=== PATIENT | female | born 1995 | race Caucasian/White ===

== ENCOUNTER → 2025-07-03 | Outpatient (CLI) | payer OTHER, SELFPAY ==
[2025-07-03 08:54] LABS: Glucose GTT-Gestation. Fasting 81 mg/dL (<105)
[2025-07-03 12:19] LABS: Glucose GTT-Gestational 2 Hr 140 mg/dL (<165)
[2025-07-03 12:39] LABS: Glucose GTT-Gestational 1 Hr 151 mg/dL (<190)
[2025-07-03 13:18] LABS: Glucose GTT-Gestational 3 Hr 100 L (<145)
== END | disposition home or self-care (01) ==
LOC: LAB 08:11
PROVIDERS: Referring Provider Advanced Practice Midwife; Visit Provider Advanced Practice Midwife
DX: Z13.1 Encounter for screening for diabetes mellitus (principal)
CPT/HCPCS: 36415; 82951; 82952

== ENCOUNTER → 2025-07-10 | Outpatient (CLI) | payer OTHER, SELFPAY ==
[2025-07-10 17:02] LABS: ROM Internal Control Test YES-OK TO RESULT pt. (Internal QC); ROM Patient Test Negative (Negative)
[2025-07-10 17:03] LABS: Record Kit Lot#, ROM+ K3358
--- OUTSIDE RECORDS SUMMARY | 2025-07-10 18:33 | XMS RPT_ITS | CCD ---
Author Organization [facility] Care Team Providers Care Logistics System Engineer Name Role Phone CRISTO MELARA ROMÁN Candi Primary Care Physician [phone] LOPEZ CARDOZON-CNRolo, BELKYS Rodriguez Attending Ashley vailable CRISTO DO, ROMÁN W Primary Care Unavailable CRISTO DO, ROMÁN W Primary Care Unavailable AGARWAL RURAL ELECTRIFICATION ENGINEER-CNM, ANA Rodriguez Attending Unavai lablizzy ESCALANTE RURAL ELECTRIFICATION ENGINEER-CNM, BELKYS Rodriguez Attending Ashley vailable CRISTO DO, ROMÁN W Primary Care Unavailable CRISTO DO, ROMÁN W Primary Care Unavailable AGARWAL RURAL ELECTRIFICATION ENGINEER-CNM, ANA Rodriguez Attending Unavai lable CRISTO DO, ROMÁN W Primary Care Unavailable AGARWAL RURAL ELECTRIFICATION ENGINEER-CNM, ANA Rodriguez Attending Unavai lable CRISTO DO, ROMÁN W Primary Care Unavailable AGARWAL RURAL ELECTRIFICATION ENGINEER-CNM, ANA Rodriguez Attending Unavai lable CRISTO DO, ROMÁN W Primary Care Unavailable AGARWAL RURAL ELECTRIFICATION ENGINEER-CNM, ANA Rodriguez Attending Unavai lable CRISTO DO, ROMÁN W Primary Care Unavailable AGARWAL RURAL ELECTRIFICATION ENGINEER-CNM, ANA Rodriguez Attending Unavai lable LOPEZ RURAL ELECTRIFICATION ENGINEER-CNM, BELKYS Rodriguez Attending Ashley vailable CRISTO DO, ROMÁN W Primary Care Unavailable CRISTO DO, ROMÁN W Primary Care Unavailable AGARWAL RURAL ELECTRIFICATION ENGINEER-CNM, ANA Rodriguez Attending JOHN Herrera DO Admitting Unavailab JOHN Timmons DO Attending Unavailab le CRISTO DO, ROMÁN W Primary Care Unavailable ALETHEA LEYVA Attending Unavailable ALETHEA LEYVA Referring Unavailable CristoRomán rose DO Primary Care Provider Unavailable Primary Care Provider Unavailmeet LEMONS DO ROMÁN Candi Primary Care Physician CRISTO DO, ROMÁN W Primary Care Unavailable [facility], PHYSICIAN Referring Unavailable RANDY MELARA, DR LUIS EDUARDO Machado Attending Unavailable ANY RURAL ELECTRIFICATION ENGINEER-CNM, ANA Rodriguez Attending Unavai travis CRISTO DO, ROMÁN W Primary Care Unavailable LOPEZ RURAL ELECTRIFICATION ENGINEER-VILMA, BELKYS Rodriguez Attending Ashley vailable CRISTO DO, ROMÁN W Primary Care Unavailable LOPEZ RURAL ELECTRIFICATION ENGINEER-CNM, BELKYS Rodriguez Attending Ashley vailable CRISTO DO, ROMÁN W Primary Care Unavailable CRISTO DO, ROMÁN W Primary Care Unavailable ESCALANTE RURAL ELECTRIFICATION ENGINEER-CNM, BELKYS Rodriguez Attending Ashley vailable CRISTO DO, ROMÁN W Primary Care Unavailable LOPEZ CARDOZON-CNM, BELKYS Rodriguez Attending Ashley vailable Chase ESPARZA, Angely Attending Physician Chase ESPARZA, Angely Referring Provider [phone] Care Physician, No Primary Primary Care Olga n Unavailable Angely Stone Attending Unavailable Care Physician, No Primary Primary Care Unava ilable Raiza Carl Attending Unavailabl e Angely Stone Referring Unavailable Angely Stone Attending Unavailable Care Physician, No Primary Primary Care Unava ilable Medications Current Medications Medication Drug Class(es) Dates Sig (Normalized) Sig (Original) acetaminophen 325 mg oral capsule (5 sources) Start: 04-29-2023 Tylenol 325 mg oral capsule Dose : 650 mg =, Oral, q6h, PRN Pain, scale 1-3, 0 Refill(s) Start Date: 04/29/23 Status: Ordered Repeat number: 1 ascorbic acid 500 mg oral capsule (4 sources) Vitamin C Start: 06-22-2025 Start: 04-29-2025 Vitamin C qDay , 0 Refill(s) Start Date: 04/29/25 Status: Ordered Medication Dispense Status: Completed Total Allowed Fills: 1 Fills Dispensed: 0 Start: 04-29-2025 Vitamin C qDay , 0 Refill(s) Start Date: 04/29/25 Status: Ordered Repeat number: 1 aspirin 81 mg oral tablet (2 sources) Platelet Aggregation Inhibitor, Nonsteroidal Anti-inflammatory Drug Start: 06-22-2025 take 1 tablet by mouth once daily Calcium Gluconate 50 mg calcium capsule (2 sources) Start: 06-22-2025 docusate sodium 100 mg oral capsule (5 sources) Start: 04-29-2023 Colace 100 mg oral capsule Dose : 100 mg = 1 cap(s), Oral, BID, PRN Constipation, 0 Refill(s) Start Date: 04/29/23 Status: Ordered Repeat number: 1 ibuprofen 600 mg oral tablet (5 sources) Nonsteroidal Anti-inflammatory Drug Start: 04-29-2023 Motrin Dose : 600 mg = 1 tab(s), Oral, q6h, PRN uterine cramping, 0 Refill(s) Start Date: 04/29/23 Status: Ordered Repeat number: 1 Magnesium (2 sources) Start: 06-22-2025 take 1 tablet by mouth once daily magnesium citrate 85 MG Chewable Tablet (2 sources) Start: 04-29-2025 magnesium (as citrate) 85 mg oral tablet, chewable Dose : 170 mg = 2 tab(s), Oral, qDay, # 60 tab(s), 0 Refill(s) Start Date: 04/29/25 Status: Ordered Medication Dispense Status: Completed Quantity: 60.0 Unit: tab(s) Total Allowed Fills: 1 Fills Dispensed: 0 Start: 04-29-2025 magnesium (as citrate) 85 mg oral tablet, chewable Dose : 170 mg = 2 tab(s), Oral, qDay, # 60 tab(s), 0 Refill(s) Start Date: 04/29/25 Status: Ordered Quantity: 60.0 Unit: tab(s) Repeat number: 1 Mv-Mins 69-Rhgy-Jaddz No.1-Dha (Pnv-[place]) 28-1-300 mg capsule (2 sources) Start: 06-22-2025 One A Day Adult Triple Immune Support oral tablet (2 sources) Start: 04-29-2025 take 1 tablet by mouth once daily One A Day Adult Triple Immune Support oral tablet Oral, qDay, 0 Refill(s) Start Date: 04/29/25 Status: Ordered Medication Dispense Status: Completed Total Allowed Fills: 1 Fills Dispensed: 0 Start: 04-29-2025 take 1 tablet by cliff th once daily One A Day Adult Triple Immune Support oral tablet Oral, qDay, 0 Refill(s) Start Date: 04/29/25 Status: Ordered Repeat number: 1 Multivitamins (7 sources) Start: 04-27-2023 take 1 tablet by mouth once daily Multivitamins Dose = 1 tab(s), Oral, qDay, 0 Refill(s) Start Date: 04/27/23 Status: Ordered Medication Dispense Status: Completed Total Allowed Fills: 1 Fills Dispensed: 0 Start: 04-27-2023 take 1 tablet by cliff th once daily Multivitamins Dose = 1 tab(s), Oral, qDay, 0 Refill(s) Start Date: 04/27/23 Status: Ordered Repeat number: 1 Start: 04-27-2023 take 1 tablet by cliff th once daily Multivitamins Dose = 1 tab(s), Oral, qDay, 0 Refill(s) Start Date: 04/27/23 Status: Ordered vitamin e 90 mg oral capsule (9 sources) Start: 04-27-2023 take 1 capsule by mouth once d aily Start: 04-27-2023 vitamin E 90 m g oral capsule Dose : 90 mg = 1 cap(s), Oral, qDay, 0 Refill(s) Start Date: 04/27/23 Status: Ordered Problems Active Problems Problem Classification Problem Date Documented Date Episodic/Chronic Diabetes or abnormal glucose tolerance complicating ; childbirth; or the puerperium (2 sources) Abnormal glucose level; Translations: [Abnormal glucose complicating ] 07-03-2025 Episodic Comment on above: normal 3hr Liveborn (1 source) Born by normal vaginal delivery; Translations: [Single liveborn , delivered vaginally] Onset: 04-28-2023 Episodic OB-related trauma to perineum and vulva (1 source) Second degree perineal tear during delivery - delivered; Translations: [Second degree perineal laceration during delivery] Onset: 04-28-2023 Episodic Other complications of ; puerperium affecting management of mother (1 source) Obstetrical injury to pelvic organ; Translations: [Other obstetric injury to pelvic organs] Onset: 04-28-2023 Episodic Other complications of (4 sources) Disease caused by 2019-nCoV; Translations: [Other viral diseases complicating , unspecified trimester] 06-22-2025 Episodic Comment on above: 06/12/25, ASA 81 mg da kev Other complications of (4 sources) High risk ; Translations: [Supervision of high risk , unspecified, unspecified trimester] 06-22-2025 Episodic Comment on above: , GAURANG 09/04/25, P C [place], Tegan Other complications of (4 sources) RhD negative; Translations: [Other specified related conditions, unspecified trimester] 06-22-2025 Episodic Comment on above: is A+, Had R hogam @ 24wks due to fall Other complications of (1 source) Supervision of high risk , unspecified, unspecified trimester; Translations: [Supervision of high risk , unspecified, unspecified trimester] Onset: 06-27-2025 Episodic Other complications of (1 source) Other specified related conditions, unspecified trimester; Translations: [Other specified related conditions, unspecified trimester] Onset: 06-27-2025 Episodic Other complications of (1 source) Other viral diseases complicating , unspecified trimester; Translations: [Other viral diseases complicating , unspecified trimester] Onset: 06-27-2025 Episodic Other injuries and conditions due to external causes (1 source) Unspecified injury of left foot, initial encounter; Translations: [Toe injury, left, initial encounter] Onset: 04-10-2024 Episodic Other injuries and conditions due to external causes (2 sources) Injury of toe of left foot; Translations: [Unspecified injury of left foot, initial encounter] 04-10-2024 Episodic Other and delivery including normal (8 sources) Delivery normal; Translations: [Encounter for full-term uncomplicated delivery] Onset: 07-13-2022 Episodic Comment on above: declined NIPT & [place] ier, JAMES to [facility] @ 30wks Other screening for suspected conditions (not mental disorders or infectious disease) (7 sources) Diabetic monitoring status; Translations: [Encounter for screening for diabetes mellitus] Onset: 04-01-2023 Episodic Residual codes; unclassified (1 source) 41 weeks gestation of ; Translations: [41 weeks gestation of ] Onset: 04-28-2023 Episodic Residual codes; unclassified (4 sources) Family history of breast cancer; Translations: [Family history of malignant neoplasm of breast] 06-22-2025 Episodic Comment on above: Maternal grandmother , Paternal Aunt Residual codes; unclassified (1 source) 30 weeks gestation of ; Translations: [30 weeks gestation of ] Onset: 06-27-2025 Episodic Residual codes; unclassified (1 source) Family history of malignant neoplasm of breast; Translations: [Family history of malignant neoplasm of breast] Onset: 06-27-2025 Episodic Residual codes; unclassified (1 source) Unspecified blood type, Rh negative; Translations: [Unspecified blood type, Rh negative] Onset: 06-27-2025 Episodic Unclassified (7 sources) Streptococcus agalactiae (organism) 04-26-2023 Viral infection (1 source) COVID-19; Translations: [COVID-19] Onset: 06-27-2025 Past or Other Problems Problem Classification Problem Date Documented Date Episodic/Chronic Genitourinary symptoms and ill-defined conditions (4 sources) Frequency of micturition; Translations: [Frequency of micturition] Onset: 10-22-2022 Episodic Immunizations and screening for infectious disease (11 sources) Rubella non-immune; Translations: [Encounter for screening for infections with a predominantly sexual mode of transmission] Onset: 10-22-2022 04-26-2023 Episodic Results Test Name Value Interpretation Reference Range Facility Gestational GTT 3HR 100gon 0 07-03-2025 GEST GTT 100gm Normal [facility] Comment on above: Order Comment: Y Result Comment: FAST ING 81 Col: 07/03/25 0813 GLUCOSE TOLERANCE TEST FOR Reference Interval GESTATIONAL DIABETES Fasting <105 mg/dL 1 hour <190 mg/dl 2 hour <165 mg/dl 3 hour <145 mg/dl 1 HR GLU 151 Col: 07/03/25 0959 2 HR GLU 140 Col: 07/03/25 1100 3 HR GLU 100 Col: 07/03/25 1156 Performed By: #### L [id number] #### [facility] [address] [place], [address] Quantitative serum or plasma 3 hour gestational glucose tolerance panelOrdered By: Angely Stone on 07-03-2025 Glucose tolerance 3 hours gestational panel See comment [facility] Comment on above: FASTING 81 Col: 06/06 06/29 0813GLUCOSE TOLERANCE TEST FOR Reference Interval GESTATIONAL DIABETES Fasting <105 mg/dL 1 hour <190 mg/dl 2 hour <165 mg/dl 3 hour <145 mg/dl 1 HR GLU 151 Col: 07/03/25 0959 2 HR GLU 140 Col: 07/03/25 1100 3 HR GLU 100 Col: 07/03/25 1156 Laboratory - Chemistry and C hemistry - challengeOrdered By: Angely Stone on 06-27-2025 Glucose Ql (U) Negative [facility] - UrinalysisOrder ed By: Angely Stone on 06-27-2025 Protein Ql (U) Negative [facility] Draw String Knotter Office Visit Reporton 06-27-2025 Draw String Knotter Office Visit Report [facility] [address], [address] [place] [address] OFFICE VISIT Date of Service: 06/27/25 MR#: [id number] Acct: [id number] Name: EVELYN MADDOX Rep #: [id number] : 1995 Provider: VILMA Ventura ams Age/Sex: 29/F [place] [facility] [place] S[place] Intake Vital Signs 06/27/25 11:41 Height 5 ft 4 in Weight: 176 lb 4 oz BMI 30.2 BP 127/82 H Intake Visit Reasons: *NEW* NOB JAMES GAURANG 09/04 30wk2d Chief Complaint: New OB Director Imaging Required: No Is patient in pain?: No Allergies No Known Allergies Allergy (Unverified 06/27/25 11:39) Medications ???Medication ???Instructions ???Recorded ???Confirmed ???Type ascorbic acid (vitamin C) 500 mg mg PO 06/22/25 06/27/25 History capsule aspirin 81 mg tablet 81 mg PO QDAY 06/22/25 06/27/25 Hi story calcium gluconate 50 mg calcium mg PO 06/22/25 06/27/25 History capsule magnesium 250 mg tablet 250 mg PO QDAY 06/22/25 06/27/25 H istory multivit-min no.71-iron fum 28 cap PO 06/22/25 06/27/25 History mg-folate no.1 1 mg-dha 300 mg capsule (PNV-[place]) vitamin E (dl, acetate) 90 mg (200 90 mg PO QDAY 06/22/25 06/27/25 History unit) capsule Last Menstrual Period: 11/28/24 : No Have you fallen in the past year?: No PFSH PFSH Medical History Seasonal allergies Surgical History [place] teeth extracted Family History Father Colon cancer, Onset Age: 67 Maternal Grandmother Breast cancer, Onset Age: 90 Grandfather Colon cancer, Onset Age: 57 Paternal Uncle Cancer, Onset Age: 55 lung, liver- Paternal Uncle Cancer, Onset Age: 64 Prostate-Paternal Uncle Cancer, Onset Age: 72 lymphoma Paternal Aunt Breast cancer, Onset Age: 42 Paternal Mother Heart disease electrical issues Social History adopted: Yes household members: spouse and children housing: house number of children: 1 service: No current occupational status: 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 pets and animals: No history of recent travel: Yes ([place]- [place]) out of country: Yes sexually active: Yes Smoking Status: Never smoker alcohol intake: current alcohol intake frequency: holidays/special occasions only details: Not while substance use type: does not use well-balanced diet: about half the time caffeine: Yes Type: coffee Number of servings: 2 eating out: 1-3 times/week during the past year weight has: decreased > 10 lbs what type of physical activity do you participate in: none luis/sabianist: Sikhism seatbelt use: always do you feel safe at home: Yes additional social history: Jairo Patel History 2 Elective abortions Hx Para 1 Spontaneous abortions Hx # Term Pregnancies Ectopic pregnancies Hx # Pregnancies Multiple births # of living children 1 Past Pregnancies Del. Date Name GA/Weeks Outcome Route Bth Weight Infant Gen Labor Lgth Anesthesia Del Locatn Provider FOB 04/28/23 [place] 41 live - full term 7#7oz Male epidural Aul tman Claudio Escalante Tegan Delivery Date: 04/28/23 Last Updated by: Pia Mora IOL, post dates- baby had knot in cord HPI *NEW* NOB JAMES GAURANG 09/04 30wk2d Details: EVELNY MADDOX is a 29 year old who presents for New OB visit. OB Visit GAURANG Calculator Estimated Delivery Date Method Current WG Current Estimate 09/04/25 LMP (Certain) 30w 1d Comments: HIV: Urine Culture: Sequential Screen: NIPT Screen: Estimated Due Date: 09/04/25 Expected Delivery Route/Plan Labor Preferences- CB/BF classes: [] labor support person: [] labor intervention preferences: [] pain management options preferred: [] cut cord/dad catch: [] : [] PP control planned: [] discussed possible routes of delivery and associated risks: [] special requests: [] Specific Issue/Plans Covid status: [] Flu vaccine: [] Tdap vaccine: [] Rhogam: [] LARC form signed: [] Problem list reviewed and updated with the most current plan of care details and appropriate orders placed. Relevant counseling for the gestational age provided. Continue routine care and follow up unless otherwise noted in visit notes/problem list details Initial Weight: Not Recorded Date -???-???-???-???-???-?? ?-???-???-???-???-???-? ??- EGA Weight BP Urine Prot -???-???-???-???-???-?? ?-???-???-???-???-???-? ??- Glucose FHR FuHt Pres Dilation -???-???-???-???-???-?? ?-???-???-???-???-???-? ??- Effaced St Visit Note 06/27/25 -???-???-???-???-???-?? ?-???-???-???-???-???-? ??- 30 (more content not included)... Normal [facility] RPRon 06-21-2025 Reagin Ab RPR Ql (S) Non-Reactive Normal Non-Reactive [facility] Comment on above: Result Comment: The RPR test is a non-treponemal assay useful as an aid in the diagnosis of primary and secondary syphilis. It converts to positive generally within 2 weeks after the appearance of a lesion. This test is also useful for monitoring response to antibiotic therapy. False positive RPR tests may occur in 1) patients with underlying autoimmune disorders, 2) elderly patients, 3) , and 4) other conditions with abnormal serum globulins. Performed By: #### A DIFF, ANEU, CBC, GLU1P #### [place] [address] #### RPR #### [address] [address] .Auto Diffon 06-20-2025 Basophil, Absolute 0.0 10 3/mcL Normal 0.0-0.3 [facility] Comment on above: Performed By: #### A DIFF, ANEU, CBC, GLU1P #### [place] [address] #### RPR #### [address] [address] Basophils/100 WBC (Bld) 0.3 % Normal 0.0-2.5 [facility] Comment on above: Performed By: #### A DIFF, ANEU, CBC, GLU1P #### [place] [address] #### RPR #### [address] [address] Eosinophil, Absolute 0.1 10 3/mcL Normal 0.0-0.7 [facility] Comment on above: Performed By: #### A DIFF, ANEU, CBC, GLU1P #### [place] [address] #### RPR #### [address] [address] Eosinophils/100 WBC (Bld) 0.7 % Normal 0.0-6.0 [facility] Comment on above: Performed By: #### A DIFF, ANEU, CBC, GLU1P #### [place] [address] #### RPR #### [address] [address] Lymphocyte, Absolute 1.7 10 3/mcL Normal 0.9-4.3 [facility] Comment on above: Performed By: #### A DIFF, ANEU, CBC, GLU1P #### [address] [address] #### RPR #### [address] [address] Lymphocytes/100 WBC (Bld) 21.2 % Normal 20.0-40.0 [facility] Comment on above: Performed By: #### A DIFF, ANEU, CBC, GLU1P #### [address] [address] #### RPR #### [address] [address] Monocyte, Absolute 0.3 10 3/mcL Normal 0.1-1.4 [facility] Comment on above: Performed By: #### A DIFF, ANEU, CBC, GLU1P #### [place] [address] #### RPR #### [address] [address] Monocytes/100 WBC (Bld) 4.0 % Normal 2.0-13.0 [facility] Comment on above: Performed By: #### A DIFF, ANEU, CBC, GLU1P #### [place] [address] #### RPR #### [address] [address] Neutrophils/100 WBC (Bld) 73.8 % Normal 50.0-75.0 [facility] Comment on above: Performed By: #### A DIFF, ANEU, CBC, GLU1P #### [address] [address] #### RPR #### [address] [address] .NEUABSon 06-20-2025 Neutrophil, Absolute 6.0 10 3/mcL Normal 2.3-8.1 [facility] Comment on above: Performed By: #### A DIFF, ANEU, CBC, GLU1P #### [place] [id number] #### RPR #### [address] [address] CBCon 06-20-2025 Erythrocyte distribution width (RBC) [Ratio] 14.2 % Normal 11.5-15.5 [facility] Comment on above: Performed By: #### A DIFF, ANEU, CBC, GLU1P #### [place] [address] #### RPR #### [place] [address] Hematocrit (Bld) [Volume fraction] 33.1 % Low 34.0-46.0 [facility] Comment on above: Performed By: #### A DIFF, ANEU, CBC, GLU1P #### [place] [address] #### RPR #### [place] [address] Hgb 11.9 G/dL Low 12.0-16.0 [facility] Comment on above: Performed By: #### A DIFF, ANEU, CBC, GLU1P #### [place] [address] #### RPR #### [place] [address] MCH (RBC) [Entitic mass] 33.4 pg High 27.0-33.0 [facility] Comment on above: Performed By: #### A DIFF, ANEU, CBC, GLU1P #### [place] [address] #### RPR #### [place] [address] MCHC 36.0 G/dL Normal 32.0-36.0 [facility] Comment on above: Performed By: #### A DIFF, ANEU, CBC, GLU1P #### [place] [address] #### RPR #### [place] [address] MCV (RBC) [Entitic vol] 92.8 fL Normal 80.0-99.0 [facility] Comment on above: Performed By: #### A DIFF, ANEU, CBC, GLU1P #### [address] [address] #### RPR #### [address] [address] Platelet 335 10 3/mcL Normal 150-450 [facility] Comment on above: Performed By: #### A DIFF, ANEU, CBC, GLU1P #### [address] [address] #### RPR #### [place] [address] Platelet mean volume (Bld) [Entitic vol] 7.3 fL Normal 6.6-10.5 [facility] Comment on above: Performed By: #### A DIFF, ANEU, CBC, GLU1P #### [place] [address] #### RPR #### [place] [address] RBC 3.56 10 6/mcL Low 4.10-5.30 [facility] Comment on above: Performed By: #### A DIFF, ANEU, CBC, GLU1P #### [address] [address] #### RPR #### [place] [address] WBC 8.1 10 3/mcL Normal 4.5-10.8 [facility] Comment on above: Performed By: #### A DIFF, ANEU, CBC, GLU1P #### [address] [address] #### RPR #### [place] [address] [id number] 06-20-2025 Glucose [Mass/Vol] 150 mg/dL High 70-140 [facility] Comment on above: Performed By: #### A DIFF, ANEU, CBC, GLU1P #### [address] [place], [place] [address] #### RPR #### [address] [address] LABORATORYOrdered By: SYSTEM SYSTEM on 06-20-2025 Basophils (Bld) [#/Vol] 0.0 103/mcL Normal 0.0 - 0.3 10^3/mcL AO Workflow SS Basophils/100 WBC (Bld) 0.3 % Normal 0.0 - 2.5 % AO Workflow SS Eosinophil, Absolute 0.1 103/mcL Normal 0.0 - 0 .7 10^3/mcL AO Workflow SS Eosinophils/100 WBC (Bld) 0.7 % Normal 0.0 - 6.0 % AO Workflow SS Erythrocyte distribution width (RBC) [Ratio] 14.2 % Normal 11.5 - 15.5 % AO Workflow SS Glucose [Mass/Vol] 150 mg/dL High 70 - 140 mg/dL AO ADM SS Hematocrit (Bld) [Volume fraction] 33.1 % Low 34.0 - 46.0 % AO Workflow SS Hemoglobin (Bld) [Mass/Vol] 11.9 G/dL Low 12.0 - 16.0 G/dL AO Workflow SS Lymphocytes (Bld) [#/Vol] 1.7 103/mcL Normal 0.9 - 4.3 10^3/mcL AO Workflow SS Lymphocytes/100 WBC (Bld) 21.2 % Normal 20.0 - 40.0 % AO Workflow SS MCH (RBC) [Entitic mass] 33.4 pg High 27.0 - 33.0 pg AO Workflow SS MCHC 36.0 G/dL Normal 32.0 - 36.0 G/dL AO Workflow SS MCV (RBC) [Entitic vol] 92.8 fL Normal 80.0 - 99.0 fL AO Workflow SS Monocytes (Bld) [#/Vol] 0.3 103/mcL Normal 0.1 - 1.4 10^3/mcL AO Workflow SS Monocytes/100 WBC (Bld) 4.0 % Normal 2.0 - 13.0 % AO Workflow SS Neutrophils (Bld) [#/Vol] 6.0 103/mcL Normal 2.3 - 8.1 10^3/mcL AO Workflow SS Neutrophils/100 WBC (Bld) 73.8 % Normal 50.0 - 75.0 % AO Workflow SS Platelet mean volume (Bld) [Entitic vol] 7.3 fL Normal 6.6 - 10.5 fL AO Workflow SS Platelets (Bld) [#/Vol] 335 103/mcL Normal 150 - 450 10^3/mcL AO Workflow SS RBC (Bld) [#/Vol] 3.56 106/mcL Low 4.10 - 5.3 0 10^6/mcL AO Workflow SS WBC (Bld) [#/Vol] 8.1 103/mcL Normal 4.5 - 10.8 10^3/mcL AO Workflow SS ABO/Rh (Gel)on 04-29-2025 ABO/Rh Interp Negative Invalid Interpretation Code [facility] Comment on above: Performed By: #### A BSGEL, ABOGEL #### [address] [address] ABS (Gel)on 04-29-2025 ABSC Interp (Gel) Negative Normal [facility] Comment on above: Performed By: #### A BSGEL, ABOGEL #### [address] [address] FMHon 04-29-[address] [facility] Comment on above: Performed By: #### F #### [place] [address] LABORATORYOrdered By: Ursual navarro on 04-29-2025 ABO and Rh group Nom (Bld) Blood group A Rh(D) negative Invalid Interpretation Code BB Auto SS Blood group antibody screen Ql Negative ABSC (04/29/25 3:47 PM) Normal BB Auto SS cell screen Dari test Ql (Bld) Negative (04/29/25 3:47 PM) Normal BB Manual SS VARISon 03-17-[address] Positive Normal [facility] Comment on above: Result Comment: INTE RPRETATION OF VARICELLA IMMUNE STATUS IgG BY EIA: Negative: No detectable VZV IgG antibody. Positive: VZV IgG antibody Detected. If clinically indicated, order Varicella IgM to rule out recent infection. Equivocal: Equivocal for antibodies to VZV. Suggest repeat testing in 10-14 days. Performed By: #### A DIFF, ANEU, CBC, GLU1P #### [facility] [address] [place] [id number] #### RPR #### [address] [address] CTPCRon 03-16-[address] See [address] Interp N Normal See CT Interp N [facility] Comment on above: Result Comment: Clinical Interpretation: C. trachomatis DNA not detected. Specimen is presumptive negative for C. trachomatis. A negative result does not preclude C. trachomatis infection because results depend on adequate specimen collection, absence of inhibitors, and sufficient DNA to be detected. Performed By: #### N GPCR1, CTPCR #### [address] [address] C.trachomatis PCR Negative Normal Negative [facility] Comment on above: Result Comment: Mole cular (PCR) assay performed on the Bhupinder Eda 4800 system. Performed By: #### N GPCR1, CTPCR #### [place] [id number] Chlam Source Vaginal Normal [facility] Comment on above: Performed By: #### N GPCR1, CTPCR #### [address] [address] [id number] 03-16-2025 GC PCR Source Vaginal Normal [facility] Comment on above: Performed By: #### N GPCR1, CTPCR #### [address] [address] N. gonorrhoeae (PCR) Negative Normal Negative [facility] Comment on above: Result Comment: Mole cular (PCR) assay performed on the Bhupinder Eda 4800 System. Performed By: #### N GPCR1, CTPCR #### [address] [address] N. gonorrhoeae Interp See NG Interp N Normal See NG Interp N [facility] Comment on above: Result Comment: Clinical Interpretation: N. gonorrhoeae DNA not detected. Specimen is presumptive negative for N. gonorrhoeae. A negative result does not preclude Neisseria gonorrhoeae infection because results depend on adequate specimen collection, absence of inhibitors, and sufficient DNA to be detected. Performed By: #### N GPCR1, CTPCR #### [address] [address] RPRon 03-16-2025 Reagin Ab RPR Ql (S) Non-Reactive Normal Non-Reactive [facility] Comment on above: Result Comment: The RPR test is a non-treponemal assay useful as an aid in the diagnosis of primary and secondary syphilis. It converts to positive generally within 2 weeks after the appearance of a lesion. This test is also useful for monitoring response to antibiotic therapy. A positive RPR screening test will be followed by the FTA ABS test. False positive RPR tests may occur in 1) patients with underlying autoimmune disorders, 2) elderly patients, 3) , and 4) other conditions with abnormal serum globulins. Performed By: #### A DIFF, ANEU, CBC, GLU1P #### [address] [address] #### RPR #### [place] [address] RUBISon 03-16-[address] Negative Normal Positive [facility] Comment on above: Result Comment: This immune status assay detects IgM and/or IgG antibody to Rubella. Interpret results in conjunction with clinical history. POS: Antibody detected; exposure at undetermined recent or distant time. If clinically indicated, order Rubella IGM to rule out recent infection. NEG: No antibody detected. Performed By: #### A DIFF, ANEU, CBC, GLU1P #### [address] [address] #### RPR #### [address] [address] .Auto Diffon 03-15-2025 Basophil, Absolute 0.0 10 3/mcL Normal 0.0-0.3 [facility] Comment on above: Performed By: #### R ME, RUBIS, VARIS, HBSAG #### [place] [address] #### ABSGEL, ABOGEL, ADIFF, HIVRP, TSH, CBC, ANEU #### [address] [address] Basophils/100 WBC (Bld) 0.3 % Normal 0.0-2.5 [facility] Comment on above: Performed By: #### R ME, RUBIS, VARIS, HBSAG #### [place] [address] #### ABSGEL, ABOGEL, ADIFF, HIVRP, TSH, CBC, ANEU #### [address] [address] Eosinophil, Absolute 0.1 10 3/mcL Normal 0.0-0.7 [facility] Comment on above: Performed By: #### R ME, RUBIS, VARIS, HBSAG #### [place] [address] #### ABSGEL, ABOGEL, ADIFF, HIVRP, TSH, CBC, ANEU #### [address] [address] Eosinophils/100 WBC (Bld) 0.7 % Normal 0.0-6.0 [facility] Comment on above: Performed By: #### R ME, RUBIS, VARIS, HBSAG #### [place] [address] #### ABSGEL, ABOGEL, ADIFF, HIVRP, TSH, CBC, ANEU #### [address] [address] Lymphocyte, Absolute 2.0 10 3/mcL Normal 0.9-4.3 [facility] Comment on above: Performed By: #### R ME, RUBIS, VARIS, HBSAG #### [place] [address] #### ABSGEL, ABOGEL, ADIFF, HIVRP, TSH, CBC, ANEU #### [address] [address] Lymphocytes/100 WBC (Bld) 26.0 % Normal 20.0-40.0 [facility] Comment on above: Performed By: #### R ME, RUBIS, VARIS, HBSAG #### [place] [address] #### ABSGEL, ABOGEL, ADIFF, HIVRP, TSH, CBC, ANEU #### [address] [address] Monocyte, Absolute 0.5 10 3/mcL Normal 0.1-1.4 [facility] Comment on above: Performed By: #### R ME, RUBIS, VARIS, HBSAG #### [place] [address] #### ABSGEL, ABOGEL, ADIFF, HIVRP, TSH, CBC, ANEU #### [address] [address] Monocytes/100 WBC (Bld) 6.0 % Normal 2.0-13.0 [facility] Comment on above: Performed By: #### R ME, RUBIS, VARIS, HBSAG #### [place] [address] #### ABSGEL, ABOGEL, ADIFF, HIVRP, TSH, CBC, ANEU #### [address] [address] Neutrophils/100 WBC (Bld) 67.0 % Normal 50.0-75.0 [facility] Comment on above: Performed By: #### R ME, RUBIS, VARIS, HBSAG #### [place] [address] #### ABSGEL, ABOGEL, ADIFF, HIVRP, TSH, CBC, ANEU #### [address] [address] .NEUABSon 03-15-2025 Neutrophil, Absolute 5.2 10 3/mcL Normal 2.3-8.1 [facility] Comment on above: Performed By: #### A DIFF, ANEU, CBC, GLU1P #### [address] [address] #### RPR #### [place] [address] ABO/Rh (Gel)on 03-15-2025 ABO/Rh Interp Negative Invalid Interpretation Code [facility] Comment on above: Performed By: #### A DIFF, ANEU, CBC, GLU1P #### [place] [address] #### RPR #### [address] [address] ABS (Gel)on 03-15-2025 ABSC Interp (Gel) Negative Normal [facility] Comment on above: Performed By: #### A DIFF, ANEU, CBC, GLU1P #### [address] [address] #### RPR #### [place] [address] CBCon 03-15-2025 Erythrocyte distribution width (RBC) [Ratio] 13.4 % Normal 11.5-15.5 [facility] Comment on above: Performed By: #### R ME, RUBIS, VARIS, HBSAG #### [place] [address] #### ABSGEL, ABOGEL, ADIFF, HIVRP, TSH, CBC, ANEU #### [address] [address] Hematocrit (Bld) [Volume fraction] 37.7 % Normal 34.0-46.0 [facility] Comment on above: Performed By: #### R ME, RUBIS, VARIS, HBSAG #### [place] [address] #### ABSGEL, ABOGEL, ADIFF, HIVRP, TSH, CBC, ANEU #### [address] [address] Hgb 13.1 G/dL Normal 12.0-16.0 [facility] Comment on above: Performed By: #### R ME, RUBIS, VARIS, HBSAG #### [place] [address] #### ABSGEL, ABOGEL, ADIFF, HIVRP, TSH, CBC, ANEU #### [address] [address] MCH (RBC) [Entitic mass] 31.9 pg Normal 27.0-33.0 [facility] Comment on above: Performed By: #### R ME, RUBIS, VARIS, HBSAG #### [place] [address] #### ABSGEL, ABOGEL, ADIFF, HIVRP, TSH, CBC, ANEU #### [address] [address] MCHC 34.7 G/dL Normal 32.0-36.0 [facility] Comment on above: Performed By: #### R ME, RUBIS, VARIS, HBSAG #### [place] [address] #### ABSGEL, ABOGEL, ADIFF, HIVRP, TSH, CBC, ANEU #### [address] [address] MCV (RBC) [Entitic vol] 91.8 fL Normal 80.0-99.0 [facility] Comment on above: Performed By: #### R ME, RUBIS, VARIS, HBSAG #### [place] [address] #### ABSGEL, ABOGEL, ADIFF, HIVRP, TSH, CBC, ANEU #### [address] [address] Platelet 324 10 3/mcL Normal 150-450 [facility] Comment on above: Performed By: #### R ME, RUBIS, VARIS, HBSAG #### [place] [address] #### ABSGEL, ABOGEL, ADIFF, HIVRP, TSH, CBC, ANEU #### [address] [address] Platelet mean volume (Bld) [Entitic vol] 7.5 fL Normal 6.6-10.5 [facility] Comment on above: Performed By: #### R ME, RUBIS, VARIS, HBSAG #### [place] [address] #### ABSGEL, ABOGEL, ADIFF, HIVRP, TSH, CBC, ANEU #### [address] [address] RBC 4.11 10 6/mcL Normal 4.10-5.30 [facility] Comment on above: Performed By: #### R ME, RUBIS, VARIS, HBSAG #### [place] [address] #### ABSGEL, ABOGEL, ADIFF, HIVRP, TSH, CBC, ANEU #### [address] [address] WBC 7.7 10 3/mcL Normal 4.5-10.8 [facility] Comment on above: Performed By: #### R ME, RUBIS, VARIS, HBSAG #### [place] [address] #### ABSGEL, ABOGEL, ADIFF, HIVRP, TSH, CBC, ANEU #### [place] [address] HBSAGon 03-15-2025 Hep B Surf Ag Non-Reactive Normal Non-Reactive [facility] Comment on above: Performed By: #### A DIFF, ANEU, CBC, GLU1P #### [place] [address] #### RPR #### [place] [address] HIVRPon 03-15-2025 HIV p24 Antigen Non-Reactive Normal Non-Reactive [facility] Comment on above: Result Comment: Dete ction of p24 may be inhibited by biotin in the sample, causing false negative results in acute infection. Therefore do not test samples from patients who are taking biotin. Performed By: #### A DIFF, ANEU, CBC, GLU1P #### [address] [address] #### RPR #### [place] [address] HIV P24 Int Non-Reactive Invalid Interpretation Code [facility] Comment on above: Performed By: #### A DIFF, ANEU, CBC, GLU1P #### [address] [address] #### RPR #### [place] [address] Rapid HIV 1/2 Antibody Non-Reactive Normal Non-Reactive [facility] Comment on above: Performed By: #### A DIFF, ANEU, CBC, GLU1P #### [address] [address] #### RPR #### [facility] [address] [place] [address] RHIV 1/2 Ab Int Non-Reactive Invalid Interpretation Code [facility] Comment on above: Performed By: #### A DIFF, ANEU, CBC, GLU1P #### [address] [address] #### RPR #### [facility] [address] [place] [address] LABORATORYOrdered By: Krysta Valdovinos on 03-15-2025 C. trachomatis DNA INNA+probe Ql (Unsp spec) See CT Interp N 3 (03/15/25 3:43 PM) Normal See CT Interp N [facility] Comment on above: Result Comment: Clinical Interpretation: C. trachomatis DNA not detected. Specimen is presumptive negative for C. trachomatis. A negative result does not preclude C. trachomatis infection because results depend on adequate specimen collection, absence of inhibitors, and sufficient DNA to be detected. C. trachomatis DNA INNA+probe Ql (Unsp spec) Negative 2 (03/15/25 3:43 PM) Normal Negative [facility] Auto Viro/Sero SS Comment on above: Interpretive Data: M olecular (PCR) assay performed on the Bhupinder Eda 4800 system. N. gonorrhoeae DNA INNA+probe Ql (Unsp spec) See NG Interp N 4 (03/15/25 3:43 PM) Normal See NG Interp N [facility] Auto Viro/Sero SS Comment on above: Result Comment: Clinical Interpretation: N. gonorrhoeae DNA not detected. Specimen is presumptive negative for N. gonorrhoeae. A negative result does not preclude Neisseria gonorrhoeae infection because results depend on adequate specimen collection, absence of inhibitors, and sufficient DNA to be detected. N. gonorrhoeae DNA INNA+probe Ql (Unsp spec) Negative 1 (03/15/25 3:43 PM) Normal Negative AH Auto Viro/Sero SS Comment on above: Interpretive Data: M olecular (PCR) assay performed on the Bhupinder Eda 4800 System. LABORATORYOrdered By: Estefany Sorto on 03-15-2025 ABO and Rh group Nom (Bld) Blood group A Rh(D) negative Invalid Interpretation Code AO BB Auto SS Blood group antibody screen Ql Negative ABSC (03/15/25 11:02 AM) Normal AO BB Auto SS LABORATORYOrdered By: SYSTEM SYSTEM on 03-15-2025 Basophils (Bld) [#/Vol] 0.0 103/mcL Normal 0.0 - 0.3 10^3/mcL AO Workflow SS Basophils/100 WBC (Bld) 0.3 % Normal 0.0 - 2.5 % AO Workflow SS Eosinophil, Absolute 0.1 103/mcL Normal 0.0 - 0 .7 10^3/mcL AO Workflow SS Eosinophils/100 WBC (Bld) 0.7 % Normal 0.0 - 6.0 % AO Workflow SS Erythrocyte distribution width (RBC) [Ratio] 13.4 % Normal 11.5 - 15.5 % AO Workflow SS Hematocrit (Bld) [Volume fraction] 37.7 % Normal 34.0 - 46.0 % AO Workflow SS Hemoglobin (Bld) [Mass/Vol] 13.1 G/dL Normal 12.0 - 16.0 G/dL AO Workflow SS Lymphocytes (Bld) [#/Vol] 2.0 103/mcL Normal 0.9 - 4.3 10^3/mcL AO Workflow SS Lymphocytes/100 WBC (Bld) 26.0 % Normal 20.0 - 40.0 % AO Workflow SS MCH (RBC) [Entitic mass] 31.9 pg Normal 27.0 - 33.0 pg AO Workflow SS MCHC 34.7 G/dL Normal 32.0 - 36.0 G/dL AO Workflow SS MCV (RBC) [Entitic vol] 91.8 fL Normal 80.0 - 99.0 fL AO Workflow SS Monocytes (Bld) [#/Vol] 0.5 103/mcL Normal 0.1 - 1.4 10^3/mcL AO Workflow SS Monocytes/100 WBC (Bld) 6.0 % Normal 2.0 - 13.0 % AO Workflow SS Neutrophils (Bld) [#/Vol] 5.2 103/mcL Normal 2.3 - 8.1 10^3/mcL AO Workflow SS Neutrophils/100 WBC (Bld) 67.0 % Normal 50.0 - 75.0 % AO Workflow SS Platelet mean volume (Bld) [Entitic vol] 7.5 fL Normal 6.6 - 10.5 fL AO Workflow SS Platelets (Bld) [#/Vol] 324 103/mcL Normal 150 - 450 10^3/mcL AO Workflow SS RBC (Bld) [#/Vol] 4.11 106/mcL Normal 4.10 - 5.3 0 10^6/mcL AO Workflow SS TSH Qn 2.74 m[IU]/L Normal 0.36 - 3.74 mcIU/mL AO ADM SS WBC (Bld) [#/Vol] 7.7 103/mcL Normal 4.5 - 10.8 10^3/mcL AO Workflow SS LABORATORYOrdered By: Meri Montez on 03-15-2025 HBV surface Ag IA Ql Non-Reactive (03/15/25 11:02 AM) Normal Non-Reactive AH ADM SS LABORATORYOrdered By: Taylor Maurer on 03-15-2025 HIV 1 p24 Ab Ql (S) Non-Reactive 1 (03/15/25 11:02 AM) Normal Non-Reactive AO Rapid Testing SS Comment on above: Interpretive Data: D etection of p24 may be inhibited by biotin in the sample, causing false negative results in acute infection. Therefore do not test samples from patients who are taking biotin. HIV 1 p24 Ab Ql (S) Non-Reactive Invalid Interpretation Code AO Rapid Testing SS HIV 1+2 Ab IA Ql Non-Reactive Invalid Interpretation Code AO Rapid Testing SS HIV 1+2 Ab IA.rapid Ql (Unsp spec) Non-Reactive (03/15/25 11:02 AM) Normal Non-Reactive AO Rapid Testing SS Laboratory - Specimen inform ationOrdered By: Krysta Valdovinos on 03-15-2025 Specimen source Nom (Unsp spec) Vaginal (03/15/25 3:43 PM) Normal AH Auto Viro/Sero SS No Panel Informationon 03-15 Culture Urine 10,000 - 50,000 cfu/ ml Multiple bacterial morphotypes present. Probable Contamination. Suggest recollection if clinically indicated. [facility] Work Phone: TSHon 03-15-2025 TSH Qn 2.74 m[IU]/L Normal 0.36-3.74 [facility] Comment on above: Performed By: #### A DIFF, ANEU, CBC, GLU1P #### [facility] [address] [place], [place] [address] #### RPR #### [facility] [address] [place] [id number] CNOVon 04-10-2024 CNOV Office Visit (UCUPNO ) EVELYN MADDOX ([id number]) 1995 F Date Time Provider Department 04/10/24 2:10 PM ALETHEA LEYVA During your visit today, we recorded the following information about you: Temperature Pulse Respiration Blood pressure 97.5 degrees 76/minute 16/minute 111/75 Weight Last Period 74 kg 03/27/24 Alethea Leyva APRN.DOOR TO DOOR SELLING DISTRIBUTOR 04/10/2024 3:46 PM Addendum Xray of left foot and small toe looks ok. I will call if the radiologist reads abnormal. Wash abrasion with soap and water, apply bacitracin ointment for 1-2 days. Eli tape toes for extra support. Follow up with your sterile products processor if any no improvement. ICE AREA FREQUENTLY REST/ELEVATE TYLENOL AND/OR IBUPROFEN FOR PAIN [facility] [address] [place] [address] [address] [place] [phone] [facility] D[facility] [id number] [facility] [place] [phone] Alethea Leyva APRN.DOOR TO DOOR SELLING DISTRIBUTOR 04/10/2024 3:48 PM Signed April 10, 2024 Subjective Chief Complaint: Toe Injury (Sx started today when she dropped her cell phone on her 5th digit on her left foot. Pt has pain, swelling and abrasions. No otc meds) HPI: Evelyn Maddox is a 28 year old female who presents today for left toe injury after dropping a cell phone on her left small toe and it even scraped the skin off. Now is bruising History reviewed. No pertinent past medical history. PAST SURGICAL HISTORY Procedure Laterality Date DENTAL SURGERY HX wisdom teeth History reviewed. No pertinent family history. Social History Tobacco Use Smoking status: Never Smokeless tobacco: Never Vaping Use Vaping Use: Never used Substance Use Topics Alcohol use: Yes Comment: occ ALLERGIES No Known Allergies There is no immunization history on file for this patient. Current Medications: No prescriptions on file. Review of Systems Constitutional: Negative. HENT: Negative. Eyes: Negative. Respiratory: Negative. Cardiovascular: Negative. Gastrointestinal: Negative. Genitourinary: Negative. Musculoskeletal: Left foot small toe injury with pain, bruising, swelling and abrasion Skin: Negative for itching and rash. Neurological: Negative. Objective BP 111/75 Pulse 76 Temp (Src) 97.5 (Oral) Resp 16 Wt 163 lb 2.3 oz (74.0kg) SpO2 95% LMP 03/27/2024 Physical Exam Vitals and nursing note reviewed. Constitutional: Appearance: Normal appearance. HENT: Head: Normocephalic and atraumatic. Right Ear: Tympanic membrane, ear canal and external ear normal. There is no impacted cerumen. Left Ear: Tympanic membrane, ear canal and external ear normal. There is no impacted cerumen. Nose: Nose normal. Mouth/Throat: Mouth: Mucous membranes are moist. Pharynx: Oropharynx is clear. Eyes: Extraocular Movements: Extraocular movements intact. Conjunctiva/sclera: Conjunctivae normal. Pupils: Pupils are equal, round, and reactive to light. Cardiovascular: Rate and Rhythm: Normal rate and regular rhythm. Pulses: Normal pulses. Heart sounds: Normal heart sounds. Pulmonary: Effort: Pulmonary effort is normal. Breath sounds: Normal breath sounds. Abdominal: General: Bowel sounds are normal. Palpations: Abdomen is soft. Musculoskeletal: General: Normal range of motion. Cervical back: Normal range of motion and neck supple. Feet: Feet: Left foot: Toenail Condition: Left toenails are normal. Skin: General: Skin is warm and dry. Neurological: General: No focal deficit present. Mental Status: She is alert and oriented to person, place, and time. Psychiatric: Mood and Affect: Mood normal. ASSESSMENT/PLAN: 1. Toe injury, left, initial encounter - ICD9: 959.7, ICD10: S99.922A - XR FOOT GENERAL 3V AP/LAT/OBL LEFT -eil tape 4th and 5th toes -follow up with podiatry Alethea Leyva APRN.CNP Medical Decision Making: Problems: Low: Acute, uncomplicated illness or injury Data: Unique source(s) for external note(s) reviewed: 1 Unique test result(s) reviewed: 1 Unique test(s) ordered: 1 Independent interpretation of test from other physician/QHCP Risk: Moderate: Moderate risk from testing/treatment Medical Decision Making Level: 4 - Moderate This note was partially generated using [employer] Mode voice recognition system and there may be some incorrect words, spelling's, and punctuation that were not noted in checking the note before saving. The above reflects my independent exam and review of the patient's medical record. I saw and examined the patient myself personally. Parts of the HPI, ROS, exam, impression/plan, and testing results may have been copied from the current or previous clinical notes and remain pertinent to today's visit. Current changes have been made and documented today. Other parts or data may have been deleted if not relevant for today. Plan as outlined above. Referring Provider: SELF [[id number]] Allergies As of Date: 04/10 (more content not included)... [facility] XR FOOT 3V AP/LAT/OBL LTon 0 04-10-2024 XR FOOT 3V AP/LAT/OBL LT * * *Final Report* * * DATE OF EXAM: Apr 10 2024 3:35PM UFR [id number] - XR FOOT 3V AP/LAT/OBL LT / PROCEDURE REASON: Toe injury, left, initial encounter * * * * Physician Interpretation * * * * EXAMINATION: LEFT FOOT X-RAY SERIES HISTORY: Toe injury, left, initial encounter COMPARISON: None available. TECHNIQUE: AP, lateral and oblique views. RESULT: No fracture, dislocation or destructive changes. Joint spaces and articular surfaces are preserved. Soft tissues appear within normal limits. IMPRESSION: Negative left foot. Sound Technician Supervisor: CASANDRA Transcribe Date/Time: Apr 10 2024 3:59P Dictated by : CORRINE MARRERO MD This examination was interpreted and the report reviewed and electronically signed by: CORRINE MARRERO MD on Apr 10 2024 4:00PM EST [id number] [facility] XR Foot - left AP and Latera l and obliqueon 04-10-2024 IMPRESSION: Negative left foot. Sound Technician Supervisor: CASANDRA Transcribe Date/Time: Apr 10 2024 3:59P Dictated by : CORRINE MARRERO MD This examination was interpreted and the report reviewed and electronically signed by: CORRINE MARRERO MD on Apr 10 2024 4:00PM EST [facility] * * *Final Report* * * DATE OF EXAM: Apr 10 2024 3:35PM UFR [id number] - XR FOOT 3V AP/LAT/OBL LT / PROCEDURE REASON: Toe injury, left, initial encounter * * * * Physician Interpretation * * * * EXAMINATION: LEFT FOOT X-RAY SERIES HISTORY: Toe injury, left, initial encounter COMPARISON: None available. TECHNIQUE: AP, lateral and oblique views. RESULT: No fracture, dislocation or destructive changes. Joint spaces and articular surfaces are preserved. Soft tissues appear within normal limits. [facility] Provider, Jam Ross - 04/10/2024 * * *Final Report* * * DATE OF EXAM: Apr 10 2024 3:35PM UFR [id number] - XR FOOT 3V AP/LAT/OBL LT / PROCEDURE REASON: Toe injury, left, initial encounter * * * * Physician Interpretation * * * * EXAMINATION: LEFT FOOT X-RAY SERIES HISTORY: Toe injury, left, initial encounter COMPARISON: None available. TECHNIQUE: AP, lateral and oblique views. RESULT: No fracture, dislocation or destructive changes. Joint spaces and articular surfaces are preserved. Soft tissues appear within normal limits. IMPRESSION IMPRESSION: Negative left foot. Sound Technician Supervisor: CASANDRA Transcribe Date/Time: Apr 10 2024 3:59P Dictated by : CORRINE MARRERO MD This examination was interpreted and the report reviewed and electronically signed by: CORRINE MARRERO MD on Apr 10 2024 4:00PM EST [facility] Radiology Study observation (narrative) [facility] XR Foot - left AP and Latera l and obliqueOrdered By: Ccf Provider on 04-10-2024 [facility] Driver Merchandiser Cytology Reporton 2022 Driver Merchandiser Cytology Report . Pathology Reports Accession: Collected Date/Time: Received Date/Time: Pathologist: [id number] 06/10/2023 11:06 EDT 06/10/2023 18:00 EDT Driver Merchandiser Cytology Report SPECIMEN: Specimen Description: Liquid Prep w/ HPV Specimen: Cervical Screening or Diagnostic: Screening RELEVANT HISTORY: LMP: 07/13/2022 Post : Yes SPECIMEN ADEQUACY: SATISFACTORY FOR EVALUATION Endocervical/Transforma tional zone component present INTERPRETATION/RESULTS: NEGATIVE FOR INTRAEPITHELIAL LESION OR MALIGNANCY HIGH RISK HPV TESTING: Event Code Result HPV Interp See Interp HPVN HPV Interp Text: High Risk HPV Typing: NEGATIVE HPV types 16, 18, 31, 33, 35, 39, 45, 51, 52, 56, 58, 59, 66 and 68 DNA were undetectable or below the pre-set threshold. The eda High-Risk HPV DNA Test is not intended for use as a screening device for Pap normal women under age 30 and is not intended to substitute for regular Pap screening. The eda High-Risk HPV DNA Test is designed to augment existing methods for the detection of cervical disease and should be used in conjunction with clinical information derived from other diagnostic and screening tests, physical examinations and full medical history in accordance with appropriate patient management procedures. NOTE: A negative result does not preclude the presence of HPV infection because results depend on adequate specimen collection, absence of inhibitors and sufficient DNA to be detected. As of: 06/22/23 10:38 EDT COMMENT: This Pap Test was successfully processed and evaluated with the assistance of the [employer] [facility] ThinPrep Test Imaging System. Pathology Reports Accession: Collected Date/Time: Received Date/Time: Pathologist: [id number] 06/10/2023 11:06 EDT 06/10/2023 18:00 EDT Electronically Signed by Pathology report verified by [facility] Screened by: [place] Electronically signed by Britney GALEAS (ASCP) Sign-Out Date: 06/22/2023 10:38 Performing Lab: [facility], [address] [place] [address] Pathology Dept Disclaimer The Pap test is a screening test for cervical cancer. As evidenced by published data, it is subject to both inherent false negative and false positive results. Your patient's results should be interpreted in context with pertinent clinical history including gynecological examination. Normal [facility] HPVon 06-18-2023 HPV Interp Normal See Inter HPVN [facility] ([place]) Comment on above: Order Comment: Order placed by AP_HPV_ORDER rule from [id number] Result Comment: High Risk HPV Typing: NEGATIVE HPV types 16, 18, 31, 33, 35, 39, 45, 51, 52, 56, 58, 59, 66 and 68 DNA were undetectable or below the pre-set threshold. The eda High-Risk HPV DNA Test is not intended for use as a screening device for Pap normal women under age 30 and is not intended to substitute for regular Pap screening. The eda High-Risk HPV DNA Test is designed to augment existing methods for the detection of cervical disease and should be used in conjunction with clinical information derived from other diagnostic and screening tests, physical examinations and full medical history in accordance with appropriate patient management procedures. NOTE: A negative result does not preclude the presence of HPV infection because results depend on adequate specimen collection, absence of inhibitors and sufficient DNA to be detected. See [facility] HPVN Performed By: #### A DIFF, CBC, ANEU #### [place] [address] HPV Source Cervix Normal [facility] ([place]) Comment on above: Order Comment: Order placed by AP_HPV_ORDER rule from [id number] Performed By: #### A DIFF, CBC, ANEU #### [place] [address] .Auto Diffon 04-29-2023 Basophil, Absolute 0.0 10 3/mcL Normal 0.0-0.2 [facility]) Comment on above: Performed By: #### A DIFF, CBC, ANEU #### [place] [address] Basophils/100 WBC (Bld) 0.2 % Normal 0.0-2.5 [facility] ([place]) Comment on above: Performed By: #### A DIFF, CBC, ANEU #### [place] [address] Eosinophil, Absolute 0.2 10 3/mcL Normal 0.0-0.4 [facility] ([place]) Comment on above: Performed By: #### A DIFF, CBC, ANEU #### [address] [address] Eosinophils/100 WBC (Bld) 1.2 % Normal 0.0-7.0 [facility] ([place]) Comment on above: Performed By: #### A DIFF, CBC, ANEU #### [address] [address] Lymphocyte, Absolute 2.2 10 3/mcL Normal 0.8-3.9 [facility] ([place]) Comment on above: Performed By: #### A DIFF, CBC, ANEU #### [address] [address] Lymphocytes/100 WBC (Bld) 17.0 % Normal 10.0-50.0 [facility] ([place]) Comment on above: Performed By: #### A DIFF, CBC, ANEU #### [address] [address] Monocyte, Absolute 1.1 10 3/mcL High 0.2-1.0 [facility] ([place]) Comment on above: Performed By: #### A DIFF, CBC, ANEU #### [address] [address] Monocytes/100 WBC (Bld) 8.1 % Normal 1.7-13.0 [facility] ([place]) Comment on above: Performed By: #### A DIFF, CBC, ANEU #### [address] [address] Neutrophils/100 WBC (Bld) 73.5 % Normal 37.0-80.0 [facility] ([place]) Comment on above: Performed By: #### A DIFF, CBC, ANEU #### [address] [address] .NEUABSon 04-29-2023 Neutrophil, Absolute 9.6 10 3/mcL High 2.9-6.2 [facility] ([place]) Comment on above: Performed By: #### A DIFF, CBC, ANEU #### [address] [address] CBCon 04-29-2023 Erythrocyte distribution width (RBC) [Ratio] 13.2 % Normal 11.5-14.5 [facility] ([place] Comment on above: Performed By: #### A DIFF, CBC, ANEU #### [address] [address] Hematocrit (Bld) [Volume fraction] 33.9 % Low 37.0-47.0 [facility] ([place] Comment on above: Performed By: #### A DIFF, CBC, ANEU #### [address] [address] Hgb 11.5 G/dL Low 12.0-16.0 [facility] ([place] Comment on above: Performed By: #### A DIFF, CBC, ANEU #### [address] [address] MCH (RBC) [Entitic mass] 31.8 pg High 27.0-31.2 [facility] ([place] Comment on above: Performed By: #### A DIFF, CBC, ANEU #### [address] [address] MCHC 34.1 G/dL Normal 33.0-37.0 [facility] ([place] Comment on above: Performed By: #### A DIFF, CBC, ANEU #### [address] [address] MCV (RBC) [Entitic vol] 93.4 fL Normal 80.0-94.0 [facility] ([place] Comment on above: Performed By: #### A DIFF, CBC, ANEU #### [address] [address] Platelet 234 10 3/mcL Normal 130-400 [facility] ([place] Comment on above: Performed By: #### A DIFF, CBC, ANEU #### [address] [address] Platelet mean volume (Bld) [Entitic vol] 7.5 fL Normal 7.4-10.4 [facility] ([place] Comment on above: Performed By: #### A DIFF, CBC, ANEU #### [address] [place], [place] [address] RBC 3.63 10 6/mcL Low 4.20-5.40 [facility] ([place]) Comment on above: Performed By: #### A DIFF, CBC, ANEU #### [place] [id number] [place], [place] [address] WBC 13.0 10 3/mcL High 4.6-10.8 [facility] ([place] Comment on above: Performed By: #### A DIFF, CBC, ANEU #### [place] [address] [place], [place] [address] LABORATORYOrdered By: SYSTEM SYSTEM on 04-29-2023 Basophil, Absolute 0.0 103/mcL Invalid Interpretation Code 0.0 - 0.2 10^3/mcL AO Workflow SS Basophils/100 WBC (Bld) 0.2 % Invalid Interpretation Code 0.0 - 2.5 % AO Workflow SS Eosinophil, Absolute 0.2 103/mcL Invalid Interpretation Code 0.0 - 0.4 10^3/mcL AO Workflow SS Eosinophils/100 WBC (Bld) 1.2 % Invalid Interpretation Code 0.0 - 7.0 % AO Workflow SS Erythrocyte distribution width (RBC) [Ratio] 13.2 % Invalid Interpretation Code 11.5 - 14.5 % AO Workflow SS Hematocrit (Bld) [Volume fraction] 33.9 % Invalid Interpretation Code 37.0 - 47.0 % AO Workflow SS Hemoglobin (Bld) [Mass/Vol] 11.5 G/dL Invalid Interpretation Code 12.0 - 16.0 G/dL AO Workflow SS Lymphocyte, Absolute 2.2 103/mcL Invalid Interpretation Code 0.8 - 3.9 10^3/mcL AO Workflow SS Lymphocytes/100 WBC (Bld) 17.0 % Invalid Interpretation Code 10.0 - 50.0 % AO Workflow SS MCH (RBC) [Entitic mass] 31.8 pg Invalid Interpretation Code 27.0 - 31.2 pg AO Workflow SS MCHC 34.1 G/dL Invalid Interpretation Code 33.0 - 37.0 G/dL AO Workflow SS MCV (RBC) [Entitic vol] 93.4 fL Invalid Interpretation Code 80.0 - 94.0 fL AO Workflow SS Monocyte, Absolute 1.1 103/mcL Invalid Interpretation Code 0.2 - 1.0 10^3/mcL AO Workflow SS Monocytes/100 WBC (Bld) 8.1 % Invalid Interpretation Code 1.7 - 13.0 % AO Workflow SS Neutrophil, Absolute 9.6 103/mcL Invalid Interpretation Code 2.9 - 6.2 10^3/mcL AO Workflow SS Neutrophils/100 WBC (Bld) 73.5 % Invalid Interpretation Code 37.0 - 80.0 % AO Workflow SS Platelet mean volume (Bld) [Entitic vol] 7.5 fL Invalid Interpretation Code 7.4 - 10.4 fL AO Workflow SS Platelets (Bld) [#/Vol] 234 103/mcL Invalid Interpretation Code 130 - 400 10^3/mcL AO Workflow SS RBC (Bld) [#/Vol] 3.63 106/mcL Invalid Interpretation Code 4.20 - 5.40 10^6/mcL AO Workflow SS WBC (Bld) [#/Vol] 13.0 103/mcL Invalid Interpretation Code 4.6 - 10.8 10^3/mcL AO Workflow SS RPRon 04-28-2023 Reagin Ab RPR Ql (S) Non-Reactive Normal Non-Reactive [facility] ([place]) Comment on above: Result Comment: The RPR test is a non-treponemal assay useful as an aid in the diagnosis of primary and secondary syphilis. It converts to positive generally within 2 weeks after the appearance of a lesion. This test is also useful for monitoring response to antibiotic therapy. A positive RPR screening test will be followed by the FTA ABS test. False positive RPR tests may occur in 1) patients with underlying autoimmune disorders, 2) elderly patients, 3) , and 4) other conditions with abnormal serum globulins. Performed By: #### A DIFF, CBC, ANEU #### [address] [address] .Auto Diffon 04-27-2023 Basophil, Absolute 0.0 10 3/mcL Normal 0.0-0.2 [facility] ([place]) Comment on above: Performed By: #### A DIFF, CBC, ANEU #### [address] [address] Basophils/100 WBC (Bld) 0.1 % Normal 0.0-2.5 [facility] ([place] Comment on above: Performed By: #### A DIFF, CBC, ANEU #### [address] [address] Eosinophil, Absolute 0.1 10 3/mcL Normal 0.0-0.4 [facility] ([place] Comment on above: Performed By: #### A DIFF, CBC, ANEU #### [address] [address] Eosinophils/100 WBC (Bld) 1.1 % Normal 0.0-7.0 [facility] ([place]) Comment on above: Performed By: #### A DIFF, CBC, ANEU #### [address] [address] Lymphocyte, Absolute 2.4 10 3/mcL Normal 0.8-3.9 [facility] ([place]) Comment on above: Performed By: #### A DIFF, CBC, ANEU #### [address] [address] Lymphocytes/100 WBC (Bld) 21.7 % Normal 10.0-50.0 [facility] ([place]) Comment on above: Performed By: #### A DIFF, CBC, ANEU #### [address] [address] Monocyte, Absolute 0.9 10 3/mcL Normal 0.2-1.0 [facility] ([place] Comment on above: Performed By: #### A DIFF, CBC, ANEU #### [address] [address] Monocytes/100 WBC (Bld) 8.2 % Normal 1.7-13.0 [facility] ([place]) Comment on above: Performed By: #### A DIFF, CBC, ANEU #### [address] [address] Neutrophils/100 WBC (Bld) 68.9 % Normal 37.0-80.0 [facility] ([place]) Comment on above: Performed By: #### A DIFF, CBC, ANEU #### [address] [address] .NEUABSon 04-27-2023 Neutrophil, Absolute 7.5 10 3/mcL High 2.9-6.2 [facility] ([place] Comment on above: Performed By: #### A DIFF, CBC, ANEU #### [address] [address] CBCon 04-27-2023 Erythrocyte distribution width (RBC) [Ratio] 13.4 % Normal 11.5-14.5 [facility] ([place] Comment on above: Performed By: #### A DIFF, CBC, ANEU #### [address] [address] Hematocrit (Bld) [Volume fraction] 37.4 % Normal 37.0-47.0 [facility] ([place] Comment on above: Performed By: #### A DIFF, CBC, ANEU #### [address] [address] Hgb 13.0 G/dL Normal 12.0-16.0 [facility] ([place] Comment on above: Performed By: #### A DIFF, CBC, ANEU #### [address] [address] MCH (RBC) [Entitic mass] 32.4 pg High 27.0-31.2 [facility] ([place] Comment on above: Performed By: #### A DIFF, CBC, ANEU #### [address] [address] MCHC 34.8 G/dL Normal 33.0-37.0 [facility] ([place] Comment on above: Performed By: #### A DIFF, CBC, ANEU #### [address] [address] MCV (RBC) [Entitic vol] 93.1 fL Normal 80.0-94.0 [facility] ([place] Comment on above: Performed By: #### A DIFF, CBC, ANEU #### [address] [address] Platelet 248 10 3/mcL Normal 130-400 [facility] ([place] Comment on above: Performed By: #### A DIFF, CBC, ANEU #### [address] [place] [address] Platelet mean volume (Bld) [Entitic vol] 7.6 fL Normal 7.4-10.4 [facility] ([place] Comment on above: Performed By: #### A DIFF, CBC, ANEU #### [address] [address] RBC 4.01 10 6/mcL Low 4.20-5.40 [facility] ([place] Comment on above: Performed By: #### A DIFF, CBC, ANEU #### [address] [address] WBC 10.9 10 3/mcL High 4.6-10.8 [facility] ([place] Comment on above: Performed By: #### A DIFF, CBC, ANEU #### [address] [address] Gel ABOon 04-27-2023 ABO/Rh Interp Negative Invalid Interpretation Code [facility] ([place]) Comment on above: Performed By: #### A DIFF, CBC, ANEU #### [address] [address] Gel ABSon 04-27-2023 Antibody Screen Gel Negative Normal [facility] [place] Comment on above: Performed By: #### A DIFF, CBC, ANEU #### [address] [address] LABORATORYOrdered By: Niurka Hughes on 04-26-2023 ABO/Rh Interp Negative Invalid Interpretation Code AO BB SS Antibody Screen Gel Negative ABSC (04/26/23 10:52 PM) Invalid Interpretation Code AO BB SS LABORATORYOrdered By: SYSTEM SYSTEM on 04-26-2023 Basophil, Absolute 0.0 103/mcL Invalid Interpretation Code 0.0 - 0.2 10^3/mcL AO Workflow SS Basophils/100 WBC (Bld) 0.1 % Invalid Interpretation Code 0.0 - 2.5 % AO Workflow SS Eosinophil, Absolute 0.1 103/mcL Invalid Interpretation Code 0.0 - 0.4 10^3/mcL AO Workflow SS Eosinophils/100 WBC (Bld) 1.1 % Invalid Interpretation Code 0.0 - 7.0 % AO Workflow SS Erythrocyte distribution width (RBC) [Ratio] 13.4 % Invalid Interpretation Code 11.5 - 14.5 % AO Workflow SS Hematocrit (Bld) [Volume fraction] 37.4 % Invalid Interpretation Code 37.0 - 47.0 % AO Workflow SS Hemoglobin (Bld) [Mass/Vol] 13.0 G/dL Invalid Interpretation Code 12.0 - 16.0 G/dL AO Workflow SS Lymphocyte, Absolute 2.4 103/mcL Invalid Interpretation Code 0.8 - 3.9 10^3/mcL AO Workflow SS Lymphocytes/100 WBC (Bld) 21.7 % Invalid Interpretation Code 10.0 - 50.0 % AO Workflow SS MCH (RBC) [Entitic mass] 32.4 pg Invalid Interpretation Code 27.0 - 31.2 pg AO Workflow SS MCHC 34.8 G/dL Invalid Interpretation Code 33.0 - 37.0 G/dL AO Workflow SS MCV (RBC) [Entitic vol] 93.1 fL Invalid Interpretation Code 80.0 - 94.0 fL AO Workflow SS Monocyte, Absolute 0.9 103/mcL Invalid Interpretation Code 0.2 - 1.0 10^3/mcL AO Workflow SS Monocytes/100 WBC (Bld) 8.2 % Invalid Interpretation Code 1.7 - 13.0 % AO Workflow SS Neutrophil, Absolute 7.5 103/mcL Invalid Interpretation Code 2.9 - 6.2 10^3/mcL AO Workflow SS Neutrophils/100 WBC (Bld) 68.9 % Invalid Interpretation Code 37.0 - 80.0 % AO Workflow SS Platelet mean volume (Bld) [Entitic vol] 7.6 fL Invalid Interpretation Code 7.4 - 10.4 fL AO Workflow SS Platelets (Bld) [#/Vol] 248 103/mcL Invalid Interpretation Code 130 - 400 10^3/mcL AO Workflow SS RBC (Bld) [#/Vol] 4.01 106/mcL Invalid Interpretation Code 4.20 - 5.40 10^6/mcL AO Workflow SS WBC (Bld) [#/Vol] 10.9 103/mcL Invalid Interpretation Code 4.6 - 10.8 10^3/mcL AO Workflow SS LABORATORYOrdered By: Krysta Valdovinos on 04-26-2023 Reagin Ab RPR Ql (S) Non-Reactive 1 (04/26/23 10:52 PM) Invalid Interpretation Code Non-Reactive [facility]iro/Sero SS Comment on above: Interpretive Data: T he RPR test is a non-treponemal assay useful as an aid in the diagnosis of primary and secondary syphilis. It converts to positive generally within 2 weeks after the appearance of a lesion. This test is also useful for monitoring response to antibiotic therapy. A positive RPR screening test will be followed by the FTA ABS test. False positive RPR tests may occur in 1) patients with underlying autoimmune disorders, 2) elderly patients, 3) , and 4) other conditions with abnormal serum globulins. LABORATORYOrdered By: Yisel Santacruz on 04-26-2023 ABO and Rh group Nom (Bld) A negative (04/26/23 10:10 PM) [facility] Work Phone: Group B Strep Date Performed [id number] [facility] Work Phone: Group B Strep, External Positive (04/26/23 10:10 PM) [facility] Work Phone: Hepatitis B Date Performed [id number] [facility] Work Phone: Hepatitis B, External Negative (04/26/23 10:10 PM) [facility] Work Phone: HIV Antibodies, External Negative (04/26/23 10:10 PM) [facility] Work Phone: HIV Date Performed [id number] [facility] Work Phone: RPR Date Performed [id number] [facility] Work Phone: RPR, External Reactive (04/26/23 10:10 PM) [facility] Work Phone: Rubella Date Performed [id number] [facility] Work Phone: Rubella, External Nonimmune (04/26/23 10:10 PM) [facility] Work Phone: GBSPCRon 04-02-2023 Group B Strep (PCR) Positive Abnormal Negative [facility] ([place] Comment on above: Performed By: #### G BSPCR #### [address] [address] Group B Strep PCR Int Normal [facility] [place] Comment on above: Result Comment: Grou p B Streptococcus DNA detected by real- time PCR. A positive result does not necessarily indicate the presence of viable organisms. Results from the ANILA GBS Assay should be used as an adjunct to clinical observations and other informaiton available to the physician. The ANILA GBS Assay does not provide susceptibility results. See Below Performed By: #### G BSPCR #### [address] [address] LABORATORYOrdered By: Gianni Cornell on 04-01-2023 Group B Strep PCR Int Group B Streptococ cus DNA detected by real-time PCR. A positive result does not necessarily indicate the presence of viable organisms. Results from the ANILA GBS Assay should be used as an adjunct to clinical observations and other informaiton available to the physician. The ANILA GBS Assay does not provide susceptibility results. Invalid Interpretation Code AO Auto Urine SS S. agalactiae DNA INNA+probe Ql (Unsp spec) Positive *ABN* (04/01/23 5:03 PM) Invalid Interpretation Code Negative AO Auto Urine SS RPRon 01-15-2023 Reagin Ab RPR Ql (S) Non-Reactive Normal Non-Reactive [facility] ([place]) Comment on above: Result Comment: The RPR test is a non-treponemal assay useful as an aid in the diagnosis of primary and secondary syphilis. It converts to positive generally within 2 weeks after the appearance of a lesion. This test is also useful for monitoring response to antibiotic therapy. A positive RPR screening test will be followed by the FTA ABS test. False positive RPR tests may occur in 1) patients with underlying autoimmune disorders, 2) elderly patients, 3) , and 4) other conditions with abnormal serum globulins. Performed By: #### A NISHANT, GLU, ADIFF, CBC #### [address] [address] #### RPR #### [address] [address] .Auto Diffon 01-14-2023 Basophil, Absolute 0.0 10 3/mcL Normal 0.0-0.2 [facility] ([place]) Comment on above: Performed By: #### A NISHANT, GLU, ADIFF, CBC #### [address] [address] #### RPR #### [address] [address] Basophils/100 WBC (Bld) 0.3 % Normal 0.0-2.5 [facility] ([place]) Comment on above: Performed By: #### A NISHANT, GLU, ADIFF, CBC #### [address] [address] #### RPR #### [address] [address] Eosinophil, Absolute 0.1 10 3/mcL Normal 0.0-0.4 [facility] ([place] Comment on above: Performed By: #### A NISHANT, GLU, ADIFF, CBC #### [address] [address] #### RPR #### [address] [address] Eosinophils/100 WBC (Bld) 1.1 % Normal 0.0-7.0 [facility] ([place]) Comment on above: Performed By: #### A NISHANT, GLU, ADIFF, CBC #### [address] [address] #### RPR #### [address] [address] Lymphocyte, Absolute 1.6 10 3/mcL Normal 0.8-3.9 [facility] ([place] Comment on above: Performed By: #### A NISHANT, GLU, ADIFF, CBC #### [address] [address] #### RPR #### [address] [address] Lymphocytes/100 WBC (Bld) 16.4 % Normal 10.0-50.0 [facility] ([place] Comment on above: Performed By: #### A NISHANT, GLU, ADIFF, CBC #### [address] [address] #### RPR #### [address] [address] Monocyte, Absolute 0.6 10 3/mcL Normal 0.2-1.0 [facility] ([place] Comment on above: Performed By: #### A NISHANT, GLU, ADIFF, CBC #### [address] [address] #### RPR #### [address] [address] Monocytes/100 WBC (Bld) 6.3 % Normal 1.7-13.0 [facility] ([place] Comment on above: Performed By: #### A NISHANT, GLU, ADIFF, CBC #### [place] [address] #### RPR #### [address] [address] Neutrophils/100 WBC (Bld) 75.9 % Normal 37.0-80.0 [facility] ([place] Comment on above: Performed By: #### A NISHANT, GLU, ADIFF, CBC #### [address] [address] #### RPR #### [address] [address] .NEUABSon 01-14-2023 Neutrophil, Absolute 7.5 10 3/mcL High 2.9-6.2 [facility] ([place] Comment on above: Performed By: #### A NISHANT, GLU, ADIFF, CBC #### [address] [address] #### RPR #### [address] [address] CBCon 01-14-2023 Erythrocyte distribution width (RBC) [Ratio] 14.0 % Normal 11.5-14.5 [facility] ([place]) Comment on above: Performed By: #### A NISHANT, GLU, ADIFF, CBC #### [place] [address] #### RPR #### [place] [address] Hematocrit (Bld) [Volume fraction] 35.6 % Low 37.0-47.0 [facility] ([place] Comment on above: Performed By: #### A NISHANT, GLU, ADIFF, CBC #### [place] [address] #### RPR #### [place] [address] Hgb 12.3 G/dL Normal 12.0-16.0 [facility] ([place] Comment on above: Performed By: #### A NISHANT, GLU, ADIFF, CBC #### [place] [address] #### RPR #### [place] [address] MCH (RBC) [Entitic mass] 32.0 pg High 27.0-31.2 [facility] ([place]) Comment on above: Performed By: #### A NISHANT, GLU, ADIFF, CBC #### [place] [address] #### RPR #### [place] [address] MCHC 34.6 G/dL Normal 33.0-37.0 [facility] ([place] Comment on above: Performed By: #### A NISHANT, GLU, ADIFF, CBC #### [place] [address] #### RPR #### [place] [address] MCV (RBC) [Entitic vol] 92.7 fL Normal 80.0-94.0 [facility] ([place]) Comment on above: Performed By: #### A NISHANT, GLU, ADIFF, CBC #### [place] [address] #### RPR #### [address] [address] Platelet 344 10 3/mcL Normal 130-400 [facility] ([place] Comment on above: Performed By: #### A NISHANT, GLU, ADIFF, CBC #### [place] [address] #### RPR #### [place] [address] Platelet mean volume (Bld) [Entitic vol] 7.8 fL Normal 7.4-10.4 [facility] ([place] Comment on above: Performed By: #### A NISHANT, GLU, ADIFF, CBC #### [place] [address] #### RPR #### [place] [address] RBC 3.84 10 6/mcL Low 4.20-5.40 [facility] ([place] Comment on above: Performed By: #### A NISHANT, GLU, ADIFF, CBC #### [place] [address] #### RPR #### [place] [address] WBC 9.9 10 3/mcL Normal 4.6-10.8 [facility] ([place] Comment on above: Performed By: #### A NISHANT, GLU, ADIFF, CBC #### [place] [address] #### RPR #### [place] [address] GLUon 01-14-2023 Glucose [Mass/Vol] 82 mg/dL Normal 70-105 [facility] ([place]) Comment on above: Order Comment: post glucola Performed By: #### A NISHANT, GLU, ADIFF, CBC #### [place] [address] #### RPR #### [place] [address] Gel ABOon 01-14-2023 ABO/Rh Interp Negative Invalid Interpretation Code [facility] ([place]) Comment on above: Performed By: #### A DIFF, CBC, ANEU #### [place] [id number] [place], [place] [address] Gel ABSon 01-14-2023 Antibody Screen Gel Negative Normal [facility] ([place] Comment on above: Performed By: #### A DIFF, CBC, ANEU #### [place] [address] [place], [place] [address] LABORATORYOrdered By: Gerald Can on 01-14-2023 Basophil, Absolute 0.0 103/mcL Invalid Interpretation Code 0.0 - 0.2 10^3/mcL AO Workflow SS Basophils/100 WBC (Bld) 0.3 % Invalid Interpretation Code 0.0 - 2.5 % AO Workflow SS Eosinophil, Absolute 0.1 103/mcL Invalid Interpretation Code 0.0 - 0.4 10^3/mcL AO Workflow SS Eosinophils/100 WBC (Bld) 1.1 % Invalid Interpretation Code 0.0 - 7.0 % AO Workflow SS Erythrocyte distribution width (RBC) [Ratio] 14.0 % Invalid Interpretation Code 11.5 - 14.5 % AO Workflow SS Hematocrit (Bld) [Volume fraction] 35.6 % Invalid Interpretation Code 37.0 - 47.0 % AO Workflow SS Hemoglobin (Bld) [Mass/Vol] 12.3 G/dL Invalid Interpretation Code 12.0 - 16.0 G/dL AO Workflow SS Lymphocyte, Absolute 1.6 103/mcL Invalid Interpretation Code 0.8 - 3.9 10^3/mcL AO Workflow SS Lymphocytes/100 WBC (Bld) 16.4 % Invalid Interpretation Code 10.0 - 50.0 % AO Workflow SS MCH (RBC) [Entitic mass] 32.0 pg Invalid Interpretation Code 27.0 - 31.2 pg AO Workflow SS MCHC 34.6 G/dL Invalid Interpretation Code 33.0 - 37.0 G/dL AO Workflow SS MCV (RBC) [Entitic vol] 92.7 fL Invalid Interpretation Code 80.0 - 94.0 fL AO Workflow SS Monocyte, Absolute 0.6 103/mcL Invalid Interpretation Code 0.2 - 1.0 10^3/mcL AO Workflow SS Monocytes/100 WBC (Bld) 6.3 % Invalid Interpretation Code 1.7 - 13.0 % AO Workflow SS Neutrophil, Absolute 7.5 103/mcL Invalid Interpretation Code 2.9 - 6.2 10^3/mcL AO Workflow SS Neutrophils/100 WBC (Bld) 75.9 % Invalid Interpretation Code 37.0 - 80.0 % AO Workflow SS Platelet mean volume (Bld) [Entitic vol] 7.8 fL Invalid Interpretation Code 7.4 - 10.4 fL AO Workflow SS Platelets (Bld) [#/Vol] 344 103/mcL Invalid Interpretation Code 130 - 400 10^3/mcL AO Workflow SS RBC (Bld) [#/Vol] 3.84 106/mcL Invalid Interpretation Code 4.20 - 5.40 10^6/mcL AO Workflow SS WBC (Bld) [#/Vol] 9.9 103/mcL Invalid Interpretation Code 4.6 - 10.8 10^3/mcL AO Workflow SS LABORATORYOrdered By: SYSTEM SYSTEM on 01-14-2023 Glucose [Mass/Vol] 82 mg/dL Invalid Interpretation Code 70 - 105 mg/dL AO ADM SS CTPCRon 10-25-2022 C. trachomatis Interp Normal See CT Interp N [facility] ([place]) Comment on above: Result Comment: C. t rachomatis DNA not detected. Specimen is presumptive negative for C. trachomatis. A negative result does not preclude C. trachomatis infection because results depend on adequate specimen collection, absence of inhibitors, and sufficient DNA to be detected. See CT Interp N Performed By: #### A DIFF, CBC, ANEU #### [address] [address] C.trachomatis PCR Negative Normal Negative [facility] ([place]) Comment on above: Result Comment: Stokes sport tube received with two swabs. Review collection procedure. Inappropriate collection may cause aberrant results. Molecular (PCR) assay performed on the [employer] [id number] system. Performed By: #### A DIFF, CBC, ANEU #### [address] [address] Chlam Source Vaginal Normal [facility] ([place] Comment on above: Performed By: #### A DIFF, CBC, ANEU #### [address] [address] [id number] 10-25-2022 GC PCR Source Vaginal Normal [facility] ([place] Comment on above: Performed By: #### A DIFF, CBC, ANEU #### [address] [address] N. gonorrhoeae (PCR) Negative Normal Negative [facility] ([place]) Comment on above: Result Comment: Stokes sport tube received with two swabs. Review collection procedure. Inappropriate collection may cause aberrant results. Molecular (PCR) assay performed on the Bhupinder Eda 4800 System. Performed By: #### A DIFF, CBC, ANEU #### [address] [address] N. gonorrhoeae Interp Normal See NG Interp N [facility] ([place]) Comment on above: Result Comment: N. g onorrhoeae DNA not detected. Specimen is presumptive negative for N. gonorrhoeae. A negative result does not preclude Neisseria gonorrhoeae infection because results depend on adequate specimen collection, absence of inhibitors, and sufficient DNA to be detected. See NG Interp N Performed By: #### A DIFF, CBC, ANEU #### [address] [address] RPRon 10-24-2022 Reagin Ab RPR Ql (S) Non-Reactive Normal Non-Reactive [facility] ([place] Comment on above: Result Comment: The RPR test is a non-treponemal assay useful as an aid in the diagnosis of primary and secondary syphilis. It converts to positive generally within 2 weeks after the appearance of a lesion. This test is also useful for monitoring response to antibiotic therapy. A positive RPR screening test will be followed by the FTA ABS test. False positive RPR tests may occur in 1) patients with underlying autoimmune disorders, 2) elderly patients, 3) , and 4) other conditions with abnormal serum globulins. Performed By: #### A DIFF, CBC, ANEU #### [address] [address] RUBISon 10-24-[address] Negative Normal Positive [facility] ([place] Comment on above: Result Comment: This immune status assay detects IgM and/or IgG antibody to Rubella. Interpret results in conjunction with clinical history. POS: Antibody detected; exposure at undetermined recent or distant time. If clinically indicated, order Rubella IGM to rule out recent infection. NEG: No antibody detected. Performed By: #### A DIFF, CBC, ANEU #### [address] [address] VARISon 10-24-[address] Positive Normal [facility] ([place] Comment on above: Result Comment: INTE RPRETATION OF VARICELLA IMMUNE STATUS IgG BY EIA: Negative: No detectable VZV IgG antibody. Positive: VZV IgG antibody Detected. If clinically indicated, order Varicella IgM to rule out recent infection. Equivocal: Equivocal for antibodies to VZV. Suggest repeat testing in 10-14 days. Performed By: #### A DIFF, CBC, ANEU #### [address] [address] HBSAGon 10-23-2022 Hep B Surf Ag Non-Reactive Normal Non-Reactive [facility] ([place] Comment on above: Performed By: #### A DIFF, CBC, ANEU #### [address] [address] .Auto Diffon 10-22-2022 Basophil, Absolute 0.1 10 3/mcL Normal 0.0-0.2 [facility] ([place] Comment on above: Performed By: #### A DIFF, CBC, ANEU #### [address] [address] Basophils/100 WBC (Bld) 0.6 % Normal 0.0-2.5 [facility] ([place] Comment on above: Performed By: #### A DIFF, CBC, ANEU #### [address] [address] Eosinophil, Absolute 0.1 10 3/mcL Normal 0.0-0.4 [facility] ([place]) Comment on above: Performed By: #### A DIFF, CBC, ANEU #### [address] [address] Eosinophils/100 WBC (Bld) 0.7 % Normal 0.0-7.0 [facility] ([place] Comment on above: Performed By: #### A DIFF, CBC, ANEU #### [address] [address] Lymphocyte, Absolute 2.4 10 3/mcL Normal 0.8-3.9 [facility] ([place] Comment on above: Performed By: #### A DIFF, CBC, ANEU #### [address] [address] Lymphocytes/100 WBC (Bld) 20.4 % Normal 10.0-50.0 [facility] ([place] Comment on above: Performed By: #### A DIFF, CBC, ANEU #### [address] [address] Monocyte, Absolute 0.7 10 3/mcL Normal 0.2-1.0 [facility] ([place] Comment on above: Performed By: #### A DIFF, CBC, ANEU #### [address] [address] Monocytes/100 WBC (Bld) 5.9 % Normal 1.7-13.0 [facility] ([place] Comment on above: Performed By: #### A DIFF, CBC, ANEU #### [address] [address] Neutrophils/100 WBC (Bld) 72.4 % Normal 37.0-80.0 [facility] ([place] Comment on above: Performed By: #### A DIFF, CBC, ANEU #### [address] [address] .NEUABSon 10-22-2022 Neutrophil, Absolute 8.4 10 3/mcL High 2.9-6.2 [facility] ([place] Comment on above: Performed By: #### A DIFF, CBC, ANEU #### [address] [address] CBCon 10-22-2022 Erythrocyte distribution width (RBC) [Ratio] 13.3 % Normal 11.5-14.5 [facility] ([place] Comment on above: Performed By: #### A DIFF, CBC, ANEU #### [address] [address] Hematocrit (Bld) [Volume fraction] 36.9 % Low 37.0-47.0 [facility] ([place] Comment on above: Performed By: #### A DIFF, CBC, ANEU #### [address] [address] Hgb 12.7 G/dL Normal 12.0-16.0 [facility] ([place] Comment on above: Performed By: #### A DIFF, CBC, ANEU #### [address] [address] MCH (RBC) [Entitic mass] 31.1 pg Normal 27.0-31.2 [facility] ([place] Comment on above: Performed By: #### A DIFF, CBC, ANEU #### [address] [address] MCHC 34.3 G/dL Normal 33.0-37.0 [facility] ([place] Comment on above: Performed By: #### A DIFF, CBC, ANEU #### [address] [address] MCV (RBC) [Entitic vol] 90.5 fL Normal 80.0-94.0 [facility] ([place] Comment on above: Performed By: #### A DIFF, CBC, ANEU #### [address] [address] Platelet 337 10 3/mcL Normal 130-400 [facility] ([place] Comment on above: Performed By: #### A DIFF, CBC, ANEU #### [address] [address] Platelet mean volume (Bld) [Entitic vol] 7.4 fL Normal 7.4-10.4 [facility] ([place] Comment on above: Performed By: #### A DIFF, CBC, ANEU #### [address] [address] RBC 4.08 10 6/mcL Low 4.20-5.40 [facility] ([place] Comment on above: Performed By: #### A DIFF, CBC, ANEU #### [address] [address] WBC 11.6 10 3/mcL High 4.6-10.8 [facility] ([place] Comment on above: Performed By: #### A DIFF, CBC, ANEU #### [place] [address] Gel ABOon 10-22-2022 ABO/Rh Interp Negative Invalid Interpretation Code [facility] ([place] Comment on above: Performed By: #### A DIFF, CBC, ANEU #### [place] [address] Gel ABSon 10-22-2022 Antibody Screen Gel Negative Normal [facility] ([place]) Comment on above: Performed By: #### A DIFF, CBC, ANEU #### [place] [address] HIVRPon 10-22-2022 HIV p24 Antigen Non-Reactive Normal Non-Reactive [facility] ([place] Comment on above: Result Comment: Dete ction of p24 may be inhibited by biotin in the sample, causing false negative results in acute infection. Therefore do not test samples from patients who are taking biotin. Performed By: #### A DIFF, CBC, ANEU #### [place] [address] HIV P24 Int Non-Reactive Invalid Interpretation Code [facility] ([place] Comment on above: Performed By: #### A DIFF, CBC, ANEU #### [place] [address] Rapid HIV 1/2 Antibody Non-Reactive Normal Non-Reactive [facility] ([place] Comment on above: Performed By: #### A DIFF, CBC, ANEU #### [place] [address] RHIV 1/2 Ab Int Non-Reactive Invalid Interpretation Code [facility] ([place] Comment on above: Performed By: #### A DIFF, CBC, ANEU #### [address] [address] LABORATORYOrdered By: Krysta Valdovinos on 10-22-2022 C. trachomatis DNA INNA+probe Ql (Unsp spec) Negative 2 (10/22/22 4:23 PM) Invalid Interpretation Code Negative AH Auto Viro/Sero SS Comment on above: Result Comment: Stokes sport tube received with two swabs. Review collection procedure. Inappropriate collection may cause aberrant results. C. trachomatis DNA INNA+probe Ql (Unsp spec) C. trachomatis DNA not detected. Specimen is presumptive negative forC. trachomatis.A negative result does not preclude C. trachomatis infection becauseresults depend on adequate specimen collection, absence of inhibitors,and sufficient DNA to be detected. Invalid Interpretation Code See CT Interp N AH Auto Viro/Sero SS N. gonorrhoeae DNA INNA+probe Ql (Unsp spec) Negative 1 (10/22/22 4:23 PM) Invalid Interpretation Code Negative AH Auto Viro/Sero SS Comment on above: Result Comment: Stokes sport tube received with two swabs. Review collection procedure. Inappropriate collection may cause aberrant results. N. gonorrhoeae DNA INNA+probe Ql (Unsp spec) N. gonorrhoeae DNA not detected. Specimen is presumptive negative forN. gonorrhoeae. A negative result does not preclude Neisseria gonorrhoeaeinfection because results depend on adequate specimen collection, absenceof inhibitors, and sufficient DNA to be detected. Invalid Interpretation Code See NG Interp N AH Auto Viro/Sero SS LABORATORYOrdered By: Gianni Cornell on 10-22-2022 ABO/Rh Interp Negative Invalid Interpretation Code AO BB SS Antibody Screen Gel Negative ABSC (10/22/22 4:08 PM) Invalid Interpretation Code AO BB SS LABORATORYOrdered By: Taylor Maurer on 10-22-2022 Basophil, Absolute 0.1 103/mcL Invalid Interpretation Code 0.0 - 0.2 10^3/mcL AO Workflow SS Basophils/100 WBC (Bld) 0.6 % Invalid Interpretation Code 0.0 - 2.5 % AO Workflow SS Eosinophil, Absolute 0.1 103/mcL Invalid Interpretation Code 0.0 - 0.4 10^3/mcL AO Workflow SS Eosinophils/100 WBC (Bld) 0.7 % Invalid Interpretation Code 0.0 - 7.0 % AO Workflow SS Erythrocyte distribution width (RBC) [Ratio] 13.3 % Invalid Interpretation Code 11.5 - 14.5 % AO Workflow SS Hematocrit (Bld) [Volume fraction] 36.9 % Invalid Interpretation Code 37.0 - 47.0 % AO Workflow SS Hemoglobin (Bld) [Mass/Vol] 12.7 G/dL Invalid Interpretation Code 12.0 - 16.0 G/dL AO Workflow SS HIV 1 p24 Ab Ql (S) Non-Reactive (10/22/22 4:08 PM) Invalid Interpretation Code Non-Reactive AO Rapid Testing SS HIV 1 p24 Ab Ql (S) Non-Reactive Invalid Interpretation Code AO Rapid Testing SS HIV 1+2 Ab IA Ql Non-Reactive Invalid Interpretation Code AO Rapid Testing SS HIV 1+2 Ab IA.rapid Ql (Unsp spec) Non-Reactive (10/22/22 4:08 PM) Invalid Interpretation Code Non-Reactive AO Rapid Testing SS Lymphocyte, Absolute 2.4 103/mcL Invalid Interpretation Code 0.8 - 3.9 10^3/mcL AO Workflow SS Lymphocytes/100 WBC (Bld) 20.4 % Invalid Interpretation Code 10.0 - 50.0 % AO Workflow SS MCH (RBC) [Entitic mass] 31.1 pg Invalid Interpretation Code 27.0 - 31.2 pg AO Workflow SS MCHC 34.3 G/dL Invalid Interpretation Code 33.0 - 37.0 G/dL AO Workflow SS MCV (RBC) [Entitic vol] 90.5 fL Invalid Interpretation Code 80.0 - 94.0 fL AO Workflow SS Monocyte, Absolute 0.7 103/mcL Invalid Interpretation Code 0.2 - 1.0 10^3/mcL AO Workflow SS Monocytes/100 WBC (Bld) 5.9 % Invalid Interpretation Code 1.7 - 13.0 % AO Workflow SS Neutrophil, Absolute 8.4 103/mcL Invalid Interpretation Code 2.9 - 6.2 10^3/mcL AO Workflow SS Neutrophils/100 WBC (Bld) 72.4 % Invalid Interpretation Code 37.0 - 80.0 % AO Workflow SS Platelet mean volume (Bld) [Entitic vol] 7.4 fL Invalid Interpretation Code 7.4 - 10.4 fL AO Workflow SS Platelets (Bld) [#/Vol] 337 103/mcL Invalid Interpretation Code 130 - 400 10^3/mcL AO Workflow SS RBC (Bld) [#/Vol] 4.08 106/mcL Invalid Interpretation Code 4.20 - 5.40 10^6/mcL AO Workflow SS WBC (Bld) [#/Vol] 11.6 103/mcL Invalid Interpretation Code 4.6 - 10.8 10^3/mcL AO Workflow SS LABORATORYOrdered By: SYSTEM SYSTEM on 10-22-2022 TSH Qn 2.18 m[IU]/L Invalid Interpretation Code 0.36 - 3.74 mcIU/mL AO ADM SS Laboratory - Specimen inform ationOrdered By: Krysta Valdovinos on 10-22-2022 Specimen source Nom (Unsp spec) Vaginal (10/22/22 4:23 PM) Invalid Interpretation Code AH Auto Viro/Sero SS No Panel Informationon 10-22 Culture Urine <10,000 cfu/ml. No Significant growth. Sensitivity not indicated. [facility] Work Phone: TSHon 10-22-2022 TSH Qn 2.18 m[IU]/L Normal 0.36-3.74 [facility] ([place]) Comment on above: Performed By: #### A DIFF, CBC, ANEU #### [facility] [address] [place], [place] [address] Vital Signs Date Time Vital Sign Value Performing Clinician Facility 06-27-2025 11:41-0400 Body height 162.56 cm Angely LEYVA Work Phone: [facility] 06-27-2025 11:41-0400 Body mass index (BMI) [Ratio] 30.2 kg/m2 Angely LEYVAM Work Phone: [facility] 06-27-2025 11:41-0400 Body weight 79.94 kg Angely LEYVAM Work Phone: [facility] 06-27-2025 11:41-0400 Diastolic blood pressure 82 mm[Hg] Angely LEYVAM Work Phone: [facility] 06-27-2025 11:41-0400 Systolic blood pressure 127 mm[Hg] Angely LEYVAM Work Phone: [facility] 04-10-2024 14:52-0400 Body temperature 97.5 [degF] Alethea Leyva RURAL ELECTRIFICATION ENGINEER.DOOR TO DOOR SELLING DISTRIBUTOR Work Phone: [facility] 04-10-2024 14:52-0400 Body weight 74 kg Aleteha Leyva RURAL ELECTRIFICATION ENGINEER.DOOR TO DOOR SELLING DISTRIBUTOR Work Phone: [facility] 04-10-2024 14:52-0400 Diastolic blood pressure 75 mm[Hg] Alethea Ledger RURAL ELECTRIFICATION ENGINEER.DOOR TO DOOR SELLING DISTRIBUTOR Work Phone: [facility] 04-10-2024 14:52-0400 Heart rate 76 /min Alethea Ledger RURAL ELECTRIFICATION ENGINEER.DOOR TO DOOR SELLING DISTRIBUTOR Work Phone: [facility] 04-10-2024 14:52-0400 Respiratory rate 16 /min Alethea Ledger RURAL ELECTRIFICATION ENGINEER.DOOR TO DOOR SELLING DISTRIBUTOR Work Phone: [facility] 04-10-2024 14:52-0400 SaO2% (BldA) [Mass fraction] 95 % Alethea Ledger RURAL ELECTRIFICATION ENGINEER.DOOR TO DOOR SELLING DISTRIBUTOR Work Phone: [facility] 04-10-2024 14:52-0400 Systolic blood pressure 111 mm[Hg] Alethea Ledger RURAL ELECTRIFICATION ENGINEER.DOOR TO DOOR SELLING DISTRIBUTOR Work Phone: [facility] 04-29-2023 11:00-0400 Body temperature 98.6 [degF] JOHN VERDUGO DO [facility] 04-29-2023 11:00-0400 Diastolic Blood Pressure Non-Invasive 65 1 JOHN VERDUGO DO [facility] 04-29-2023 11:00-0400 Heart rate 88 /min JOHN VERDUGO DO [facility] 04-29-2023 11:00-0400 Respiratory rate 18 /min JOHN VERDUGO DO [facility] 04-29-2023 11:00-0400 Systolic Blood Pressure Non-Invasive 118 1 JOHN VERDUGO DO [facility] 04-28-2023 23:59-0400 Body temperature 97.88 [degF] JOHN VERDUGO DO [facility] 04-28-2023 23:59-0400 Diastolic Blood Pressure Non-Invasive 67 1 JOHN VERDUGO DO [facility] 04-28-2023 23:59-0400 Heart rate 72 /min JOHN VERDUGO DO [facility] 04-28-2023 23:59-0400 Reason For Taking VItal Signs JOHN VERDUGO DO [facility] 04-28-2023 23:59-0400 Respiratory rate 16 /min JOHN VERDUGO DO [facility] 04-28-2023 23:59-0400 Systolic Blood Pressure Non-Invasive 107 1 JOHN VERDUGO DO [facility] 04-28-2023 15:40-0400 Body temperature 97.52 [degF] JOHN VERDUGO DO [facility] 04-28-2023 15:40-0400 Diastolic Blood Pressure Non-Invasive 77 1 JOHN VERDUGO DO [facility] 04-28-2023 15:40-0400 Heart rate 92 /min JOHN VERDUGO DO [facility] 04-28-2023 15:40-0400 Reason For Taking VItal Signs JOHN VERDUGO DO [facility] 04-28-2023 15:40-0400 Respiratory rate 18 /min JOHN VERDUGO DO [facility] 04-28-2023 15:40-0400 Systolic Blood Pressure Non-Invasive 115 1 JOHN VERDUGO DO [facility] 04-28-2023 08:16-0400 Reason For Taking VItal Signs JOHN VERDUGO DO [facility] 04-26-2023 22:10-0400 Body height 162.6 cm JOHN VERDUGO DO [facility] 04-26-2023 22:100 Body weight 84.1 kg JOHN VERDUGO DO [facility] 04-26-2023 [id number] Body weight 31.81 kg/m2 JOHN VERDUGO DO [facility] Encounters Encounter Date Encounter Type Care Provider Facility Start: 07-10-2025 ambulatory No Primary Car e Physician Facility:[facility] Start: 07-03-2025 End: 07-03-2025 ambulatory Angely LEYVAM Work Phone: -Laboratory Start: 07-03-2025 End: 07-03-2025 Patient encounter procedure Angely Stone CNM -Laboratory Work Phone: Start: 07-03-2025 End: 07-03-2025 ambulatory Angely Stone Facility:[facility] Start: 06-27-2025 End: 06-27-2025 Patient encounter procedure Angely Stone CNM -[facility] Work Phone: Start: 06-27-2025 End: 06-27-2025 ambulatory Angely Stone CNM Work Phone: -[facility] Start: 06-20-2025 End: 06-20-2025 ambulatory ROMÁN LEMONS DO Facility:[facility] [place] Start: 06-20-2025 End: 06-20-2025 Patient encounter procedure BELKYS ESCALANTE APRN-CNM [facility] Start: 04-29-2025 End: 04-29-2025 Emergency department patient visit DR LUIS EDUARDO PADILLA DO [facility] Start: 04-05-2025 End: 04-05-2025 ambulatory ROMÁN W CRISTO DO Facility:[facility] [place] Start: 04-05-2025 End: 04-05-2025 Patient encounter procedure BELKYS ESCALANTE RURAL ELECTRIFICATION ENGINEER-CNM [facility] Start: 03-15-2025 End: 03-19-2025 ambulatory BELKYS ESCALANTE RURAL ELECTRIFICATION ENGINEER-CNM Facility:[facility] Start: 03-15-2025 End: 03-19-2025 Outreach Lab BELKYS ESCALANTE RURAL ELECTRIFICATION ENGINEER-CNM [facility] Start: 03-15-2025 End: 03-15-2025 ambulatory BELKYS ESCALANTE RURAL ELECTRIFICATION ENGINEER-CNM Facility:[facility] Start: 03-15-2025 End: 03-15-2025 Patient encounter procedure BELKYS ESCALANTE RURAL ELECTRIFICATION ENGINEER-CNM [facility] Start: 02-01-2025 End: 02-01-2025 ambulatory ANA Rodriguez AGARWAL RURAL ELECTRIFICATION ENGINEER-CNM Facility:[facility] Start: 02-01-2025 End: 02-01-2025 Patient encounter procedure ANA AGARWAL RURAL ELECTRIFICATION ENGINEER-CNM [facility] Start: 04-10-2024 ambulatory ALETHEA LEYVA Facility:1 [id number] Start: 04-10-2024 End: 04-10-2024 Subsequent hospital visit by physician [facility] Comment on above: Toe injury, left, in itial encounter [S99.922A] Start: 04-10-2024 End: 04-10-2024 Patient encounter procedure Alethea Leyva RURAL ELECTRIFICATION ENGINEER.DOOR TO DOOR SELLING DISTRIBUTOR Work Phone: [facility] Comment on above: Toe injury, left, in itial encounter (Primary Dx) Start: 04-10-2024 End: 04-10-2024 ambulatory ALETHEA LEYVA Facility:[id number] Start: 06-10-2023 End: 06-15-2023 ambulatory BELKYS Rodriguez ESCALANTE RURAL ELECTRIFICATION ENGINEER-CNM Facility:B Start: 04-26-2023 End: 04-29-2023 Evaluation and management of inpatient JOHN VERDUGO DO Facility:B Start: 04-26-2023 End: 04-29-2023 Evaluation and management of inpatient JOHN VERDUGO DO [facility] Start: 04-01-2023 End: 04-06-2023 ambulatory ROMÁN W CRISTO DO Facility:[facility] Start: 04-01-2023 End: 04-05-2023 Outreach Lab ANA AGARWAL RURAL ELECTRIFICATION ENGINEER-CNM [facility] Start: 03-25-2023 End: 03-30-2023 ambulatory ROMÁN W CRISTO DO Facility:B Start: 03-25-2023 End: 03-29-2023 Outreach Lab ANA AGARWAL RURAL ELECTRIFICATION ENGINEER-CNM [facility] Start: 01-16-2023 End: 01-16-2023 ambulatory BELKYS Rodriguez ESCALANTE RURAL ELECTRIFICATION ENGINEER-CNM Facility:B Start: 01-16-2023 End: 01-16-2023 SAME DAY STAY BELKYS Rodriguez ESCALANTE RURAL ELECTRIFICATION ENGINEER-CNM [facility] Start: 01-14-2023 End: 01-15-2023 ambulatory BELKYS Rodriguez ESCALANTE RURAL ELECTRIFICATION ENGINEER-CNM Facility:B Start: 01-14-2023 End: 01-14-2023 Patient encounter procedure ANA AGARWAL RURAL ELECTRIFICATION ENGINEER-CNM [facility] Start: 11-25-2022 End: 11-26-2022 ambulatory ROMÁN W CRISTO DO Facility:A Start: 11-25-2022 End: 11-25-2022 Patient encounter procedure ANA AGARWAL RURAL ELECTRIFICATION ENGINEER-CNM [facility] Start: 10-22-2022 End: 10-27-2022 ambulatory ROMÁN W CRISTO DO Facility:[facility] Start: 10-22-2022 End: 10-26-2022 Outreach Lab ANA AGARWAL RURAL ELECTRIFICATION ENGINEER-CNM [facility] Start: 10-22-2022 End: 10-22-2022 Patient encounter procedure ANA AGARWAL RURAL ELECTRIFICATION ENGINEER-CNM [facility] Start: 09-22-2022 End: 09-23-2022 ambulatory ROMÁN W CRISTO DO Facility:A Start: 09-22-2022 End: 09-22-2022 Patient encounter procedure ANA AGARWAL RURAL ELECTRIFICATION ENGINEER-CNM [facility] Procedures Date Procedure Procedure Detail Performing Clinician Start: 04-10-2024 Radex foot complete minimum 3 views Alethea Leyva RURAL ELECTRIFICATION ENGINEER.DOOR TO DOOR SELLING DISTRIBUTOR Work Phone: Start: 05-31-2020 Structure of wisdom tooth (body structure) JOHN SHERAMADOR DO Plan of Treatment Date Care Activity Detail Author Start: 07-03-2025 [facility] Start: 07-03-2025 Patient encounter procedure Registered Clinical -Laboratory Work Phone: Start: 06-05-2024 Covid-19 Vaccine () Covid-19 Vaccine () [facility] Start: 06-05-2024 Influenza vaccination Influenza Vacc ine (#1) [facility] Start: 10-05-2023 Behavioral Health Screening Behavioral Health Screening [facility] Start: 06-05-2023 Covid-19 Vaccine ( season) Covid-19 Vaccine () [facility] Start: 2016 Screening for malign ant neoplasm of cervix Cervical Cancer Screening [facility] Start: 2014 Hepatitis B Vaccine (1 of 3 - 19+ 3-dose series) Hepatitis B Vaccine (1 of 3 - 19+ 3-dose series) [facility] Start: 2014 Urine microalbumin profile DTaP,Tdap,Td Vaccine (1 - Tdap) [facility] Start: 2013 Anxiety Screening Anxiety Screening [facility] Start: 2013 Depression Screening Depression Scre ening [facility] Start: 2013 Hepatitis C screening Hepatitis C Sc reening [facility] Start: 2013 HIV screening HIV Screening [facility] Start: 09-09-2013 Hepatitis B Vaccine (2 of 3 - 3-dose series) Hepatitis B Vaccine (2 of 3 - 3-dose series) [facility] Payers Date Payer Category Payer Self-pay 2025 Private Health Insurance [id number] 2023 Unknown [id number] 2022 Unknown [id number] 2022 Unknown [id number] 1995 Unknown [id number] 2.16.8 [id number] 1995 Unknown [id number] 2.16.8 40.1.163614.3.579.2.627 1995 Unknown [id number] 2.16.8 40.1.084661.3.579.2.627 1995 Unknown [id number] 2.16.8 40.1.950959.3.579.2.627 1995 Unknown [id number] 2.16.8 40.1.744595.3.579.2.627 1995 Unknown [id number] 2.16.8 40.1.644835.3.579.2.627 1995 Unknown [id number] 2.16.8 40.1.454416.3.579.2.627 1995 Unknown [id number] 2.16.8 40.1.459341.3.579.2.627 1995 Unknown [id number] 2.16.8 40.1.425435.3.579.2.627 1995 Unknown [id number] 2.16.8 40.1.073070.3.579.2.627 1995 Unknown [id number] 2.16.8 40.1.675032.3.579.2.627 1995 Unknown [id number] 2.16. 840.1.456488.3.579.2.627 1995 Unknown [id number] 2.16. 840.1.870675.3.579.2.627 1995 Unknown [id number] 2.16. 840.1.081543.3.579.2.627 1995 Unknown [id number] 2.16. 840.1.738582.3.579.2.627 1995 Unknown [id number] 2.16. 840.1.441289.3.579.2.627 1995 Unknown [id number] 2.16.8 40.1.266062.3.579.2.627 Unknown [id number] 2.16.8 40.1.400392.3.579.2.462 Unknown [id number] 2.16.8 40.1.384053.3.579.2.462 Unknown [id number] 2.16.8 40.1.697757.3.579.2.462 Social History Date Type Detail Facility Tobacco smoking status [facility] Start: 1995 Sex Assigned At Female A [facility] Start: 04-26-2023 End: 06-22-2025 Tobacco smoking status Never smoked tobacco (finding) [facility] Start: 04-10-2024 Tobacco use and exposure Smokeless tobacco non-user [facility] Start: 04-10-2024 Alcoholic beverage intake Current drinker of alcohol (finding) [facility] - [place] Start: 09-13-2020 End: 04-10-2024 History of Social function [facility] Start: 09-13-2020 End: 04-10-[address] [facility] National Score (1-10 0), lower number is lower risk Not on file [facility] Start: 04-10-2024 [facility] Start: 1995 Sex assigned at Not on file [facility] Start: 09-10-2022 Sex Female (finding) [facility] Functional Status Date Assessment Result Facility 04-29-2023 Functional Status Rooming in [facility] 04-26-2023 Functional Status Home with family care [facility] Mental Status Date Assessment Result Facility 04-27-2023 Mental Status Orientation Oriented x 4 [facility] Clinical Notes 10-22-2022 to 06-27-2025 Note Date & Type Note Facility 06-27-2025 Evaluation note Diagnosis Onset Date Resolution COVID-19 affecting , antepartum acute June 27, 2025 11:38am FH: breast cancer acute Sept2024 11:38am acute June 11:38am Rh negative status during acute June 27, 2025 11:38am Supervision of high-risk acute June 272024 11:38am [facility] Work Phone: [phone]) 480-339309-23-2025 Progress [facility] [address] [place] [address], [address] [place] [address] OFFICE VISIT Date of Service: 06/27/25 MR#: [id number] Acct: [id number] Name: VARSHATATYEVELYN Rep #: [id number] : 1995 Provider: VILMA Stone Age/Sex: 29/F [place] [facility] [place]: Signed Intake Vital Signs 06/27/25 11:41 Height 5 ft 4 in Weight: 176 lb 4 oz BMI 30.2 BP 127/82 H Intake Visit Reasons: *NEW* NOB JAMES GAURANG 09/04 30wk2d Chief Complaint: New OB Director Imaging Required: No Is patient in pain?: No Allergies No Known Allergies Allergy (Unverified 06/27/25 11:39) Medications ?Medication ?Instructions ?Recorded ?Confirmed ?Type ascorbic acid (vitamin C) 500 mg mg PO 06/22/25 History capsule aspirin 81 mg tablet 81 mg PO QDAY 06/22/2506/27 History calcium gluconate 50 mg calcium mg PO 06/22/25 5 History capsule magnesium 250 mg tablet 250 mg PO QDAY 06/22/2506/06 History multivit-min no.71-iron fum 28 cap PO 06/22/25 5 History mg-folate no.1 1 mg-dha 300 mg capsule (PNV-[place]) vitamin E (dl, acetate) 90 mg (200 90 mg PO QDAY 06/2206/27/25 History unit) capsule Last Menstrual Period: 11/28/24 : No Have you fallen in the past year?: No PFSH PFSH Medical History Seasonal allergies Surgical History [place] teeth extracted Family History Father Colon cancer, Onset Age: 67 Maternal Grandmother Breast cancer, Onset Age: 90 Grandfather Colon cancer, Onset Age: 57 Paternal Uncle Cancer, Onset Age: 55 lung, liver- Paternal Uncle Cancer, Onset Age: 64 Prostate-Paternal Uncle Cancer, Onset Age: 72 lymphoma Paternal Aunt Breast cancer, Onset Age: 42 Paternal Mother Heart disease electrical issues Social History adopted: Yes household members: spouse and children housing: house number of children: 1 service: No current occupational status: 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 pets and animals: No history of recent travel: Yes (- Jun) out of country: Yes sexually active: Yes Smoking Status: Never smoker alcohol intake: current alcohol intake frequency: holidays/special occasions only details: Not while substance use type: does not use well-balanced diet: about half the time caffeine: Yes Type: coffee Number of servings: 2 eating out: 1-3 times/week during the past year weight has: decreased > 10 lbs what type of physical activity do you participate in: none luis/sabianist: Sikhism seatbelt use: always do you feel safe at home: Yes additional social history: Jairo Patel History 2 Elective abortions Hx Para 1 Spontaneous abortions Hx # Term Pregnancies Ectopic pregnancies Hx # Pregnancies Multiple births # of living children 1 Past Pregnancies Del. Date Name GA/Weeks Outcome Route Bth Weight Gen Labor Lgth Anesthesia Del Locatn Provider FOB 04/28/23 [place] 41 live - full term 7#7oz Male epidural [facility] Claudio Camilo Delivery Date: 04/28/23 Last Updated by: Pia Mora IOL, post dates- baby had knot in cord HPI *NEW* NOB JAMES GAURANG 09/04 30wk2d Details: EVELYN MADDOX is a 29 year old who presents for New OB visit. OB Visit GAURANG Calculator Estimated Delivery Date Method Current WG Current Estimate 09/04/25 LMP (Certain) 30w 1d Comments: HIV: Urine Culture: Sequential Screen: NIPT Screen: Estimated Due Date: 09/04/25 Expected Delivery Route/Plan Labor Preferences- CB/BF classes: [] labor support person: [] labor intervention preferences: [] pain management options preferred: [] cut cord/dad catch: [] : [] PP control planned: [] discussed possible routes of delivery and associated risks: [] special requests: [] Specific Issue/Plans Covid status: [] Flu vaccine: [] Tdap vaccine: [] Rhogam: [] LARC form signed: [] Problem list reviewed and updated with the most current plan of care details and appropriate ordersplaced. Relevant counseling for the gestational age provided. Continue routine care and follow up unless otherwise noted in visit notes/problem list details Initial Weight: Not Recorded Date -?-?-?-?-?-?-?-?-?-?-?-?- EGA Weight BP Urine Prot -?-?-?-?-?-?-?-?-?-?-?-?- Glucose FHR FuHt Pres Dilation -?-?-?-?-?-?-?-?-?-?-?-?- Effaced St Visit Note 06/27/25 -?-?-?-?-?-?-?-?-?-?-?-?- 30w 1d 176 lb 4 oz 127/82 Nega tive -?-?-?-?-?-?-?-?-?-?-?-?- Negative 150 31 -?-?-?-?-?-?-?-?-?-?-?-?- KW- JAMES [facility]. Records reviewed and PRR KW- JAMES from [place]. Recor ds reviewed and PRR- waiting on glucose results. good fm and no vb/lof/ctx. will need rhogam 07/22 Menstrual History Last Menstrual Period: 11/28/24 Reported LMP: definite Normal amount/duration: Yes Frequency in days: 30-31 On hormonal BC at conception: No hCG+: 12/29/24 Antepartum Record Genetic Screening: Congenital Heart Defect: Other, Neural Tube Defect: Other, Hemoglobinopathy Or Carrier: Other, Cystic Fibrosis: Other, Chromosome Abnormality: Other, Adarsh-Sachs: Other, Hemophilia: Other, Intellectual Disability/Autism: Other, Recurrent Loss/Stillbirth: Other, Other Structural Defect: Other, Other Genetic Disease: Other and Maternal Metabolic Disorder: Other Infection History: Live with someone with TB or Exposed to TB: No, Patient or Partner has history of Genital Herpes: No, Rash or Viral illness since last mentrual period: Yes (COVID- last -aspirin 81mg/day), Prior GBS-Infected child: No, History of STD: No, HIV Infection: No, History of Hepatitis: No, Recent travel outside of [place]: Yes ([place]), Concern for hepatitis exposure: No, Varicella immune: Yes (immune- virus) and Covid Vaccinated: No Medical History Medical History: Positive: D (Rh) Sensitized (A-, FOB is A+ Pt had Rhogam at 24wks due to a fall), Seasonal allergies (mild- Moderate), Operations/hospitalizations (wisdom teeth) and Relevant family history (See PFSH) and Negative: Diabetes, Hypertension, Heart disease, Auto-immune disorder, Kidneydisease/UTI, Neurologic/epilepsy, Psychiatric, Depression/ depression, Hepatitis/liver disease, Varicosities/phlebitis, Thyroid dysfunction, Trauma/domestic violence, History of blood transfusions, Pulmonary (e.g.,TB,Asthma), Drug/latex allergies/reactions, Breast, Driver Merchandiser surgery, Anestheticcomplications, History of abnormal pap, Uterine anomaly/jose m, Infertility, Anti-retroviral treatmentand Other ACOG First Trimester First Trimester: Desire for , Alcohol, Tobacco Cessation, Illicit/Recreational Drug/Substance Use, Intimate Partner Violence, Barriers to care, Unstable Housing, Communication Barriers, Environmental/Work Hazards, Anticipated Course of Care, Nurtrition and weight gain, Toxoplasmosis Precations, Use of Any medications, Sexual activity, Exercise, Dental Care, Sauna/Hot tub use, Seat Belt use, Childbirth classes/Hospital facilities, Travel, Indications for Ultrasound and Screening for Aneuploidy; Discussed Results POC Urinalysis 2 Dip (Clinic) Office Urine Glucose Negative Last Edit by Ines Marrero on 06/27/25 11:50 Office Urine Protein Negative Last Edit by Ines Marrero on 06/27/25 11:50 Coding Level of Care Code OB Routine Diagnoses Supervision of high-risk O09.90 30 weeks gestation of Z3A.30 Weeks of gestation: 30 weeks FH: breast cancer Z80.3 Rh negative status during O26.899; Z67.91 COVID-19 affecting , antepartum O98.519; U07.1 Assessment and Plan Assessment and Plan (1) Supervision of high-risk : Status: Acute Comment: , GAURANG 09/04/25, DEREK Herr, Tegan (2) : Status: Acute Qualifiers: Weeks of gestation: 30 weeks Qualified Code(s): Z3A.30 - 30 weeks gestation of Comment: declined NIPT & Carrier, JAMES to [facility] @ 30wks (3) FH: breast cancer: Status: Acute Comment: Maternal grandmother, Paternal Aunt (4) Rh negative status during : Status: Acute Comment: is A+, Had Rhogam @ 24wks due to fall (5) COVID-19 affecting , antepartum: Status: Acute Comment: 06/12/25, ASA 81 mg daily Orders: Orders POC Urinalysis 2 Dip (Clinic) Today Clinical Quality Measures Falls Risk Screening/Assistive Devices Have you fallen in the past year?: No 06/27/25 1222 s CNM> Date _ Angely Bazan Signature: Date (if applicable) CC: ~ [facility]09-16-2025 Evaluation + Plan note Diagnostic Tests Pending * Rapid Plasma Reagin(RFX Titer + Confirm) 06/20/25 [facility] 07-26-2025 Hospital Discharge instructions Patient Education 04/29/2025 17:32:46 7 - Labor and Delivery Outpatient Instructions (CUSTOM) [facility] HOME-GOING INSTRUCTIONS _X_ You are to follow up with your physician as scheduled ACTIVITY ___ Bedrest _x__Activity as tolerated ___ No work/school for ___ days. ___Other LABOR ___ Restrict activity. _x__ Drink 8-12 glasses of water every day. _x__ Urinate frequently ___ Pelvic rest. No sexual intercourse/ Call your physician if you experience: _x__ Increase in vaginal discharge, leaking fluid, or vaginal bleeding. _x__ More than 4, 5, or 6 contractions in one hour. _x__ Burning and frequency with urination. OTHER _x__ After an exam you may experience some spotting or discharge. As long as it is not bright red and heavy like a period or continues to leak as if your water broke, it is to be expected. ___ LABOR Call your physician if you experience: _x__ Painful uterine contractions every __2-4_ minutes for _3__ hours. _x__A gush or continuous trickle of watery discharge. COME TO THE HOSPITAL AND CALL PHYSICIAN IF: _x__ Your abdomen feels continually firm. _x__ *Bleeding is bright red and enough to saturate a pad in one hour or less. *Call 911 or go to the nearest Emergency Room for assistance. Form [id number] D: 09/12 Document Released: 09/21/2006 Document Revised: 09/09/2012 Document Reviewed: 09/21/2006 ExitCare Patient Information 2012 [employer]. Follow Up Care 04/29/2025 14:48:47 With:JOHN VERDUGO Address: [address] [place] [phone] [employer] (1) When: Unknown Comments:Follow-up as scheduled [facility] 07-26-2025 Note Discharge Instructions Thank you for allowing [facility] to assist you with your healthcare needs. The following is importantdischarge information regarding your hospital visit. Your Care Team ROMÁN LEMONS DO What to do next Follow Up Appointments Follow Up with JOHN VERDUGO Where:[address] [place] [phone] [employer] (1) Additional Information: Follow-up as scheduled Someone Will Contact You Regarding These Home Health Referrals No home referrals have been ordered for you. No one will call you. The Following Activity and Diet Have Been Ordered for You No qualifying data available. No qualifying data available. The Following Equipment Has Been Ordered for You No qualifying data available. The Following Treatments Have Been Arranged for You Discharge Labs No qualifying data available. Discharge Radiology No qualifying data available. Other Therapies No qualifying data available. Allergies No Known Medication Allergies Medications Please ask your primary doctor or pharmacist before taking any other medication not listed, including over the counter drugs, herbal medications, vitamins and or supplements as they may interact withyour home medications. What How Much When Instructions Last Dose Unchanged ascorbic acid (Vitamin C) Once a day Unchanged magnesium citrate (magnesium (as citrate) 85 mg oral tablet, chewable) 2 tab(s) by mouth Once a day Unchanged multivitamin with minerals (One A Day Adult Triple Immune Support oral tablet) by mouth Once a day Unchanged multivitamin, ( Multivitamins) 1 tab(s) by mouth Once a day Unchanged vitamin E (vitamin E 90 mg oral capsule) 1 cap by mouth Once a day Please take this list to your next doctor s visit. Bring all medications you take, including over the counter medications, herbals and other supplements with you to your doctor s visit. Patients and families are reminded to discard old lists and to update any records with all medication providers or retail pharmacies. Education Materials [facility]-GOING INSTRUCTIONS _X_ You are to follow up with your physician as scheduled ACTIVITY ___ Bedrest _x__Activity as tolerated ___ No work/school for ___ days. ___Other LABOR ___ Restrict activity. _x__ Drink 8-12 glasses of water every day. _x__ Urinate frequently ___ Pelvic rest. No sexual intercourse/ Call your physician if you experience: _x__ Increase in vaginal discharge, leaking fluid, or vaginal bleeding. _x__ More than 4, 5, or 6 contractions in one hour. _x__ Burning and frequency with urination. OTHER _x__ After an exam you may experience some spotting or discharge. As long as it is not bright red and heavy like a period or continues to leak as if your water broke, it is to be expected. ___ LABOR Call your physician if you experience: _x__ Painful uterine contractions every __2-4_ minutes for _3__ hours. _x__A gush or continuous trickle of watery discharge. COME TO THE HOSPITAL AND CALL PHYSICIAN IF: _x__ Your abdomen feels continually firm. _x__ *Bleeding is bright red and enough to saturate a pad in one hour or less. *Call 911 or go to the nearest Emergency Room for assistance. Form [id number] D: 09/12 Document Released: 09/21/2006 Document Revised: 09/09/2012 Document Reviewed: 09/21/2006 ExitCare Patient Information 2011 [employer]. Additional Information VACCINATE! IT SAVES LIVES! Members of the community who have not yet received the COVID-19 vaccine and would like to receive it can visit one of [facility] vaccine clinics. There are many vaccine clinic locations within the [facility]. For locations and available times, please visit www.gettheshot.coronavirus.[place].gov/. It is important to note that some COVID mobile vaccine clinics are held outdoors and may be canceled in rainy or stormy conditions. To learn more about pediatric vaccinations (ages 5-11), we invite you to visit the [facility] webpage. https://www.[employer].org/pages/5837-Yzrzy-Zlmgoqbtrui-Wnbhtwkxch-Mgvhn-Gac stions.htmlTo learn more about the COVID-19 vaccine, we invite you to visit the CDC website for a list of frequently asked questions. https://www.cdc.gov/coronavirus/2019-ncov/vaccines/faq.html [facility] Patient Portal Access Instructions: Stay connected with your healthcare team and access your personal medical information anytime with the [facility] Patient Portal.If you would like a full copy of your medical records, please contact the [facility] Medical Records Department, Thursday through Thursday between 8a.m. and 4:30p.m. Please follow the directions below to access the portal: 1.Access the email account you provided upon registration to the [facility].2.Look for an invitation email from [facility].3.Open the email and access the invitation link: Accept Invitation to [facility]4.Fill in the required martines to create your account. Sign into www.[employer] with your username and password that you created in the above steps to stay up to date. You can then view a summary of results, a summary of your visits, and the ability to download your summaries to your computer or send the information securely to a physician. Remember that your healthcare information is confidential, so carefully consider who you will allow to register on the [facility] Patient Portal for access to your information. You can also access the [facility] Patient Portal on the [employer]. Simply click on Health Records under [employer] and then click on the [employer] logo. HOW TO SAFELY DISPOSE OF PRESCRIPTION MEDICATIONS Please use one of the following methods to safely dispose of your unused medications. 1.Use a drug disposal kit: the drug disposal pouch allows you to safely discard your old and unuseddrugs. Ask your nurse to give you one when you are discharged.2.Visit a local take-back location: Many local pharmacies and police departments have programs that collect old and unwanted prescriptiondrugs. Call your local pharmacy or go to http://ODEC.OpenBook/8G4Do3x to find one close to you.3.Make use of household items: Use cat litter or old coffee grounds to dispose medications if other options arenot available. Mix your drugs with these household products, seal them in an airtight container andthrow it into the garbage. Call [facility]: [phone] to be sure your drugs can be disposed of in this way. Some medicines may require a different approach.4.Never flush your medications down the toilet. IF YOU HAVE BEEN PRESCRIBED AN OPIOID FOR PAIN If you have been prescribed an opioid (such as hydrocodone, oxycodone or morphine), it is critical to understand the possible side effects and risks of opioid pain medications. Even when taken as directed, opioids can have several side effects including: Tolerance, meaning you might need to take more of a medication for the same pain relief. Nausea, vomiting and/or constipation. Sleepiness, dizziness, dry mouth, confusion, depression or itching. Physical dependence, meaning you have withdrawal symptoms when a medication is stopped, can develop within a few days. KNOW YOUR RESPONSIBILITIES It is important to know exactly how much and how often to take the opioid pain medications you are prescribed. Never take opioids in higher amounts or more often than prescribed. Do not combine opioids with alcohol or other drugs that cause drowsiness, such as benzodiazepines, also known as benzos,including diazepam and alprazolam, muscle relaxants or sleep aids. Never sell or share prescriptionopioids. This is illegal. Store opioids in a secure place and out of reach of others (including children, family, friends and visitors). The last page of this document has been signed and retained as a CHART COPY Signatures Patient Education Materials 7 - Labor and Delivery Outpatient Instructions (CUSTOM) Medication Leaflets My discharge plan and instructions have been reviewed and explained to me and I,EVELYN MADDOX I understand my current condition and have read and understand these discharge instructions. I have receiveda written copy of the plan/instructions. If I have questions, I am aware that I should contact my do ctor. Patient/Social Professionals Signature: Date/Time: Relationship to Patient: Witness Name/Signature: Date/Time: [id number] Note. MICRO - Microbiology PROCEDURE: Urine Culture [*1] SOURCE: Urine BODY SITE: COLLECTED DATE/TIME: 03/15/2025 15:43 EDT RECEIVED DATE/TIME: 03/15/2025 19:53 EDT START DATE/TIME: 03/15/2025 19:53 EDT FREE TEXT SOURCE: FINAL REPORTS Final Report [] Verified Date/Time/Personnel: 03/17/2025 07:39 EDT 10,000 - 50,000 cfu/ml Multiple bacterial morphotypes present. Probable Contamination. Suggest recollection if clinically indicated. PRELIMINARY REPORTS Preliminary Report [] Verified Date/Time/Personnel: 03/16/2025 09:25 EDT Culture results pending. Preliminary Report [] Verified Date/Time/Personnel: 03/15/2025 20:59 EDT Specimen received in lab. Performing Locations *1: This test was performed at: [facility], [address] [place] [address], [address]- , [facility]06-11-2025 Evaluation + Plan note Diagnostic Tests Pending * Panel (AO) 03/15/25 * Varicella Zoster Antibody 03/15/25 [facility] 07-07-2024 History of Present illness Narrative* Zeny Pollard RT(R) - 04/10/2024 3:15 PM EDT Radiology Service Progress Note PATIENT NAME: Evelyn Maddox DATE OF SERVICE: April 10, 2024 TIME: 3:42 PM PATIENT IDENTITY VERIFICATION COMPLETED USING TWO (2) IDENTIFIERS: Name and Date of confirmedby patient verbally. FALL SCREENING: Has the patient had 2 falls in the last year or 1 fall with injury or currently using an Ambulatory Assistive Device (Walker, Cane, Wheelchair, Crutches, etc.)? No PATIENT GENDER DATA: Female. status: : No status: NO. PATIENT RELEVANT IMPLANT DATA REVIEWED: Not Applicable PATIENT PRESENTS WITH AN IMPLANTABLE OR ATTACHED SPECIAL PROJECTS MANAGER: No RADIOLOGY DEPARTMENT: General X-ray: Exam(s) Completed: Lower Extremity X- Ray(s): Foot, Left PERIPHERAL IV DATA: Not applicable SIGNED BY: ONDINA Ledezma) April 10, 2024 3:42 PM documented in this [facility] NoteHNO ID: [id number] Author: ZENY POLLARD RT(R) Service: ? Author Type: Technologist Type: Progress Notes Filed: 04/10/2024 15:42 Note Text: Radiology Service Progress Note PATIENT NAME: Evelyn Maddox DATE OF SERVICE: April 10, 2024 TIME: 3:42 PM PATIENT IDENTITY VERIFICATION COMPLETED USING TWO (2) IDENTIFIERS: Name and Date of confirmed by patient verbally. FALL SCREENING: Has the patient had 2 falls in the last year or 1 fall with injury or currently using an Ambulatory Assistive Device (Walker, Cane, Wheelchair, Crutches, etc.)? No PATIENT GENDER DATA: Female. status: : No status: NO. PATIENT RELEVANT IMPLANT DATA REVIEWED: Not Applicable PATIENT PRESENTS WITH AN IMPLANTABLE OR ATTACHED SPECIAL PROJECTS MANAGER: No RADIOLOGY DEPARTMENT: General X-ray: Exam(s) Completed: Lower Extremity X-Ray(s): Foot, Left PERIPHERAL IV DATA: Not applicable SIGNED BY: ONDINA Ledezma) April 10, 2024 3:42 [id number] NoteHNO ID: [id number] Author: ALETHEA LEYVA APRN.DOOR TO DOOR SELLING DISTRIBUTOR Service: ? Author Type: Nurse Practitioner Type: Progress Notes Filed: 04/10/2024 15:48 Note Text: April 10, 2024 Subjective Chief Complaint: Toe Injury (Sx started today when she dropped her cell phone on her 5th digit on her left foot. Pt has pain, swelling and abrasions. No otc meds) HPI: Evelyn Maddox is a 28 year old female who presents today for left toe injury after dropping a cell phone on her left small toe and it even scraped the skin off. Now is bruising History reviewed. No pertinent past medical history. PAST SURGICAL HISTORY Procedure Laterality Date DENTAL SURGERY HX wisdom teeth History reviewed. No pertinent family history. Social History Tobacco Use Smoking status: Never Smokeless tobacco: Never Vaping Use Vaping Use: Never used Substance Use Topics Alcohol use: Yes Comment: occ ALLERGIES No Known Allergies There is no immunization history on file for this patient. Current Medications: No prescriptions on file. Review of Systems Constitutional: Negative. HENT: Negative. Eyes: Negative. Respiratory: Negative. Cardiovascular: Negative. Gastrointestinal: Negative. Genitourinary: Negative. Musculoskeletal: Left foot small toe injury with pain, bruising, swelling and abrasion Skin: Negative for itching and rash. Neurological: Negative. Objective BP 111/75 Pulse 76 Temp (Src) 97.5 (Oral) Resp 16 Wt 163 lb 2.3 oz (74.0kg) SpO2 95% LMP 03/27/2024 Physical Exam Vitals and nursing note reviewed. Constitutional: Appearance: Normal appearance. HENT: Head: Normocephalic and atraumatic. Right Ear: Tympanic membrane, ear canal and external ear normal. There is no impacted cerumen. Left Ear: Tympanic membrane, ear canal and external ear normal. There is no impacted cerumen. Nose: Nose normal. Mouth/Throat: Mouth: Mucous membranes are moist. Pharynx: Oropharynx is clear. Eyes: Extraocular Movements: Extraocular movements intact. Conjunctiva/sclera: Conjunctivae normal. Pupils: Pupils are equal, round, and reactive to light. Cardiovascular: Rate and Rhythm: Normal rate and regular rhythm. Pulses: Normal pulses. Heart sounds: Normal heart sounds. Pulmonary: Effort: Pulmonary effort is normal. Breath sounds: Normal breath sounds. Abdominal: General: Bowel sounds are normal. Palpations: Abdomen is soft. Musculoskeletal: General: Normal range of motion. Cervical back: Normal range of motion and neck supple. Feet: Feet: Left foot: Toenail Condition: Left toenails are normal. Skin: General: Skin is warm and dry. Neurological: General: No focal deficit present. Mental Status: She is alert and oriented to person, place, and time. Psychiatric: Mood and Affect: Mood normal. ASSESSMENT/PLAN: 1. Toe injury, left, initial encounter - ICD9: 959.7, ICD10: S99.922A - XR FOOT GENERAL 3V AP/LAT/OBL LEFT -eli tape 4th and 5th toes -follow up with podiatry Alethea Leyva APRN.[employer]ING [employer]BUTOR Medical Decision Making: Problems: Low: Acute, uncomplicated illness or injury Data: Unique source(s) for external note(s) reviewed: 1 Unique test result(s) reviewed: 1 Unique test(s) ordered: 1 Independent interpretation of test from other physician/QHCP Risk: Moderate: Moderate risk from testing/treatment Medical Decision Making Level: 4 - Moderate This note was partially generated using [employer] voice recognition system and there may be some incorrect words, spelling's, and punctuation that were not noted in checking the note before saving. The above reflects my independent exam and review of the patient's medical record. I saw and examined the patient myself personally. Parts of the HPI, ROS, exam, impression/plan, and testing results may have been copied from the current or previous clinical notes and remain pertinent to today's visit. Current changes have been made and documented today. Other parts or data may have been deleted if not relevant for today. Plan as outlined above.[facility] [id number] History of Present illness Narrative* Alethea Leyva APRN.SAMMI - 04/10/2024 3:06 PM EDT Images from the original note were not included. April 10, 2024 Subjective Chief Complaint: Toe Injury (Sx started today when she dropped her cell phone on her 5th digit on her left foot. Pt has pain, swelling and abrasions. No otc meds) HPI: Evelyn Maddox is a 28 year old female who presents today for left toe injury after dropping a cellphone on her left small toe and it even scraped the skin off. Now is bruising History reviewed. No pertinent past medical history. PAST SURGICAL HISTORY Procedure Laterality Date DENTAL SURGERY HX wisdom teeth History reviewed. No pertinent family history. Social History Tobacco Use Smoking status: Never Smokeless tobacco: Never Vaping Use Vaping Use: Never used Substance Use Topics Alcohol use: Yes Comment: occ ALLERGIES No Known Allergies There is no immunization history on file for this patient. Current Medications: No prescriptions on file. Review of Systems Constitutional: Negative. HENT: Negative. Eyes: Negative. Respiratory: Negative. Cardiovascular: Negative. Gastrointestinal: Negative. Genitourinary: Negative. Musculoskeletal: Left foot small toe injury with pain, bruising, swelling and abrasion Skin: Negative for itching and rash. Neurological: Negative. Objective BP 111/75 Pulse 76 Temp (Src) 97.5 (Oral) Resp 16 Wt 163 lb 2.3 oz (74.0kg) SpO2 95% LMP 03/27/2024 Physical Exam Vitals and nursing note reviewed. Constitutional: Appearance: Normal appearance. HENT: Head: Normocephalic and atraumatic. Right Ear: Tympanic membrane, ear canal and external ear normal. There is no impacted cerumen. Left Ear: Tympanic membrane, ear canal and external ear normal. There is no impacted cerumen. Nose: Nose normal. Mouth/Throat: Mouth: Mucous membranes are moist. Pharynx: Oropharynx is clear. Eyes: Extraocular Movements: Extraocular movements intact. Conjunctiva/sclera: Conjunctivae normal. Pupils: Pupils are equal, round, and reactive to light. Cardiovascular: Rate and Rhythm: Normal rate and regular rhythm. Pulses: Normal pulses. Heart sounds: Normal heart sounds. Pulmonary: Effort: Pulmonary effort is normal. Breath sounds: Normal breath sounds. Abdominal: General: Bowel sounds are normal. Palpations: Abdomen is soft. Musculoskeletal: General: Normal range of motion. Cervical back: Normal range of motion and neck supple. Feet: Feet: Left foot: Toenail Condition: Left toenails are normal. Skin: General: Skin is warm and dry. Neurological: General: No focal deficit present. Mental Status: She is alert and oriented to person, place, and time. Psychiatric: Mood and Affect: Mood normal. ASSESSMENT/PLAN: 1. Toe injury, left, initial encounter - ICD9: 959.7, ICD10: S99.922A - XR FOOT GENERAL 3V AP/LAT/OBL LEFT -eli tape 4th and 5th toes -follow up with podiatry Alethea Leyva APRN.CNP Medical Decision Making: Problems: Low: Acute, uncomplicated illness or injury Data: Unique source(s) for external note(s) reviewed: 1 Unique test result(s) reviewed: 1 Unique test(s) ordered: 1 Independent interpretation of test from other physician/QHCP Risk: Moderate: Moderate risk from testing/treatment Medical Decision Making Level: 4 - Moderate This note was partially generated using [employer] voice recognition system and there may be some incorrect words, spelling's, and punctuation that were not noted in checking the note before saving. The above reflects my independent exam and review of the patient's medical record. I saw and examined the patient myself personally. Parts of the HPI, ROS, exam, impression/plan, and testing results may have been copied from the current or previous clinical notes and remain pertinent to today's visit. Current changes have been made and documented today. Other parts or data may have been deleted if notrelevant for today. Plan as outlined above. [facility]* Patient Instructions* Alethea Leyva APRN.CNP - 04/10/2024 3:06 PM EDT Xray of left foot and small toe looks ok. I will call if the radiologist reads abnormal. Wash abrasion with soap and water, apply bacitracin ointment for 1-2 days. Eli tape toes for extra support. Follow up with your sterile products processor if any no improvement. ICE AREA FREQUENTLY REST/ELEVATE TYLENOL AND/OR IBUPROFEN FOR PAIN [facility] [address] [place] [address] NISSA [phone] [place] D[facility] [id number] [facility] NISSA [phone] documented in this encounterSelect [facility] [place] Hospital Discharge instructions Patient Education 04/28/2023 01:15:56 Care After Vaginal Delivery Care After Vaginal Delivery This sheet gives you information about how to care for yourself from the time you deliver your babyto up to 6 12 weeks after delivery ( period). Your health care provider may also give youmore specific instructions. If you have problems or questions, contact your health care provider. Follow these instructions at home: Vaginal bleeding It is normal to have vaginal bleeding (lochia) after delivery. Wear a sanitary pad for vaginal bleeding and discharge. ?During the first week after delivery, the amount and appearance of lochia is often similar to a menstrual period. ?Over the next few weeks, it will gradually decrease to a dry, yellow-brown discharge. ?For most women, lochia stops completely by 4 6 weeks after delivery. Vaginal bleeding can vary from woman to woman. Change your sanitary pads frequently. Watch for any changes in your flow, such as: ?A sudden increase in volume. ?A change in color. ?Large blood clots. If you pass a blood clot from your vagina, save it and call your health care provider to discuss. Do not flush blood clots down the toilet before talking with your health care provider. Do not use tampons or douches until your health care provider says this is safe. If you are not , your period should return 6 8 weeks after delivery. If you are feeding your child breast milk only (exclusive ), your period may not return until you stop . Perineal care Keep the area between the vagina and the anus (perineum) clean and dry as told by your health care provider. Use medicated pads and pain-relieving sprays and creams as directed. If you had a cut in the perineum (episiotomy) or a tear in the vagina, check the area for signs of infection until you are healed. Check for: ?More redness, swelling, or pain. ?Fluid or blood coming from the cut or tear. ?Warmth. ?Pus or a bad smell. You may be given a squirt bottle to use instead of wiping to clean the perineum area after you go to the bathroom. As you start healing, you may use the squirt bottle before wiping yourself. Make sure to wipe gently. To relieve pain caused by an episiotomy, a tear in the vagina, or swollen veins in the anus (hemorrhoids), try taking a warm sitz bath 2 3 times a day. A sitz bath is a warm water bath that is taken while you are sitting down. The water should only come up to your hips and should cover your buttocks. Breast care Within the first few days after delivery, your breasts may feel heavy, full, and uncomfortable (breast engorgement). Milk may also leak from your breasts. Your health care provider can suggest ways to help relieve the discomfort. Breast engorgement should go away within a few days. If you are : ?Wear a bra that supports your breasts and fits you well. ?Keep your nipples clean and dry. Apply creams and ointments as told by your health care provider. ?You may need to use breast pads to absorb milk that leaks from your breasts. ?You may have uterine contractions every time you breastfeed for up to several weeks after delivery. Uterine contractions help your uterus return to its normal size. ?If you have any problems with , work with your health care provider or customer relations consultant. If you are not : ?Avoid touching your breasts a lot. Doing this can make your breasts produce more milk. ?Wear a good-fitting bra and use cold packs to help with swelling. ?Do not squeeze out (express) milk. This causes you to make more milk. Intimacy and sexuality Ask your health care provider when you can engage in sexual activity. This may depend on: ?Your risk of infection. ?How fast you are healing. ?Your comfort and desire to engage in sexual activity. You are able to get after delivery, even if you have not had your period. If desired, talkwith your health care provider about methods of control (contraception). Medicines Take [id number] and prescription medicines only as told by your health care provider. If you were prescribed an antibiotic medicine, take it as told by your health care provider. Do notstop taking the antibiotic even if you start to feel better. Activity Gradually return to your normal activities as told by your health care provider. Ask your health care provider what activities are safe for you. Rest as much as possible. Try to rest or take a nap while your baby is sleeping. Eating and drinking Drink enough fluid to keep your urine pale yellow. Eat high-fiber foods every day. These may help prevent or relieve constipation. High-fiber foods include: ?Whole grain cereals and breads. ?Brown rice. ?Beans. ?Fresh fruits and vegetables. Do not try to lose weight quickly by cutting back on calories. Take your vitamins until your checkup or until your health care provider tells you it is okay to stop. Lifestyle Do not use any products that contain nicotine or tobacco, such as cigarettes and e-cigarettes. If you need help quitting, ask your health care provider. Do not drink alcohol, especially if you are . General instructions Keep all follow-up visits for you and your baby as told by your health care provider. Most women visit their health care provider for a checkup within the first 3 6 weeks after delivery. Contact a health care provider if: You feel unable to cope with the changes that your child brings to your life, and these feelings donot go away. You feel unusually sad or worried. Your breasts become red, painful, or hard. You have a fever. You have trouble holding urine or keeping urine from leaking. You have little or no interest in activities you used to enjoy. You have not breastfed at all and you have not had a menstrual period for 12 weeks after delivery. You have stopped and you have not had a menstrual period for 12 weeks after you stopped . You have questions about caring for yourself or your baby. You pass a blood clot from your vagina. Get help right away if: You have chest pain. You have difficulty breathing. You have sudden, severe leg pain. You have severe pain or cramping in your lower abdomen. You bleed from your vagina so much that you fill more than one sanitary pad in one hour. Bleeding should not be heavier than your heaviest period. You develop a severe headache. You faint. You have blurred vision or spots in your vision. You have bad-smelling vaginal discharge. You have thoughts about hurting yourself or your baby. If you ever feel like you may hurt yourself or others, or have thoughts about taking your own life,get help right away. You can go to the nearest emergency department or call: Your local emergency services (911 in the [place] A suicide crisis helpline, such as the National Suicide Prevention Lifeline at . Thisis open 24 hours a day. Summary The period of time right after you deliver your up to 6 12 weeks after delivery is called the period. Gradually return to your normal activities as told by your health care provider. Keep all follow-up visits for you and your baby as told by your health care provider. This information is not intended to replace advice given to you by your health care provider. Make sure you discuss any questions you have with your health care provider. Document Released: 07/18/2008 Document Revised: 09/24/2018 Document Reviewed: 07/05/2018 [employer] Patient Education 2020 [employer]. 04/28/2023 01:15:56 Care After Vaginal Delivery Care After Vaginal Delivery This sheet gives you information about how to care for yourself from the time you deliver your babyto up to 6 12 weeks after delivery ( period). Your health care provider may also give youmore specific instructions. If you have problems or questions, contact your health care provider. Follow these instructions at home: Vaginal bleeding It is normal to have vaginal bleeding (lochia) after delivery. Wear a sanitary pad for vaginal bleeding and discharge. ?During the first week after delivery, the amount and appearance of lochia is often similar to a menstrual period. ?Over the next few weeks, it will gradually decrease to a dry, yellow-brown discharge. ?For most women, lochia stops completely by 4 6 weeks after delivery. Vaginal bleeding can vary from woman to woman. Change your sanitary pads frequently. Watch for any changes in your flow, such as: ?A sudden increase in volume. ?A change in color. ?Large blood clots. If you pass a blood clot from your vagina, save it and call your health care provider to discuss. Do not flush blood clots down the toilet before talking with your health care provider. Do not use tampons or douches until your health care provider says this is safe. If you are not , your period should return 6 8 weeks after delivery. If you are feeding your child breast milk only (exclusive ), your period may not return until you stop . Perineal care Keep the area between the vagina and the anus (perineum) clean and dry as told by your health care provider. Use medicated pads and pain-relieving sprays and creams as directed. If you had a cut in the perineum (episiotomy) or a tear in the vagina, check the area for signs of infection until you are healed. Check for: ?More redness, swelling, or pain. ?Fluid or blood coming from the cut or tear. ?Warmth. ?Pus or a bad smell. You may be given a squirt bottle to use instead of wiping to clean the perineum area after you go to the bathroom. As you start healing, you may use the squirt bottle before wiping yourself. Make sure to wipe gently. To relieve pain caused by an episiotomy, a tear in the vagina, or swollen veins in the anus (hemorrhoids), try taking a warm sitz bath 2 3 times a day. A sitz bath is a warm water bath that is taken while you are sitting down. The water should only come up to your hips and should cover your buttocks. Breast care Within the first few days after delivery, your breasts may feel heavy, full, and uncomfortable (breast engorgement). Milk may also leak from your breasts. Your health care provider can suggest ways to help relieve the discomfort. Breast engorgement should go away within a few days. If you are : ?Wear a bra that supports your breasts and fits you well. ?Keep your nipples clean and dry. Apply creams and ointments as told by your health care provider. ?You may need to use breast pads to absorb milk that leaks from your breasts. ?You may have uterine contractions every time you breastfeed for up to several weeks after delivery. Uterine contractions help your uterus return to its normal size. ?If you have any problems with , work with your health care provider or customer relations consultant. If you are not : ?Avoid touching your breasts a lot. Doing this can make your breasts produce more milk. ?Wear a good-fitting bra and use cold packs to help with swelling. ?Do not squeeze out (express) milk. This causes you to make more milk. Intimacy and sexuality Ask your health care provider when you can engage in sexual activity. This may depend on: ?Your risk of infection. ?How fast you are healing. ?Your comfort and desire to engage in sexual activity. You are able to get after delivery, even if you have not had your period. If desired, talkwith your health care provider about methods of control (contraception). Medicines Take zkcr-qec-elgfzid and prescription medicines only as told by your health care provider. If you were prescribed an antibiotic medicine, take it as told by your health care provider. Do notstop taking the antibiotic even if you start to feel better. Activity Gradually return to your normal activities as told by your health care provider. Ask your health care provider what activities are safe for you. Rest as much as possible. Try to rest or take a nap while your baby is sleeping. Eating and drinking Drink enough fluid to keep your urine pale yellow. Eat high-fiber foods every day. These may help prevent or relieve constipation. High-fiber foods include: ?Whole grain cereals and breads. ?Brown rice. ?Beans. ?Fresh fruits and vegetables. Do not try to lose weight quickly by cutting back on calories. Take your vitamins until your checkup or until your health care provider tells you it is okay to stop. Lifestyle Do not use any products that contain nicotine or tobacco, such as cigarettes and e-cigarettes. If you need help quitting, ask your health care provider. Do not drink alcohol, especially if you are . General instructions Keep all follow-up visits for you and your baby as told by your health care provider. Most women visit their health care provider for a checkup within the first 3 6 weeks after delivery. Contact a health care provider if: You feel unable to cope with the changes that your child brings to your life, and these feelings donot go away. You feel unusually sad or worried. Your breasts become red, painful, or hard. You have a fever. You have trouble holding urine or keeping urine from leaking. You have little or no interest in activities you used to enjoy. You have not breastfed at all and you have not had a menstrual period for 12 weeks after delivery. You have stopped and you have not had a menstrual period for 12 weeks after you stopped . You have questions about caring for yourself or your baby. You pass a blood clot from your vagina. Get help right away if: You have chest pain. You have difficulty breathing. You have sudden, severe leg pain. You have severe pain or cramping in your lower abdomen. You bleed from your vagina so much that you fill more than one sanitary pad in one hour. Bleeding should not be heavier than your heaviest period. You develop a severe headache. You faint. You have blurred vision or spots in your vision. You have bad-smelling vaginal discharge. You have thoughts about hurting yourself or your baby. If you ever feel like you may hurt yourself or others, or have thoughts about taking your own life,get help right away. You can go to the nearest emergency department or call: Your local emergency services (911 in the [place] A suicide crisis helpline, such as the National Suicide Prevention Lifeline at . Thisis open 24 hours a day. Summary The period of time right after you deliver your up to 6 12 weeks after delivery is called the period. Gradually return to your normal activities as told by your health care provider. Keep all follow-up visits for you and your baby as told by your health care provider. This information is not intended to replace advice given to you by your health care provider. Make sure you discuss any questions you have with your health care provider. Document Released: 07/18/2008 Document Revised: 09/24/2018 Document Reviewed: 07/05/2018 [employer] Patient Education 2020 [employer]. 04/28/2023 01:15:51 7b- Depression and Blues (07/2020) (CUSTOM) Nataliia Depression and Blues All mothers are at risk of developing depression or the blues. These mood changes can occur right after giving , or they may occur many months after giving . blues or depression can be mild or severe. Additionally, depression can goaway rather quickly, or it can be a long-term condition. CAUSES Raised hormone levels and the rapid drop in those levels are thought to be a main cause of depression and blues. A number of hormones change during and after . Estrogenand progesterone usually decrease right after delivery. The levels of thyroid hormone and various cortisol steroids also rapidly drop. Other factors that play a role in these mood changes include major life events and genetics. RISK FACTORS If you have any of the following risks for blues or depression, know what symptoms to watch out for during the period. Risk factors that may increase the likelihood of getting blues or depression include: Having a personal or family history of depression. Having depression while being . Having premenstrual mood issues or mood issues related to oral contraceptives. Having a lot of life stress. Having marital conflict. Lacking a social support network. Having health problems, such as diabetes. SIGNS AND SYMPTOMS Symptoms of blues include: Brief changes in mood, such as going from extreme happiness to sadness. Decreased concentration. Difficulty sleeping. Crying spells, tearfulness. Irritability. Anxiety. Symptoms of depression typically begin within the first month after giving . These symptoms include: Difficulty sleeping or excessive sleepiness. Marked weight loss. Agitation. Feelings of worthlessness. Lack of interest in activity or food. psychosis is a very serious condition and can be dangerous. Fortunately, it is rare. Displaying any of the following symptoms is cause for immediate medical attention. Symptoms of psychosis include: Hallucinations and delusions. Bizarre or disorganized behavior. Confusion or disorientation. DIAGNOSIS A diagnosis is made by an evaluation of your symptoms. There are no medical or lab tests that lead to a diagnosis, but there are various questionnaires that a health care provider may use to identifythose with blues, depression, or psychosis. Often, a screening tool called the [place] Depression Scale is used to diagnose depression in the period. TREATMENT blues usually goes away on its own in 1 2 weeks. Social support is often all that is needed. You will be encouraged to get adequate sleep and rest. Occasionally, you may be given medicinesto help you sleep. depression requires treatment because it can last several months or longer if it is not treated. Treatment may include individual or group therapy, medicine, or both to address any social,physiological, and psychological factors that may play a role in the depression. Regular exercise, a healthy diet, rest, and social support may also be strongly recommended. psychosis is more serious and needs treatment right away. Hospitalization is often needed. HOME CARE INSTRUCTIONS Get as much rest as you can. Exercise regularly. Some women find yoga and walking to be beneficial. Eat a balanced and nourishing diet. Do little things that you enjoy. Have a cup of tea, take a bubble bath, read your favorite magazine, or listen to your favorite music. Avoid alcohol. Ask for help with customer service driver, cooking, grocery shopping, or running errands as needed. Do nottry to do everything. Talk to people close to you about how you are feeling. Get support from your partner, family members, and friends. Try to stay positive in how you think. Think about the things you are grateful for. Do not spend a lot of time alone. Only take [id number] or prescription medicine as directed by your health care provider. Keep all your appointments. Let your health care provider know if you have any concerns. SEEK MEDICAL CARE IF: You are having a reaction to or problems with your medicine. SEEK IMMEDIATE MEDICAL CARE IF: You have suicidal feelings. You think you may harm yourself or someone else. MAKE SURE YOU: Understand these instructions. Will watch your condition. Will get help right away if you are not doing well or get worse. Resource: [facility] Patient Information 2015 [facility]. This information is not intended to replace advicegiven to you by your health care provider. Make sure you discuss any questions you have with your health care provider. 04/28/2023 01:15:51 7b- Depression and Blues (07/2020) (CUSTOM) Nataliia Depression and Blues All mothers are at risk of developing depression or the blues. These mood changes can occur right after giving , or they may occur many months after giving . blues or depression can be mild or severe. Additionally, depression can goaway rather quickly, or it can be a long-term condition. CAUSES Raised hormone levels and the rapid drop in those levels are thought to be a main cause of depression and blues. A number of hormones change during and after . Estrogenand progesterone usually decrease right after delivery. The levels of thyroid hormone and various cortisol steroids also rapidly drop. Other factors that play a role in these mood changes include major life events and genetics. RISK FACTORS If you have any of the following risks for blues or depression, know what symptoms to watch out for during the period. Risk factors that may increase the likelihood of getting blues or depression include: Having a personal or family history of depression. Having depression while being . Having premenstrual mood issues or mood issues related to oral contraceptives. Having a lot of life stress. Having marital conflict. Lacking a social support network. Having health problems, such as diabetes. SIGNS AND SYMPTOMS Symptoms of blues include: Brief changes in mood, such as going from extreme happiness to sadness. Decreased concentration. Difficulty sleeping. Crying spells, tearfulness. Irritability. Anxiety. Symptoms of depression typically begin within the first month after giving . These symptoms include: Difficulty sleeping or excessive sleepiness. Marked weight loss. Agitation. Feelings of worthlessness. Lack of interest in activity or food. psychosis is a very serious condition and can be dangerous. Fortunately, it is rare. Displaying any of the following symptoms is cause for immediate medical attention. Symptoms of psychosis include: Hallucinations and delusions. Bizarre or disorganized behavior. Confusion or disorientation. DIAGNOSIS A diagnosis is made by an evaluation of your symptoms. There are no medical or lab tests that lead to a diagnosis, but there are various questionnaires that a health care provider may use to identifythose with blues, depression, or psychosis. Often, a screening tool called the [place] Depression Scale is used to diagnose depression in the period. TREATMENT blues usually goes away on its own in 1 2 weeks. Social support is often all that is needed. You will be encouraged to get adequate sleep and rest. Occasionally, you may be given medicinesto help you sleep. depression requires treatment because it can last several months or longer if it is not treated. Treatment may include individual or group therapy, medicine, or both to address any social,physiological, and psychological factors that may play a role in the depression. Regular exercise, a healthy diet, rest, and social support may also be strongly recommended. psychosis is more serious and needs treatment right away. Hospitalization is often needed. HOME CARE INSTRUCTIONS Get as much rest as you can. Exercise regularly. Some women find yoga and walking to be beneficial. Eat a balanced and nourishing diet. Do little things that you enjoy. Have a cup of tea, take a bubble bath, read your favorite magazine, or listen to your favorite music. Avoid alcohol. Ask for help with customer service driver, cooking, grocery shopping, or running errands as needed. Do nottry to do everything. Talk to people close to you about how you are feeling. Get support from your partner, family members, and friends. Try to stay positive in how you think. Think about the things you are grateful for. Do not spend a lot of time alone. Only take [id number] or prescription medicine as directed by your health care provider. Keep all your appointments. Let your health care provider know if you have any concerns. SEEK MEDICAL CARE IF: You are having a reaction to or problems with your medicine. SEEK IMMEDIATE MEDICAL CARE IF: You have suicidal feelings. You think you may harm yourself or someone else. MAKE SURE YOU: Understand these instructions. Will watch your condition. Will get help right away if you are not doing well or get worse. Resource: [employer] Patient Information 2014 [employer]. This information is not intended to replace advicegiven to you by your health care provider. Make sure you discuss any questions you have with your health care provider. Follow Up Care 04/26/2023 22:01:54 With:BELKYS ESCALANTE Address: DR JOHN VERDUGO [address] [phone]- [phone] When:Within 6 Week(s) Comments: visit [facility] 07-24-2023 Note Labor Details Baby A FHR Baseline:125 bpm FHR Baseline Variability:Moderate variability FHR Deceleration Description:Early, Intermittent Membranes Membrane Status:A.R.O.M. ROM Date, Time:04/27/2023 19:30 EDT FHR Accelerations:Present Uterine Uterine Contraction Frequency3 Uterine Contraction Monitoring MethodExternal toco Cervical Cervix Dilation9 cm Cervix [id number] Station-2 Labor Induction Information postdates IOL Physical Exam Vitals & Measurements T: 36.7 C (Oral) TMIN: 36.5 C (Oral) TMAX: 36.9 C (Oral) HR: 86(Monitored) RR: 16 BP: 137/88 SpO2: 98% HT: 162.6 cm WT: 84.1 kg BMI: 31.81 Complete/+1 with urge to push Assessment/Plan Stage 2- will begin pushing Medications Inpatient Ambien, 10 mg= 2 tab(s), Oral, qHS, PRN Benadryl, 25 mg= 0.5 mL, IV Push, q2h, PRN Bicitra, 30 mL, Oral, AsDirected, PRN Brethine, 0.25 mg= 0.25 mL, Subcutaneous, AsDirected, PRN Brethine, 0.25 mg= 0.25 mL, Subcutaneous, AsDirected, PRN Cytotec, 1000 mcg= 5 tab(s), Rectal, Once, PRN Hemabate, 250 mcg= 1 mL, Intramuscular, Once, PRN LR 1,000 mL, 1000 mL, Intravenous LR 500 mL Bolus, 500 mL, IV Bolus, AsDirected, PRN Marcaine-Sublimaze 0.125%-2 mcg/mL EPIDURAL 100 mL 100 mL, 100 mL, Epidural Methergine, 0.2 mg= 1 mL, Intramuscular, Once, PRN Narcan, 0.1 mg= 0.25 mL, IV Push, AsDirected, PRN Narcan, 0.4 mg= 1 mL, IV Push, AsDirected, PRN Nubain, 10 mg= 1 mL, IV Push, q2h, PRN Oxytocin for IV (mL/hr) 20 unit(s) + LR Premix Diluent 1,000 mL Oxytocin for IV (munit/min) 20 unit(s) [1 munit/min] + LR Premix Diluent 1,000 mL Pfizerpen, [id number] unit(s)= 50 mL, IV Piggyback, q4h Pitocin, 20 unit(s)= 2 mL, Intramuscular, Once, PRN tranexamic acid 1 g / 100 mL 0.7% NaCl PMX, 1 gram(s)= 100 mL, IV Piggyback, AsDirected, PRN Xylocaine HCl 1% injectable solution, 20 mg= 2 mL, Perineum, AsDirected, PRN Zofran, 4 mg= 2 mL, IV Push, q4h, PRN Zofran, 4 mg= 2 mL, IV Push, q4h, PRN Home Magnesium 250 mg tablet, 500 mg= 2 tab(s), Oral, qDay Multivitamins, 1 tab(s), Oral, qDay Vitamin C 250 mg oral tablet, 500 mg= 2 tab(s), Oral, qDay vitamin E 90 mg oral capsule, 90 mg= 1 cap(s), Oral, qDay Digitally Signed by BELKYS ESCALANTE on 04/27/2023 09:50 PM [facility]07-24-2023 Note Reason for Visit OB Induction LMP/EGA/GAURANG Gestational Age (EGA) and GAURANG * Note: EGA calculated as of 04/27/2023 GAURANG: 04/19/2023 EGA*: 41 weeks 1 day Type: Authoritative Method Date: 07/13/2022 Method: Last Menstrual Period (07/13/2022) Confirmation: Confirmed Description: -- Comments: -- Entered by: PARIS Santacruz on 04/26/2023 Other GAURANG Calculations for this : No additional GAURANG calculations have been recorded for this History of Present Illness History and Physical/Admit Note: S: Patient is a 27 year old female at 41.1 wks GA with EDC of 04/19/23 confirmed by first trimester ultrasound who present to [facility] for scheduled IOL due to postdates. Received 2 doses of cytotec overnight. Was 1/50/-2 and has progressed to 5cm. Throughout the day pitocin initiation was attempted but she had tachysystole with some mild decels. SROM at 12 noon,. Currently on no pitocin complications include: postdates OB History History (0,0,0,0) No previous pregnancies history have been recorded Review of Systems Constitutional: Normal weight gain of Eyes: No visual changes Ears, Nose, Mouth & Throat: No loss of hearing, taste or smell Cardiovascular: No chest pain or palpitations Gastrointestinal: No N/V/D Genitourinary: No dysuria Musculoskeletal: No limited ROM Skin: No rashes or lesions Neurological: No SOOD Psychiatric: No altered mental state Obstetric Exam Cervix Dilation: 5 cm (04/27/23 17:30:00) Cervix Effacement: 80 (04/27/23 17:30:00) Station: -2 (04/27/23 17:30:00) Baby A - Membrane Status: Bulging (04/27/23 17:30:00) Cervix Dilation: 5 cm (04/27/23 17:30:00) Cervix Effacement: 80 (04/27/23 17:30:00) Station: -2 (04/27/23 17:30:00) Baby A - FHR Baseline: 125 bpm (04/27/23 19:00:00) Baby A - FHR Baseline Variability: Moderate variability (04/27/23 19:00:00) Baby A - FHR Accelerations: Present (04/27/23 19:00:00) Baby A - FHR Deceleration: Absent (04/27/23 19:00:00) Uterine Contraction Monitoring Method: External toco (04/27/23 19:00:00) Uterine Contraction Frequency: 1.5-4 (04/27/23 19:00:00) Jackman's Score10 Physical Exam Vitals & Measurements T: 36.6 C (Oral) TMIN: 36.5 C (Oral) TMAX: 36.9 C (Oral) HR: 74(Monitored) RR: 18 BP: 101/60 SpO2: 97% HT: 162.6 cm WT: 84.1 kg BMI: 31.81 Gen: alert, awake, in mild laboring distress; Coping well Lungs: clear, no wheezes or crackles, equal breath sounds. Heart: RRR without murmur Abd: Soft and nontender, gravid uterus Ext: Pedal edema Labs Blood Type, External: A negative Rubella, External: Nonimmune HIV Antibodies, External: Negative Group B Strep, External: Positive Group B Strep Date Performed: 05/01/23 Hepatitis B, External: Negative RPR, External: Reactive Lab Results 36hr Labs 04/26 2252 ABO/Rh Interp See Flowsheet Antibody Screen See Flowsheet Hct 37.4 Hgb 13.0 MCH 32.4 H MCHC 34.8 MCV 93.1 MPV 7.6 Platelet 248 RBC 4.01 L RDW 13.4 WBC 10.9 H Lymphocyte % 21.7 Monocyte % 8.2 Neutrophil % 68.9 Eosinophil % 1.1 Basophil % 0.1 Neutrophil, Absolute 7.5 H Lymphocyte, Absolute 2.4 Monocyte, Absolute 0.9 Eosinophil, Absolute 0.1 Basophil, Absolute 0.0 Assessment/Plan Assessment 1. IOL 2. GBS POS Plan 1. Admit to labor and delivery 2. IV with LR at 125ml/hour 3. Continuous monitoring 4. GBS prophylaxis with PCN G 5. Dr. Verdugo notified of admission and was on primary throughout the night last night and today until [address] Colón is backup coverage for the evening and night tonight Problem List/Past Medical History Ongoing Group B streptococcus Rubella non-immune Historical No qualifying data Procedure/Surgical History [place] tooth: 05/31/20 Medications Inpatient Ambien, 10 mg= 2 tab(s), Oral, qHS, PRN Benadryl, 25 mg= 0.5 mL, IV Push, q2h, PRN Bicitra, 30 mL, Oral, AsDirected, PRN Brethine, 0.25 mg= 0.25 mL, Subcutaneous, AsDirected, PRN Brethine, 0.25 mg= 0.25 mL, Subcutaneous, AsDirected, PRN Cytotec, 1000 mcg= 5 tab(s), Rectal, Once, PRN Hemabate, 250 mcg= 1 mL, Intramuscular, Once, PRN LR 1,000 mL, 1000 mL, Intravenous LR 500 mL Bolus, 500 mL, IV Bolus, AsDirected, PRN Marcaine-Sublimaze 0.125%-2 mcg/mL EPIDURAL 100 mL 100 mL, 100 mL, Epidural Methergine, 0.2 mg= 1 mL, Intramuscular, Once, PRN Narcan, 0.1 mg= 0.25 mL, IV Push, AsDirected, PRN Narcan, 0.4 mg= 1 mL, IV Push, AsDirected, PRN Nubain, 10 mg= 1 mL, IV Push, q2h, PRN Oxytocin for IV (mL/hr) 20 unit(s) + LR Premix Diluent 1,000 mL Oxytocin for IV (munit/min) 20 unit(s) [1 munit/min] + LR Premix Diluent 1,000 mL Pfizerpen, [id number] unit(s)= 50 mL, IV Piggyback, q4h Pitocin, 20 unit(s)= 2 mL, Intramuscular, Once, PRN tranexamic acid 1 g / 100 mL 0.7% NaCl PMX, 1 gram(s)= 100 mL, IV Piggyback, AsDirected, PRN Xylocaine HCl 1% injectable solution, 20 mg= 2 mL, Perineum, AsDirected, PRN Zofran, 4 mg= 2 mL, IV Push, q4h, PRN Zofran, 4 mg= 2 mL, IV Push, q4h, PRN Home Magnesium 250 mg tablet, 500 mg= 2 tab(s), Oral, qDay Multivitamins, 1 tab(s), Oral, qDay Vitamin C 250 mg oral tablet, 500 mg= 2 tab(s), Oral, qDay vitamin E 90 mg oral capsule, 90 mg= 1 cap(s), Oral, qDay Allergies No Known Medication Allergies Social History Alcohol Use: Past. Type: Beer, Wine. Frequency: 1-2 times per month. Average drinks per day: 0., 04/26/2023 Home/Environment Domestic Concerns: None., 04/26/2023 Nutrition/Health Type of diet: Regular., 04/26/2023 Sexual Sexually active: Yes. Self described orientation: Straight or heterosexual. History of sexual abuse: No. Gender Identity: Identifies as female., 04/26/2023 Substance Abuse Use: Never., 04/26/2023 Tobacco Nicotine Use: Never (less than 100 in lifetime)., 04/26/2023 Family History Atrial fibrillation: Mother. Cancer of colon: Father. Digitally Signed by BELKYS ESCALANTE on 04/27/2023 07:25 PM Digitally Signed by JOHN VERDUGO DO [facility]07-24-2023 Anesthesiology Consult note Patient: EVELYN MADDOX [facility]: [id number] Age: 27 years Sex: Female : 1995 Associated Diagnoses: None Author: JAYNA ALMARAZ Preoperative Information Time of last food or liquid consumption: 04/26/2023 06:00:00 Anesthesia history Patient's history: negative. Family's history: negative. Review of Systems Ear/Nose/Mouth/Throat: Negative except as documented in history of present illness. Respiratory: Negative except as documented in history of present illness. Cardiovascular: Negative except as documented in history of present illness. Gastrointestinal: Negative except as documented in history of present illness. Genitourinary: Negative except as documented in history of present illness. Endocrine: Negative except as documented in history of present illness. Musculoskeletal: Negative except as documented in history of present illness. Integumentary: Negative except as documented in history of present illness. Neurologic: Negative except as documented in history of present illness. Reproductive: Para Scoring , Week's Gestation 41.1, EDC 04/19/2023. Health Status Allergies: Allergic Reactions (Selected) No Known Medication Allergies, Allergies (1) ActiveReaction No Known Medication AllergiesNone Documented Current medications: (Selected) Inpatient Medications Ordered Ambien: 10 mg, 2 tab(s), Oral, qHS, PRN: Sleep Bicitra: 30 mL, Oral, AsDirected, PRN: Gastric Upset Brethine: 0.25 mg, 0.25 mL, Subcutaneous, AsDirected, PRN: Control symptoms Brethine: 0.25 mg, 0.25 mL, Subcutaneous, AsDirected, PRN: Other (see order comments) Cytotec: 1,000 mcg, 5 tab(s), Rectal, Once, PRN: Other (see order comments) Hemabate: 250 mcg, 1 mL, Intramuscular, Once, PRN: Other (see order comments) LR 1,000 mL: 125 mL/hr, Intravenous LR 500 mL Bolus: 500 mL, IV Bolus, AsDirected, PRN: Other (see order comments) Methergine: 0.2 mg, 1 mL, Intramuscular, Once, PRN: Other (see order comments) Nubain: 10 mg, 1 mL, IV Push, q2h, PRN: Pain Oxytocin for IV (mL/hr) 20 unit(s) + LR Premix Diluent 1,000 mL: 999 mL/hr, Intravenous Oxytocin for IV (munit/min) 20 unit(s) [1 munit/min] + LR Premix Diluent 1,000 mL: 3 mL/hr, Intravenous Pfizerpen: 3,000,000 unit(s), 50 mL, 100 mL/hr, IV Piggyback, q4h Pitocin: 20 unit(s), 2 mL, Intramuscular, Once, PRN: Other (see order comments) Xylocaine HCl 1% injectable solution: 20 mg, 2 mL, Perineum, AsDirected, PRN: to perineal sutures Zofran: 4 mg, 2 mL, IV Push, q4h, PRN: Nausea tranexamic acid 1 g / 100 mL 0.7% NaCl PMX: 1 gram(s), 100 mL, 300 mL/hr, IV Piggyback, AsDirected,PRN: Other (see order comments) Documented Medications Documented Magnesium 250 mg tablet: 500 mg, 2 tab(s), Oral, qDay, 0 Refill(s) Multivitamins: 1 tab(s), Oral, qDay, 0 Refill(s) Vitamin C 250 mg oral tablet: 500 mg, 2 tab(s), Oral, qDay, 30 tab(s), 0 Refill(s) vitamin E 90 mg oral capsule: 90 mg, 1 cap(s), Oral, qDay, 0 Refill(s), Medications (17) Active Scheduled: (1) penicillin G potassium 3,000,000 unit(s) 50 mL, IV Piggyback, q4h Continuous: (3) Lactated Ringers 1,000 mL 1,000 mL, Intravenous, 125 mL/hr Oxytocin 20 units in Lactated Ringers 1000 mL 20 unit(s) + LR Premix Diluent 1,000 mL 1,000 mL, Intravenous, 999 mL/hr Oxytocin 20 units in Lactated Ringers 1000 mL 20 unit(s) [1 munit/min] + LR Premix Diluent 1,000 mL1,000 mL, Intravenous, 3 mL/hr PRN: (13) carboprost 250 mcg/ml 1mL ampule 250 mcg 1 mL, Intramuscular, Once citric acid-sodium citrate 334 mg-500 mg/5 mL (30 mL) Cleo UD 30 mL, Oral, AsDirected Lactated Ringers Injection 500 mL * Bolus * 500 mL, IV Bolus, AsDirected lidocaine 1% (MPF) 2 mL vial pf 20 mg 2 mL, Perineum, AsDirected methylergonovine 0.2 mg/mL (1 mL) ampule 0.2 mg 1 mL, Intramuscular, Once misoprostol 200 mcg tablet 1,000 mcg 5 tab(s), Rectal, Once nalbuphine 10 mg/mL (1 mL) Solution 10 mg 1 mL, IV Push, q2h ondansetron 2 mg/ 1 mL 2 mL INJ 4 mg 2 mL, IV Push, q4h oxytocin 10 units/mL 1 mL vial 20 unit(s) 2 mL, Intramuscular, Once terbutaline 1 mg/ml vial 0.25 mg 0.25 mL, Subcutaneous, AsDirected terbutaline 1 mg/ml vial 0.25 mg 0.25 mL, Subcutaneous, AsDirected tranexamic acid PMX 1 gram(s) 100 mL, IV Piggyback, AsDirected zolpidem 5 mg tablet 10 mg 2 tab(s), Oral, qHS Problem list: Medical Group B streptococcus / SNOMED CT [id number] / Confirmed / SNOMED CT [id number] / Confirmed Rubella non-immune / SNOMED CT [id number] / Confirmed, Active Problems (3) Group B streptococcus Rubella non-immune Histories Past Medical History: No active or resolved past medical history items have been selected or recorded. Family History: Atrial fibrillation Mother Cancer of colon Father Procedure history: [place] tooth ([id number]) on 05/31/2020 at 24 Years. Social History Social & Psychosocial Habits Alcohol 04/26/2023 Use: Past Type: Beer, Wine Frequency: 1-2 times per month Average drinks per episode in last year: 0 Substance Abuse 04/26/2023 Use: Never Tobacco 04/26/2023 Tobacco Use: Never (less than 100 in l Home/Environment 04/26/2023 Domestic Concerns None Nutrition/Health 04/26/2023 Type of diet: Regular Sexual 04/26/2023 Sexually active: Yes Self described orientation: Straight or heterosexual History of sexual abuse: No What is your current gender identity? (Check all that apply) Identifies as female . Physical Examination Vital Signs 04/27/2023 18:10 EDT Heart Rate Monitored 91 bpm Systolic Blood Pressure Non-Invasive 106 mmHg Diastolic Blood Pressure Non-Invasive 55 mmHg LOW 04/27/2023 18:06 EDT Heart Rate Monitored 95 bpm Systolic Blood Pressure Non-Invasive 115 mmHg Diastolic Blood Pressure Non-Invasive 77 mmHg 04/27/2023 16:46 EDT Temperature Oral 36.6 DegC Heart Rate Monitored 66 bpm Systolic Blood Pressure Non-Invasive 117 mmHg Diastolic Blood Pressure Non-Invasive 76 mmHg Reason For Taking VItal Signs Routine 04/27/2023 15:45 EDT Temperature Oral 36.7 DegC Heart Rate Monitored 81 bpm Respiratory Rate 18 br/min Systolic Blood Pressure Non-Invasive 121 mmHg Diastolic Blood Pressure Non-Invasive 78 mmHg Reason For Taking VItal Signs Routine 04/27/2023 14:40 EDT Temperature Oral 36.7 DegC Heart Rate Monitored 70 bpm Respiratory Rate 14 br/min Systolic Blood Pressure Non-Invasive 128 mmHg Diastolic Blood Pressure Non-Invasive 75 mmHg Reason For Taking VItal Signs Routine 04/27/2023 13:43 EDT Temperature Oral 36.6 DegC Heart Rate Monitored 71 bpm Systolic Blood Pressure Non-Invasive 127 mmHg Diastolic Blood Pressure Non-Invasive 74 mmHg Reason For Taking VItal Signs Routine 04/27/2023 11:54 EDT Temperature Oral 36.9 DegC Heart Rate Monitored 76 bpm Systolic Blood Pressure Non-Invasive 127 mmHg Diastolic Blood Pressure Non-Invasive 59 mmHg LOW Reason For Taking VItal Signs Routine 04/27/2023 10:08 EDT Temperature Oral 36.9 DegC Heart Rate Monitored 103 bpm HI Respiratory Rate 18 br/min Systolic Blood Pressure Non-Invasive 108 mmHg Diastolic Blood Pressure Non-Invasive 59 mmHg LOW 04/27/2023 8:23 EDT Heart Rate Monitored 91 bpm Respiratory Rate 18 br/min Systolic Blood Pressure Non-Invasive 117 mmHg Diastolic Blood Pressure Non-Invasive 80 mmHg Reason For Taking VItal Signs Routine 04/27/2023 3:54 EDT Temperature Oral 36.5 DegC Heart Rate Monitored 82 bpm Respiratory Rate 16 br/min Systolic Blood Pressure Non-Invasive 101 mmHg Diastolic Blood Pressure Non-Invasive 53 mmHg LOW Reason For Taking VItal Signs Routine 04/26/2023 22:13 EDT Temperature Oral 36.5 DegC Heart Rate Monitored 89 bpm Respiratory Rate 18 br/min Systolic Blood Pressure Non-Invasive 116 mmHg Diastolic Blood Pressure Non-Invasive 76 mmHg Reason For Taking VItal Signs Routine Vital Signs(last 24 hrs) Last Charted Temp Oral36.6 DegC (APR 27 16:46) Heart Rate [id number] bpm (APR 27 18:10) Resp Rate 18 br/min (APR 27 15:45) QDL259 mmHg (APR 27 18:10) DBPL 55mmHg (APR 27 18:10) BMI31.81 (APR 26 22:10) Measurements from flowsheet : Measurements 04/26/2023 22:10 EDT Height 162.6 cm Admission Weight 84.1 kg [place] Body Weight 54.74 kg BSA Admission 1.89 Body Mass Index 31.81 kg/m2 Pain assessment: Pain Assessment 04/27/2023 18:10 EDT Primary Pain Intensity 2 Pain Scale Type 0-10 Pain scale 04/27/2023 17:30 EDT Primary Pain Intensity 9 Pain Scale Type 0-10 Pain scale 04/27/2023 17:08 EDT Pain Scale Assessment 0-10 Pain scale Primary Pain Location Uterine Primary Pain Intensity 9 04/27/2023 16:38 EDT Primary Pain Intensity 9 04/27/2023 12:40 EDT Pain Scale Assessment PAINAD Primary Pain Location Uterine Primary Pain Intensity 1 04/27/2023 7:53 EDT Primary Pain Location Uterine Primary Pain Intensity 4 Primary Pain Time Pattern acute, intermittent Primary Pain Onset Gradual Primary Pain Quality Cramping, Contraction Primary Pain Non-Pharma Intervention Repositioning Pain Scale Type 0-10 Pain scale 04/27/2023 3:54 EDT Primary Pain Intensity 0 Pain Scale Type 0-10 Pain scale 04/26/2023 22:13 EDT Primary Pain Intensity 0 Pain Scale Type 0-10 Pain scale . General: Alert and oriented. Airway: Normal neck range of motion. Mallampati classification: II (soft palate, fauces, uvula visible). Head: Normocephalic. Dentition Evaluation: Intact, Own teeth. Neck: Full range of motion. Respiratory: Lungs are clear to auscultation. Cardiovascular: Normal rate. Heart Sounds: Normal. Gastrointestinal: Soft. Musculoskeletal Normal range of motion. Integumentary: Intact, Warm, Dry. Neurologic: Alert, Oriented. Review / Management Results review: Labs (Last four charted values) WBC H 10.9(APR 26) Hgb 13.0(APR 26) Hct 37.4(APR 26) Plt 248(APR 26) , Lab results 04/27/2023 18:13 EDT Epidural Patient Position Side of bed, leaning forward with support Epidural Placed By JAYNA ALMARAZ APRN-COMPUTER SPECIALIST Epidural Test Dose Time 04/27/2023 18:05 04/27/2023 18:12 EDT Activity Status ADL Resting Standard Safety Safety level maintained 04/27/2023 18:10 EDT Heart Rate Monitored 91 bpm Systolic Blood Pressure Non-Invasive 106 mmHg Diastolic Blood Pressure Non-Invasive 55 mmHg LOW Primary Pain Intensity 2 Pain Scale Type 0-10 Pain scale 04/27/2023 18:08 EDT Monitoring Annotations patient laying down, left tilt 04/27/2023 18:06 EDT Heart Rate Monitored 95 bpm Systolic Blood Pressure Non-Invasive 115 mmHg Diastolic Blood Pressure Non-Invasive 77 mmHg 04/27/2023 17:45 EDT Notify date/time 04/27/2023 17:45 Provider Notified BELKYS ESCALANTE Notification Method Phone Information Communicated Nurse communication Details Communicated patient is 5/80/-2, going to get her an epidural, pitocin turned off Notification Outcome Orders not received Person Reporting Result(s) charles gleason rn 04/27/2023 17:44 EDT Monitoring Annotations patient up to the bathroom 04/27/2023 17:33 EDT Notify date/time 04/27/2023 17:33 Provider Notified JAYNA ALMARAZ RURAL ELECTRIFICATION ENGINEER-COMPUTER SPECIALIST Notification Method Phone Information Communicated Nurse communication Details Communicated patient requesting epidural Person Reporting Result(s) charles gleason rn 04/27/2023 17:30 EDT Primary Pain Intensity 9 Pain Scale Type 0-10 Pain scale Cervix Dilation 5 cm Cervix Effacement 80 Station -2 Cervical Consistency Soft Cervical Position Mid Presenting Part Vertex Vaginal Exam Performed By PARIS Gleason Jackman's Score 10 Vaginal Discharge Description Bloody show moderate Station Calculation -2 Baby A Membrane Status: Bulging 04/27/2023 17:08 EDT Pain Scale Assessment 0-10 Pain scale Primary Pain Location Uterine Primary Pain Intensity 9 Reason for PRN medication Pain management PRN medication effectiveness No PRN Medication Effectiveness Evaluation PRN Medication Effectiveness Evaluation 04/27/2023 17:07 EDT Monitoring Annotations Patient Repositioned right lateral, 500cc IV bolusstarted of LR per Sindy Escalante 04/27/2023 17:04 EDT Notify date/time 04/27/2023 17:04 Provider Notified BELKYS ESCALANTE RURAL ELECTRIFICATION ENGINEER-CNM Notification Method Phone Information Communicated Nurse communication Details Communicated Discussed the strip, patient having recurrent early decelerations with occasional late decelerations, pitocin only at 1mu/min, patient had nubain at 1640. Notification Outcome Orders received Person Reporting Result(s) Charles Gleason RN Details of Results Received Do not turn pitocin off, reposition patient and give her an LR bolus Results Read Back Yes Uterine Contraction Monitoring Method External toco Uterine Contraction Frequency 2-4 Uterine Contraction Duration 50-70 Uterine Contraction Intensity, Ext Palp Moderate Uterine Resting Tone, External Soft Uterine Activity Regular contractions Baby A FHR Baseline: 130 bpm FHR Baseline Variability: Moderate variability FHR Accelerations: Present FHR Deceleration: Present FHR Deceleration Description: Early, recurrent, Late, intermittent FHR Deceleration Intervention: IV Bolus, Turn to right side, Notify provider, Cervical exam FHR Interpretation Category: Non-category one: Physician notified FHR Monitoring Method: External US transducer 04/27/2023 16:46 EDT Temperature Oral 36.6 DegC Heart Rate Monitored 66 bpm Systolic Blood Pressure Non-Invasive 117 mmHg Diastolic Blood Pressure Non-Invasive 76 mmHg Reason For Taking VItal Signs Routine 04/27/2023 16:43 EDT Forearm Left 04/26/2023 18 gauge Peripheral IV Activity: Assessed Peripheral IV Dressing Condition: Clean, Dry, Intact Peripheral IV Dressing Activity: Transparent dressing Peripheral IV Line Status/Patency: Continuous infusion Peripheral IV Site Condition: No complications Peripheral IV Equipment: IV Pump 04/27/2023 16:40 EDT Monitoring Annotations Tocotransducer adjusted 04/27/2023 16:38 EDT Primary Pain Intensity 9 Activity Status ADL Awake Standard Safety Safety level maintained nalbuphine 10 mg mg 04/27/2023 16:35 EDT penicillin G potassium 3,000,000 unit(s) unit(s) 04/27/2023 16:34 EDT Monitoring Annotations Patient Repositioned to left lateral 04/27/2023 16:34 EDT Uterine Contraction Monitoring Method External toco Uterine Contraction Frequency 1-2 Uterine Contraction Duration 40-70 Uterine Contraction Intensity, Ext Palp Moderate Uterine Resting Tone, External Soft Uterine Activity Regular contractions Baby A FHR Baseline: 130 bpm FHR Baseline Variability: Moderate variability FHR Accelerations: Present FHR Deceleration: Absent FHR Interpretation Category: Category One FHR Monitoring Method: External US transducer 04/27/2023 16:33 EDT Monitoring Annotations patient requesting epidural, stating pain is 9/10,Sindy Escalante notified of patient's request, she prefers patient have nubain again if patient is agreeable, nurse explained to the patient and she agrees with that plan 04/27/2023 16:20 EDT Monitoring Annotations patient on hands and knees with cub in the bed 04/27/2023 16:13 EDT Lactated Ringers Injection Begin Bag 1,000 mL mL 04/27/2023 16:10 EDT oxytocin Begin Bag 2 mL unit(s) LR Premix Diluent Begin Bag 1,000 mL mL 04/27/2023 16:07 EDT Monitoring Annotations discussed attempting to start pitocin again but only at 1mu/min, patient agreeable 04/27/2023 16:04 EDT Notify date/time 04/27/2023 16:00 Provider Notified BELKYS ESCALANTE RURAL ELECTRIFICATION ENGINEER-CNM Notification Method Phone Information Communicated Nurse communication Details Communicated Patient was a cytotec induction last night, when I tried to start pitocin earlier, she contracted every 1-2 and could only tolerate 30 minutes, had nubain at 12 with rupture of membranes, now cervical exam is 1-2/80/-2, contractions 2-3 Notification Outcome Orders received Person Reporting Result(s) Charles Gleason RN Details of Results Received ok to start pitocin at 1mu Results Read Back Yes Cervix Dilation 1 cm Cervix Effacement 80 Station -2 Cervical Consistency Soft Cervical Position Posterior Presenting Part Vertex Vaginal Exam Performed By PARIS Gleason Uterine Contraction Monitoring Method External toco Uterine Contraction Frequency 1-3 Uterine Contraction Duration 50-110 Uterine Contraction Intensity, Ext Palp Moderate Uterine Resting Tone, External Soft Uterine Activity Regular contractions Baby A FHR Baseline: 130 bpm FHR Baseline Variability: Moderate variability FHR Accelerations: Present FHR Deceleration: Absent FHR Interpretation Category: Category One FHR Monitoring Method: External US transducer Jackman's Score 7 Vaginal Discharge Description Bloody show small Station Calculation -2 04/27/2023 15:45 EDT Temperature Oral 36.7 DegC Heart Rate Monitored 81 bpm Respiratory Rate 18 br/min Systolic Blood Pressure Non-Invasive 121 mmHg Diastolic Blood Pressure Non-Invasive 78 mmHg Reason For Taking VItal Signs Routine Heart Rhythm Regular 04/27/2023 15:44 EDT Monitoring Annotations patient up to the bathroom 04/27/2023 15:28 EDT Uterine Contraction Monitoring Method External toco Uterine Contraction Frequency 1.5-3 Uterine Contraction Duration 40-90 Uterine Contraction Intensity, Ext Palp Moderate Uterine Resting Tone, External Soft Uterine Activity Regular contractions Baby A FHR Baseline: 130 bpm FHR Baseline Variability: Moderate variability FHR Accelerations: Present FHR Deceleration: Absent FHR Interpretation Category: Category One FHR Monitoring Method: External US transducer 04/27/2023 15:00 EDT Uterine Contraction Monitoring Method External toco Uterine Contraction Frequency 1.5-2.5 Uterine Contraction Duration 50-80 Uterine Contraction Intensity, Ext Palp Moderate Uterine Resting Tone, External Soft Uterine Activity Regular contractions Baby A FHR Baseline: 130 bpm FHR Baseline Variability: Moderate variability FHR Accelerations: Present FHR Deceleration: Absent FHR Interpretation Category: Category One FHR Monitoring Method: External US transducer 04/27/2023 14:40 EDT Temperature Oral 36.7 DegC Heart Rate Monitored 70 bpm Respiratory Rate 14 br/min Systolic Blood Pressure Non-Invasive 128 mmHg Diastolic Blood Pressure Non-Invasive 75 mmHg Reason For Taking VItal Signs Routine Activity Status ADL Sleeping quietly with easy respirations Standard Safety Safety level maintained 04/27/2023 14:30 EDT Uterine Contraction Monitoring Method External toco Uterine Contraction Frequency 1.5-3 Uterine Contraction Duration 50-130 Uterine Contraction Intensity, Ext Palp Moderate Uterine Resting Tone, External Soft Uterine Activity Tachysystole Baby A FHR Baseline: 125 bpm FHR Baseline Variability: Moderate variability FHR Accelerations: Present FHR Deceleration: Absent FHR Interpretation Category: Category One FHR Monitoring Method: External US transducer 04/27/2023 14:15 EDT Notify date/time 04/27/2023 13:30 Provider Notified JOHN VERDUGO DO Notification Method Face to face conversation Information Communicated Nurse communication Details Communicated patient is still skip every 1-2, had a dose of nubain, water broke at 1200 Notification Outcome Orders not received Person Reporting Result(s) Charles Gleason RN 04/27/2023 14:11 EDT Monitoring Annotations nurse went to check on patient regarding a second dose of nubain, patient is sleeping and said she's resting well 04/27/2023 14:08 EDT Monitoring Annotations discussed strip with physician, he is ok with her having another dose of nubain 04/27/2023 13:59 EDT Uterine Contraction Monitoring Method External toco Uterine Contraction Frequency 1-3 Uterine Contraction Duration 40-80 Uterine Contraction Intensity, Ext Palp Moderate Uterine Resting Tone, External Soft Uterine Activity Tachysystole Baby A FHR Baseline: 125 bpm FHR Baseline Variability: Moderate variability FHR Accelerations: Present FHR Deceleration: Absent FHR Interpretation Category: Category One FHR Monitoring Method: External US transducer 04/27/2023 13:43 EDT Temperature Oral 36.6 DegC Heart Rate Monitored 71 bpm Systolic Blood Pressure Non-Invasive 127 mmHg Diastolic Blood Pressure Non-Invasive 74 mmHg Reason For Taking VItal Signs Routine Heart Rhythm Regular Activity Status ADL Sleeping quietly with easy respirations Standard Safety Safety level maintained 04/27/2023 13:34 EDT Monitoring Annotations patient up to the bathroom, states pablo worked wonders and is asking if she can get it again 04/27/2023 13:28 EDT Uterine Contraction Monitoring Method External toco Uterine Contraction Frequency 1-3 Uterine Contraction Intensity, Ext Palp Moderate Uterine Resting Tone, External Soft Uterine Activity Regular contractions Baby A FHR Baseline: 125 bpm FHR Baseline Variability: Moderate variability FHR Accelerations: Present FHR Deceleration: Absent FHR Interpretation Category: Category One FHR Monitoring Method: External US transducer 04/27/2023 13:01 EDT Activity Status ADL Sleeping quietly with easy respirations 04/27/2023 13:00 EDT Uterine Contraction Monitoring Method External toco Uterine Contraction Frequency 1-2 Uterine Contraction Intensity, Ext Palp Moderate Uterine Resting Tone, External Soft Uterine Activity Regular contractions Baby A FHR Baseline: 125 bpm FHR Baseline Variability: Moderate variability FHR Accelerations: Present FHR Deceleration: Absent FHR Interpretation Category: Category One FHR Monitoring Method: External US transducer 04/27/2023 12:40 EDT Pain Scale Assessment PAINAD Primary Pain Location Uterine Primary Pain Intensity 1 Reason for PRN medication Pain management PRN medication effectiveness Yes Forearm Left 04/26/2023 18 gauge Peripheral IV Activity: Assessed Peripheral IV Dressing Condition: Clean, Dry, Intact Peripheral IV Dressing Activity: Transparent dressing Peripheral IV Line Status/Patency: Continuous infusion Peripheral IV Site Condition: No complications Peripheral IV Equipment: IV Pump PRN Medication Effectiveness Evaluation PRN Medication Effectiveness Evaluation 04/27/2023 12:38 EDT Monitoring Annotations patient repositioned to left lateral, not tracing contractions well 04/27/2023 12:30 EDT Uterine Contraction Monitoring Method External toco Uterine Contraction Frequency 1.5-2 Uterine Contraction Duration 50-90 Uterine Contraction Intensity, Ext Palp Moderate Uterine Resting Tone, External Soft Uterine Activity Tachysystole Baby A FHR Baseline: 135 bpm FHR Baseline Variability: Moderate variability FHR Accelerations: Present FHR Deceleration: Absent FHR Interpretation Category: Category One FHR Monitoring Method: External US transducer penicillin G potassium 5,000,000 unit(s) unit(s) Sodium Chloride 0.9% 100 mL mL 04/27/2023 12:10 EDT nalbuphine 10 mg mg 04/27/2023 12:07 EDT Cervix Dilation 1 cm Cervix Effacement 70 Station -2 Cervical Consistency Soft Cervical Position Posterior Presenting Part Vertex Vaginal Exam Performed By Gleason, RN Sarai Jackman's Score 6 Vaginal Discharge Description Bloody show small Station Calculation -2 04/27/2023 12:02 EDT Baby A Membrane Status: S.R.O.M. ROM Date, Time: 04/27/2023 12:00 04/27/2023 11:58 EDT Uterine Contraction Monitoring Method External toco Uterine Contraction Frequency 2-3 Uterine Contraction Intensity, Ext Palp Moderate Uterine Resting Tone, External Soft Uterine Activity Regular contractions Baby A FHR Baseline: 140 bpm FHR Baseline Variability: Moderate variability FHR Accelerations: Absent FHR Deceleration: Absent FHR Interpretation Category: Category One FHR Monitoring Method: External US transducer 04/27/2023 11:54 EDT Temperature Oral 36.9 DegC Heart Rate Monitored 76 bpm Systolic Blood Pressure Non-Invasive 127 mmHg Diastolic Blood Pressure Non-Invasive 59 mmHg LOW Reason For Taking VItal Signs Routine Heart Rhythm Regular Murmur Auscultated No Dorsalis Pedis Pulse, Left 2+ Normal Dorsalis Pedis Pulse, Right 2+ Normal Radial Pulse, Left 2+ Normal Radial Pulse, Right 2+ Normal Respirations Unlabored Respiratory Pattern Regular Breath Sounds Auscultated Posterior only All Lobes Breath Sounds Clear, Equal Cough None Urinary Elimination Voiding, no difficulties Patient Coping Vesna w/stresses of , care Support Person Present Support Person Involvement Supportive/involved Patient feelings/concerns Discusses care, feelings, concerns Skin Temperature Warm Skin Description [place], Dry Skin Integrity Intact Sensory Perception Darrel No impairment Moisture Darrel Rarely moist Activity Darrel Walks frequently Mobility Darrel No limitations Nutrition Darrel Excellent Friction and Shear Darrel No apparent problem Darrel Score 23 Hospital Acquired Pressure Injury Risk None/minimal risk (score 19-23) Neurological Symptoms Patient denies Level of Consciousness Alert Strength All Extremities Strong Tone All Extremities Normal Boyce Screen Daily History of Fall in Last 3 Months Boyce No Presence of Secondary Diagnosis Boyce No Use of Ambulatory Aid Boyce None, bedrest, wheelchair, nurse IV/PRN Adapter Fall Risk Boyce Yes Gait Weak or Impaired Fall Risk Boyce Normal, bedrest, immobile Mental Status Fall Risk Boyce Oriented to own ability Boyce Fall Risk Score 20 Violence Risk Confused No Violence Risk Irritable No Violence Risk Boisterous No Violence Risk Verbal Threats No Violence Risk Physical Threats No Violence Risk Attacking Objects No Violence Risk Predictor Score 0 Violence Risk Intervention None Violence Risk Current Interventions None Affect/Behavior Appropriate, Calm, Cooperative Appearance Clean, Well groomed Orientation Oriented x 4 Activity Status ADL Repositions self Standard Safety Safety level maintained 04/27/2023 11:52 EDT Monitoring Annotations contractions not tracing well while patient on hands and knees 04/27/2023 11:49 EDT Monitoring Annotations Tocotransducer adjusted 04/27/2023 11:47 EDT Monitoring Annotations patient on hands and knees over the cub in the bed 04/27/2023 11:42 EDT Monitoring Annotations Primary nurse at bedside, patient standing at the bedside, states contractions are now 04/13, feels they are coming frequently, discussed position changes and pain relief options 04/27/2023 11:36 EDT Uterine Contraction Monitoring Method External toco Uterine Contraction Frequency not tracing well, patient laying on her side Baby A FHR Baseline: 140 bpm FHR Baseline Variability: Moderate variability FHR Accelerations: Present FHR Deceleration: Absent FHR Interpretation Category: Category One FHR Monitoring Method: External US transducer 04/27/2023 11:33 EDT Monitoring Annotations Patient up to the bathroom 04/27/2023 11:22 EDT Monitoring Annotations Tocotransducer adjusted 04/27/2023 11:05 EDT Uterine Contraction Monitoring Method External toco Uterine Contraction Frequency 1-2 Uterine Contraction Duration 40-70 Uterine Contraction Intensity, Ext Palp Moderate Uterine Resting Tone, External Soft Uterine Activity Tachysystole Baby A FHR Baseline: 145 bpm FHR Baseline Variability: Moderate variability FHR Accelerations: Present FHR Deceleration: Absent FHR Interpretation Category: Category One FHR Monitoring Method: External US transducer 04/27/2023 11:02 EDT Monitoring Annotations Patient Repositioned, right lateral in the bed 04/27/2023 10:37 EDT Monitoring Annotations doing figure 8 on the ball 04/27/2023 10:30 EDT Uterine Contraction Monitoring Method External toco Uterine Contraction Frequency 1-2 Uterine Contraction Duration 30-60 Uterine Contraction Intensity, Ext Palp Moderate Uterine Resting Tone, External Soft Uterine Activity Regular contractions Baby A FHR Baseline: 140 bpm FHR Baseline Variability: Moderate variability FHR Accelerations: Absent FHR Deceleration: Present FHR Deceleration Description: Early X 1 FHR Interpretation Category: Category One FHR Monitoring Method: External US transducer 04/27/2023 10:15 EDT Monitoring Annotations hands and knees over the cub in the bed 04/27/2023 10:08 EDT Temperature Oral 36.9 DegC Heart Rate Monitored 103 bpm HI Respiratory Rate 18 br/min Systolic Blood Pressure Non-Invasive 108 mmHg Diastolic Blood Pressure Non-Invasive 59 mmHg LOW Oxygen Therapy Room air Oxygen Saturation 97 % Activity Status ADL Repositions self Standard Safety Safety level maintained 04/27/2023 10:04 EDT Monitoring Annotations Ultrasound transducer adjusted 04/27/2023 10:04 EDT Uterine Contraction Monitoring Method External toco Uterine Contraction Frequency 1-2 Uterine Contraction Duration 30-60 Uterine Contraction Intensity, Ext Palp Moderate Uterine Resting Tone, External Soft Uterine Activity Tachysystole (Modified) Baby A FHR Baseline: 145 bpm FHR Baseline Variability: Moderate variability FHR Accelerations: Present FHR Deceleration: Absent FHR Interpretation Category: Category One FHR Monitoring Method: External US transducer 04/27/2023 10:03 EDT Monitoring Annotations Patient Repositioned to lunge with other foot 04/27/2023 9:54 EDT Monitoring Annotations Patient Repositioned, foot above wheel on the bed, stretching in a semi-lunge 04/27/2023 9:46 EDT Monitoring Annotations Patient Repositioned to right lateral side-lying 04/27/2023 9:41 EDT Notify date/time 04/27/2023 9:15 Provider Notified JOHN VERDUGO DO Notification Method Phone Information Communicated Nurse communication Details Communicated Patient had pitocin running at 2mu/min for 30 minutes resulting in tachysystole, pitocin turned off at 0905, FHR tolerated contractions during that period of time Notification Outcome Orders received Person Reporting Result(s) Charles Gleason RN Details of Results Received Reassess in several hours, if not skip regularly, restart pitocin at 1mu Results Read Back Yes Uterine Contraction Monitoring Method External toco Uterine Contraction Frequency 1-3 Uterine Contraction Duration 30-60 Uterine Contraction Intensity, Ext Palp Moderate Uterine Resting Tone, External Soft Uterine Activity Tachysystole Baby A FHR Baseline: 140 bpm FHR Baseline Variability: Moderate variability FHR Accelerations: Absent FHR Deceleration: Absent FHR Interpretation Category: Category One FHR Monitoring Method: External US transducer 04/27/2023 9:35 EDT Monitoring Annotations Patient Repositioned left side- lying stretch 04/27/2023 9:31 EDT Monitoring Annotations returned to bed 04/27/2023 9:13 EDT Monitoring Annotations patient up to the bathroom 04/27/2023 9:07 EDT Monitoring Annotations pitocin turned off due to frequent contractions 04/27/2023 9:07 EDT Uterine Contraction Monitoring Method External toco Uterine Contraction Frequency 1-3 Uterine Contraction Duration 50-70 Uterine Contraction Intensity, Ext Palp Moderate Uterine Resting Tone, External Soft Uterine Activity Tachysystole Baby A FHR Baseline: 135 bpm FHR Baseline Variability: Moderate variability FHR Accelerations: Absent FHR Deceleration: Absent FHR Interpretation Category: Category One FHR Monitoring Method: External US transducer oxytocin munit/min unit(s) LR Premix Diluent LR Premix Diluent mL 04/27/2023 8:41 EDT Lactated Ringers Injection Begin Bag 1,000 mL mL 04/27/2023 8:35 EDT Uterine Contraction Monitoring Method External toco Uterine Contraction Frequency 1-3 Uterine Contraction Duration 50-60 Uterine Contraction Intensity, Ext Palp Moderate Uterine Resting Tone, External Soft Uterine Activity Regular contractions Baby A FHR Baseline: 135 bpm FHR Baseline Variability: Moderate variability FHR Accelerations: Present FHR Deceleration: Absent FHR Interpretation Category: Category One FHR Monitoring Method: External US transducer oxytocin Begin Bag 2 mL unit(s) LR Premix Diluent Begin Bag 1,000 mL mL 04/27/2023 8:24 EDT Notify date/time 04/27/2023 8:24 Provider Notified JOHN VERDUGO DO Notification Method Phone Information Communicated Nurse communication Details Communicated Patient had two doses of cytotec, cervical exam the same as at 0400-1/50/-2, posterior, skip every 2-3 minutes Notification Outcome Orders received Person Reporting Result(s) Charles Gleason RN 04/27/2023 8:23 EDT Heart Rate Monitored 91 bpm Respiratory Rate 18 br/min Systolic Blood Pressure Non-Invasive 117 mmHg Diastolic Blood Pressure Non-Invasive 80 mmHg Reason For Taking VItal Signs Routine Oxygen Therapy Room air Oxygen Saturation 98 % Forearm Left 04/26/2023 18 gauge Peripheral IV Activity: Assessed Peripheral IV Dressing Condition: Clean, Dry, Intact Peripheral IV Dressing Activity: Transparent dressing Peripheral IV Line Status/Patency: Flushes easily Peripheral IV Site Condition: No complications Peripheral IV Equipment: PRN Adaptor Ambulation Repositions self Activity Status ADL Sleeping quietly with easy respirations Standard Safety ID band on, Call device within reach, Bed in low position, Wheels locked, Upper/Half-Length side-rails up, Phone within reach, personal items within reach, Visitor at bedside, Safety level maintained RN Coordination of Care 7am-7pm 04/27/2023 7:53 EDT Primary Pain Location Uterine Primary Pain Intensity 4 Primary Pain Time Pattern acute, intermittent Primary Pain Onset Gradual Primary Pain Quality Cramping, Contraction Primary Pain Non-Pharma Intervention Repositioning Pain Scale Type 0-10 Pain scale Uterine Contraction Monitoring Method External toco Uterine Contraction Frequency 2-4 Uterine Contraction Duration 20-70 Uterine Resting Tone, External Soft Uterine Activity Irregular contractions Baby A FHR Baseline: 135 bpm FHR Baseline Variability: Moderate variability FHR Accelerations: Present FHR Deceleration: Absent FHR Interpretation Category: Category One FHR Monitoring Method: External US transducer 04/27/2023 7:00 EDT Uterine Contraction Monitoring Method External toco Uterine Contraction Frequency 2-5 Uterine Contraction Duration 40-60 Uterine Contraction Intensity, Ext Palp Not palpable Uterine Resting Tone, External Soft Uterine Activity Irregular contractions Baby A FHR Baseline: 130 bpm FHR Baseline Variability: Moderate variability FHR Accelerations: Present FHR Deceleration: Absent FHR Interpretation Category: Category One FHR Monitoring Method: External US transducer 04/27/2023 6:00 EDT Uterine Contraction Monitoring Method External toco Uterine Contraction Frequency 3-5 Uterine Contraction Duration 40-70 Uterine Contraction Intensity, Ext Palp Not palpable Uterine Resting Tone, External Soft Uterine Activity Irregular contractions Baby A FHR Baseline: 130 bpm FHR Baseline Variability: Moderate variability FHR Accelerations: Present FHR Deceleration: Absent FHR Interpretation Category: Category One FHR Monitoring Method: External US transducer 04/27/2023 5:00 EDT Uterine Contraction Monitoring Method External toco Uterine Contraction Frequency 2-4 Uterine Contraction Duration 40-70 Uterine Contraction Intensity, Ext Palp Not palpable Uterine Resting Tone, External Soft Uterine Activity Irregular contractions Baby A FHR Baseline: 130 bpm FHR Baseline Variability: Moderate variability FHR Accelerations: Present FHR Deceleration: Absent FHR Interpretation Category: Category One FHR Monitoring Method: External US transducer 04/27/2023 4:26 EDT Notify date/time 04/27/2023 4:10 Provider Notified JOHN VERDUGO DO Notification Method Face to face conversation (Modified) Information Communicated Nurse communication Details Communicated cervical exam 2, gave second dose of cytotec Notification Outcome Orders not received Person Reporting Result(s) Tim RNC 04/27/2023 4:25 EDT Activity Status ADL Awake, Lights dimmed, Up to bathroom 04/27/2023 4:00 EDT Uterine Contraction Monitoring Method External toco Uterine Contraction Frequency 2-5 Uterine Contraction Duration 40-70 Uterine Contraction Intensity, Ext Palp Not palpable Uterine Resting Tone, External Soft Uterine Activity Irregular contractions Patient Position, OB Right tilt Baby A FHR Baseline: 130 bpm FHR Baseline Variability: Moderate variability FHR Accelerations: Present FHR Deceleration: Absent FHR Interpretation Category: Category One FHR Monitoring Method: External US transducer 04/27/2023 3:54 EDT Temperature Oral 36.5 DegC Heart Rate Monitored 82 bpm Respiratory Rate 16 br/min Systolic Blood Pressure Non-Invasive 101 mmHg Diastolic Blood Pressure Non-Invasive 53 mmHg LOW Reason For Taking VItal Signs Routine Primary Pain Intensity 0 Pain Scale Type 0-10 Pain scale Cervix Dilation 1 cm Cervix Effacement 60 Station -2 Cervical Consistency Firm Cervical Position Mid Presenting Part Vertex Presenting Part Applied to Cervix No Vaginal Exam Performed By PARIS Santacruz Yisel Jackman's Score 5 Forearm Left 04/26/2023 18 gauge Peripheral IV Activity: Assessed Peripheral IV Dressing Condition: Clean, Dry, Intact Peripheral IV Dressing Activity: Transparent dressing Peripheral IV Line Status/Patency: Flushes easily Peripheral IV Site Condition: No complications Peripheral IV Equipment: PRN Adaptor misoprostol 25 mcg mcg 04/27/2023 3:00 EDT Uterine Contraction Monitoring Method External toco Uterine Contraction Frequency 4-5 Uterine Contraction Duration 40-60 Uterine Contraction Intensity, Ext Palp Not palpable Uterine Resting Tone, External Soft Uterine Activity Irregular contractions Patient Position, OB Right lateral Baby A FHR Baseline: 135 bpm FHR Baseline Variability: Moderate variability FHR Accelerations: Present FHR Deceleration: Absent FHR Interpretation Category: Category One FHR Monitoring Method: External US transducer 04/27/2023 2:00 EDT Uterine Contraction Monitoring Method External toco Uterine Contraction Frequency 4-6 Uterine Contraction Duration 40-60 Uterine Contraction Intensity, Ext Palp Not palpable Uterine Resting Tone, External Soft Uterine Activity Irregular contractions Patient Position, OB Left lateral Baby A FHR Baseline: 135 bpm FHR Baseline Variability: Moderate variability FHR Accelerations: Present FHR Deceleration: Absent FHR Interpretation Category: Category One FHR Monitoring Method: External US transducer 04/27/2023 1:00 EDT Uterine Contraction Monitoring Method External toco Uterine Contraction Frequency 3-7 Uterine Contraction Duration 50-80 Uterine Activity Irregular contractions Baby A FHR Baseline: 135 bpm FHR Baseline Variability: Moderate variability FHR Accelerations: Present FHR Deceleration: Absent FHR Interpretation Category: Category One FHR Monitoring Method: External US transducer misoprostol Not Done: Not Appropriate at this Time (Not Done) 04/27/2023 0:00 EDT Uterine Contraction Monitoring Method External toco Uterine Contraction Frequency 6-10 Uterine Contraction Duration 70-80 Uterine Contraction Intensity, Ext Palp Not palpable Uterine Resting Tone, External Soft Uterine Activity Irregular contractions Baby A FHR Baseline: 145 bpm FHR Baseline Variability: Moderate variability FHR Accelerations: Present FHR Deceleration: Absent FHR Interpretation Category: Category One FHR Monitoring Method: External US transducer 04/26/2023 23:00 EDT Uterine Contraction Monitoring Method External toco Uterine Contraction Frequency 3-8 Uterine Contraction Duration 60-70 Uterine Contraction Intensity, Ext Palp Not palpable Uterine Resting Tone, External Soft Uterine Activity Irregular contractions Baby A FHR Baseline: 130 bpm FHR Baseline Variability: Moderate variability FHR Accelerations: Present FHR Deceleration: Absent FHR Interpretation Category: Category One FHR Monitoring Method: External US transducer zolpidem 10 mg mg 04/26/2023 22:55 EDT misoprostol 25 mcg mcg 04/26/2023 22:54 EDT Forearm Left 04/26/2023 18 gauge Peripheral IV Activity: Insert new site Peripheral IV Dressing Condition: Clean, Dry, Intact Peripheral IV Dressing Activity: Transparent dressing Peripheral IV Line Status/Patency: Flushes easily Peripheral IV Site Condition: No complications Peripheral IV Equipment: Extension set, Stopcock, IV Pump, PRN Adaptor Peripheral IV Number of Attempts: 3 04/26/2023 22:52 EDT WBC 10.9 10^3/mcL HI RBC 4.01 10^6/mcL LOW Hgb 13.0 G/dL Hct 37.4 % MCV 93.1 fL MCH 32.4 pg HI MCHC 34.8 G/dL RDW 13.4 % Platelet 248 10^3/mcL MPV 7.6 fL Neutrophil % 68.9 % Lymphocyte % 21.7 % Monocyte % 8.2 % Eosinophil % 1.1 % Basophil % 0.1 % Neutrophil, Absolute 7.5 10^3/mcL HI Lymphocyte, Absolute 2.4 10^3/mcL Monocyte, Absolute 0.9 10^3/mcL Eosinophil, Absolute 0.1 10^3/mcL Basophil, Absolute 0.0 10^3/mcL ABO/Rh Interp A NEG Antibody Screen Gel Negative ABSC 04/26/2023 22:33 EDT Notify date/time 04/26/2023 22:33 Provider Notified JOHN VERDUGO DO Notification Method Phone Information Communicated Patient arrival, Nurse communication Details Communicated patient here for IOL. edc, , cervical exam /-3, contractions every 4-5minutes, patient not feeling them. baby with accelerations. GBS +, NKA. Notification Outcome Orders received Person Reporting Result(s) Tim RNC Results Read Back Yes 04/26/2023 22:30 EDT Cervix Dilation 1 cm Cervix Effacement 40 Station -3 Cervical Consistency Firm Cervical Position Posterior Vaginal Exam Performed By Shaniqua Urias RN Uterine Contraction Monitoring Method External toco Uterine Contraction Frequency 3-6 Uterine Contraction Duration 60-80 Uterine Contraction Intensity, Ext Palp Not palpable Uterine Resting Tone, External Soft Uterine Activity Irregular contractions Baby A FHR Baseline: 140 bpm FHR Baseline Variability: Moderate variability FHR Accelerations: Present FHR Deceleration: Absent FHR Interpretation Category: Category One FHR Monitoring Method: External US transducer Jackman's Score 2 Baby A Membrane Status: Intact 04/26/2023 22:13 EDT Temperature Oral 36.5 DegC Heart Rate Monitored 89 bpm Respiratory Rate 18 br/min Systolic Blood Pressure Non-Invasive 116 mmHg Diastolic Blood Pressure Non-Invasive 76 mmHg Reason For Taking VItal Signs Routine Primary Pain Intensity 0 Pain Scale Type 0-10 Pain scale 04/26/2023 22:10 EDT Blood Type, External A negative Rubella, External Nonimmune Rubella Date Performed 10/27/2022 HIV Antibodies, External Ne (more content not included)... [facility]07-24-2023 Evaluation + Plan noteExtracted from: Title:OB Admission H&P Author:BELKYS ESCALANTE APRN-VILMA Date:04/27/23 Assessment 1. IOL 2. GBS POS Plan 1. Admit to labor and delivery 2. IV with LR at 125ml/hour 3. Continuous monitoring 4. GBS prophylaxis with PCN G 5. Dr. Verdugo notified of admission and was on primary throughout the night last night and today until [address] Colón is backup coverage for the evening and night [facility] 07-23-2023 Anesthesiology Consult note* JAYNA ALMARAZ APRN-COMPUTER SPECIALIST: PERFORM, SIGN, VERIFY Event Display: Anesthesiology Consultation Authored Date: [id number] Patient: EVELYN MADDOX I Age: 27 years Sex: Female : 1995 Associated Diagnoses: None Author: JAYNA ALMARAZ APRN-COMPUTER SPECIALIST Preoperative Information Time of last food or liquid consumption: 04/26/2023 06:00:00 Anesthesia history Patient's history: negative. Family's history: negative. Review of Systems Ear/Nose/Mouth/Throat: Negative except as documented in history of present illness. Respiratory: Negative except as documented in history of present illness. Cardiovascular: Negative except as documented in history of present illness. Gastrointestinal: Negative except as documented in history of present illness. Genitourinary: Negative except as documented in history of present illness. Endocrine: Negative except as documented in history of present illness. Musculoskeletal: Negative except as documented in history of present illness. Integumentary: Negative except as documented in history of present illness. Neurologic: Negative except as documented in history of present illness. Reproductive: Para Scoring , Week's Gestation 41.1, EDC 04/19/2023. Health Status Allergies: Allergic Reactions (Selected) No Known Medication Allergies, Allergies (1) ActiveReaction No Known Medication AllergiesNone Documented Current medications: (Selected) Inpatient Medications Ordered Ambien: 10 mg, 2 tab(s), Oral, qHS, PRN: Sleep Bicitra: 30 mL, Oral, AsDirected, PRN: Gastric Upset Brethine: 0.25 mg, 0.25 mL, Subcutaneous, AsDirected, PRN: Control symptoms Brethine: 0.25 mg, 0.25 mL, Subcutaneous, AsDirected, PRN: Other (see order comments) Cytotec: 1,000 mcg, 5 tab(s), Rectal, Once, PRN: Other (see order comments) Hemabate: 250 mcg, 1 mL, Intramuscular, Once, PRN: Other (see order comments) LR 1,000 mL: 125 mL/hr, Intravenous LR 500 mL Bolus: 500 mL, IV Bolus, AsDirected, PRN: Other (see order comments) Methergine: 0.2 mg, 1 mL, Intramuscular, Once, PRN: Other (see order comments) Nubain: 10 mg, 1 mL, IV Push, q2h, PRN: Pain Oxytocin for IV (mL/hr) 20 unit(s) + LR Premix Diluent 1,000 mL: 999 mL/hr, Intravenous Oxytocin for IV (munit/min) 20 unit(s) [1 munit/min] + LR Premix Diluent 1,000 mL: 3 mL/hr, Intravenous Pfizerpen: 3,000,000 unit(s), 50 mL, 100 mL/hr, IV Piggyback, q4h Pitocin: 20 unit(s), 2 mL, Intramuscular, Once, PRN: Other (see order comments) Xylocaine HCl 1% injectable solution: 20 mg, 2 mL, Perineum, AsDirected, PRN: to perineal sutures Zofran: 4 mg, 2 mL, IV Push, q4h, PRN: Nausea tranexamic acid 1 g / 100 mL 0.7% NaCl PMX: 1 gram(s), 100 mL, 300 mL/hr, IV Piggyback, AsDirected,PRN: Other (see order comments) Documented Medications Documented Magnesium 250 mg tablet: 500 mg, 2 tab(s), Oral, qDay, 0 Refill(s) Multivitamins: 1 tab(s), Oral, qDay, 0 Refill(s) Vitamin C 250 mg oral tablet: 500 mg, 2 tab(s), Oral, qDay, 30 tab(s), 0 Refill(s) vitamin E 90 mg oral capsule: 90 mg, 1 cap(s), Oral, qDay, 0 Refill(s), Medications (17) Active Scheduled: (1) penicillin G potassium 3,000,000 unit(s) 50 mL, IV Piggyback, q4h Continuous: (3) Lactated Ringers 1,000 mL 1,000 mL, Intravenous, 125 mL/hr Oxytocin 20 units in Lactated Ringers 1000 mL 20 unit(s) + LR Premix Diluent 1,000 mL 1,000 mL, Intravenous, 999 mL/hr Oxytocin 20 units in Lactated Ringers 1000 mL 20 unit(s) [1 munit/min] + LR Premix Diluent 1,000 mL1,000 mL, Intravenous, 3 mL/hr PRN: (13) carboprost 250 mcg/ml 1mL ampule 250 mcg 1 mL, Intramuscular, Once citric acid-sodium citrate 334 mg-500 mg/5 mL (30 mL) Cleo UD 30 mL, Oral, AsDirected Lactated Ringers Injection 500 mL * Bolus * 500 mL, IV Bolus, AsDirected lidocaine 1% (MPF) 2 mL vial pf 20 mg 2 mL, Perineum, AsDirected methylergonovine 0.2 mg/mL (1 mL) ampule 0.2 mg 1 mL, Intramuscular, Once misoprostol 200 mcg tablet 1,000 mcg 5 tab(s), Rectal, Once nalbuphine 10 mg/mL (1 mL) Solution 10 mg 1 mL, IV Push, q2h ondansetron 2 mg/ 1 mL 2 mL INJ 4 mg 2 mL, IV Push, q4h oxytocin 10 units/mL 1 mL vial 20 unit(s) 2 mL, Intramuscular, Once terbutaline 1 mg/ml vial 0.25 mg 0.25 mL, Subcutaneous, AsDirected terbutaline 1 mg/ml vial 0.25 mg 0.25 mL, Subcutaneous, AsDirected tranexamic acid PMX 1 gram(s) 100 mL, IV Piggyback, AsDirected zolpidem 5 mg tablet 10 mg 2 tab(s), Oral, qHS Problem list: Medical Group B streptococcus / SNOMED CT 108589900 / Confirmed / SNOMED CT [id number] / Confirmed Rubella non-immune / SNOMED CT [id number] / Confirmed, Active Problems (3) Group B streptococcus Rubella non-immune Histories Past Medical History: No active or resolved past medical history items have been selected or recorded. Family History: Atrial fibrillation Mother Cancer of colon Father Procedure history: [place] tooth ([id number]) on 05/31/2020 at 24 Years. Social History Social & Psychosocial Habits Alcohol 04/26/2023 Use: Past Type: Beer, Wine Frequency: 1-2 times per month Average drinks per episode in last year: 0 Substance Abuse 04/26/2023 Use: Never Tobacco 04/26/2023 Tobacco Use: Never (less than 100 in l Home/Environment 04/26/2023 Domestic Concerns None Nutrition/Health 04/26/2023 Type of diet: Regular Sexual 04/26/2023 Sexually active: Yes Self described orientation: Straight or heterosexual History of sexual abuse: No What is your current gender identity? (Check all that apply) Identifies as female . Physical Examination Vital Signs 04/27/2023 18:10 EDT Heart Rate Monitored 91 bpm Systolic Blood Pressure Non-Invasive 106 mmHg Diastolic Blood Pressure Non-Invasive 55 mmHg LOW 04/27/2023 18:06 EDT Heart Rate Monitored 95 bpm Systolic Blood Pressure Non-Invasive 115 mmHg Diastolic Blood Pressure Non-Invasive 77 mmHg 04/27/2023 16:46 EDT Temperature Oral 36.6 DegC Heart Rate Monitored 66 bpm Systolic Blood Pressure Non-Invasive 117 mmHg Diastolic Blood Pressure Non-Invasive 76 mmHg Reason For Taking VItal Signs Routine 04/27/2023 15:45 EDT Temperature Oral 36.7 DegC Heart Rate Monitored 81 bpm Respiratory Rate 18 br/min Systolic Blood Pressure Non-Invasive 121 mmHg Diastolic Blood Pressure Non-Invasive 78 mmHg Reason For Taking VItal Signs Routine 04/27/2023 14:40 EDT Temperature Oral 36.7 DegC Heart Rate Monitored 70 bpm Respiratory Rate 14 br/min Systolic Blood Pressure Non-Invasive 128 mmHg Diastolic Blood Pressure Non-Invasive 75 mmHg Reason For Taking VItal Signs Routine 04/27/2023 13:43 EDT Temperature Oral 36.6 DegC Heart Rate Monitored 71 bpm Systolic Blood Pressure Non-Invasive 127 mmHg Diastolic Blood Pressure Non-Invasive 74 mmHg Reason For Taking VItal Signs Routine 04/27/2023 11:54 EDT Temperature Oral 36.9 DegC Heart Rate Monitored 76 bpm Systolic Blood Pressure Non-Invasive 127 mmHg Diastolic Blood Pressure Non-Invasive 59 mmHg LOW Reason For Taking VItal Signs Routine 04/27/2023 10:08 EDT Temperature Oral 36.9 DegC Heart Rate Monitored 103 bpm HI Respiratory Rate 18 br/min Systolic Blood Pressure Non-Invasive 108 mmHg Diastolic Blood Pressure Non-Invasive 59 mmHg LOW 04/27/2023 8:23 EDT Heart Rate Monitored 91 bpm Respiratory Rate 18 br/min Systolic Blood Pressure Non-Invasive 117 mmHg Diastolic Blood Pressure Non-Invasive 80 mmHg Reason For Taking VItal Signs Routine 04/27/2023 3:54 EDT Temperature Oral 36.5 DegC Heart Rate Monitored 82 bpm Respiratory Rate 16 br/min Systolic Blood Pressure Non-Invasive 101 mmHg Diastolic Blood Pressure Non-Invasive 53 mmHg LOW Reason For Taking VItal Signs Routine 04/26/2023 22:13 EDT Temperature Oral 36.5 DegC Heart Rate Monitored 89 bpm Respiratory Rate 18 br/min Systolic Blood Pressure Non-Invasive 116 mmHg Diastolic Blood Pressure Non-Invasive 76 mmHg Reason For Taking VItal Signs Routine Vital Signs(last 24 hrs) Last Charted Temp Oral36.6 DegC (APR 27 16:46) Heart Rate [id number] bpm (APR 27 18:10) Resp Rate 18 br/min (APR 27 15:45) SLY328 mmHg (APR 27 18:10) DBPL 55mmHg (APR 27 18:10) BMI31.81 (APR 26 22:10) Measurements from flowsheet : Measurements 04/26/2023 22:10 EDT Height 162.6 cm Admission Weight 84.1 kg [place] Body Weight 54.74 kg BSA Admission 1.89 Body Mass Index 31.81 kg/m2 Pain assessment: Pain Assessment 04/27/2023 18:10 EDT Primary Pain Intensity 2 Pain Scale Type 0-10 Pain scale 04/27/2023 17:30 EDT Primary Pain Intensity 9 Pain Scale Type 0-10 Pain scale 04/27/2023 17:08 EDT Pain Scale Assessment 0-10 Pain scale Primary Pain Location Uterine Primary Pain Intensity 9 04/27/2023 16:38 EDT Primary Pain Intensity 9 04/27/2023 12:40 EDT Pain Scale Assessment PAINAD Primary Pain Location Uterine Primary Pain Intensity 1 04/27/2023 7:53 EDT Primary Pain Location Uterine Primary Pain Intensity 4 Primary Pain Time Pattern acute, intermittent Primary Pain Onset Gradual Primary Pain Quality Cramping, Contraction Primary Pain Non-Pharma Intervention Repositioning Pain Scale Type 0-10 Pain scale 04/27/2023 3:54 EDT Primary Pain Intensity 0 Pain Scale Type 0-10 Pain scale 04/26/2023 22:13 EDT Primary Pain Intensity 0 Pain Scale Type 0-10 Pain scale . General: Alert and oriented. Airway: Normal neck range of motion. Mallampati classification: II (soft palate, fauces, uvula visible). Head: Normocephalic. Dentition Evaluation: Intact, Own teeth. Neck: Full range of motion. Respiratory: Lungs are clear to auscultation. Cardiovascular: Normal rate. Heart Sounds: Normal. Gastrointestinal: Soft. Musculoskeletal Normal range of motion. Integumentary: Intact, Warm, Dry. Neurologic: Alert, Oriented. Review / Management Results review: Labs (Last four charted values) WBC H 10.9(APR 26) Hgb 13.0(APR 26) Hct 37.4(APR 26) Plt 248(APR 26) , Lab results 04/27/2023 18:13 EDT Epidural Patient Position Side of bed, leaning forward with support Epidural Placed By JAYNA ALMARAZ RURAL ELECTRIFICATION ENGINEER-COMPUTER SPECIALIST Epidural Test Dose Time 04/27/2023 18:05 04/27/2023 18:12 EDT Activity Status ADL Resting Standard Safety Safety level maintained 04/27/2023 18:10 EDT Heart Rate Monitored 91 bpm Systolic Blood Pressure Non-Invasive 106 mmHg Diastolic Blood Pressure Non-Invasive 55 mmHg LOW Primary Pain Intensity 2 Pain Scale Type 0-10 Pain scale 04/27/2023 18:08 EDT Monitoring Annotations patient laying down, left tilt 04/27/2023 18:06 EDT Heart Rate Monitored 95 bpm Systolic Blood Pressure Non-Invasive 115 mmHg Diastolic Blood Pressure Non-Invasive 77 mmHg 04/27/2023 17:45 EDT Notify date/time 04/27/2023 17:45 Provider Notified BELKYS ESCALANTE RURAL ELECTRIFICATION ENGINEER-CNM Notification Method Phone Information Communicated Nurse communication Details Communicated patient is 5/80/-2, going to get her an epidural, pitocin turned off Notification Outcome Orders not received Person Reporting Result(s) charles gleason rn 04/27/2023 17:44 EDT Monitoring Annotations patient up to the bathroom 04/27/2023 17:33 EDT Notify date/time 04/27/2023 17:33 Provider Notified JAYNA ALMARAZ RURAL ELECTRIFICATION ENGINEER-COMPUTER SPECIALIST Notification Method Phone Information Communicated Nurse communication Details Communicated patient requesting epidural Person Reporting Result(s) charles gleason rn 04/27/2023 17:30 EDT Primary Pain Intensity 9 Pain Scale Type 0-10 Pain scale Cervix Dilation 5 cm Cervix Effacement 80 Station -2 Cervical Consistency Soft Cervical Position Mid Presenting Part Vertex Vaginal Exam Performed By PARIS Gleason Jackman's Score 10 Vaginal Discharge Description Bloody show moderate Station Calculation -2 Baby A Membrane Status: Bulging 04/27/2023 17:08 EDT Pain Scale Assessment 0-10 Pain scale Primary Pain Location Uterine Primary Pain Intensity 9 Reason for PRN medication Pain management PRN medication effectiveness No PRN Medication Effectiveness Evaluation PRN Medication Effectiveness Evaluation 04/27/2023 17:07 EDT Monitoring Annotations Patient Repositioned right lateral, 500cc IV bolusstarted of LR per Sindy Escalante 04/27/2023 17:04 EDT Notify date/time 04/27/2023 17:04 Provider Notified BELKYS ESCALANTE RURAL ELECTRIFICATION ENGINEER-CN Notification Method Phone Information Communicated Nurse communication Details Communicated Discussed the strip, patient having recurrent early decelerations with occasional late decelerations, pitocin only at 1mu/min, patient had nubain at 1640. Notification Outcome Orders received Person Reporting Result(s) Charles Gleason RN Details of Results Received Do not turn pitocin off, reposition patient and give her an LR bolus Results Read Back Yes Uterine Contraction Monitoring Method External toco Uterine Contraction Frequency 2-4 Uterine Contraction Duration 50-70 Uterine Contraction Intensity, Ext Palp Moderate Uterine Resting Tone, External Soft Uterine Activity Regular contractions Baby A FHR Baseline: 130 bpm FHR Baseline Variability: Moderate variability FHR Accelerations: Present FHR Deceleration: Present FHR Deceleration Description: Early, recurrent, Late, intermittent FHR Deceleration Intervention: IV Bolus, Turn to right side, Notify provider, Cervical exam FHR Interpretation Category: Non-category one: Physician notified FHR Monitoring Method: External US transducer 04/27/2023 16:46 EDT Temperature Oral 36.6 DegC Heart Rate Monitored 66 bpm Systolic Blood Pressure Non-Invasive 117 mmHg Diastolic Blood Pressure Non-Invasive 76 mmHg Reason For Taking VItal Signs Routine 04/27/2023 16:43 EDT Forearm Left 04/26/2023 18 gauge Peripheral IV Activity: Assessed Peripheral IV Dressing Condition: Clean, Dry, Intact Peripheral IV Dressing Activity: Transparent dressing Peripheral IV Line Status/Patency: Continuous infusion Peripheral IV Site Condition: No complications Peripheral IV Equipment: IV Pump 04/27/2023 16:40 EDT Monitoring Annotations Tocotransducer adjusted 04/27/2023 16:38 EDT Primary Pain Intensity 9 Activity Status ADL Awake Standard Safety Safety level maintained nalbuphine 10 mg mg 04/27/2023 16:35 EDT penicillin G potassium 3,000,000 unit(s) unit(s) 04/27/2023 16:34 EDT Monitoring Annotations Patient Repositioned to left lateral 04/27/2023 16:34 EDT Uterine Contraction Monitoring Method External toco Uterine Contraction Frequency 1-2 Uterine Contraction Duration 40-70 Uterine Contraction Intensity, Ext Palp Moderate Uterine Resting Tone, External Soft Uterine Activity Regular contractions Baby A FHR Baseline: 130 bpm FHR Baseline Variability: Moderate variability FHR Accelerations: Present FHR Deceleration: Absent FHR Interpretation Category: Category One FHR Monitoring Method: External US transducer 04/27/2023 16:33 EDT Monitoring Annotations patient requesting epidural, stating pain is 9/10,Sindy Escalante notified of patient's request, she prefers patient have nubain again if patient is agreeable, nurse explained to the patient and she agrees with that plan 04/27/2023 16:20 EDT Monitoring Annotations patient on hands and knees with cub in the bed 04/27/2023 16:13 EDT Lactated Ringers Injection Begin Bag 1,000 mL mL 04/27/2023 16:10 EDT oxytocin Begin Bag 2 mL unit(s) LR Premix Diluent Begin Bag 1,000 mL mL 04/27/2023 16:07 EDT Monitoring Annotations discussed attempting to start pitocin again but only at 1mu/min, patient agreeable 04/27/2023 16:04 EDT Notify date/time 04/27/2023 16:00 Provider Notified BELKYS ESCALANTE APRN-GORDONM Notification Method Phone Information Communicated Nurse communication Details Communicated Patient was a cytotec induction last night, when I tried to start pitocin earlier, she contracted every 1-2 and could only tolerate 30 minutes, had nubain at 12 with rupture of membranes, now cervical exam is 1-2/80/-2, contractions 2-3 Notification Outcome Orders received Person Reporting Result(s) Charles Gleason RN Details of Results Received ok to start pitocin at 1mu Results Read Back Yes Cervix Dilation 1 cm Cervix Effacement 80 Station -2 Cervical Consistency Soft Cervical Position Posterior Presenting Part Vertex Vaginal Exam Performed By PARIS Gleason Uterine Contraction Monitoring Method External toco Uterine Contraction Frequency 1-3 Uterine Contraction Duration 50-110 Uterine Contraction Intensity, Ext Palp Moderate Uterine Resting Tone, External Soft Uterine Activity Regular contractions Baby A FHR Baseline: 130 bpm FHR Baseline Variability: Moderate variability FHR Accelerations: Present FHR Deceleration: Absent FHR Interpretation Category: Category One FHR Monitoring Method: External US transducer Jackman's Score 7 Vaginal Discharge Description Bloody show small Station Calculation -2 04/27/2023 15:45 EDT Temperature Oral 36.7 DegC Heart Rate Monitored 81 bpm Respiratory Rate 18 br/min Systolic Blood Pressure Non-Invasive 121 mmHg Diastolic Blood Pressure Non-Invasive 78 mmHg Reason For Taking VItal Signs Routine Heart Rhythm Regular 04/27/2023 15:44 EDT Monitoring Annotations patient up to the bathroom 04/27/2023 15:28 EDT Uterine Contraction Monitoring Method External toco Uterine Contraction Frequency 1.5-3 Uterine Contraction Duration 40-90 Uterine Contraction Intensity, Ext Palp Moderate Uterine Resting Tone, External Soft Uterine Activity Regular contractions Baby A FHR Baseline: 130 bpm FHR Baseline Variability: Moderate variability FHR Accelerations: Present FHR Deceleration: Absent FHR Interpretation Category: Category One FHR Monitoring Method: External US transducer 04/27/2023 15:00 EDT Uterine Contraction Monitoring Method External toco Uterine Contraction Frequency 1.5-2.5 Uterine Contraction Duration 50-80 Uterine Contraction Intensity, Ext Palp Moderate Uterine Resting Tone, External Soft Uterine Activity Regular contractions Baby A FHR Baseline: 130 bpm FHR Baseline Variability: Moderate variability FHR Accelerations: Present FHR Deceleration: Absent FHR Interpretation Category: Category One FHR Monitoring Method: External US transducer 04/27/2023 14:40 EDT Temperature Oral 36.7 DegC Heart Rate Monitored 70 bpm Respiratory Rate 14 br/min Systolic Blood Pressure Non-Invasive 128 mmHg Diastolic Blood Pressure Non-Invasive 75 mmHg Reason For Taking VItal Signs Routine Activity Status ADL Sleeping quietly with easy respirations Standard Safety Safety level maintained 04/27/2023 14:30 EDT Uterine Contraction Monitoring Method External toco Uterine Contraction Frequency 1.5-3 Uterine Contraction Duration 50-130 Uterine Contraction Intensity, Ext Palp Moderate Uterine Resting Tone, External Soft Uterine Activity Tachysystole Baby A FHR Baseline: 125 bpm FHR Baseline Variability: Moderate variability FHR Accelerations: Present FHR Deceleration: Absent FHR Interpretation Category: Category One FHR Monitoring Method: External US transducer 04/27/2023 14:15 EDT Notify date/time 04/27/2023 13:30 Provider Notified JOHN VERDUGO DO Notification Method Face to face conversation Information Communicated Nurse communication Details Communicated patient is still skip every 1-2, had a dose of nubain, water broke at 1200 Notification Outcome Orders not received Person Reporting Result(s) Charles Gleason RN 04/27/2023 14:11 EDT Monitoring Annotations nurse went to check on patient regarding a second dose of nubain, patient is sleeping and said she's resting well 04/27/2023 14:08 EDT Monitoring Annotations discussed strip with physician, he is ok with her having another dose of nubain 04/27/2023 13:59 EDT Uterine Contraction Monitoring Method External toco Uterine Contraction Frequency 1-3 Uterine Contraction Duration 40-80 Uterine Contraction Intensity, Ext Palp Moderate Uterine Resting Tone, External Soft Uterine Activity Tachysystole Baby A FHR Baseline: 125 bpm FHR Baseline Variability: Moderate variability FHR Accelerations: Present FHR Deceleration: Absent FHR Interpretation Category: Category One FHR Monitoring Method: External US transducer 04/27/2023 13:43 EDT Temperature Oral 36.6 DegC Heart Rate Monitored 71 bpm Systolic Blood Pressure Non-Invasive 127 mmHg Diastolic Blood Pressure Non-Invasive 74 mmHg Reason For Taking VItal Signs Routine Heart Rhythm Regular Activity Status ADL Sleeping quietly with easy respirations Standard Safety Safety level maintained 04/27/2023 13:34 EDT Monitoring Annotations patient up to the bathroom, states nubain worked wonders and is asking if she can get it again 04/27/2023 13:28 EDT Uterine Contraction Monitoring Method External toco Uterine Contraction Frequency 1-3 Uterine Contraction Intensity, Ext Palp Moderate Uterine Resting Tone, External Soft Uterine Activity Regular contractions Baby A FHR Baseline: 125 bpm FHR Baseline Variability: Moderate variability FHR Accelerations: Present FHR Deceleration: Absent FHR Interpretation Category: Category One FHR Monitoring Method: External US transducer 04/27/2023 13:01 EDT Activity Status ADL Sleeping quietly with easy respirations 04/27/2023 13:00 EDT Uterine Contraction Monitoring Method External toco Uterine Contraction Frequency 1-2 Uterine Contraction Intensity, Ext Palp Moderate Uterine Resting Tone, External Soft Uterine Activity Regular contractions Baby A FHR Baseline: 125 bpm FHR Baseline Variability: Moderate variability FHR Accelerations: Present FHR Deceleration: Absent FHR Interpretation Category: Category One FHR Monitoring Method: External US transducer 04/27/2023 12:40 EDT Pain Scale Assessment PAINAD Primary Pain Location Uterine Primary Pain Intensity 1 Reason for PRN medication Pain management PRN medication effectiveness Yes Forearm Left 04/26/2023 18 gauge Peripheral IV Activity: Assessed Peripheral IV Dressing Condition: Clean, Dry, Intact Peripheral IV Dressing Activity: Transparent dressing Peripheral IV Line Status/Patency: Continuous infusion Peripheral IV Site Condition: No complications Peripheral IV Equipment: IV Pump PRN Medication Effectiveness Evaluation PRN Medication Effectiveness Evaluation 04/27/2023 12:38 EDT Monitoring Annotations patient repositioned to left lateral, not tracing contractions well 04/27/2023 12:30 EDT Uterine Contraction Monitoring Method External toco Uterine Contraction Frequency 1.5-2 Uterine Contraction Duration 50-90 Uterine Contraction Intensity, Ext Palp Moderate Uterine Resting Tone, External Soft Uterine Activity Tachysystole Baby A FHR Baseline: 135 bpm FHR Baseline Variability: Moderate variability FHR Accelerations: Present FHR Deceleration: Absent FHR Interpretation Category: Category One FHR Monitoring Method: External US transducer penicillin G potassium 5,000,000 unit(s) unit(s) Sodium Chloride 0.9% 100 mL mL 04/27/2023 12:10 EDT nalbuphine 10 mg mg 04/27/2023 12:07 EDT Cervix Dilation 1 cm Cervix Effacement 70 Station -2 Cervical Consistency Soft Cervical Position Posterior Presenting Part Vertex Vaginal Exam Performed By [place], PARIS Moon Jackman's Score 6 Vaginal Discharge Description Bloody show small Station Calculation -2 04/27/2023 12:02 EDT Baby A Membrane Status: S.R.O.M. ROM Date, Time: 04/27/2023 12:00 04/27/2023 11:58 EDT Uterine Contraction Monitoring Method External toco Uterine Contraction Frequency 2-3 Uterine Contraction Intensity, Ext Palp Moderate Uterine Resting Tone, External Soft Uterine Activity Regular contractions Baby A FHR Baseline: 140 bpm FHR Baseline Variability: Moderate variability FHR Accelerations: Absent FHR Deceleration: Absent FHR Interpretation Category: Category One FHR Monitoring Method: External US transducer 04/27/2023 11:54 EDT Temperature Oral 36.9 DegC Heart Rate Monitored 76 bpm Systolic Blood Pressure Non-Invasive 127 mmHg Diastolic Blood Pressure Non-Invasive 59 mmHg LOW Reason For Taking VItal Signs Routine Heart Rhythm Regular Murmur Auscultated No Dorsalis Pedis Pulse, Left 2+ Normal Dorsalis Pedis Pulse, Right 2+ Normal Radial Pulse, Left 2+ Normal Radial Pulse, Right 2+ Normal Respirations Unlabored Respiratory Pattern Regular Breath Sounds Auscultated Posterior only All Lobes Breath Sounds Clear, Equal Cough None Urinary Elimination Voiding, no difficulties Patient Coping Vesna w/stresses of , care Support Person Present Support Person Involvement Supportive/involved Patient feelings/concerns Discusses care, feelings, concerns Skin Temperature Warm Skin Description [place], Dry Skin Integrity Intact Sensory Perception Adrrel No impairment Moisture Darrel Rarely moist Activity Darrel Walks frequently Mobility Darrel No limitations Nutrition Darrel Excellent Friction and Shear Darrel No apparent problem Darrel Score 23 Hospital Acquired Pressure Injury Risk None/minimal risk (score 19-23) Neurological Symptoms Patient denies Level of Consciousness Alert Strength All Extremities Strong Tone All Extremities Normal Boyce Screen Daily History of Fall in Last 3 Months Boyce No Presence of Secondary Diagnosis Boyce No Use of Ambulatory Aid Boyce None, bedrest, wheelchair, nurse IV/PRN Adapter Fall Risk Boyce Yes Gait Weak or Impaired Fall Risk Boyce Normal, bedrest, immobile Mental Status Fall Risk Boyce Oriented to own ability Boyce Fall Risk Score 20 Violence Risk Confused No Violence Risk Irritable No Violence Risk Boisterous No Violence Risk Verbal Threats No Violence Risk Physical Threats No Violence Risk Attacking Objects No Violence Risk Predictor Score 0 Violence Risk Intervention None Violence Risk Current Interventions None Affect/Behavior Appropriate, Calm, Cooperative Appearance Clean, Well groomed Orientation Oriented x 4 Activity Status ADL Repositions self Standard Safety Safety level maintained 04/27/2023 11:52 EDT Monitoring Annotations contractions not tracing well while patient on hands and knees 04/27/2023 11:49 EDT Monitoring Annotations Tocotransducer adjusted 04/27/2023 11:47 EDT Monitoring Annotations patient on hands and knees over the cub in the bed 04/27/2023 11:42 EDT Monitoring Annotations Primary nurse at bedside, patient standing at the bedside, states contractions are now 04/13, feels they are coming frequently, discussed position changes and pain relief options 04/27/2023 11:36 EDT Uterine Contraction Monitoring Method External toco Uterine Contraction Frequency not tracing well, patient laying on her side Baby A FHR Baseline: 140 bpm FHR Baseline Variability: Moderate variability FHR Accelerations: Present FHR Deceleration: Absent FHR Interpretation Category: Category One FHR Monitoring Method: External US transducer 04/27/2023 11:33 EDT Monitoring Annotations Patient up to the bathroom 04/27/2023 11:22 EDT Monitoring Annotations Tocotransducer adjusted 04/27/2023 11:05 EDT Uterine Contraction Monitoring Method External toco Uterine Contraction Frequency 1-2 Uterine Contraction Duration 40-70 Uterine Contraction Intensity, Ext Palp Moderate Uterine Resting Tone, External Soft Uterine Activity Tachysystole Baby A FHR Baseline: 145 bpm FHR Baseline Variability: Moderate variability FHR Accelerations: Present FHR Deceleration: Absent FHR Interpretation Category: Category One FHR Monitoring Method: External US transducer 04/27/2023 11:02 EDT Monitoring Annotations Patient Repositioned, right lateral in the bed 04/27/2023 10:37 EDT Monitoring Annotations doing figure 8 on the ball 04/27/2023 10:30 EDT Uterine Contraction Monitoring Method External toco Uterine Contraction Frequency 1-2 Uterine Contraction Duration 30-60 Uterine Contraction Intensity, Ext Palp Moderate Uterine Resting Tone, External Soft Uterine Activity Regular contractions Baby A FHR Baseline: 140 bpm FHR Baseline Variability: Moderate variability FHR Accelerations: Absent FHR Deceleration: Present FHR Deceleration Description: Early X 1 FHR Interpretation Category: Category One FHR Monitoring Method: External US transducer 04/27/2023 10:15 EDT Monitoring Annotations hands and knees over the cub in the bed 04/27/2023 10:08 EDT Temperature Oral 36.9 DegC Heart Rate Monitored 103 bpm HI Respiratory Rate 18 br/min Systolic Blood Pressure Non-Invasive 108 mmHg Diastolic Blood Pressure Non-Invasive 59 mmHg LOW Oxygen Therapy Room air Oxygen Saturation 97 % Activity Status ADL Repositions self Standard Safety Safety level maintained 04/27/2023 10:04 EDT Monitoring Annotations Ultrasound transducer adjusted 04/27/2023 10:04 EDT Uterine Contraction Monitoring Method External toco Uterine Contraction Frequency 1-2 Uterine Contraction Duration 30-60 Uterine Contraction Intensity, Ext Palp Moderate Uterine Resting Tone, External Soft Uterine Activity Tachysystole (Modified) Baby A FHR Baseline: 145 bpm FHR Baseline Variability: Moderate variability FHR Accelerations: Present FHR Deceleration: Absent FHR Interpretation Category: Category One FHR Monitoring Method: External US transducer 04/27/2023 10:03 EDT Monitoring Annotations Patient Repositioned to lunge with other foot 04/27/2023 9:54 EDT Monitoring Annotations Patient Repositioned, foot above wheel on the bed, stretching in a semi-lunge 04/27/2023 9:46 EDT Monitoring Annotations Patient Repositioned to right lateral side-lying 04/27/2023 9:41 EDT Notify date/time 04/27/2023 9:15 Provider Notified JOHN VERDUGO DO Notification Method Phone Information Communicated Nurse communication Details Communicated Patient had pitocin running at 2mu/min for 30 minutes resulting in tachysystole, pitocin turned off at 0905, FHR tolerated contractions during that period of time Notification Outcome Orders received Person Reporting Result(s) Charles Gleason RN Details of Results Received Reassess in several hours, if not skip regularly, restart pitocin at 1mu Results Read Back Yes Uterine Contraction Monitoring Method External toco Uterine Contraction Frequency 1-3 Uterine Contraction Duration 30-60 Uterine Contraction Intensity, Ext Palp Moderate Uterine Resting Tone, External Soft Uterine Activity Tachysystole Baby A FHR Baseline: 140 bpm FHR Baseline Variability: Moderate variability FHR Accelerations: Absent FHR Deceleration: Absent FHR Interpretation Category: Category One FHR Monitoring Method: External US transducer 04/27/2023 9:35 EDT Monitoring Annotations Patient Repositioned left side- lying stretch 04/27/2023 9:31 EDT Monitoring Annotations returned to bed 04/27/2023 9:13 EDT Monitoring Annotations patient up to the bathroom 04/27/2023 9:07 EDT Monitoring Annotations pitocin turned off due to frequent contractions 04/27/2023 9:07 EDT Uterine Contraction Monitoring Method External toco Uterine Contraction Frequency 1-3 Uterine Contraction Duration 50-70 Uterine Contraction Intensity, Ext Palp Moderate Uterine Resting Tone, External Soft Uterine Activity Tachysystole Baby A FHR Baseline: 135 bpm FHR Baseline Variability: Moderate variability FHR Accelerations: Absent FHR Deceleration: Absent FHR Interpretation Category: Category One FHR Monitoring Method: External US transducer oxytocin munit/min unit(s) LR Premix Diluent LR Premix Diluent mL 04/27/2023 8:41 EDT Lactated Ringers Injection Begin Bag 1,000 mL mL 04/27/2023 8:35 EDT Uterine Contraction Monitoring Method External toco Uterine Contraction Frequency 1-3 Uterine Contraction Duration 50-60 Uterine Contraction Intensity, Ext Palp Moderate Uterine Resting Tone, External Soft Uterine Activity Regular contractions Baby A FHR Baseline: 135 bpm FHR Baseline Variability: Moderate variability FHR Accelerations: Present FHR Deceleration: Absent FHR Interpretation Category: Category One FHR Monitoring Method: External US transducer oxytocin Begin Bag 2 mL unit(s) LR Premix Diluent Begin Bag 1,000 mL mL 04/27/2023 8:24 EDT Notify date/time 04/27/2023 8:24 Provider Notified JOHN VERDUGO DO Notification Method Phone Information Communicated Nurse communication Details Communicated Patient had two doses of cytotec, cervical exam the same as at 0400-1/50/-2, posterior, skip every 2-3 minutes Notification Outcome Orders received Person Reporting Result(s) Charles Gleason RN 04/27/2023 8:23 EDT Heart Rate Monitored 91 bpm Respiratory Rate 18 br/min Systolic Blood Pressure Non-Invasive 117 mmHg Diastolic Blood Pressure Non-Invasive 80 mmHg Reason For Taking VItal Signs Routine Oxygen Therapy Room air Oxygen Saturation 98 % Forearm Left 04/26/2023 18 gauge Peripheral IV Activity: Assessed Peripheral IV Dressing Condition: Clean, Dry, Intact Peripheral IV Dressing Activity: Transparent dressing Peripheral IV Line Status/Patency: Flushes easily Peripheral IV Site Condition: No complications Peripheral IV Equipment: PRN Adaptor Ambulation Repositions self Activity Status ADL Sleeping quietly with easy respirations Standard Safety ID band on, Call device within reach, Bed in low position, Wheels locked, Upper/Half-Length side-rails up, Phone within reach, personal items within reach, Visitor at bedside, Safety level maintained RN Coordination of Care 7am-7pm 04/27/2023 7:53 EDT Primary Pain Location Uterine Primary Pain Intensity 4 Primary Pain Time Pattern acute, intermittent Primary Pain Onset Gradual Primary Pain Quality Cramping, Contraction Primary Pain Non-Pharma Intervention Repositioning Pain Scale Type 0-10 Pain scale Uterine Contraction Monitoring Method External toco Uterine Contraction Frequency 2-4 Uterine Contraction Duration 20-70 Uterine Resting Tone, External Soft Uterine Activity Irregular contractions Baby A FHR Baseline: 135 bpm FHR Baseline Variability: Moderate variability FHR Accelerations: Present FHR Deceleration: Absent FHR Interpretation Category: Category One FHR Monitoring Method: External US transducer 04/27/2023 7:00 EDT Uterine Contraction Monitoring Method External toco Uterine Contraction Frequency 2-5 Uterine Contraction Duration 40-60 Uterine Contraction Intensity, Ext Palp Not palpable Uterine Resting Tone, External Soft Uterine Activity Irregular contractions Baby A FHR Baseline: 130 bpm FHR Baseline Variability: Moderate variability FHR Accelerations: Present FHR Deceleration: Absent FHR Interpretation Category: Category One FHR Monitoring Method: External US transducer 04/27/2023 6:00 EDT Uterine Contraction Monitoring Method External toco Uterine Contraction Frequency 3-5 Uterine Contraction Duration 40-70 Uterine Contraction Intensity, Ext Palp Not palpable Uterine Resting Tone, External Soft Uterine Activity Irregular contractions Baby A FHR Baseline: 130 bpm FHR Baseline Variability: Moderate variability FHR Accelerations: Present FHR Deceleration: Absent FHR Interpretation Category: Category One FHR Monitoring Method: External US transducer 04/27/2023 5:00 EDT Uterine Contraction Monitoring Method External toco Uterine Contraction Frequency 2-4 Uterine Contraction Duration 40-70 Uterine Contraction Intensity, Ext Palp Not palpable Uterine Resting Tone, External Soft Uterine Activity Irregular contractions Baby A FHR Baseline: 130 bpm FHR Baseline Variability: Moderate variability FHR Accelerations: Present FHR Deceleration: Absent FHR Interpretation Category: Category One FHR Monitoring Method: External US transducer 04/27/2023 4:26 EDT Notify date/time 04/27/2023 4:10 Provider Notified JOHN VERDUGO DO Notification Method Face to face conversation (Modified) Information Communicated Nurse communication Details Communicated cervical exam /2, gave second dose of cytotec Notification Outcome Orders not received Person Reporting Result(s) Tim RNC 04/27/2023 4:25 EDT Activity Status ADL Awake, Lights dimmed, Up to bathroom 04/27/2023 4:00 EDT Uterine Contraction Monitoring Method External toco Uterine Contraction Frequency 2-5 Uterine Contraction Duration 40-70 Uterine Contraction Intensity, Ext Palp Not palpable Uterine Resting Tone, External Soft Uterine Activity Irregular contractions Patient Position, OB Right tilt Baby A FHR Baseline: 130 bpm FHR Baseline Variability: Moderate variability FHR Accelerations: Present FHR Deceleration: Absent FHR Interpretation Category: Category One FHR Monitoring Method: External US transducer 04/27/2023 3:54 EDT Temperature Oral 36.5 DegC Heart Rate Monitored 82 bpm Respiratory Rate 16 br/min Systolic Blood Pressure Non-Invasive 101 mmHg Diastolic Blood Pressure Non-Invasive 53 mmHg LOW Reason For Taking VItal Signs Routine Primary Pain Intensity 0 Pain Scale Type 0-10 Pain scale Cervix Dilation 1 cm Cervix Effacement 60 Station -2 Cervical Consistency Firm Cervical Position Mid Presenting Part Vertex Presenting Part Applied to Cervix No Vaginal Exam Performed By PARIS Santacruz Jackman's Score 5 Forearm Left 04/26/2023 18 gauge Peripheral IV Activity: Assessed Peripheral IV Dressing Condition: Clean, Dry, Intact Peripheral IV Dressing Activity: Transparent dressing Peripheral IV Line Status/Patency: Flushes easily Peripheral IV Site Condition: No complications Peripheral IV Equipment: PRN Adaptor misoprostol 25 mcg mcg 04/27/2023 3:00 EDT Uterine Contraction Monitoring Method External toco Uterine Contraction Frequency 4-5 Uterine Contraction Duration 40-60 Uterine Contraction Intensity, Ext Palp Not palpable Uterine Resting Tone, External Soft Uterine Activity Irregular contractions Patient Position, OB Right lateral Baby A FHR Baseline: 135 bpm FHR Baseline Variability: Moderate variability FHR Accelerations: Present FHR Deceleration: Absent FHR Interpretation Category: Category One FHR Monitoring Method: External US transducer 04/27/2023 2:00 EDT Uterine Contraction Monitoring Method External toco Uterine Contraction Frequency 4-6 Uterine Contraction Duration 40-60 Uterine Contraction Intensity, Ext Palp Not palpable Uterine Resting Tone, External Soft Uterine Activity Irregular contractions Patient Position, OB Left lateral Baby A FHR Baseline: 135 bpm FHR Baseline Variability: Moderate variability FHR Accelerations: Present FHR Deceleration: Absent FHR Interpretation Category: Category One FHR Monitoring Method: External US transducer 04/27/2023 1:00 EDT Uterine Contraction Monitoring Method External toco Uterine Contraction Frequency 3-7 Uterine Contraction Duration 50-80 Uterine Activity Irregular contractions Baby A FHR Baseline: 135 bpm FHR Baseline Variability: Moderate variability FHR Accelerations: Present FHR Deceleration: Absent FHR Interpretation Category: Category One FHR Monitoring Method: External US transducer misoprostol Not Done: Not Appropriate at this Time (Not Done) 04/27/2023 0:00 EDT Uterine Contraction Monitoring Method External toco Uterine Contraction Frequency 6-10 Uterine Contraction Duration 70-80 Uterine Contraction Intensity, Ext Palp Not palpable Uterine Resting Tone, External Soft Uterine Activity Irregular contractions Baby A FHR Baseline: 145 bpm FHR Baseline Variability: Moderate variability FHR Accelerations: Present FHR Deceleration: Absent FHR Interpretation Category: Category One FHR Monitoring Method: External US transducer 04/26/2023 23:00 EDT Uterine Contraction Monitoring Method External toco Uterine Contraction Frequency 3-8 Uterine Contraction Duration 60-70 Uterine Contraction Intensity, Ext Palp Not palpable Uterine Resting Tone, External Soft Uterine Activity Irregular contractions Baby A FHR Baseline: 130 bpm FHR Baseline Variability: Moderate variability FHR Accelerations: Present FHR Deceleration: Absent FHR Interpretation Category: Category One FHR Monitoring Method: External US transducer zolpidem 10 mg mg 04/26/2023 22:55 EDT misoprostol 25 mcg mcg 04/26/2023 22:54 EDT Forearm Left 04/26/2023 18 gauge Peripheral IV Activity: Insert new site Peripheral IV Dressing Condition: Clean, Dry, Intact Peripheral IV Dressing Activity: Transparent dressing Peripheral IV Line Status/Patency: Flushes easily Peripheral IV Site Condition: No complications Peripheral IV Equipment: Extension set, Stopcock, IV Pump, PRN Adaptor Peripheral IV Number of Attempts: 3 04/26/2023 22:52 EDT WBC 10.9 10^3/mcL HI RBC 4.01 10^6/mcL LOW Hgb 13.0 G/dL Hct 37.4 % MCV 93.1 fL MCH 32.4 pg HI MCHC 34.8 G/dL RDW 13.4 % Platelet 248 10^3/mcL MPV 7.6 fL Neutrophil % 68.9 % Lymphocyte % 21.7 % Monocyte % 8.2 % Eosinophil % 1.1 % Basophil % 0.1 % Neutrophil, Absolute 7.5 10^3/mcL HI Lymphocyte, Absolute 2.4 10^3/mcL Monocyte, Absolute 0.9 10^3/mcL Eosinophil, Absolute 0.1 10^3/mcL Basophil, Absolute 0.0 10^3/mcL ABO/Rh Interp A NEG Antibody Screen Gel Negative ABSC 04/26/2023 22:33 EDT Notify date/time 04/26/2023 22:33 Provider Notified JOHN VERDUGO DO Notification Method Phone Information Communicated Patient arrival, Nurse communication Details Communicated patient here for IOL. edc, , cervical exam 40/-3, contractions every 4-5minutes, patient not feeling them. baby with accelerations. GBS +, NKA. Notification Outcome Orders received Person Reporting Result(s) Tim RNC Results Read Back Yes 04/26/2023 22:30 EDT Cervix Dilation 1 cm Cervix Effacement 40 Station -3 Cervical Consistency Firm Cervical Position Posterior Vaginal Exam Performed By Shaniqua Urias RN Uterine Contraction Monitoring Method External toco Uterine Contraction Frequency 3-6 Uterine Contraction Duration 60-80 Uterine Contraction Intensity, Ext Palp Not palpable Uterine Resting Tone, External Soft Uterine Activity Irregular contractions Baby A FHR Baseline: 140 bpm FHR Baseline Variability: Moderate variability FHR Accelerations: Present FHR Deceleration: Absent FHR Interpretation Category: Category One FHR Monitoring Method: External US transducer Jackman's Score 2 Baby A Membrane Status: Intact 04/26/2023 22:13 EDT Temperature Oral 36.5 DegC Heart Rate Monitored 89 bpm Respiratory Rate 18 br/min Systolic Blood Pressure Non-Invasive 116 mmHg Diastolic Blood Pressure Non-Invasive 76 mmHg Reason For Taking VItal Signs Routine Primary Pain Intensity 0 Pain Scale Type 0-10 Pain scale 04/26/2023 22:10 EDT Blood Type, External A negative Rubella, External Nonimmune Rubella Date Performed 10/27/2022 HIV Antibodies, External Negative HIV Date Performed 10/22/2022 Group B Strep, External Positive Group B Strep Date Performed 05/01/2023 Hepatitis B, External Negative Hepatitis B Date Performed 10/22/2022 RPR, External Reactive RPR Date Performed 01/14/2023 Designated Person #1 We May Share [facility] [phone] Designated Person #1 Relationship Spouse Privacy Restrictions Requested None Height 162.6 cm Admission Weight 84.1 kg [place] Body Weight 54.74 kg BSA Admission 1.89 Body Mass Index 31.81 kg/m2 Expected Outcome Live Patient Type Inpatient Thrombosis Risk Factors (1) or post- less than 1 month Thrombosis Risk Factor Add'l Assessment NA Thrombosis Risk Score 1 Status Yes Risk Factors, Antepartum Current Preg None Movement Present Vaginal bleeding No PPH Risk Low risk for hemorrhage PPH Low Risk Factors [place] , Less than 4 previous deliveries, Unscarred uterus, Absence of hemorrhage history Feeding Breast milk Anesthesia/Pain Medication During Labor Epidural/Spinal Circumcision Yes Baby For Adoption No Surrogate No Discharge Physician Dr. Lemons [facility] Participant No Safe Sleep Environment for Baby Yes Safe Sleep Environment Outside Home N/A Maternal Transport No Thoughts of Harming Others - History No Thoughts of Suicide - History No Coping Effective Emotional Abuse History Denies Physical Abuse History Denies Sexual Abuse Denies Hospital Clergy to Visit Patient Verbalizes No Spiritual Needs Financial Concerns Re: Hospital/Disch No Living Situation Home with family care Current Home Treatments None Professional Skilled Services None Special Services and Community Resources None Advanced Directives No - refuses information Infectious Disease Symptoms Patient states no symptoms Infectious Disease Recent Exposure No Alcohol and Drug Use No Employee of Institutional Living No Health Care Employee No History of Exposure to TB No History of Positive Chest X-Ray for TB No History of Positive TB Skin Test No Homeless No Known Immunosuppression No Recent Immigrant No Resident of Institutional Living No Bloody Sputum No Fatigue No Fever No Loss of Appetite No Night Sweats No Persistent Cough > 3 Weeks No Weight Loss No Preferred Spoken Language Afghan Preferred Written Language Afghan Teaching Evaluation Verbalizes/Nonverbally indicates understanding Safety Brochure Information Reviewed Yes Nataliia Parada Video Viewed No Chief Complaint induction of labor Mode of Arrival Ambulatory Accompanied by Spouse Information Given by Patient Patient's Current Physicians Dr. Verdugo Emergency Contact Number [facility]egan [facility] [phone] Reason For Visit OB Induction Belongings At Bedside Bracelet, Luggage, Pants, Purse, Shoes, T-shirt, Undergarments Personal Home Medications Received No home medications were brought in Belongings Sent Home None Belongings to Security/Secured in Dept None Discharge To, Anticipated Home with family care Other Anticipated Needs After Discharge No Anticoagulants Taken In Past 6 Wks. No Prev Test Positive/Diagnosis w/COVID-19 No Current Quarantine/Isolated any Illness No Any Contact with Sick Animals/Birds No Traveled Anywhere in Last 30 Days No No Able To Drink Order Detail Yes Able To Sign Consents Order Detail Yes Code Status Order Detail Full code IV Order Detail Yes Dialysis Schedule Order Detail N/A Has Diabetes Order Detail No Isolation Precautions Order Detail None Nurse Collect Order Detail 0 Oxygen Order Detail No Order Detail Yes Prior Valve Replacement Order Detail No Transport Mode Order Detail Wheelchair Staff Member Anesthesia/Transfusions Prior anesthesia Admission Note-Nursing Patient History OB (Modified) 04/26/2023 22:09 EDT OBHx 1 . Assessment and Plan [place] [employer] Anesthesiologists (ASA) physical status classification: Class II. Anesthetic Preoperative Plan Premedication: None. Anesthetic technique: Epidural. Induction. Maintenance airway: Mask. Regional: Epidural. Postoperative pain management: Per surgeon. Risks discussed: nausea, vomiting, headache, sore throat, dental injury, hypotension, allergic reaction, serious complications. Informed consent: signed by patient. Digitally Signed by JAYNA ALMARAZ on 04/27/2023 06:24 PM [facility] 04-12-2023 Evaluation + Plan note Diagnostic Tests Pending * Rapid Plasma Reagin Test 01/14/23 [facility] 01-20-2023 Note. MICRO - Microbiology PROCEDURE: Urine Culture [*1] SOURCE: Urine BODY SITE: COLLECTED DATE/TIME: 10/22/2022 16:43 EST RECEIVED DATE/TIME: 10/23/2022 14:08 EST START DATE/TIME: 10/23/2022 14:08 EST FREE TEXT SOURCE: FINAL REPORTS Final Report [] Verified Date/Time/Personnel: 10/24/2022 15:10 EST <10,000 cfu/ml. No Significant growth. Sensitivity not indicated. Performing Locations *1: This test was performed at: [facility], [address] [place] [address], [phone] , [facility] ([place]10-22-2022 Evaluation + Plan note Diagnostic Tests Pending * Panel (AO) 10/22/22 * Varicella Zoster Antibody 10/22/22 [facility] Evaluation + Plan note No data available for this section [facility] Evaluation note* Diagnosis Toe injury, left, initial encounter [facility] Diagnosis Toe injury, left, initial encounter- Primary Toe injury, left, initial encounter documented [facility]* Diagnosis Onset Date Resolution Status Admit Date COVID-19 affecting , antepartum acute June 27, 2025 11:38am FH: breast cancer acute Septemb er 2024 11:38am acute June 11:38am Rh negative status during acute June 27, 2025 11:38am Supervision of high-risk acute June 27, 2025 11:38am [facility] Work Phone: Hospital Discharge instructions No data available for this section [facility] Progress note No data available for this section [facility] progress note Author Angely Stone [facility] Note Date/Time June 27, 2025 12:22pm [facility] [address], [address] [place] [address] OFFICE VISIT Date of Service: 06/27/25 MR#: [id number] Acct: [id number] Name: EVELYN MADDOX Rep #: [id number] : 1995 Provider: VILMA Stone Age/Sex: 29/F [place] [facility] Signed Intake Vital Signs 06/27/25 11:41 Height 5 ft 4 in Weight: 176 lb 4 oz BMI 30.2 BP 127/82 H Intake Visit Reasons: *NEW* NOB JAMES GAURANG 09/04 30wk2d Chief Complaint: New OB Director Imaging Required: No Is patient in pain?: No Allergies No Known Allergies Allergy (Unverified 06/27/25 11:39) Medications ?Medication ?Instructions ?Recorded ?Confirmed ?Type ascorbic acid (vitamin C) 500 mg mg PO 06/22/25 History capsule aspirin 81 mg tablet 81 mg PO QDAY 06/22/2506/27 History calcium gluconate 50 mg calcium mg PO 06/22/25 5 History capsule magnesium 250 mg tablet 250 mg PO QDAY 06/22/2506/06 History multivit-min no.71-iron fum 28 cap PO 06/22/25 5 History mg-folate no.1 1 mg-dha 300 mg capsule (PNV-[place]) vitamin E (dl, acetate) 90 mg (200 90 mg PO QDAY 06/2206/27/25 History unit) capsule Last Menstrual Period: 11/28/24 : No Have you fallen in the past year?: No PFSH PFSH Medical History Seasonal allergies Surgical History [place] teeth extracted Family History Father Colon cancer, Onset Age: 67 Maternal Grandmother Breast cancer, Onset Age: 90 Grandfather Colon cancer, Onset Age: 57 Paternal Uncle Cancer, Onset Age: 55 lung, liver- Paternal Uncle Cancer, Onset Age: 64 Prostate-Paternal Uncle Cancer, Onset Age: 72 lymphoma Paternal Aunt Breast cancer, Onset Age: 42 Paternal Mother Heart disease electrical issues Social History adopted: Yes household members: spouse and children housing: house number of children: 1 service: No current occupational status: 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 pets and animals: No history of recent travel: Yes (- Jun) out of country: Yes sexually active: Yes Smoking Status: Never smoker alcohol intake: current alcohol intake frequency: holidays/special occasions only details: Not while substance use type: does not use well-balanced diet: about half the time caffeine: Yes Type: coffee Number of servings: 2 eating out: 1-3 times/week during the past year weight has: decreased > 10 lbs what type of physical activity do you participate in: none luis/sabianist: Sikhism seatbelt use: always do you feel safe at home: Yes additional social history: Tegan- Amanda History 2 Elective abortions Hx Para 1 Spontaneous abortions Hx # Term Pregnancies Ectopic pregnancies Hx # Pregnancies Multiple births # of living children 1 Past Pregnancies Del. Date Name GA/Weeks Outcome Route Bth Weight Gen Labor Lgth Anesthesia Del Locatn Provider FOB 04/28/23 [place] 41 live - full term 7#7oz Male epidural Nataliia Camilo Delivery Date: 04/28/23 Last Updated by: Pia Mora IOL, post dates- baby had knot in cord HPI *NEW* NOB JAMES GAURANG 09/04 30wk2d Details: EVELYN MADDOX is a 29 year old who presents for New OB visit. OB Visit GAURANG Calculator Estimated Delivery Date Method Current WG Current Estimate 09/04/25 LMP (Certain) 30w 1d Comments: HIV: Urine Culture: Sequential Screen: NIPT Screen: Estimated Due Date: 09/04/25 Expected Delivery Route/Plan Labor Preferences- CB/BF classes: [] labor support person: [] labor intervention preferences: [] pain management options preferred: [] cut cord/dad catch: [] : [] PP control planned: [] discussed possible routes of delivery and associated risks: [] special requests: [] Specific Issue/Plans Covid status: [] Flu vaccine: [] Tdap vaccine: [] Rhogam: [] LARC form signed: [] Problem list reviewed and updated with the most current plan of care details and appropriate orders placed. Relevant counseling for the gestational age provided. Continue routine care and follow up unless otherwise noted in visit notes/problem list details Initial Weight: Not Recorded Date -?-?-?-?-?-?-?-?-?-?-?-?- EGA Weight BP Urine Prot -?-?-?-?-?-?-?-?-?-?-?-?- Glucose FHR FuHt Pres Dilation -?-?-?-?-?-?-?-?-?-?-?-?- Effaced St Visit Note 06/27/25 -?-?-?-?-?-?-?-?-?-?-?-?- 30w 1d 176 lb 4 oz 127/82 Nega tive -?-?-?-?-?-?-?-?-?-?-?-?- Negative 150 31 -?-?-?-?-?-?-?-?-?-?-?-?- KW- JAMES from [facility]. Records reviewed and PRR KW- JAMES from [facility]. Recor ds reviewed and PRR- waiting on glucose results. good fm and no vb/lof/ctx. will need rhogam 07/22 Menstrual History Last Menstrual Period: 11/28/24 Reported LMP: definite Normal amount/duration: Yes Frequency in days: 30-31 On hormonal BC at conception: No hCG+: 12/29/24 Antepartum Record Genetic Screening: Congenital Heart Defect: Other, Neural Tube Defect: Other, Hemoglobinopathy Or Carrier: Other, Cystic Fibrosis: Other, Chromosome Abnormality: Other, Adarsh-Sachs: Other, Hemophilia: Other, Intellectual Disability/Autism: Other, Recurrent Loss/Stillbirth: Other, Other Structural Defect: Other, Other Genetic Disease: Other and Maternal Metabolic Disorder: Other Infection History: Live with someone with TB or Exposed to TB: No, Patient or Partner has history of Genital Herpes: No, Rash or Viral illness since last mentrual period: Yes (COVID- last -aspirin 81mg/day), Prior GBS-Infected child: No, History of STD: No, HIV Infection: No, History of Hepatitis: No, Recent travel outside of [place]: Yes ([place]), Concern for hepatitis exposure: No, Varicella immune: Yes (immune- virus) and Covid Vaccinated: No Medical History Medical History: Positive: D (Rh) Sensitized (A-, FOB is A+ Pt had Rhogam at 24wks due to a fall), Seasonal allergies (mild- Moderate), Operations/hospitalizations (wisdom teeth) and Relevant family history (See PFSH) and Negative: Diabetes, Hypertension, Heart disease, Auto-immune disorder, Kidney disease/UTI, Neurologic/epilepsy, Psychiatric, Depression/ depression, Hepatitis/liver disease, Varicosities/phlebitis, Thyroid dysfunction, Trauma/domestic violence, History of blood transfusions, Pulmonary (e.g.,TB,Asthma), Drug/latex allergies/reactions, Breast, Driver Merchandiser surgery, Anesthetic complications, History of abnormal pap, Uterine anomaly/jose m, Infertility, Anti-retroviral treatment and Other ACOG First Trimester First Trimester: Desire for , Alcohol, Tobacco Cessation, Illicit/Recreational Drug/Substance Use, Intimate Partner Violence, Barriers to care, Unstable Housing, Communication Barriers, Environmental/Work Hazards, Anticipated Course of Care, Nurtrition and weight gain, Toxoplasmosis Precations, Use of Any medications, Sexual activity, Exercise, Dental Care, Sauna/Hot tub use, Seat Belt use, Childbirth classes/Hospital facilities, Travel, Indications for Ultrasound and Screening for Aneuploidy; Discussed Results POC Urinalysis 2 Dip (Clinic) Office Urine Glucose Negative Last Edit by Ines Marrero on 06/27/25 11:50 Office Urine Protein Negative Last Edit by Ines Marrero on 06/27/25 11:50 Coding Level of Care Code OB Routine Diagnoses Supervision of high-risk O09.90 30 weeks gestation of Z3A.30 Weeks of gestation: 30 weeks FH: breast cancer Z80.3 Rh negative status during O26.899; Z67.91 COVID-19 affecting , antepartum O98.519; U07.1 Assessment and Plan Assessment and Plan (1) Supervision of high-risk : Status: Acute Comment: , GAURANG 09/04/25, DEREK Herr, Tegan (2) : Status: Acute Qualifiers: Weeks of gestation: 30 weeks Qualified Code(s): Z3A.30 - 30 weeks gestation of Comment: declined NIPT & Carrier, JAMES to BWC @ 30wks (3) FH: breast cancer: Status: Acute Comment: Maternal grandmother, Paternal Aunt (4) Rh negative status during : Status: Acute Comment: is A+, Had Rhogam @ 24wks due to fall (5) COVID-19 affecting , antepartum: Status: Acute Comment: 06/12/25, ASA 81 mg daily Orders: Orders POC Urinalysis 2 Dip (Clinic) Today Clinical Quality Measures Falls Risk Screening/Assistive Devices Have you fallen in the past year?: No 06/27/25 9396 <Electronically signed by Angely chahal CNM> Date _ Angely Stone CNM Cosigner Signature: Date (if applicable) CC: ~ [employer] Work Phone: Reason for referral (narrative)* Diagnostic Procedure Only (Urgent) - Closed Specialty Diagnoses / Procedures Referred By Tyrell hoffman Referred To Contact XR IMAGING Diagnoses Toe injury, left, initial encounter Procedures XR FOOT GENERAL 3V AP/LAT/OBL LEFT RADEX FOOT COMPLETE MINIMUM 3 VIEWS Alethea Leyva APRN.CNP [address] [place] [address] [place] [address] Referral ID Status Reason Start Date Expiration Date V isits Requested Visits Authorized [id number] Closed Auto-Generate d Referral 04/10/2024 05/10/2025 1 1 [facility] for referral (narrative)* Diagnostic Procedure Only (Urgent) - Closed Specialty Diagnoses / Procedures Referred By Contac t Referred To Contact XR IMAGING Diagnoses Toe injury, left, initial encounter Procedures XR FOOT GENERAL 3V AP/LAT/OBL LEFT RADEX FOOT COMPLETE MINIMUM 3 VIEWS Alethea Leyva APRN.CNP [address] [place] [address] [place] [address] Referral ID Status Reason Start Date Expiration Date V isits Requested Visits Authorized [id number] Closed Auto-Generate d Referral 04/10/2024 05/10/2025 1 1 [facility] for referral (narrative)No reason for referral information [facility] Work Phone: reason for visit Narrative* Diagnostic Procedure Only (Urgent) - Closed Specialty Diagnoses / Procedures Referred By Contac t Referred To Contact XR IMAGING Diagnoses Toe injury, left, initial encounter Procedures XR FOOT GENERAL 3V AP/LAT/OBL LEFT RADEX FOOT COMPLETE MINIMUM 3 VIEWS Alethea Leyva APRN.CNP [address] [place] [address] [place] [address] Referral ID Status Reason Start Date Expiration Date V isits Requested Visits Authorized [id number] Closed Auto-Generate d Referral 04/10/2024 05/10/2025 1 1 [facility] Summary Purpose Family History Relationship Condition Age at Onset Recorded Date/T cesar father Malignant neoplasm of colon 67 Not Specified Malignant neoplasm of breast 90 grandfather Malignant neoplasm of colon 57 uncle Malignant neoplasm 55 uncle Malignant neoplasm 64 uncle Malignant neoplasm 72 aunt Malignant neoplasm of breast 42 mother Cardiac disease Unknown No Family History Records Found Advance Directives No Advanced Directives Records FoundNo Advanced Directives Records FoundNo Advanced Directives Records FoundNo Advanced Directives Records FoundNo Advanced Directives Records Found Chief Complaint and Reason for Visit Chief Complaint Admit Date *NEW* NOB JAMES GAURANG 09/04 30wk2d June 27, 2025 11:38am SCREENING July 03, 2025 8:05am Reason for Visit Admit Date COVID-19 affecting , antepartum June 27, 2025 11:38am FH: breast cancer June 27, 2025 11:38am June 27, 2025 11:38am Rh negative status during [facility] 2024 11:38am Supervision of high-risk [facility] 2024 11:38am Additional Source Comments Care Team (unrecognized sect ion and content) Care Team Personnel Name: ROMÁN LEMONS DO Member Role: Primary Care Physician Address: Address: [address] Care Team Related Persons Name: TEGAN MADDOX Care Team Personnel Name: ROMÁN LEMONS DO Member Role: Primary Care Physician Address: Address: [address] Care Team Related Persons Name: TEGAN MADDOX Address: Home [address] [place] [address] Care Team Personnel Name: ROMÁN LEMONS DO Member Role: Primary Care Physician Address: Address: [id number] [place] [address] Care Team Related Persons Name: TEGAN MADDOX Address: Home [address] [place] [address] Care Team Personnel Name: ROMÁN LEMONS DO Member Role: Primary Care Physician Address: Address: [id number] [place] [address] Care Team Related Persons Name: TEGAN MADDOX Address: Home [address] [place] [address] Patient Care team informatio n (unrecognized section and content) 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 Specialty Start Date End Date Román [place] [address] [address] PCP - General Internal Medicine 08/03/18 Team Status: Active Member Role/Relationship Status Dates No Primary Care Physician Primary care physician Activ e Team Status: Inactive Member Role/Relationship Status Dates Angely Stone CNM Attending physician Active Start: June 27, 2025 End: June 27, 2025 Team Status: Active Member Role/Relationship Status Dates Angely Stone CNM Attending physician Active Start: July 03, 2025 Angely Stone CNM Referring Provider Active S tart: July 03, 2025 No Primary Care Physician Primary care physician Activ e Start: July 03, 2025 Team Status: Inactive Member Role/Relationship Status Dates Angely Stone CNM Attending physician Active Start: July 03, 2025 End: July 03, 2025 Angely Stone CNM Referring Provider Active S tart: July 03, 2025 End: July 03, 2025 No Primary Care Physician Primary care physician Activ e Start: July 03, 2025 End: July 03, 2025 INFORMATION SOURCE (unrecogn ized section and content) DATE CREATED AUTHOR 07/13/2023 [facility] DATE CREATED AUTHOR AUTHOR'S ORGANIZ ATION 04/10/2024 [facility] DATE CREATED AUTHOR AUTHOR'S ORGANIZ ATION 06/10/2025 [facility] DATE CREATED AUTHOR AUTHOR'S ORGANIZ ATION 06/21/2025 [facility] DATE CREATED AUTHOR AUTHOR'S ORGANIZ ATION 07/08/2025 [facility] Source Comments (unrecognize d section and content) In the event this informatio n is protected by the Federal Confidentiality of Alcohol and Drug Abuse Patient Records regulations: The Federal rules restrict any use of the information to criminally investigate or prosecute any alcohol or drug abuse patient.[facility] the event this information is protected by the Federal Confidentiality of Alcohol and Drug Abuse Patient Records regulations: The Federal rules restrict any use of the information to criminally investigate or prosecute any alcohol or drug abuse patient.[facility] Reason for Visit (unrecogniz ed section and content) Reason Comments Toe Injury Sx started today whe n she dropped her cell phone on her 5th digit on her left foot. Pt has pain, swelling and abrasions. No otc meds Goals (unrecognized section and content) Type Care Experience Labor Preferences-CB /BF classes: []labor support person: []labor intervention preferences: []pain management options preferred: []cut cord/dad catch: []: []PP control planned: []discussed possible routes of delivery and associated risks: []special requests: [] FOR RECORDS PERTAINING TO PATIENTS WHO ARE OR HAVE BEEN ENROLLED IN A CHEMICAL DEPENDENCY/SUBSTANCEABUSE PROGRAM, SOME INFORMATION MAY BE OMITTED. This clinical summary was aggregated from multiple sources. Caution should be exercised in using it in the provision of clinical care. This summary normalizes information from multiple sources, and as a consequence, information in this document may materially change the coding, format and clinical context of patient data. In addition, data may be omitted in some cases. CLINICAL DECISIONS SHOULD BE BASED ON THE PRIMARY CLINICAL RECORDS. [employer] provides no warranty or guarantee of the accuracy or completeness of information in this document.
--- OUTSIDE RECORDS SUMMARY | 2025-07-10 18:33 | XMS RPT_ITS | CCD ---
Author Organization [facility] Care Team Providers Care Rawhide Trimmer Name Role Phone CRISTO MELARA ROMÁN Candi Primary Care Physician [phone] LOPEZ CARDOZON-CNRolo, BELKYS Rodriguez Attending Ashley vailable CRISTO DO, ROMÁN W Primary Care Unavailable CRISTO DO, ROMÁN W Primary Care Unavailable AGARWAL E COMMERCE ANALYST-CNM, ANA Rodriguez Attending Unavai lablizzy ESCALANTE E COMMERCE ANALYST-CNM, BELKYS Rodriguez Attending Ashley vailable CRISTO DO, ROMÁN W Primary Care Unavailable CRISTO DO, ROMÁN W Primary Care Unavailable AGARWAL E COMMERCE ANALYST-CNM, ANA Rodriguez Attending Unavai lable CRISTO DO, ROMÁN W Primary Care Unavailable AGARWAL E COMMERCE ANALYST-CNM, ANA Rodriguez Attending Unavai lable CRISTO DO, ROMÁN W Primary Care Unavailable AGARWAL E COMMERCE ANALYST-CNM, ANA Rodriguez Attending Unavai lable CRISTO DO, ROMÁN W Primary Care Unavailable AGARWAL E COMMERCE ANALYST-CNM, ANA Rodriguez Attending Unavai lable CRISTO DO, ROMÁN W Primary Care Unavailable AGARWAL E COMMERCE ANALYST-CNM, ANA Rodriguez Attending Unavai lable LOPEZ E COMMERCE ANALYST-CNM, BELKYS Rodriguez Attending Ashley vailable CRISTO DO, ROMÁN W Primary Care Unavailable CRISTO DO, ROMÁN W Primary Care Unavailable AGARWAL E COMMERCE ANALYST-CNM, ANA Rodriguez Attending JOHN Herrera DO Admitting Unavailab JOHN Timmons DO Attending Unavailab le CRISTO DO, ROMÁN W Primary Care Unavailable ALETHEA LEYVA Attending Unavailable ALETHEA LEYVA Referring Unavailable CristoRomán rose DO Primary Care Provider [phone] Unavailable Primary Care Provider Unavailmeet LEMONS DO ROMÁN Candi Primary Care Physician [phone] CRISTO DO, ROMÁN W Primary Care Unavailable [facility], PHYSICIAN Referring Unavailable RANDY MELARA, DR LUIS EDUARDO Machado Attending Unavailable ANY E COMMERCE ANALYST-CNM, ANA Rodriguez Attending Unavai travis CRISTO DO, ROMÁN W Primary Care Unavailable LOPEZ E COMMERCE ANALYST-VILMA, BEKLYS Rodriguez Attending Ashley vailable CRISTO DO, ROMÁN W Primary Care Unavailable LOPEZ E COMMERCE ANALYST-CNM, BELKYS Rodriguez Attending Ashley vailable CRISTO DO, ROMÁN W Primary Care Unavailable CRISTO DO, ROMÁN W Primary Care Unavailable ESCALANTE E COMMERCE ANALYST-CNM, BELKYS Rodriguez Attending Ashley vailable CRISTO DO, ROMÁN W Primary Care Unavailable LOPEZ CARDOZON-CNM, BELKYS Rodriguez Attending Ashley vailable Chase ESPARZA, Angely Attending Physician [phone] Chase ESPARZA, Angely Referring Provider Care Physician, No Primary Primary Care Olga [...] 60.0 Unit: tab(s) Repeat number: 1 Mv-Mins 44-Zxpp-Onbmw No.1-Dha (Pnv-[place]) 28-1-300 mg capsule (2 sources) Start: 06-22-2025 [...] on above: , GAURANG 09/04/25, P C Leonard, Tegan Other complications of (4 sources) RhD [...] declined NIPT & [place] ier, JAMES to [facility] @ 30wks Other screening for suspected [...] 100gon 0 07-03-2025 GEST GTT 100gm Normal [facility] Comment on above: Order Comment: Y [...] 1156 Performed By: #### L 500.4710 #### [facility] [address] [place], [address] Quantitative serum or plasma 3 hour gestational glucose tolerance panelOrdered By: Angely Stone on 07-03-2025 Glucose tolerance 3 hours gestational panel See comment [facility] Comment on above: FASTING 81 Col: [...] Stone on 06-27-2025 Glucose Ql (U) Negative [facility] - UrinalysisOrder ed By: Angely Stone on 06-27-2025 Protein Ql (U) Negative [facility] Health Technician Office Visit Reporton 06-27-2025 Health Technician Office Visit Report [facility] [address], [address] [place] [address] OFFICE VISIT Date of Service: 06/27/25 MR#: [id number] Acct: [id number] Name: EVELYN MADDOX Rep #: [id number] : 1995 Provider: VILMA Ventura ams Age/Sex: 29/F [place] [facility] Signed Intake Vital Signs 06/27/25 11:41 Height 5 ft 4 in Weight: 176 lb 4 oz BMI 30.2 BP 127/82 H Intake Visit Reasons: *NEW* NOB JAMES GAURANG 09/04 30wk2d Chief Complaint: New OB Hand Trimmer Required: No Is patient in pain?: No [...] mg-folate no.1 1 mg-dha 300 mg capsule (PNV-[place]) vitamin E (dl, acetate) 90 mg (200 90 mg PO QDAY 06/22/25 06/27/25 History unit) capsule Last Menstrual Period: 11/28/24 : No Have you fallen in the past year?: No PFSH PFSH Medical History Seasonal allergies Surgical History [place] teeth extracted Family History Father Colon cancer, [...] animals: No history of recent travel: Yes ([place]- Jun) out of country: Yes sexually active: [...] physical activity do you participate in: none luis/sikhism: Amish seatbelt use: always do you feel safe at home: Yes additional social history: Jairo Patel History 2 Elective abortions Hx Para 1 Spontaneous abortions Hx # Term Pregnancies Ectopic pregnancies Hx # Pregnancies Multiple births # of living children 1 Past Pregnancies Del. Date Name GA/Weeks Outcome Route Bth Weight Infant Gen Labor Lgth Anesthesia Del Locatn Provider FOB 04/28/23 Leonard 41 live - full term 7#7oz Male [...] ??- 30 (more content not included)... Normal [facility] RPRon 06-21-2025 Reagin Ab RPR Ql (S) Non-Reactive Normal Non-Reactive [facility] Comment on above: Result Comment: The [...] #### A DIFF, ANEU, CBC, GLU1P #### [place] [address] #### RPR #### [address] [address] .Auto Diffon 06-20-2025 Basophil, Absolute 0.0 10 3/mcL Normal 0.0-0.3 [facility] Comment on above: Performed By: #### A DIFF, ANEU, CBC, GLU1P #### [place] [address] #### RPR #### [address] [address] Basophils/100 WBC (Bld) 0.3 % Normal 0.0-2.5 [facility] Comment on above: Performed By: #### A DIFF, ANEU, CBC, GLU1P #### [place] [address] #### RPR #### [address] [address] Eosinophil, Absolute 0.1 10 3/mcL Normal 0.0-0.7 [facility] Comment on above: Performed By: #### A DIFF, ANEU, CBC, GLU1P #### [place] [address] #### RPR #### [address] [address] Eosinophils/100 WBC (Bld) 0.7 % Normal 0.0-6.0 [facility] Comment on above: Performed By: #### A DIFF, ANEU, CBC, GLU1P #### [place] [address] #### RPR #### [address] [address] Lymphocyte, Absolute 1.7 10 3/mcL Normal 0.9-4.3 [facility] Comment on above: Performed By: #### A DIFF, ANEU, CBC, GLU1P #### [address] [address] #### RPR #### [address] [address] Lymphocytes/100 WBC (Bld) 21.2 % Normal 20.0-40.0 [facility] Comment on above: Performed By: #### A DIFF, ANEU, CBC, GLU1P #### [address] [address] #### RPR #### [address] [address] Monocyte, Absolute 0.3 10 3/mcL Normal 0.1-1.4 [facility] Comment on above: Performed By: #### A DIFF, ANEU, CBC, GLU1P #### [place] [address] #### RPR #### [address] [address] Monocytes/100 WBC (Bld) 4.0 % Normal 2.0-13.0 [facility] Comment on above: Performed By: #### A DIFF, ANEU, CBC, GLU1P #### [place] [address] #### RPR #### [address] [address] Neutrophils/100 WBC (Bld) 73.8 % Normal 50.0-75.0 [facility] Comment on above: Performed By: #### A DIFF, ANEU, CBC, GLU1P #### [address] [address] #### RPR #### [address] [address] .NEUABSon 06-20-2025 Neutrophil, Absolute 6.0 10 3/mcL Normal 2.3-8.1 [facility] Comment on above: Performed By: #### A DIFF, ANEU, CBC, GLU1P #### [place] [id number] #### RPR #### [address] [address] CBCon 06-20-2025 Erythrocyte distribution width (RBC) [Ratio] 14.2 % Normal 11.5-15.5 [facility] Comment on above: Performed By: #### A DIFF, ANEU, CBC, GLU1P #### [place] [address] #### RPR #### [place] [address] Hematocrit (Bld) [Volume fraction] 33.1 % Low 34.0-46.0 [facility] Comment on above: Performed By: #### A DIFF, ANEU, CBC, GLU1P #### [place] [address] #### RPR #### [place] [address] Hgb 11.9 G/dL Low 12.0-16.0 [facility] Comment on above: Performed By: #### A DIFF, ANEU, CBC, GLU1P #### [place] [address] #### RPR #### [place] [address] MCH (RBC) [Entitic mass] 33.4 pg High 27.0-33.0 [facility] Comment on above: Performed By: #### A DIFF, ANEU, CBC, GLU1P #### [place] [address] #### RPR #### [place] [address] MCHC 36.0 G/dL Normal 32.0-36.0 [facility] Comment on above: Performed By: #### A DIFF, ANEU, CBC, GLU1P #### [place] [address] #### RPR #### [place] [address] MCV (RBC) [Entitic vol] 92.8 fL Normal 80.0-99.0 [facility] Comment on above: Performed By: #### A DIFF, ANEU, CBC, GLU1P #### [address] [address] #### RPR #### [address] [address] Platelet 335 10 3/mcL Normal 150-450 [facility] Comment on above: Performed By: #### A DIFF, ANEU, CBC, GLU1P #### [address] [address] #### RPR #### [place] [address] Platelet mean volume (Bld) [Entitic vol] 7.3 fL Normal 6.6-10.5 [facility] Comment on above: Performed By: #### A DIFF, ANEU, CBC, GLU1P #### [place] [address] #### RPR #### [place] [address] RBC 3.56 10 6/mcL Low 4.10-5.30 [facility] Comment on above: Performed By: #### A DIFF, ANEU, CBC, GLU1P #### [address] [address] #### RPR #### [place] [address] WBC 8.1 10 3/mcL Normal 4.5-10.8 [facility] Comment on above: Performed By: #### A DIFF, ANEU, CBC, GLU1P #### [address] [address] #### RPR #### [place] [address] CCS2Osw 06-20-2025 Glucose [Mass/Vol] 150 mg/dL High 70-140 [facility] Comment on above: Performed By: #### A DIFF, ANEU, CBC, GLU1P #### [address] [place], [place] [address] #### RPR #### [address] [address] LABORATORYOrdered By: SYSTEM SYSTEM on 06-20-2025 Basophils [...] 04-29-2025 ABO/Rh Interp Negative Invalid Interpretation Code [facility] Comment on above: Performed By: #### A BSGEL, ABOGEL #### [address] [address] ABS (Gel)on 04-29-2025 ABSC Interp (Gel) Negative Normal [facility] Comment on above: Performed By: #### A BSGEL, ABOGEL #### [address] [address] FMHon 04-29-2025 Mat. Hemorrhage Negative Normal [facility] Comment on above: Performed By: #### F #### [place] [address] LABORATORYOrdered By: Ursula navarro on 04-29-2025 ABO and Rh group Nom (Bld) Blood group A Rh(D) negative Invalid Interpretation Code BB Auto SS Blood group antibody screen Ql Negative ABSC (04/29/25 3:47 PM) Normal BB Auto SS cell screen Dari test Ql (Bld) Negative (04/29/25 3:47 PM) Normal BB Manual SS VARISon 03-17-[address] Positive Normal [facility] Comment on above: Result Comment: INTE RPRETATION OF VARICELLA IMMUNE STATUS IgG BY EIA: Negative: No detectable VZV IgG antibody. Positive: VZV IgG antibody Detected. If clinically indicated, order Varicella IgM to rule out recent infection. Equivocal: Equivocal for antibodies to VZV. Suggest repeat testing in 10-14 days. Performed By: #### A DIFF, ANEU, CBC, GLU1P #### [facility] [address] [place] [address] #### RPR #### [address] [address] CTPCRon 03-16-2025 C. trachomatis Interp See CT Interp N Normal See CT Interp N [facility] Comment on above: Result Comment: Clinical Interpretation: C. trachomatis DNA not detected. Specimen is presumptive negative for C. trachomatis. A negative result does not preclude C. trachomatis infection because results depend on adequate specimen collection, absence of inhibitors, and sufficient DNA to be detected. Performed By: #### N GPCR1, CTPCR #### [address] [address] C.trachomatis PCR Negative Normal Negative [facility] Comment on above: Result Comment: Mole cular (PCR) assay performed on the Bhupinder Eda 4800 system. Performed By: #### N GPCR1, CTPCR #### [place] [id number] Chlam Source Vaginal Normal [facility] Comment on above: Performed By: #### N GPCR1, CTPCR #### [address] [address] [id number] 03-16-2025 GC PCR Source Vaginal Normal [facility] Comment on above: Performed By: #### N GPCR1, CTPCR #### [address] [address] N. gonorrhoeae (PCR) Negative Normal Negative [facility] Comment on above: Result Comment: Mole cular (PCR) assay performed on the Bhupinder Eda 4800 System. Performed By: #### N GPCR1, CTPCR #### [address] [address] N. gonorrhoeae Interp See NG Interp N Normal See NG Interp N [facility] Comment on above: Result Comment: Clinical Interpretation: N. gonorrhoeae DNA not detected. Specimen is presumptive negative for N. gonorrhoeae. A negative result does not preclude Neisseria gonorrhoeae infection because results depend on adequate specimen collection, absence of inhibitors, and sufficient DNA to be detected. Performed By: #### N GPCR1, CTPCR #### [address] [address] RPRon 03-16-2025 Reagin Ab RPR Ql (S) Non-Reactive Normal Non-Reactive [facility] Comment on above: Result Comment: The [...] #### A DIFF, ANEU, CBC, GLU1P #### [address] [address] #### RPR #### [place] [address] RUBISon 03-16-[address] Negative Normal Positive [facility] Comment on above: Result Comment: This immune status assay detects IgM and/or IgG antibody to Rubella. Interpret results in conjunction with clinical history. POS: Antibody detected; exposure at undetermined recent or distant time. If clinically indicated, order Rubella IGM to rule out recent infection. NEG: No antibody detected. Performed By: #### A DIFF, ANEU, CBC, GLU1P #### [address] [address] #### RPR #### [address] [address] .Auto Diffon 03-15-2025 Basophil, Absolute 0.0 10 3/mcL Normal 0.0-0.3 [facility] Comment on above: Performed By: #### R IA, RUBIS, VARIS, HBSAG #### [place] [address] #### ABSGEL, ABOGEL, ADIFF, HIVRP, TSH, CBC, ANEU #### [address] [address] Basophils/100 WBC (Bld) 0.3 % Normal 0.0-2.5 [facility] Comment on above: Performed By: #### R IA, RUBIS, VARIS, HBSAG #### [place] [address] #### ABSGEL, ABOGEL, ADIFF, HIVRP, TSH, CBC, ANEU #### [address] [address] Eosinophil, Absolute 0.1 10 3/mcL Normal 0.0-0.7 [facility] Comment on above: Performed By: #### R IA, RUBIS, VARIS, HBSAG #### [place] [address] #### ABSGEL, ABOGEL, ADIFF, HIVRP, TSH, CBC, ANEU #### [address] [address] Eosinophils/100 WBC (Bld) 0.7 % Normal 0.0-6.0 [facility] Comment on above: Performed By: #### R IA, RUBIS, VARIS, HBSAG #### [place] [address] #### ABSGEL, ABOGEL, ADIFF, HIVRP, TSH, CBC, ANEU #### [address] [address] Lymphocyte, Absolute 2.0 10 3/mcL Normal 0.9-4.3 [facility] Comment on above: Performed By: #### R IA, RUBIS, VARIS, HBSAG #### [place] [address] #### ABSGEL, ABOGEL, ADIFF, HIVRP, TSH, CBC, ANEU #### [address] [address] Lymphocytes/100 WBC (Bld) 26.0 % Normal 20.0-40.0 [facility] Comment on above: Performed By: #### R IA, RUBIS, VARIS, HBSAG #### [place] [address] #### ABSGEL, ABOGEL, ADIFF, HIVRP, TSH, CBC, ANEU #### [address] [address] Monocyte, Absolute 0.5 10 3/mcL Normal 0.1-1.4 [facility] Comment on above: Performed By: #### R IA, RUBIS, VARIS, HBSAG #### [place] [address] #### ABSGEL, ABOGEL, ADIFF, HIVRP, TSH, CBC, ANEU #### [address] [address] Monocytes/100 WBC (Bld) 6.0 % Normal 2.0-13.0 [facility] Comment on above: Performed By: #### R IA, RUBIS, VARIS, HBSAG #### [place] [address] #### ABSGEL, ABOGEL, ADIFF, HIVRP, TSH, CBC, ANEU #### [address] [address] Neutrophils/100 WBC (Bld) 67.0 % Normal 50.0-75.0 [facility] Comment on above: Performed By: #### R IA, RUBIS, VARIS, HBSAG #### [place] [address] #### ABSGEL, ABOGEL, ADIFF, HIVRP, TSH, CBC, ANEU #### [address] [address] .NEUABSon 03-15-2025 Neutrophil, Absolute 5.2 10 3/mcL Normal 2.3-8.1 [facility] Comment on above: Performed By: #### A DIFF, ANEU, CBC, GLU1P #### [address] [address] #### RPR #### [place] [address] ABO/Rh (Gel)on 03-15-2025 ABO/Rh Interp Negative Invalid Interpretation Code [facility] Comment on above: Performed By: #### A DIFF, ANEU, CBC, GLU1P #### [place] [address] #### RPR #### [address] [address] ABS (Gel)on 03-15-2025 ABSC Interp (Gel) Negative Normal [facility] Comment on above: Performed By: #### A DIFF, ANEU, CBC, GLU1P #### [address] [address] #### RPR #### [place] [address] CBCon 03-15-2025 Erythrocyte distribution width (RBC) [Ratio] 13.4 % Normal 11.5-15.5 [facility] Comment on above: Performed By: #### R IA, RUBIS, VARIS, HBSAG #### [place] [address] #### ABSGEL, ABOGEL, ADIFF, HIVRP, TSH, CBC, ANEU #### [address] [address] Hematocrit (Bld) [Volume fraction] 37.7 % Normal 34.0-46.0 [facility] Comment on above: Performed By: #### R IA, RUBIS, VARIS, HBSAG #### [place] [address] #### ABSGEL, ABOGEL, ADIFF, HIVRP, TSH, CBC, ANEU #### [address] [address] Hgb 13.1 G/dL Normal 12.0-16.0 [facility] Comment on above: Performed By: #### R IA, RUBIS, VARIS, HBSAG #### [place] [address] #### ABSGEL, ABOGEL, ADIFF, HIVRP, TSH, CBC, ANEU #### [address] [address] MCH (RBC) [Entitic mass] 31.9 pg Normal 27.0-33.0 [facility] Comment on above: Performed By: #### R IA, RUBIS, VARIS, HBSAG #### [place] [address] #### ABSGEL, ABOGEL, ADIFF, HIVRP, TSH, CBC, ANEU #### [address] [address] MCHC 34.7 G/dL Normal 32.0-36.0 [facility] Comment on above: Performed By: #### R IA, RUBIS, VARIS, HBSAG #### [place] [address] #### ABSGEL, ABOGEL, ADIFF, HIVRP, TSH, CBC, ANEU #### [address] [address] MCV (RBC) [Entitic vol] 91.8 fL Normal 80.0-99.0 [facility] Comment on above: Performed By: #### R IA, RUBIS, VARIS, HBSAG #### [place] [address] #### ABSGEL, ABOGEL, ADIFF, HIVRP, TSH, CBC, ANEU #### [address] [address] Platelet 324 10 3/mcL Normal 150-450 [facility] Comment on above: Performed By: #### R IA, RUBIS, VARIS, HBSAG #### [place] [address] #### ABSGEL, ABOGEL, ADIFF, HIVRP, TSH, CBC, ANEU #### [address] [address] Platelet mean volume (Bld) [Entitic vol] 7.5 fL Normal 6.6-10.5 [facility] Comment on above: Performed By: #### R IA, RUBIS, VARIS, HBSAG #### [place] [address] #### ABSGEL, ABOGEL, ADIFF, HIVRP, TSH, CBC, ANEU #### [address] [address] RBC 4.11 10 6/mcL Normal 4.10-5.30 [facility] Comment on above: Performed By: #### R IA, RUBIS, VARIS, HBSAG #### [place] [address] #### ABSGEL, ABOGEL, ADIFF, HIVRP, TSH, CBC, ANEU #### [address] [address] WBC 7.7 10 3/mcL Normal 4.5-10.8 [facility] Comment on above: Performed By: #### R IA, RUBIS, VARIS, HBSAG #### [place] [address] #### ABSGEL, ABOGEL, ADIFF, HIVRP, TSH, CBC, ANEU #### [place] [address] HBSAGon 03-15-2025 Hep B Surf Ag Non-Reactive Normal Non-Reactive [facility] Comment on above: Performed By: #### A DIFF, ANEU, CBC, GLU1P #### [place] [address] #### RPR #### [place] [address] HIVRPon 03-15-2025 HIV p24 Antigen Non-Reactive Normal Non-Reactive [facility] Comment on above: Result Comment: Dete ction of p24 may be inhibited by biotin in the sample, causing false negative results in acute infection. Therefore do not test samples from patients who are taking biotin. Performed By: #### A DIFF, ANEU, CBC, GLU1P #### [address] [address] #### RPR #### [place] [address] HIV P24 Int Non-Reactive Invalid Interpretation Code [facility] Comment on above: Performed By: #### A DIFF, ANEU, CBC, GLU1P #### [address] [address] #### RPR #### [place] [address] Rapid HIV 1/2 Antibody Non-Reactive Normal Non-Reactive [facility] Comment on above: Performed By: #### A DIFF, ANEU, CBC, GLU1P #### [address] [address] #### RPR #### [facility] [address] [place] [address] RHIV 1/2 Ab Int Non-Reactive Invalid Interpretation Code [facility] Comment on above: Performed By: #### A DIFF, ANEU, CBC, GLU1P #### [address] [address] #### RPR #### [facility] [address] [place] [address] LABORATORYOrdered By: Krysta Valdovinos on 03-15-2025 C. [...] Probable Contamination. Suggest recollection if clinically indicated. [facility] Work Phone: TSHon 03-15-2025 TSH Qn 2.74 m[IU]/L Normal 0.36-3.74 [facility] Comment on above: Performed By: #### A DIFF, ANEU, CBC, GLU1P #### [facility] [address] [place], [place] [address] #### RPR #### [facility] [address] [place] [address] CNOVon 04-10-2024 CNOV Office Visit (UCUPNO ) EVELYN MADDOX ([id number]) 1995 F Date Time Provider Department 04/10/24 2:10 PM ALETHEA LEYVA During your visit today, we recorded the following information about you: Temperature Pulse Respiration Blood pressure 97.5 degrees 76/minute 16/minute 111/75 Weight Last Period 74 kg 03/27/24 Alethea Leyva APRN.HOOKING MACHINE OPERATOR 04/10/2024 3:46 PM Addendum Xray of left foot and small toe looks ok. I will call if the radiologist reads abnormal. Wash abrasion with soap and water, apply bacitracin ointment for 1-2 days. Eli tape toes for extra support. Follow up with your gas blender if any no improvement. ICE AREA FREQUENTLY REST/ELEVATE TYLENOL AND/OR IBUPROFEN FOR PAIN [facility] [address] [place] [address] [address] N[place] [phone] [place] [facility] [id number] [facility] [place] [phone] Alethea Leyva APRN.HOOKING MACHINE OPERATOR 04/10/2024 3:48 PM Signed April 10, 2024 [...] Moderate This note was partially generated using [employer] voice recognition system and there may be [...] of Date: 04/10 (more content not included)... [facility] XR FOOT 3V AP/LAT/OBL LTon 0 04-10-2024 [...] within normal limits. IMPRESSION: Negative left foot. Record Label Intern: CASANDRA Transcribe Date/Time: Apr 10 2024 3:59P Dictated by : CORRINE MARRERO MD This examination was interpreted and the report reviewed and electronically signed by: CORRINE MARRERO MD on Apr 10 2024 4:00PM EST [id number] [facility] XR Foot - left AP and Latera l and obliqueon 04-10-2024 IMPRESSION: Negative left foot. Record Label Intern: CASANDRA Transcribe Date/Time: Apr 10 2024 3:59P Dictated by : CORRINE MARRERO MD This examination was interpreted and the report reviewed and electronically signed by: CORRINE MARRERO MD on Apr 10 2024 4:00PM EST [facility] * * *Final Report* * [...] preserved. Soft tissues appear within normal limits. [facility] Provider, Jam Ross - 04/10/2024 [...] normal limits. IMPRESSION IMPRESSION: Negative left foot. Record Label Intern: CASANDRA Transcribe Date/Time: Apr 10 2024 3:59P Dictated by : CORRINE MARRERO MD This examination was interpreted and the report reviewed and electronically signed by: CORRINE MARRERO MD on Apr 10 2024 4:00PM EST [facility] Radiology Study observation (narrative) [facility] XR Foot - left AP and Latera l and obliqueOrdered By: Ccf Provider on 04-10-2024 [facility] Architecture Manager Cytology Reporton 2022 Architecture Manager Cytology Report . Pathology Reports Accession: Collected Date/Time: Received Date/Time: Pathologist: [id number] 06/10/2023 11:06 EDT 06/10/2023 18:00 EDT Architecture Manager Cytology Report SPECIMEN: Specimen Description: Liquid Prep [...] and evaluated with the assistance of the [employer] ThinPrep Test Imaging System. Pathology Reports Accession: Collected Date/Time: Received Date/Time: Pathologist: [id number] 06/10/2023 11:06 EDT 06/10/2023 18:00 EDT Electronically Signed by Pathology report verified by [facility] Screened by: [place] Electronically signed by Britney GALEAS (ASCP) Sign-Out Date: 06/22/2023 10:38 Performing Lab: [facility], [address] [place] [address] Pathology Dept Disclaimer The Pap test is a screening test for cervical cancer. As evidenced by published data, it is subject to both inherent false negative and false positive results. Your patient's results should be interpreted in context with pertinent clinical history including gynecological examination. Normal [facility] ([place] HPVon 06-18-2023 HPV Interp Normal See Inter HPVN [facility] ([place]) Comment on above: Order Comment: Order placed by AP_HPV_ORDER rule from [id number] Result Comment: High Risk HPV Typing: NEGATIVE [...] and sufficient DNA to be detected. See [facility] HPVN Performed By: #### A DIFF, CBC, ANEU #### [place] [address] HPV Source Cervix Normal [facility] ([place]) Comment on above: Order Comment: Order placed by AP_HPV_ORDER rule from [id number] Performed By: #### A DIFF, CBC, ANEU #### [place] [address] .Auto Diffon 04-29-2023 Basophil, Absolute 0.0 10 3/mcL Normal 0.0-0.2 [facility]) Comment on above: Performed By: #### A DIFF, CBC, ANEU #### [place] [address] Basophils/100 WBC (Bld) 0.2 % Normal 0.0-2.5 [facility] ([place]) Comment on above: Performed By: #### A DIFF, CBC, ANEU #### [place] [address] Eosinophil, Absolute 0.2 10 3/mcL Normal 0.0-0.4 [facility] ([place]) Comment on above: Performed By: #### A DIFF, CBC, ANEU #### [address] [address] Eosinophils/100 WBC (Bld) 1.2 % Normal 0.0-7.0 [facility] ([place]) Comment on above: Performed By: #### A DIFF, CBC, ANEU #### [address] [address] Lymphocyte, Absolute 2.2 10 3/mcL Normal 0.8-3.9 [facility] ([place]) Comment on above: Performed By: #### A DIFF, CBC, ANEU #### [address] [address] Lymphocytes/100 WBC (Bld) 17.0 % Normal 10.0-50.0 [facility] ([place]) Comment on above: Performed By: #### A DIFF, CBC, ANEU #### [address] [address] Monocyte, Absolute 1.1 10 3/mcL High 0.2-1.0 [facility] ([place]) Comment on above: Performed By: #### A DIFF, CBC, ANEU #### [address] [address] Monocytes/100 WBC (Bld) 8.1 % Normal 1.7-13.0 [facility] ([place]) Comment on above: Performed By: #### A DIFF, CBC, ANEU #### [address] [address] Neutrophils/100 WBC (Bld) 73.5 % Normal 37.0-80.0 [facility] ([place]) Comment on above: Performed By: #### A DIFF, CBC, ANEU #### [address] [address] .NEUABSon 04-29-2023 Neutrophil, Absolute 9.6 10 3/mcL High 2.9-6.2 [facility] ([place]) Comment on above: Performed By: #### A DIFF, CBC, ANEU #### [address] [address] CBCon 04-29-2023 Erythrocyte distribution width (RBC) [Ratio] 13.2 % Normal 11.5-14.5 [facility] ([place]) Comment on above: Performed By: #### A DIFF, CBC, ANEU #### [address] [address] Hematocrit (Bld) [Volume fraction] 33.9 % Low 37.0-47.0 [facility] ([place]) Comment on above: Performed By: #### A DIFF, CBC, ANEU #### [address] [address] Hgb 11.5 G/dL Low 12.0-16.0 [facility] ([place]) Comment on above: Performed By: #### A DIFF, CBC, ANEU #### [address] [address] MCH (RBC) [Entitic mass] 31.8 pg High 27.0-31.2 [facility] ([place]) Comment on above: Performed By: #### A DIFF, CBC, ANEU #### [address] [address] MCHC 34.1 G/dL Normal 33.0-37.0 [facility] ([place]) Comment on above: Performed By: #### A DIFF, CBC, ANEU #### [address] [address] MCV (RBC) [Entitic vol] 93.4 fL Normal 80.0-94.0 [facility] ([place]) Comment on above: Performed By: #### A DIFF, CBC, ANEU #### [address] [address] Platelet 234 10 3/mcL Normal 130-400 [facility] ([place]) Comment on above: Performed By: #### A DIFF, CBC, ANEU #### [address] [address] Platelet mean volume (Bld) [Entitic vol] 7.5 fL Normal 7.4-10.4 [facility] ([place]) Comment on above: Performed By: #### A DIFF, CBC, ANEU #### [address] [place], [place] [address] RBC 3.63 10 6/mcL Low 4.20-5.40 [facility] ([place]) Comment on above: Performed By: #### A DIFF, CBC, ANEU #### [place] [address] [place], [place] [address] WBC 13.0 10 3/mcL High 4.6-10.8 [facility] ([place]) Comment on above: Performed By: #### A DIFF, CBC, ANEU #### [place] [address] [place], [place] [address] LABORATORYOrdered By: SYSTEM SYSTEM on 04-29-2023 Basophil, [...] Ab RPR Ql (S) Non-Reactive Normal Non-Reactive [facility] ([place]) Comment on above: Result Comment: The RPR [...] By: #### A DIFF, CBC, ANEU #### [address] [address] .Auto Diffon 04-27-2023 Basophil, Absolute 0.0 10 3/mcL Normal 0.0-0.2 [facility] ([place]) Comment on above: Performed By: #### A DIFF, CBC, ANEU #### [address] [address] Basophils/100 WBC (Bld) 0.1 % Normal 0.0-2.5 [facility] ([place]) Comment on above: Performed By: #### A DIFF, CBC, ANEU #### [address] [address] Eosinophil, Absolute 0.1 10 3/mcL Normal 0.0-0.4 [facility] ([place]) Comment on above: Performed By: #### A DIFF, CBC, ANEU #### [address] [address] Eosinophils/100 WBC (Bld) 1.1 % Normal 0.0-7.0 [facility] ([place]) Comment on above: Performed By: #### A DIFF, CBC, ANEU #### [address] [address] Lymphocyte, Absolute 2.4 10 3/mcL Normal 0.8-3.9 [facility] ([place]) Comment on above: Performed By: #### A DIFF, CBC, ANEU #### [address] [address] Lymphocytes/100 WBC (Bld) 21.7 % Normal 10.0-50.0 [facility] ([place]) Comment on above: Performed By: #### A DIFF, CBC, ANEU #### [address] [address] Monocyte, Absolute 0.9 10 3/mcL Normal 0.2-1.0 [facility] ([place]) Comment on above: Performed By: #### A DIFF, CBC, ANEU #### [address] [address] Monocytes/100 WBC (Bld) 8.2 % Normal 1.7-13.0 [facility] ([place]) Comment on above: Performed By: #### A DIFF, CBC, ANEU #### [address] [address] Neutrophils/100 WBC (Bld) 68.9 % Normal 37.0-80.0 [facility] ([place]) Comment on above: Performed By: #### A DIFF, CBC, ANEU #### [address] [address] .NEUABSon 04-27-2023 Neutrophil, Absolute 7.5 10 3/mcL High 2.9-6.2 [facility] ([place]) Comment on above: Performed By: #### A DIFF, CBC, ANEU #### [address] [address] CBCon 04-27-2023 Erythrocyte distribution width (RBC) [Ratio] 13.4 % Normal 11.5-14.5 [facility] ([place]) Comment on above: Performed By: #### A DIFF, CBC, ANEU #### [address] [address] Hematocrit (Bld) [Volume fraction] 37.4 % Normal 37.0-47.0 [facility] ([place]) Comment on above: Performed By: #### A DIFF, CBC, ANEU #### [address] [address] Hgb 13.0 G/dL Normal 12.0-16.0 [facility] ([place]) Comment on above: Performed By: #### A DIFF, CBC, ANEU #### [address] [address] MCH (RBC) [Entitic mass] 32.4 pg High 27.0-31.2 [facility] ([place]) Comment on above: Performed By: #### A DIFF, CBC, ANEU #### [address] [address] MCHC 34.8 G/dL Normal 33.0-37.0 [facility] ([place]) Comment on above: Performed By: #### A DIFF, CBC, ANEU #### [address] [address] MCV (RBC) [Entitic vol] 93.1 fL Normal 80.0-94.0 [facility] ([place]) Comment on above: Performed By: #### A DIFF, CBC, ANEU #### [address] [address] Platelet 248 10 3/mcL Normal 130-400 [facility] ([place]) Comment on above: Performed By: #### A DIFF, CBC, ANEU #### [address] [place] [address] Platelet mean volume (Bld) [Entitic vol] 7.6 fL Normal 7.4-10.4 [facility] ([place]) Comment on above: Performed By: #### A DIFF, CBC, ANEU #### [address] [address] RBC 4.01 10 6/mcL Low 4.20-5.40 [facility] ([place]) Comment on above: Performed By: #### A DIFF, CBC, ANEU #### [address] [address] WBC 10.9 10 3/mcL High 4.6-10.8 [facility] ([place]) Comment on above: Performed By: #### A DIFF, CBC, ANEU #### [address] [address] Gel ABOon 04-27-2023 ABO/Rh Interp Negative Invalid Interpretation Code [facility] ([place]) Comment on above: Performed By: #### A DIFF, CBC, ANEU #### [address] [address] Gel ABSon 04-27-2023 Antibody Screen Gel Negative Normal [facility] ([place]) Comment on above: Performed By: #### A DIFF, CBC, ANEU #### [address] [address] LABORATORYOrdered By: Niurka Hughes on 04-26-2023 ABO/Rh [...] Nom (Bld) A negative (04/26/23 10:10 PM) [facility] Work Phone: Group B Strep Date Performed [id number] [facility] Work Phone: Group B Strep, External Positive (04/26/23 10:10 PM) [facility] Work Phone: Hepatitis B Date Performed [id number] [facility] Work Phone: Hepatitis B, External Negative (04/26/23 10:10 PM) [facility] Work Phone: HIV Antibodies, External Negative (04/26/23 10:10 PM) [facility] Work Phone: HIV Date Performed [id number] [facility] Work Phone: RPR Date Performed [id number] [facility] Work Phone: RPR, External Reactive (04/26/23 10:10 PM) [facility] Work Phone: Rubella Date Performed [id number] [facility] Work Phone: Rubella, External Nonimmune (04/26/23 10:10 PM) [facility] Work Phone: GBSPCRon 04-02-2023 Group B Strep (PCR) Positive Abnormal Negative [facility] ([place]) Comment on above: Performed By: #### G BSPCR #### [address] [address] Group B Strep PCR Int Normal l [facility] ([place]) Comment on above: Result Comment: Grou p [...] Below Performed By: #### G BSPCR #### [address] [address] LABORATORYOrdered By: Gianni Cornell on 04-01-2023 Group [...] Ab RPR Ql (S) Non-Reactive Normal Non-Reactive [facility] ([place]) Comment on above: Result Comment: The RPR [...] #### A NISHANT, GLU, ADIFF, CBC #### [address] [address] #### RPR #### [address] [address] .Auto Diffon 01-14-2023 Basophil, Absolute 0.0 10 3/mcL Normal 0.0-0.2 [facility] ([place]) Comment on above: Performed By: #### A NISHANT, GLU, ADIFF, CBC #### [address] [address] #### RPR #### [address] [address] Basophils/100 WBC (Bld) 0.3 % Normal 0.0-2.5 [facility] ([place]) Comment on above: Performed By: #### A NISHANT, GLU, ADIFF, CBC #### [address] [address] #### RPR #### [address] [address] Eosinophil, Absolute 0.1 10 3/mcL Normal 0.0-0.4 [facility] ([place]) Comment on above: Performed By: #### A NISHANT, GLU, ADIFF, CBC #### [address] [address] #### RPR #### [address] [address] Eosinophils/100 WBC (Bld) 1.1 % Normal 0.0-7.0 [facility] ([place]) Comment on above: Performed By: #### A NISHANT, GLU, ADIFF, CBC #### [address] [address] #### RPR #### [address] [address] Lymphocyte, Absolute 1.6 10 3/mcL Normal 0.8-3.9 [facility] ([place]) Comment on above: Performed By: #### A NISHANT, GLU, ADIFF, CBC #### [address] [address] #### RPR #### [address] [address] Lymphocytes/100 WBC (Bld) 16.4 % Normal 10.0-50.0 [facility] ([place]) Comment on above: Performed By: #### A NISHANT, GLU, ADIFF, CBC #### [address] [address] #### RPR #### [address] [address] Monocyte, Absolute 0.6 10 3/mcL Normal 0.2-1.0 [facility] ([place]) Comment on above: Performed By: #### A NISHANT, GLU, ADIFF, CBC #### [address] [address] #### RPR #### [address] [address] Monocytes/100 WBC (Bld) 6.3 % Normal 1.7-13.0 [facility] ([place]) Comment on above: Performed By: #### A NISHANT, GLU, ADIFF, CBC #### [place] [address] #### RPR #### [address] [address] Neutrophils/100 WBC (Bld) 75.9 % Normal 37.0-80.0 [facility] ([place]) Comment on above: Performed By: #### A NISHANT, GLU, ADIFF, CBC #### [address] [address] #### RPR #### [address] [address] .NEUABSon 01-14-2023 Neutrophil, Absolute 7.5 10 3/mcL High 2.9-6.2 [facility] ([place]) Comment on above: Performed By: #### A NISHANT, GLU, ADIFF, CBC #### [address] [address] #### RPR #### [address] [address] CBCon 01-14-2023 Erythrocyte distribution width (RBC) [Ratio] 14.0 % Normal 11.5-14.5 [facility] ([place]) Comment on above: Performed By: #### A NISHANT, GLU, ADIFF, CBC #### [place] [address] #### RPR #### [place] [address] Hematocrit (Bld) [Volume fraction] 35.6 % Low 37.0-47.0 [facility] ([place]) Comment on above: Performed By: #### A NISHANT, GLU, ADIFF, CBC #### [place] [address] #### RPR #### [place] [address] Hgb 12.3 G/dL Normal 12.0-16.0 [facility] ([place]) Comment on above: Performed By: #### A NISHANT, GLU, ADIFF, CBC #### [place] [address] #### RPR #### [place] [address] MCH (RBC) [Entitic mass] 32.0 pg High 27.0-31.2 [facility] ([place]) Comment on above: Performed By: #### A NISHANT, GLU, ADIFF, CBC #### [place] [address] #### RPR #### [place] [address] MCHC 34.6 G/dL Normal 33.0-37.0 [facility] ([place]) Comment on above: Performed By: #### A NISHANT, GLU, ADIFF, CBC #### [place] [address] #### RPR #### [place] [address] MCV (RBC) [Entitic vol] 92.7 fL Normal 80.0-94.0 [facility] ([place]) Comment on above: Performed By: #### A NISHANT, GLU, ADIFF, CBC #### [place] [address] #### RPR #### [address] [address] Platelet 344 10 3/mcL Normal 130-400 [facility] ([place]) Comment on above: Performed By: #### A NISHANT, GLU, ADIFF, CBC #### [place] [address] #### RPR #### [place] [address] Platelet mean volume (Bld) [Entitic vol] 7.8 fL Normal 7.4-10.4 [facility] ([place]) Comment on above: Performed By: #### A NISHANT, GLU, ADIFF, CBC #### [place] [address] #### RPR #### [place] [address] RBC 3.84 10 6/mcL Low 4.20-5.40 [facility] ([place]) Comment on above: Performed By: #### A NISHANT, GLU, ADIFF, CBC #### [place] [address] #### RPR #### [place] [address] WBC 9.9 10 3/mcL Normal 4.6-10.8 [facility] ([place]) Comment on above: Performed By: #### A NISHANT, GLU, ADIFF, CBC #### [place] [address] #### RPR #### [place] [address] GLUon 01-14-2023 Glucose [Mass/Vol] 82 mg/dL Normal 70-105 [facility] ([place]) Comment on above: Order Comment: post glucola Performed By: #### A NISHANT, GLU, ADIFF, CBC #### [place] [address] #### RPR #### [place] [address] Gel ABOon 01-14-2023 ABO/Rh Interp Negative Invalid Interpretation Code [facility] ([place]) Comment on above: Performed By: #### A DIFF, CBC, ANEU #### [place] [address] [place], [place] [address] Gel ABSon 01-14-2023 Antibody Screen Gel Negative Normal [facility] ([place]) Comment on above: Performed By: #### A DIFF, CBC, ANEU #### [place] [place], [place] [address] LABORATORYOrdered By: Gerald Can on 01-14-2023 Basophil, [...] trachomatis Interp Normal See CT Interp N [facility] ([place]) Comment on above: Result Comment: C. t rachomatis DNA not detected. Specimen is presumptive negative for C. trachomatis. A negative result does not preclude C. trachomatis infection because results depend on adequate specimen collection, absence of inhibitors, and sufficient DNA to be detected. See CT Interp N Performed By: #### A DIFF, CBC, ANEU #### [address] [address] C.trachomatis PCR Negative Normal Negative [facility] ([place]) Comment on above: Result Comment: Stokes sport tube received with two swabs. Review collection procedure. Inappropriate collection may cause aberrant results. Molecular (PCR) assay performed on the Bhupinder Eda 4800 system. Performed By: #### A DIFF, CBC, ANEU #### [address] [address] Chlam Source Vaginal Normal [facility] ([place]) Comment on above: Performed By: #### A DIFF, CBC, ANEU #### [address] [address] [id number] 10-25-2022 GC PCR Source Vaginal Normal [facility] ([place]) Comment on above: Performed By: #### A DIFF, CBC, ANEU #### [address] [address] N. gonorrhoeae (PCR) Negative Normal Negative [facility] ([place]) Comment on above: Result Comment: Stokes sport tube received with two swabs. Review collection procedure. Inappropriate collection may cause aberrant results. Molecular (PCR) assay performed on the Bhup[employer] Eda 4800 System. Performed By: #### A DIFF, CBC, ANEU #### [address] [address] N. gonorrhoeae Interp Normal See NG Interp N [facility] ([place]) Comment on above: Result Comment: N. g onorrhoeae DNA not detected. Specimen is presumptive negative for N. gonorrhoeae. A negative result does not preclude Neisseria gonorrhoeae infection because results depend on adequate specimen collection, absence of inhibitors, and sufficient DNA to be detected. See NG Interp N Performed By: #### A DIFF, CBC, ANEU #### [address] [address] RPRon 10-24-2022 Reagin Ab RPR Ql (S) Non-Reactive Normal Non-Reactive [facility] ([place]) Comment on above: Result Comment: The RPR [...] By: #### A DIFF, CBC, ANEU #### [address] [address] RUBISon 10-24-[address] Negative Normal Positive [facility] ([place]) Comment on above: Result Comment: This immune status assay detects IgM and/or IgG antibody to Rubella. Interpret results in conjunction with clinical history. POS: Antibody detected; exposure at undetermined recent or distant time. If clinically indicated, order Rubella IGM to rule out recent infection. NEG: No antibody detected. Performed By: #### A DIFF, CBC, ANEU #### [address] [address] VARISon 10-24-[address] Positive Normal [facility] ([place]) Comment on above: Result Comment: INTE RPRETATION OF VARICELLA IMMUNE STATUS IgG BY EIA: Negative: No detectable VZV IgG antibody. Positive: VZV IgG antibody Detected. If clinically indicated, order Varicella IgM to rule out recent infection. Equivocal: Equivocal for antibodies to VZV. Suggest repeat testing in 10-14 days. Performed By: #### A DIFF, CBC, ANEU #### [address] [address] HBSAGon 10-23-2022 Hep B Surf Ag Non-Reactive Normal Non-Reactive [facility] ([place]) Comment on above: Performed By: #### A DIFF, CBC, ANEU #### [address] [address] .Auto Diffon 10-22-2022 Basophil, Absolute 0.1 10 3/mcL Normal 0.0-0.2 [facility] ([place]) Comment on above: Performed By: #### A DIFF, CBC, ANEU #### [address] [address] Basophils/100 WBC (Bld) 0.6 % Normal 0.0-2.5 [facility] ([place]) Comment on above: Performed By: #### A DIFF, CBC, ANEU #### [address] [address] Eosinophil, Absolute 0.1 10 3/mcL Normal 0.0-0.4 [facility] ([place]) Comment on above: Performed By: #### A DIFF, CBC, ANEU #### [address] [address] Eosinophils/100 WBC (Bld) 0.7 % Normal 0.0-7.0 [facility] ([place]) Comment on above: Performed By: #### A DIFF, CBC, ANEU #### [address] [address] Lymphocyte, Absolute 2.4 10 3/mcL Normal 0.8-3.9 [facility] ([place]) Comment on above: Performed By: #### A DIFF, CBC, ANEU #### [address] [address] Lymphocytes/100 WBC (Bld) 20.4 % Normal 10.0-50.0 [facility] ([place]) Comment on above: Performed By: #### A DIFF, CBC, ANEU #### [address] [address] Monocyte, Absolute 0.7 10 3/mcL Normal 0.2-1.0 [facility] ([place]) Comment on above: Performed By: #### A DIFF, CBC, ANEU #### [address] [address] Monocytes/100 WBC (Bld) 5.9 % Normal 1.7-13.0 [facility] ([place]) Comment on above: Performed By: #### A DIFF, CBC, ANEU #### [address] [address] Neutrophils/100 WBC (Bld) 72.4 % Normal 37.0-80.0 [facility] ([place]) Comment on above: Performed By: #### A DIFF, CBC, ANEU #### [address] [address] .NEUABSon 10-22-2022 Neutrophil, Absolute 8.4 10 3/mcL High 2.9-6.2 [facility] ([place]) Comment on above: Performed By: #### A DIFF, CBC, ANEU #### [address] [address] CBCon 10-22-2022 Erythrocyte distribution width (RBC) [Ratio] 13.3 % Normal 11.5-14.5 [facility] ([place]) Comment on above: Performed By: #### A DIFF, CBC, ANEU #### [address] [address] Hematocrit (Bld) [Volume fraction] 36.9 % Low 37.0-47.0 [facility] ([place]) Comment on above: Performed By: #### A DIFF, CBC, ANEU #### [address] [address] Hgb 12.7 G/dL Normal 12.0-16.0 [facility] ([place]) Comment on above: Performed By: #### A DIFF, CBC, ANEU #### [address] [address] MCH (RBC) [Entitic mass] 31.1 pg Normal 27.0-31.2 [facility] ([place]) Comment on above: Performed By: #### A DIFF, CBC, ANEU #### [address] [address] MCHC 34.3 G/dL Normal 33.0-37.0 [facility] ([place]) Comment on above: Performed By: #### A DIFF, CBC, ANEU #### [address] [address] MCV (RBC) [Entitic vol] 90.5 fL Normal 80.0-94.0 [facility] ([place]) Comment on above: Performed By: #### A DIFF, CBC, ANEU #### [address] [address] Platelet 337 10 3/mcL Normal 130-400 [facility] ([place]) Comment on above: Performed By: #### A DIFF, CBC, ANEU #### [address] [address] Platelet mean volume (Bld) [Entitic vol] 7.4 fL Normal 7.4-10.4 [facility] ([place]) Comment on above: Performed By: #### A DIFF, CBC, ANEU #### [address] [address] RBC 4.08 10 6/mcL Low 4.20-5.40 [facility] ([place]) Comment on above: Performed By: #### A DIFF, CBC, ANEU #### [address] [address] WBC 11.6 10 3/mcL High 4.6-10.8 [facility] ([place]) Comment on above: Performed By: #### A DIFF, CBC, ANEU #### [place] [address] Gel ABOon 10-22-2022 ABO/Rh Interp Negative Invalid Interpretation Code [facility] ([place]) Comment on above: Performed By: #### A DIFF, CBC, ANEU #### [place] [address] Gel ABSon 10-22-2022 Antibody Screen Gel Negative Normal [facility] ([place]) Comment on above: Performed By: #### A DIFF, CBC, ANEU #### [place] [address] HIVRPon 10-22-2022 HIV p24 Antigen Non-Reactive Normal Non-Reactive [facility] ([place]) Comment on above: Result Comment: Dete ction of p24 may be inhibited by biotin in the sample, causing false negative results in acute infection. Therefore do not test samples from patients who are taking biotin. Performed By: #### A DIFF, CBC, ANEU #### [place] [address] HIV P24 Int Non-Reactive Invalid Interpretation Code [facility] ([place] Comment on above: Performed By: #### A DIFF, CBC, ANEU #### [place] [address] Rapid HIV 1/2 Antibody Non-Reactive Normal Non-Reactive [facility] ([place]) Comment on above: Performed By: #### A DIFF, CBC, ANEU #### [place] [address] RHIV 1/2 Ab Int Non-Reactive Invalid Interpretation Code [facility] ([place]) Comment on above: Performed By: #### A DIFF, CBC, ANEU #### [address] [address] LABORATORYOrdered By: Krysta Valdovinos on 10-22-2022 C. [...] cfu/ml. No Significant growth. Sensitivity not indicated. [facility] Work Phone: TSHon 10-22-2022 TSH Qn 2.18 m[IU]/L Normal 0.36-3.74 [facility] ([place] Comment on above: Performed By: #### A DIFF, CBC, ANEU #### [facility] [address] [place], [place] [address] Vital Signs Date Time Vital Sign Value Performing Clinician Facility 06-27-2025 11:41-0400 Body height 162.56 cm Angely LEYVA Work Phone: [facility] 06-27-2025 11:41-0400 Body mass index (BMI) [Ratio] 30.2 kg/m2 Angely LEYVAM Work Phone: [facility] 06-27-2025 11:41-0400 Body weight 79.94 kg Angely LEYVAM Work Phone: [facility] 06-27-2025 11:41-0400 Diastolic blood pressure 82 mm[Hg] Angely LEYVAM Work Phone: [facility] 06-27-2025 11:41-0400 Systolic blood pressure 127 mm[Hg] Angely LEYVAM Work Phone: [facility] 04-10-2024 14:52-0400 Body temperature 97.5 [degF] Alethea Leyva E COMMERCE ANALYST.HOOKING MACHINE OPERATOR Work Phone: [facility] 04-10-2024 14:52-0400 Body weight 74 kg Alethea Leyva E COMMERCE ANALYST.HOOKING MACHINE OPERATOR Work Phone: [facility] 04-10-2024 14:52-0400 Diastolic blood pressure 75 mm[Hg] Alethea Ledger E COMMERCE ANALYST.HOOKING MACHINE OPERATOR Work Phone: [facility] 04-10-2024 14:52-0400 Heart rate 76 /min Alethea Ledger E COMMERCE ANALYST.HOOKING MACHINE OPERATOR Work Phone: [facility] 04-10-2024 14:52-0400 Respiratory rate 16 /min Alethea Ledger E COMMERCE ANALYST.HOOKING MACHINE OPERATOR Work Phone: [facility] 04-10-2024 14:52-0400 SaO2% (BldA) [Mass fraction] 95 % Alethea Ledger E COMMERCE ANALYST.HOOKING MACHINE OPERATOR Work Phone: [facility] 04-10-2024 14:52-0400 Systolic blood pressure 111 mm[Hg] Alethea Ledger E COMMERCE ANALYST.HOOKING MACHINE OPERATOR Work Phone: [facility] 04-29-2023 11:00-0400 Body temperature 98.6 [degF] JOHN VERDUGO DO [facility] 04-29-2023 11:00-0400 Diastolic Blood Pressure Non-Invasive 65 1 JOHN VERDUGO DO [facility] 04-29-2023 11:00-0400 Heart rate 88 /min JOHN VERDUGO DO [facility] 04-29-2023 11:00-0400 Respiratory rate 18 /min JOHN VERDUGO DO [facility] 04-29-2023 11:00-0400 Systolic Blood Pressure Non-Invasive 118 1 JOHN VERDUGO DO [facility] 04-28-2023 23:59-0400 Body temperature 97.88 [degF] JOHN VERDUGO DO [facility] 04-28-2023 23:59-0400 Diastolic Blood Pressure Non-Invasive 67 1 JOHN VERDUGO DO [facility] 04-28-2023 23:59-0400 Heart rate 72 /min JOHN VERDUGO DO [facility] 04-28-2023 23:59-0400 Reason For Taking VItal Signs JOHN VERDUGO DO [facility] 04-28-2023 23:59-0400 Respiratory rate 16 /min JOHN VERDUGO DO [facility] 04-28-2023 23:59-0400 Systolic Blood Pressure Non-Invasive 107 1 JOHN VERDUGO DO [facility] 04-28-2023 15:40-0400 Body temperature 97.52 [degF] JOHN VERDUGO DO [facility] 04-28-2023 15:40-0400 Diastolic Blood Pressure Non-Invasive 77 1 JOHN VERDUGO DO [facility] 04-28-2023 15:40-0400 Heart rate 92 /min JOHN VERDUGO DO [facility] 04-28-2023 15:40-0400 Reason For Taking VItal Signs JOHN VERDUGO DO [facility] 04-28-2023 15:40-0400 Respiratory rate 18 /min JOHN VERDUGO DO [facility] 04-28-2023 15:40-0400 Systolic Blood Pressure Non-Invasive 115 1 JOHN VERDUGO DO [facility] 04-28-2023 08:16-0400 Reason For Taking VItal Signs JOHN VERDUGO DO [facility] 04-26-2023 22:10-0400 Body height 162.6 cm JOHN VERDUGO DO [facility] 04-26-2023 22:100 Body weight 84.1 kg JOHN VERDUGO DO [facility] 04-26-2023 22:100400 Body weight 31.81 kg/m2 JOHN VERDUGO DO [facility] Encounters Encounter Date Encounter Type Care Provider Facility Start: 07-10-2025 ambulatory No Primary Car e Physician [place] Start: 07-03-2025 End: 07-03-2025 ambulatory Angely LEYVAM Work Phone: -Laboratory Start: 07-03-2025 End: 07-03-2025 Patient encounter procedure Angely Stone CNM -Laboratory Work Phone: Start: 07-03-2025 End: 07-03-2025 ambulatory Angely Stnoe Facility:[facility] Start: 06-27-2025 End: 06-27-2025 Patient encounter procedure Angely Stone CNM -[facility] Work Phone: Start: 06-27-2025 End: 06-27-2025 ambulatory Angely Stone CNM Work Phone: -[facility] Start: 06-20-2025 End: 06-20-2025 ambulatory ROMÁN LEMONS DO Facility[facility] Start: 06-20-2025 End: 06-20-2025 Patient encounter procedure BELKYS ESCALANTE APRN-CNM [facility] Start: 04-29-2025 End: 04-29-2025 Emergency department patient visit DR LUIS EDUARDO PADILLA DO [facility] Start: 04-05-2025 End: 04-05-2025 ambulatory ROMÁN W CRISTO DO Facility:[facility] Start: 04-05-2025 End: 04-05-2025 Patient encounter procedure BELKYS ESCALANTE E COMMERCE ANALYST-CNM [facility] Start: 03-15-2025 End: 03-19-2025 ambulatory BELKYS ESCALANTE E COMMERCE ANALYST-CNM Facility:[facility] Start: 03-15-2025 End: 03-19-2025 Outreach Lab BELKYS ESCALANTE E COMMERCE ANALYST-CNM [facility] Start: 03-15-2025 End: 03-15-2025 ambulatory BELKYS ESCALANTE E COMMERCE ANALYST-CNM Facility:[facility] Start: 03-15-2025 End: 03-15-2025 Patient encounter procedure BELKYS ESCALANTE E COMMERCE ANALYST-CNM [facility] Start: 02-01-2025 End: 02-01-2025 ambulatory ANA Rodriguez AGARWAL E COMMERCE ANALYST-CNM Facility:[facility] Start: 02-01-2025 End: 02-01-2025 Patient encounter procedure ANA AGARWAL E COMMERCE ANALYST-CNM [facility] Start: 04-10-2024 ambulatory ALETHEA LEYVA Facility:1 [id number] Start: 04-10-2024 End: 04-10-2024 Subsequent hospital visit by physician [facility] N[facility] Comment on above: Toe injury, left, in itial encounter [S99.922A] Start: 04-10-2024 End: 04-10-2024 Patient encounter procedure Alethea Leyva E COMMERCE ANALYST.HOOKING MACHINE OPERATOR Work Phone: [facility] Comment on above: Toe injury, left, in itial encounter (Primary Dx) Start: 04-10-2024 End: 04-10-2024 ambulatory ALETHEA LEYVA Facility:[id number] Start: 06-10-2023 End: 06-15-2023 ambulatory BELKYS Rodriguez ESCALANTE E COMMERCE ANALYST-CNM Facility:[facility] Start: 04-26-2023 End: 04-29-2023 Evaluation and management of inpatient JOHN VERDUGO DO Facility:[facility] Start: 04-26-2023 End: 04-29-2023 Evaluation and management of inpatient JOHN VERDUGO DO [facility] Start: 04-01-2023 End: 04-06-2023 ambulatory ROMÁN W CRISTO DO Facility:[facility] Start: 04-01-2023 End: 04-05-2023 Outreach Lab ANA AGARWAL E COMMERCE ANALYST-CNM [facility] Start: 03-25-2023 End: 03-30-2023 ambulatory ROMÁN W CRISTO DO Facility:[facility] Start: 03-25-2023 End: 03-29-2023 Outreach Lab ANA AGARWAL E COMMERCE ANALYST-CNM [facility] Start: 01-16-2023 End: 01-16-2023 ambulatory BELKYS Rodriguez ESCALANTE E COMMERCE ANALYST-CNM Facility:[facility] Start: 01-16-2023 End: 01-16-2023 SAME DAY STAY BELKYS Rodriguez ESCALANTE E COMMERCE ANALYST-CNM [facility] Start: 01-14-2023 End: 01-15-2023 ambulatory BELKYS Rodriguez ESCALANTE E COMMERCE ANALYST-CNM Facility:[facility] Start: 01-14-2023 End: 01-14-2023 Patient encounter procedure ANA AGARWAL E COMMERCE ANALYST-CNM [facility] Start: 11-25-2022 End: 11-26-2022 ambulatory ROMÁN W CRISTO DO Facility:A Start: 11-25-2022 End: 11-25-2022 Patient encounter procedure ANA AGARWAL E COMMERCE ANALYST-CNM [facility] Start: 10-22-2022 End: 10-27-2022 ambulatory ROMÁN W CRISTO DO Facility:[facility] Start: 10-22-2022 End: 10-26-2022 Outreach Lab ANA AGARWAL E COMMERCE ANALYST-CNM [facility] Start: 10-22-2022 End: 10-22-2022 Patient encounter procedure ANA AGARWAL E COMMERCE ANALYST-CNM [facility] Start: 09-22-2022 End: 09-23-2022 ambulatory ROMÁN W CRISTO DO Facility:A Start: 09-22-2022 End: 09-22-2022 Patient encounter procedure ANA AGARWAL E COMMERCE ANALYST-CNM [facility] Procedures Date Procedure Procedure Detail Performing Clinician Start: 04-10-2024 Radex foot complete minimum 3 views Alethea Leyva E COMMERCE ANALYST.HOOKING MACHINE OPERATOR Work Phone: Start: 05-31-2020 Structure of wisdom tooth (body structure) JOHN SHERAMADOR DO Plan of Treatment Date Care Activity Detail Author Start: 07-03-2025 [facility] Start: 07-03-2025 Patient encounter procedure Registered Clinical -Laboratory Work Phone: Start: 06-05-2024 Covid-19 Vaccine () Covid-19 Vaccine () [facility] Start: 06-05-2024 Influenza vaccination Influenza Vacc ine (#1) [facility] Start: 10-05-2023 Behavioral Health Screening Behavioral Health Screening [facility] Start: 06-05-2023 Covid-19 Vaccine ( season) Covid-19 Vaccine () [facility] Start: 2016 Screening for malign ant neoplasm of cervix Cervical Cancer Screening [facility] Start: 2014 Hepatitis B Vaccine (1 of 3 - 19+ 3-dose series) Hepatitis B Vaccine (1 of 3 - 19+ 3-dose series) [facility] Start: 2014 Urine microalbumin profile DTaP,Tdap,Td Vaccine (1 - Tdap) [facility] Start: 2013 Anxiety Screening Anxiety Screening [facility] Start: 2013 Depression Screening Depression Scre ening [facility] Start: 2013 Hepatitis C screening Hepatitis C Sc reening [facility] Start: 2013 HIV screening HIV Screening [facility] Start: 09-09-2013 Hepatitis B Vaccine (2 of 3 - 3-dose series) Hepatitis B Vaccine (2 of 3 - 3-dose series) [facility] Payers Date Payer Category Payer Self-pay 2025 Private Health Insurance [id number] 2023 Unknown [id number] 2022 Unknown [id number] 2022 Unknown [id number] 1995 Unknown [id number] 2.16.8 [id number] 1995 Unknown [id number] 2.16.8 40.1.307253.3.579.2.627 1995 Unknown [id number] 2.16.8 40.1.471075.3.579.2.627 1995 Unknown [id number] 2.16.8 40.1.867090.3.579.2.627 1995 Unknown [id number] 2.16.8 40.1.129633.3.579.2.627 1995 Unknown [id number] 2.16.8 40.1.110832.3.579.2.627 1995 Unknown [id number] 2.16.8 40.1.507739.3.579.2.627 1995 Unknown [id number] 2.16.8 40.1.103689.3.579.2.627 1995 Unknown [id number] 2.16.8 40.1.312656.3.579.2.627 1995 Unknown [id number] 2.16.8 40.1.217788.3.579.2.627 1995 Unknown [id number] 2.16.8 40.1.968706.3.579.2.627 1995 Unknown [id number] 2.16. 840.1.467823.3.579.2.627 1995 Unknown [id number] 2.16. 840.1.902728.3.579.2.627 1995 Unknown [id number] 2.16. 840.1.768766.3.579.2.627 1995 Unknown [id number] 2.16. 840.1.101544.3.579.2.627 1995 Unknown [id number] 2.16. 840.1.934187.3.579.2.627 1995 Unknown [id number] 2.16.8 40.1.672688.3.579.2.627 Unknown [id number] 2.16.8 40.1.506477.3.579.2.462 Unknown [id number] 2.16.8 40.1.410550.3.579.2.462 Unknown [id number] 2.16.8 40.1.153085.3.579.2.462 Social History Date Type Detail Facility Tobacco smoking status [facility] Start: 1995 Sex Assigned At Female A [facility] Start: 04-26-2023 End: 06-22-2025 Tobacco smoking status Never smoked tobacco (finding) [facility] Start: 04-10-2024 Tobacco use and exposure Smokeless tobacco non-user [facility] Start: 04-10-2024 Alcoholic beverage intake Current drinker of alcohol (finding) [facility] Start: 09-13-2020 End: 04-10-2024 History of Social function [facility] Start: 09-13-2020 End: 04-10-2024 Tobacco use panel [facility] National Score (1-10 0), lower number is lower risk Not on file [facility] Start: 04-10-2024 [facility] Start: 1995 Sex assigned at Not on file C [facility] Start: 09-10-2022 Sex Female (finding) [facility] Functional Status Date Assessment Result Facility 04-29-2023 Functional Status Rooming in [facility] 04-26-2023 Functional Status Home with family care A [facility] Mental Status Date Assessment Result Facility 04-27-2023 Mental Status Orientation Oriented x 4 [facility] Clinical Notes 10-22-2022 to 06-27-2025 Note Date & Type Note Facility 06-27-2025 Evaluation note Diagnosis Onset Date Resolution COVID-19 affecting , antepartum acute June 27, 2025 11:38am FH: breast cancer acute Sept2024 11:38am acute June 11:38am Rh negative status during acute June 27, 2025 11:38am Supervision of high-risk acute June 272024 11:38am [facility] Work Phone: 1(251) 507-830809-23-2025 [facility] [address] [place] [address], [address] [place] [address] OFFICE VISIT Date of Service: 06/27/25 MR#: [id number] Acct: [id number] Name: VARSHATATYEVELYN Rep #: [id number] : 1995 Provider: VILMA Stone Age/Sex: 29/F [place] [facility] [place]: Signed Intake Vital Signs 06/27/25 11:41 Height 5 ft 4 in Weight: 176 lb 4 oz BMI 30.2 BP 127/82 H Intake Visit Reasons: *NEW* NOB JAMES GAURANG 09/04 30wk2d Chief Complaint: New OB Hand Trimmer Required: No Is patient in pain?: No [...] mg-folate no.1 1 mg-dha 300 mg capsule (PNV-[place]) vitamin E (dl, acetate) 90 mg (200 90 mg PO QDAY 06/2206/27/25 History unit) capsule Last Menstrual Period: 11/28/24 : No Have you fallen in the past year?: No PFSH PFSH Medical History Seasonal allergies Surgical History [place] teeth extracted Family History Father Colon cancer, [...] physical activity do you participate in: none luis/sikhism: Amish seatbelt use: always do you feel safe at home: Yes additional social history: Jairo Patel History 2 Elective abortions Hx Para 1 Spontaneous abortions Hx # Term Pregnancies Ectopic pregnancies Hx # Pregnancies Multiple births # of living children 1 Past Pregnancies Del. Date Name GA/Weeks Outcome Route Bth Weight Gen Labor Lgth Anesthesia Del Locatn Provider FOB 04/28/23 Leonard 41 live - full term 7#7oz Male [...] Negative 150 31 -?-?-?-?-?-?-?-?-?-?-?-?- KW- JAMES from [facility]. Records reviewed and PRR KW- JAMES from [facility]. Recor ds reviewed and PRR- waiting on [...] No, Recent travel outside of [place]: Yes ([place]), Concern for hepatitis exposure: No, Varicella immune: [...] blood transfusions, Pulmonary (e.g.,TB,Asthma), Drug/latex allergies/reactions, Breast, Architecture Manager surgery, Anestheticcomplications, History of abnormal pap, Uterine [...] Bazan Signature: Date (if applicable) CC: ~ [facility]09-16-2025 Evaluation + Plan note Diagnostic Tests Pending * Rapid Plasma Reagin(RFX Titer + Confirm) 06/20/25 [facility] 07-26-2025 Hospital Discharge instructions Patient Education 04/29/2025 17:32:46 7 - Labor and Delivery Outpatient Instructions (CUSTOM) [facility]PAT[facility] HOME-GOING INSTRUCTIONS _X_ [...] the nearest Emergency Room for assistance. Form [id number] D: 09/12 Document Released: 09/21/2006 Document Revised: 09/09/2012 Document Reviewed: 09/21/2006 ExitCare Patient Information 2012 [employer]. Follow Up Care 04/29/2025 14:48:47 With:JOHN VERDUGO Address: [address] [place] [phone] Tappit (1) When: Unknown Comments:Follow-up as scheduled [facility] 07-26-2025 Note Discharge Instructions Thank you for allowing [facility] to assist you with your healthcare needs. The following is importantdischarge information regarding your hospital visit. Your Care Team ROMÁN LEMONS DO What to do next Follow Up Appointments Follow Up with JOHN VERDUGO Where:[address] [place] [phone]- [phone] Tappit (1) Additional Information: Follow-up as scheduled Someone [...] medication providers or retail pharmacies. Education Materials [facility]IV[facility] OUTPATIENT HOME-GOING INSTRUCTIONS _X_ [...] the nearest Emergency Room for assistance. Form [id number] D: 09/12 Document Released: 09/21/2006 Document Revised: 09/09/2012 Document Reviewed: 09/21/2006 ExitCare Patient Information 2011 [employer]. Additional Information VACCINATE! IT SAVES LIVES! Members of the community who have not yet received the COVID-19 vaccine and would like to receive it can visit one of [facility] vaccine clinics. There are many vaccine clinic locations within the [facility]. For locations and available times, please visit www.gettheshot.coronavirus.[place].gov/. It is important to note that some COVID mobile vaccine clinics are held outdoors and may be canceled in rainy or stormy conditions. To learn more about pediatric vaccinations (ages 5-11), we invite you to visit the [facility] Children[facility] webpage. https://www.Sowesos.org/pages/4159-Laxbv-Fnxiukoicao-Ybfglrbjxs-Aworc-Dib stions.htmlTo learn more about the COVID-19 vaccine, we invite you to visit the CDC website for a list of frequently asked questions. https://www.cdc.gov/coronavirus/2019-ncov/vaccines/faq.html [facility] Patient Portal Access Instructions: Stay connected with your healthcare team and access your personal medical information anytime with the [facility] Patient Portal.If you would like a full copy of your medical records, please contact the [facility] Medical Records Department, Thursday through Thursday between 8a.m. and 4:30p.m. Please follow the directions below to access the portal: 1.Access the email account you provided upon registration to the [facility].2.Look for an invitation email from [facility].3.Open the email and access the invitation link: Accept Invitation to [facility]4.Fill in the required martines to create your account. Sign into www.[email or web address] with your username and password that you [...] you will allow to register on the [facility] Patient Portal for access to your information. You can also access the [facility] Patient Portal on the [employer]. Simply click on Health Records under [employer] and then click on the Power-One logo. HOW TO SAFELY DISPOSE OF PRESCRIPTION [...] Call your local pharmacy or go to [email or web address].[email or web address] to find one close to you.3.Make use of household items: Use cat litter or old coffee grounds to dispose medications if other options arenot available. Mix your drugs with these household products, seal them in an airtight container andthrow it into the garbage. Call [facility]: [phone] to be sure your drugs can be [...] that I should contact my do ctor. Patient/Mutual Fund Manager Signature: Date/Time: Relationship to Patient: Witness Name/Signature: Date/Time: [id number] Note. MICRO - Microbiology PROCEDURE: Urine Culture [...] Locations *1: This test was performed at: [facility], [address] [place] [address], [phone]- , [facility]06-11-2025 Evaluation + Plan note Diagnostic Tests Pending * Panel (AO) 03/15/25 * Varicella Zoster Antibody 03/15/25 [facility] 07-07-2024 History of Present illness Narrative* [...] PATIENT PRESENTS WITH AN IMPLANTABLE OR ATTACHED REST ROOM MAID: No RADIOLOGY DEPARTMENT: General X-ray: Exam(s) Completed: Lower Extremity X- Ray(s): Foot, Left PERIPHERAL IV DATA: Not applicable SIGNED BY: ONDINA Ledezma) April 10, 2024 3:42 PM documented [facility] NoteHNO ID: [id number] Author: ZENY POLLARD RT(R) Service: ? Author [...] PATIENT PRESENTS WITH AN IMPLANTABLE OR ATTACHED REST ROOM MAID: No RADIOLOGY DEPARTMENT: General X-ray: Exam(s) Completed: Lower Extremity X-Ray(s): Foot, Left PERIPHERAL IV DATA: Not applicable SIGNED BY: ONDINA Ledezma) April 10, 2024 3:42 [id number] NoteHNO ID: [id number] Author: ALETHEA LEYVA APRN.HOOKING MACHINE OPERATOR Service: ? Author Type: Nurse Practitioner Type: [...] toes -follow up with podiatry Alethea Leyva APRN.HOOKING MACHINE OPERATOR Medical Decision Making: Problems: Low: Acute, uncomplicated illness or injury Data: Unique source(s) for external note(s) reviewed: 1 Unique test result(s) reviewed: 1 Unique test(s) ordered: 1 Independent interpretation of test from other physician/QHCP Risk: Moderate: Moderate risk from testing/treatment Medical Decision Making Level: 4 - Moderate This note was partially generated using [employer] voice recognition system and there may be [...] not relevant for today. Plan as outlined above.[id number] History of Present illness Narrative* Alethea Leyva [...] Moderate This note was partially generated using [employer] voice recognition system and there may be [...] Plan as outlined above. documented in this encounterDayton [facility]07-07-2024 Instructions* Patient Instructions* Alethea Leyva APRN.CNP - 04/10/2024 3:06 PM EDT Xray of left foot and small toe looks ok. I will call if the radiologist reads abnormal. Wash abrasion with soap and water, apply bacitracin ointment for 1-2 days. Eli tape toes for extra support. Follow up with your gas blender if any no improvement. ICE AREA FREQUENTLY REST/ELEVATE TYLENOL AND/OR IBUPROFEN FOR PAIN [facility] [address] [place] [address] NISSA [phone] [place] DPM [id number] [facility] NISSA [phone] documented in this encounterDayton [facility] Hospital07-25-2023 Hospital Discharge instructions Patient Education 04/28/2023 01:15:56 [...] work with your health care provider or sharepoint consultant. If you are not : ?Avoid [...] about methods of control (contraception). Medicines Take tyxk-jss-yakbmsv and prescription medicines only as told by [...] 07/18/2008 Document Revised: 09/24/2018 Document Reviewed: 07/05/2018 [employer] Patient Education 2020 [employer]. 04/28/2023 01:15:56 Care After Vaginal Delivery Care [...] work with your health care provider or sharepoint consultant. If you are not : ?Avoid [...] about methods of control (contraception). Medicines Take amte-ggk-gumuddr and prescription medicines only as told by [...] 07/18/2008 Document Revised: 09/24/2018 Document Reviewed: 07/05/2018 [employer] Patient Education 2020 [employer]. 04/28/2023 01:15:51 7b- Depression and Blues (07/2020) [...] psychosis. Often, a screening tool called the [place] Depression Scale is used to diagnose depression [...] music. Avoid alcohol. Ask for help with components engineer, cooking, grocery shopping, or running errands as needed. Do nottry to do everything. Talk to people close to you about how you are feeling. Get support from your partner, family members, and friends. Try to stay positive in how you think. Think about the things you are grateful for. Do not spend a lot of time alone. Only take pngv-uvo-mfaptcn or prescription medicine as directed by your [...] not doing well or get worse. Resource: [facility] Patient Information 2015 [facility]. This information is not intended to [...] psychosis. Often, a screening tool called the [place] Depression Scale is used to diagnose depression [...] music. Avoid alcohol. Ask for help with components engineer, cooking, grocery shopping, or running errands as needed. Do nottry to do everything. Talk to people close to you about how you are feeling. Get support from your partner, family members, and friends. Try to stay positive in how you think. Think about the things you are grateful for. Do not spend a lot of time alone. Only take ojio-tzp-dzhnesi or prescription medicine as directed by your [...] get worse. Resource: ExitCare Patient Information 2014 [employer]. This information is not intended to replace advicegiven to you by your health care provider. Make sure you discuss any questions you have with your health care provider. Follow Up Care 04/26/2023 22:01:54 With:BELKYS ESCALANTE Address: DR JOHN VERDUGO [address] [address] [phone] When:Within 6 Week(s) Comments: visit [facility] 07-24-2023 Note Labor Details Baby A FHR Baseline:125 bpm FHR Baseline Variability:Moderate variability FHR Deceleration Description:Early, Intermittent Membranes Membrane Status:A.R.O.M. ROM Date, Time:04/27/2023 19:30 EDT FHR Accelerations:Present Uterine Uterine Contraction Frequency3 Uterine Contraction Monitoring MethodExternal toco Cervical Cervix Dilation9 cm Cervix [id number] Station-2 Labor Induction Information postdates IOL Physical [...] + LR Premix Diluent 1,000 mL Pfizerpen, [id number] unit(s)= 50 mL, IV Piggyback, q4h Pitocin, [...] by BELKYS ESCALANTE on 04/27/2023 09:50 PM [facility]07-24-2023 Note Reason for Visit OB Induction [...] by first trimester ultrasound who present to [facility] for scheduled IOL due to postdates. Received [...] non-immune Historical No qualifying data Procedure/Surgical History [place] tooth: 05/31/20 Medications Inpatient Ambien, 10 mg= [...] + LR Premix Diluent 1,000 mL Pfizerpen, [id number] unit(s)= 50 mL, IV Piggyback, q4h Pitocin, [...] PM Digitally Signed by JOHN VERDUGO DO [facility]07-24-2023 Anesthesiology Consult note Patient: EVELYN MADDOX I [facility]: [id number] Age: 27 years Sex: Female : 1995 [...] Medical Group B streptococcus / SNOMED CT 718930870 / Confirmed / SNOMED CT 328887794 / Confirmed Rubella non-immune / SNOMED CT 083840169 / Confirmed, Active Problems (3) Group B streptococcus Rubella non-immune Histories Past Medical History: No active or resolved past medical history items have been selected or recorded. Family History: Atrial fibrillation Mother Cancer of colon Father Procedure history: [place] tooth ([id number]) on 05/31/2020 at 24 Years. Social History [...] Oral36.6 DegC (APR 27 16:46) Heart Rate Azdhvlgxp80 bpm (APR 27 18:10) Resp Rate 18 br/min (APR 27 15:45) CFG912 mmHg (APR 27 18:10) DBPL 55mmHg (APR 27 18:10) BMI31.81 (APR 26 22:10) Measurements from flowsheet : Measurements 04/26/2023 22:10 EDT Height 162.6 cm Admission Weight 84.1 kg [place] Body Weight 54.74 kg BSA Admission 1.89 [...] with support Epidural Placed By JAYNA ALMARAZ APRN-MANAGER LEARNING Epidural Test Dose Time 04/27/2023 18:05 04/27/2023 [...] date/time 04/27/2023 17:33 Provider Notified JAYNA ALMARAZ E COMMERCE ANALYST-MANAGER LEARNING Notification Method Phone Information Communicated Nurse communication [...] date/time 04/27/2023 17:04 Provider Notified BELKYS ESCALANTE E COMMERCE ANALYST-CNM Notification Method Phone Information Communicated Nurse communication [...] date/time 04/27/2023 16:00 Provider Notified BELKYS ESCALANTE E COMMERCE ANALYST-CNM Notification Method Phone Information Communicated Nurse communication [...] feelings, concerns Skin Temperature Warm Skin Description [place], Dry Skin Integrity Intact Sensory Perception Darrel [...] Antibodies, External Ne (more content not included)... [facility]07-24-2023 Evaluation + Plan noteExtracted from: Title:OB [...] backup coverage for the evening and night [facility] 07-23-2023 Anesthesiology Consult note* JAYNA ALMARAZ APRN-MANAGER LEARNING: PERFORM, SIGN, VERIFY Event Display: Anesthesiology Consultation Authored Date: [id number] Patient: EVELYN MADDOX I Age: 27 years Sex: Female : 1995 Associated Diagnoses: None Author: JAYNA ALMARAZ APRN-MANAGER LEARNING Preoperative Information Time of last food or [...] Medical Group B streptococcus / SNOMED CT 537455197 / Confirmed / SNOMED CT 976663508 / Confirmed Rubella non-immune / SNOMED CT 295553394 / Confirmed, Active Problems (3) Group B streptococcus Rubella non-immune Histories Past Medical History: No active or resolved past medical history items have been selected or recorded. Family History: Atrial fibrillation Mother Cancer of colon Father Procedure history: [place] tooth ([id number]) on 05/31/2020 at 24 Years. Social History [...] Oral36.6 DegC (APR 27 16:46) Heart Rate Hmxqqzglq45 bpm (APR 27 18:10) Resp Rate 18 br/min (APR 27 15:45) TFO100 mmHg (APR 27 18:10) DBPL 55mmHg (APR 27 18:10) BMI31.81 (APR 26 22:10) Measurements from flowsheet : Measurements 04/26/2023 22:10 EDT Height 162.6 cm Admission Weight 84.1 kg [place] Body Weight 54.74 kg BSA Admission 1.89 [...] with support Epidural Placed By JAYNA ALMARAZ E COMMERCE ANALYST-MANAGER LEARNING Epidural Test Dose Time 04/27/2023 18:05 04/27/2023 [...] date/time 04/27/2023 17:45 Provider Notified BELKYS ESCALANTE E COMMERCE ANALYST-CNM Notification Method Phone Information Communicated Nurse communication Details Communicated patient is 5/80/-2, going to get her an epidural, pitocin turned off Notification Outcome Orders not received Person Reporting Result(s) charles gleason rn 04/27/2023 17:44 EDT Monitoring Annotations patient up to the bathroom 04/27/2023 17:33 EDT Notify date/time 04/27/2023 17:33 Provider Notified JAYNA ALMARAZ E COMMERCE ANALYST-MANAGER LEARNING Notification Method Phone Information Communicated Nurse communication [...] date/time 04/27/2023 17:04 Provider Notified BELKYS ESCALANTE E COMMERCE ANALYST-CN Notification Method Phone Information Communicated Nurse communication [...] feelings, concerns Skin Temperature Warm Skin Description [place], Dry Skin Integrity Intact Sensory Perception Darrel [...] exam the same as at 0400-1/50/-2, posterior, ksip every 2-3 minutes Notification Outcome Orders received [...] 01/14/2023 Designated Person #1 We May Share [facility] [phone] Designated Person #1 Relationship Spouse Privacy Restrictions Requested None Height 162.6 cm Admission Weight 84.1 kg [place] Body Weight 54.74 kg BSA Admission 1.89 [...] No Surrogate No Discharge Physician Dr. Lemons [facility] Participant No Safe Sleep Environment for Baby [...] No Weight Loss No Preferred Spoken Language Tunisian Preferred Written Language Tunisian Teaching Evaluation Verbalizes/Nonverbally indicates understanding Safety Brochure Information Reviewed Yes Nataliia Parada Video Viewed No Chief Complaint induction of labor Mode of Arrival Ambulatory Accompanied by Spouse Information Given by Patient Patient's Current Physicians Dr. Verdugo [phone] Reason For Visit OB Induction Belongings At [...] EDT OBHx 1 . Assessment and Plan [place] Society of Anesthesiologists (ASA) physical status classification: Class II. Anesthetic Preoperative Plan Premedication: None. Anesthetic technique: Epidural. Induction. Maintenance airway: Mask. Regional: Epidural. Postoperative pain management: Per surgeon. Risks discussed: nausea, vomiting, headache, sore throat, dental injury, hypotension, allergic reaction, serious complications. Informed consent: signed by patient. Digitally Signed by JAYNA ALMARAZ on 04/27/2023 06:24 PM [facility] 04-12-2023 Evaluation + Plan note Diagnostic Tests Pending * Rapid Plasma Reagin Test 01/14/23 [facility] 01-20-2023 Note. MICRO - Microbiology PROCEDURE: Urine Culture [*1] SOURCE: Urine BODY SITE: COLLECTED DATE/TIME: 10/22/2022 16:43 EST RECEIVED DATE/TIME: 10/23/2022 14:08 EST START DATE/TIME: 10/23/2022 14:08 EST FREE TEXT SOURCE: FINAL REPORTS Final Report [] Verified Date/Time/Personnel: 10/24/2022 15:10 EST <10,000 cfu/ml. No Significant growth. Sensitivity not indicated. Performing Locations *1: This test was performed at: [facility], [address] [place] [address], [address] , [facility]ly [facility] ([place])10-22-2022 Evaluation + Plan note Diagnostic Tests Pending * Panel (AO) 10/22/22 * Varicella Zoster Antibody 10/22/22 [facility] Evaluation + Plan note No data available for this section [facility] Evaluation note* Diagnosis Toe injury, left, initial encounter [facility] Toe injury, left, initial encounter- Primary Toe injury, left, initial encounter [facility] Diagnosis Onset Date Resolution Status Admit Date COVID-19 affecting , antepartum acute June 27, 2025 11:38am FH: breast cancer acute Septemb er 2024 11:38am acute June 11:38am Rh negative status during acute June 27, 2025 11:38am Supervision of high-risk acute June 27, 2025 11:38am [facility] Work Phone: Hospital Discharge instructions No data available for this section [facility] Progress note No data available for this section [facility] progress note Author Angely Stone [facility] Note Date/Time June 27, 2025 12:22pm [facility] [address], [address] [place] [address] OFFICE VISIT Date of Service: 06/27/25 MR#: [id number] Acct: [id number] Name: EVELYN MADDOX Rep #: [id number] : 1995 Provider: VILMA Stone Age/Sex: 29/F [place] [facility]: Signed Intake Vital Signs 06/27/25 11:41 Height 5 ft 4 in Weight: 176 lb 4 oz BMI 30.2 BP 127/82 H Intake Visit Reasons: *NEW* NOB JAMES GAURANG 09/04 30wk2d Chief Complaint: New 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 Required: No Is patient in pain?: No [...] mg-folate no.1 1 mg-dha 300 mg capsule (PNV-[place]) vitamin E (dl, acetate) 90 mg (200 90 mg PO QDAY 06/2206/27/25 History unit) capsule Last Menstrual Period: 11/28/24 : No Have you fallen in the past year?: No PFSH PFSH Medical History Seasonal allergies Surgical History [place] teeth extracted Family History Father Colon cancer, [...] physical activity do you participate in: none luis/sikhism: Amish seatbelt use: always do you feel safe at home: Yes additional social history: Tegan- Amanda History 2 Elective abortions Hx Para 1 Spontaneous abortions Hx # Term Pregnancies Ectopic pregnancies Hx # Pregnancies Multiple births # of living children 1 Past Pregnancies Del. 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, Anesthetic complications, History of abnormal pap, [...] gestation of Comment: declined NIPT & Carrier, JMAES to BWC @ 30wks (3) FH: breast [...] fallen in the past year?: No 06/27/25 3312 <Electronically signed by Angely chahal CNM> Date _ Angely Stone CNM Cosigner Signature: Date (if applicable) CC: ~ [place] LINAGORA Work Phone: Reason for referral (narrative)* Diagnostic Procedure Only (Urgent) - Closed Specialty Diagnoses / Procedures Referred By Tyrell hoffman Referred To Contact XR IMAGING Diagnoses Toe injury, left, initial encounter Procedures XR FOOT GENERAL 3V AP/LAT/OBL LEFT RADEX FOOT COMPLETE MINIMUM 3 VIEWS Alethea Leyva APRN.CNP [address] [place] [address] [place] [address] Referral ID Status Reason Start Date Expiration Date V isits Requested Visits Authorized [id number] Closed Auto-Generate d Referral 04/10/2024 05/10/2025 1 1 [facility] for referral (narrative)* Diagnostic Procedure Only (Urgent) - Closed Specialty Diagnoses / Procedures Referred By Contac t Referred To Contact XR IMAGING Diagnoses Toe injury, left, initial encounter Procedures XR FOOT GENERAL 3V AP/LAT/OBL LEFT RADEX FOOT COMPLETE MINIMUM 3 VIEWS Alethea Leyva APRN.CNP [address] [place] [address] [place] [address] Referral ID Status Reason Start Date Expiration Date V isits Requested Visits Authorized [id number] Closed Auto-Generate d Referral 04/10/2024 05/10/2025 1 1 [facility] for referral (narrative)No reason for referral [facility] Work Phone: reason for visit Narrative* Diagnostic Procedure Only (Urgent) - Closed Specialty Diagnoses / Procedures Referred By Contac t Referred To Contact XR IMAGING Diagnoses Toe injury, left, initial encounter Procedures XR FOOT GENERAL 3V AP/LAT/OBL LEFT RADEX FOOT COMPLETE MINIMUM 3 VIEWS Alethea Leyva APRN.CNP [address] [place] [address] [place] [address] Referral ID Status Reason Start Date Expiration Date V isits Requested Visits Authorized [id number] Closed Auto-Generate d Referral 04/10/2024 05/10/2025 1 1 [facility] Summary Purpose Family History Relationship Condition Age [...] 27, 2025 11:38am Rh negative status during [facility] 2024 11:38am Supervision of high-risk [facility] 2024 11:38am Additional Source Comments Care Team (unrecognized sect ion and content) Care Team Personnel Name: ROMÁN LEMONS DO Member Role: Primary Care Physician Address: Address: [address] Care Team Related Persons Name: TEGAN MADDOX Care Team Personnel Name: ROMÁN LEMONS DO Member Role: Primary Care Physician Address: Address: [address] Care Team Related Persons Name: TEGAN MADDOX Address: [address] [place] [address] Care Team Personnel Name: ROMÁN LEMONS DO Member Role: Primary Care Physician Address: Address: [address] [id number] [place] [address] Care Team Related Persons Name: TEGAN MADDOX Address: Home [address] [place] [address] Care Team Personnel Name: ROMÁN LEMONS DO Member Role: Primary Care Physician Address: Address: [address] [id number] [place] [address] Care Team Related Persons Name: TEGAN MADDOX Address: Home [address] [place] [address] Patient Care team informatio n (unrecognized section and content) [place]hide Trimmer Relationship Specialty Start Date End Date Román [place] [address] [address] PCP - General Internal Medicine 08/03/18 Team Status: Active Member Role/Relationship Status Dates No Primary Care Physician Primary care physician Activ e Team Status: Inactive Member Role/Relationship Status Dates Angely Stone CNM Attending physician Active Start: June 27, 2025 End: June 27, 2025 Team Status: Active Member Role/Relationship Status Dates Angely Stnoe CNM Attending physician Active Start: July 03, [...] section and content) DATE CREATED AUTHOR 07/13/2023 [facility] ([place]) DATE CREATED AUTHOR AUTHOR'S ORGANIZ ATION 04/10/2024 [facility] DATE CREATED AUTHOR AUTHOR'S ORGANIZ ATION 06/10/2025 [facility] DATE CREATED AUTHOR AUTHOR'S ORGANIZ ATION 06/21/2025 [facility] DATE CREATED AUTHOR AUTHOR'S ORGANIZ ATION 07/08/2025 [facility] Source Comments (unrecognize d section and content) In the event this informatio n is protected by the Federal Confidentiality of Alcohol and Drug Abuse Patient Records regulations: The Federal rules restrict any use of the information to criminally investigate or prosecute any alcohol or drug abuse patient.[facility] the event this information is protected by the Federal Confidentiality of Alcohol and Drug Abuse Patient Records regulations: The Federal rules restrict any use of the information to criminally investigate or prosecute any alcohol or drug abuse patient.[facility] Reason for Visit (unrecogniz ed section and [...] BE BASED ON THE PRIMARY CLINICAL RECORDS. [employer] provides no warranty or guarantee of the accuracy or completeness of information in this document.
== END | disposition home or self-care (01) ==
LOC: LABSPEC 16:24
PROVIDERS: Obstetrics & Gynecology; Visit Provider Advanced Practice Midwife
DX: O26.899 Other specified pregnancy related conditions, unspecified trimester (principal); N89.8 Other specified noninflammatory disorders of vagina; Z3A.00 Weeks of gestation of pregnancy not specified
CPT/HCPCS: 84112

== ENCOUNTER → 2025-07-27 | Outpatient (CLI) | payer OTHER, SELFPAY ==
--- OUTSIDE RECORDS SUMMARY | 2025-07-27 11:47 | XMS RPT_ITS | CCD ---
Author Organization [facility] Care Team Providers Care Cnc Field Service Engineer Name Role Phone CRISTO MELARA ROMÁN Candi Primary Care Physician [phone] LOPEZ CARDOZON-CNRolo, BELKYS Rodriguez Attending Ashley vailable CRISTO DO, ROMÁN W Primary Care Unavailable CRISTO DO, ROMÁN W Primary Care Unavailable AGARWAL FEED MANAGEMENT ADVISOR-CNM, ANA Rodriguez Attending Unavai lablizzy ESCALANTE FEED MANAGEMENT ADVISOR-CNM, BELKYS Rodriguez Attending Ashley vailable CRISTO DO, ROMÁN W Primary Care Unavailable CRISTO DO, ROMÁN W Primary Care Unavailable AGARWAL FEED MANAGEMENT ADVISOR-CNM, ANA Rodriguez Attending Unavai lable CRISTO DO, ROMÁN W Primary Care Unavailable AGARWAL FEED MANAGEMENT ADVISOR-CNM, ANA Rodriguez Attending Unavai lable CRISTO DO, ROMÁN W Primary Care Unavailable AGARWAL FEED MANAGEMENT ADVISOR-CNM, ANA Rodriguez Attending Unavai lable CRISTO DO, ROMÁN W Primary Care Unavailable AGARWAL FEED MANAGEMENT ADVISOR-CNM, ANA Rodriguez Attending Unavai lable CRISTO DO, ROMÁN W Primary Care Unavailable AGARWAL FEED MANAGEMENT ADVISOR-CNM, ANA Rodriguez Attending Unavai lable LOPEZ FEED MANAGEMENT ADVISOR-CNM, BELKYS oRdriguez Attending Ashley vailable CRISTO DO, ROMÁN W Primary Care Unavailable CRISTO DO, ROMÁN W Primary Care Unavailable AGARWAL FEED MANAGEMENT ADVISOR-CNM, ANA Rodriguez Attending JOHN Herrera DO Admitting Unavailab JOHN Timmons DO Attending Unavailab le CRISTO DO, ROMÁN W Primary Care Unavailable ALETHEA LEYVA Attending Unavailable ALETHEA LEYVA Referring Unavailable CristoRomán rose DO Primary Care Provider [phone] Unavailable Primary Care Provider Unavailmeet LEMONS DO ROMÁN Candi Primary Care Physician CRISTO DO, ROMÁN W Primary Care Unavailable MCHCOB, PHYSICIAN Referring Unavailable RANDY MELARA, DR LUIS EDUARDO Machado Attending Unavailable ANY FEED MANAGEMENT ADVISOR-CNM, ANA Rodriguez Attending Unavai lable CRISTO DO, ROMÁN W Primary Care Unavailable ESCALANTE FEED MANAGEMENT ADVISOR-CNM, BELKYS Rodriguez Attending Ashley vailable CRISTO DO, ROMÁN W Primary Care Unavailable ESCALANTE FEED MANAGEMENT ADVISOR-CNM, BELKYS Rodriguez Attending Ashley vailable CRISTO DO, ROMÁN W Primary Care Unavailable CRISTO DO, ROMÁN W Primary Care Unavailable ESCALANTE FEED MANAGEMENT ADVISOR-CNM, BELKYS Rodriguez Attending Ashley vailable CRISTO DO, ROMÁN W Primary Care Unavailable LOPEZ FEED MANAGEMENT ADVISOR-CNM, BELKYS Rodriguez Attending Ashley vailable Chase ESPARZA, Angely Attending Physician [phone] Chase ESPARZA, Angely Referring Provider [phone] Care Physician, No Primary Primary Care Physicia n Unavailable Care Physician, No Primary Referring Provider Un available Susy Engel DO, Dr. Eastman Attending Physician Angely Stone Attending Unavailable Salvatore SMOKE INSPECTOR, Atiya Attending Unavailable Care Physician, No Primary Primary Care Unava ilable Care Physician, No Primary Primary Care Unava ilable Angely Stone Attending Unavailable Angely Stone Referring Unavailable Angely Stone Attending Unavailable Care Physician, No Primary Primary Care Unava ilable Care Physician, No Primary Primary Care Unava ilable Care Physician, No Primary Referring Unava ilable Raiza Carl Attending Unavailabl e Medications Current Medications Medication Drug Class(es) Dates Sig (Normalized) Sig (Original) acetaminophen 325 mg oral capsule (5 sources) Start: 04-29-2023 Tylenol 325 mg oral capsule Dose : 650 mg =, Oral, q6h, PRN Pain, scale 1-3, 0 Refill(s) Start Date: 04/29/23 Status: Ordered Repeat number: 1 ascorbic acid 500 mg oral capsule (5 sources) Vitamin C Start: 06-22-2025 Start: 04-29-2025 Vitamin C qDay , 0 Refill(s) Start Date: 04/29/25 Status: Ordered Medication Dispense Status: Completed Total Allowed Fills: 1 Fills Dispensed: 0 Start: 04-29-2025 Vitamin C qDay , 0 Refill(s) Start Date: 04/29/25 Status: Ordered Repeat number: 1 aspirin 81 mg oral tablet (3 sources) Platelet Aggregation Inhibitor, Nonsteroidal Anti-inflammatory Drug Start: 06-22-2025 take 1 tablet by mouth once daily Calcium Gluconate 50 mg calcium capsule (3 sources) Start: 06-22-2025 docusate sodium 100 mg [...] 04/29/23 Status: Ordered Repeat number: 1 Magnesium (3 sources) Start: 06-22-2025 take 1 tablet by [...] 60.0 Unit: tab(s) Repeat number: 1 Mv-Mins 66-Gfnr-Bxsvx No.1-Dha (Pnv-[place]) 28-1-300 mg capsule (3 sources) Start: 06-22-2025 One A Day Adult [...] Ordered vitamin e 90 mg oral capsule (10 sources) Start: 04-27-2023 take 1 capsule by mouth once d aily Start: 04-27-2023 vitamin E 90 m g oral capsule Dose : 90 mg = 1 cap(s), Oral, qDay, 0 Refill(s) Start Date: 04/27/23 Status: Ordered Problems Active Problems Problem Classification Problem Date Documented Date Episodic/Chronic Diabetes or abnormal glucose tolerance complicating ; childbirth; or the puerperium (4 sources) Abnormal glucose level; Translations: [Abnormal glucose [...] organs] Onset: 04-28-2023 Episodic Other complications of (7 sources) Disease caused by 2019-nCoV; Translations: [Other viral diseases complicating , unspecified trimester] 06-22-2025 Episodic Comment on above: 06/12/25, ASA 81 mg da kev Other complications of (7 sources) High risk ; Translations: [Supervision of high risk , unspecified, unspecified trimester] 06-22-2025 Episodic Comment on above: , GAURANG 09/04/25, P Chante Nemesio, Tegan Other complications of (7 sources) RhD negative; Translations: [Other specified related [...] 04-10-2024 Episodic Other and delivery including normal (11 sources) Delivery normal; Translations: [Encounter for full-term uncomplicated delivery] Onset: 07-13-2022 Episodic Comment on above: declined NIPT & [place] ier, JAMES to [facility] @ 30wks Other screening for suspected conditions (not mental disorders or infectious disease) (7 sources) Diabetic monitoring status; Translations: [Encounter for screening for diabetes mellitus] Onset: 04-01-2023 Episodic Residual codes; unclassified (1 source) 41 weeks gestation of ; Translations: [41 weeks gestation of ] Onset: 04-28-2023 Episodic Residual codes; unclassified (7 sources) Family history of breast cancer; Translations: [...] Test Name Value Interpretation Reference Range Facility (ROM) Rupture Of Membraneson 07-10-2025 ROM Negative Normal Negative [facility] Comment on above: Order Comment: Comme nts: Call Dr. Carl at [phone] Result Comment: Amni otic fluid not present indicates No Rupture of Membranes at time of specimen collection. Performed By: #### L 205.1000 #### [facility] [address] [place], [address] Food Services Director Office Visit Reporton 07-10-2025 Food Services Director Office Visit Report [facility], [address] [place] [address] OFFICE VISIT Date of Service: 07/10/25 MR#: [id number] Acct: [id number] Name: EVELYN MADDOX I Rep #: [id number] : 1995 Provider: Dr. Raiza Cruz DO Age/Sex: 29/F Location: [facility] Status: Signed Intake Vital Signs 06/27/25 11:41 07/10/25 15:39 Height 5 ft 4 in 5 ft 4 in Weight: 180 lb 9 oz BMI 30.9 BP 115/74 Intake Visit Reasons: 32wk ob Business Applications Specialist Required: No Is patient in pain?: No Allergies No Known Allergies Allergy (Verified 07/10/25 15:37) Medications ???Medication ???Instructions ???Recorded ???Confirmed ???Type ascorbic acid (vitamin C) 500 mg mg PO 06/22/25 07/10/25 History capsule aspirin 81 mg tablet 81 mg PO QDAY 06/22/25 07/10/25 Hi story calcium gluconate 50 mg calcium mg PO 06/22/25 07/10/25 History capsule magnesium 250 mg tablet 250 mg PO QDAY 06/22/25 07/10/25 H istory multivit-min no.71-iron fum 28 cap PO 06/22/25 07/10/25 History mg-folate no.1 1 mg-dha 300 mg capsule (PNV-[place]) vitamin E (dl, acetate) 90 mg (200 90 mg PO QDAY 06/22/25 07/10/25 History unit) capsule Last Menstrual Period: 11/28/24 Zika: Zika virus screening: Negative : No PFSH PFSH Medical History Seasonal allergies Surgical History [place] teeth extracted Family History Father Colon cancer, [...] children housing: house number of children: 1 current 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 Date Name GA/Weeks Outcome Route Bth Weight Gen Labor Lgth Anesthesia Del Locatn Provider FOB 04/28/23 [place] 41 live - full term 7#7oz Male epidural Aul tman Claudio Camilo Delivery Date: 04/28/23 Last Updated by: Pia Mora IOL, post dates- baby had knot in cord HPI 32wk ob Details: EVELYN MADDOX is a 29 year old who presents for routine OB visit. OB Visit GAURANG Calculator Estimated Delivery Date Method Current WG Current Estimate 09/04/25 LMP (Certain) 32w 0d Expected Delivery Route/Plan Labor Preferences- CB/BF classes: [...] St Visit Note 06/27/25 -???-???-???-???-???-?? ?-???-???-???-???-???-? ??- 30w 1d 176 lb 4 oz 127/82 Negative -???-???-???-???-???-?? ?-???-???-???-???-???-? ??- Negative 150 31 -???-???-???-???-???-?? ?-???-???- (more content not included)... Normal [facility] Gestational GTT 3HR 100gon 0 07-03-2025 GEST GTT 100gm Normal [facility] Comment on above: Order Comment: Y [...] 1156 Performed By: #### L 500.4710 #### [facility] [address] [place], [place], [id number] Quantitative serum or plasma 3 hour gestational glucose tolerance panelOrdered By: Angely Stone on 07-03-2025 Glucose tolerance 3 hours gestational panel See comment [facility] Comment on above: FASTING 81 Col: [...] Stone on 06-27-2025 Glucose Ql (U) Negative [facility] - UrinalysisOrder ed By: Angely Stone on 06-27-2025 Protein Ql (U) Negative [facility] Food Services Director Office Visit Reporton 06-27-2025 Food Services Director Office Visit Report [facility] [address], [address] [place] [address] OFFICE VISIT Date of Service: 06/27/25 MR#: [id number] Acct: [id number] Name: EVELYN MADDOX Rep #: [id number] : 1995 Provider: VILMA Ventura ams Age/Sex: 29/F Location: [facility] Status: Signed Intake Vital Signs 06/27/25 11:41 Height 5 ft 4 in Weight: 176 lb 4 oz BMI 30.2 BP 127/82 H Intake Visit Reasons: *NEW* NOB JAMES GAURANG 09/04 30wk2d Chief Complaint: New OB Business Applications Specialist Required: No Is patient in pain?: No [...] mg-folate no.1 1 mg-dha 300 mg capsule (PNV-[place]) vitamin E (dl, acetate) 90 mg (200 90 mg PO QDAY 06/22/25 06/27/25 History unit) capsule Last Menstrual Period: 11/28/24 : No Have you fallen in the past year?: No PFSH PFSH Medical History Seasonal allergies Surgical History [place] teeth extracted Family History Father Colon cancer, [...] physical activity do you participate in: none luis/christianity: Latter Day seatbelt use: always do you feel safe at home: Yes additional social history: Jairo Patel History 2 Elective abortions Hx Para 1 Spontaneous abortions Hx # Term Pregnancies Ectopic pregnancies Hx # Pregnancies Multiple births # of living children 1 Past Pregnancies Del. Date Name GA/Weeks Outcome Route Bth Weight Gen Labor Lgth Anesthesia Del Locatn Provider FOB 04/28/23 [place] 41 live - full term 7#7oz Male epidural Aul tman Claudio Camilo Delivery Date: 04/28/23 Last Updated [...] ??- 30 (more content not included)... Normal [facility] RPRon 06-21-2025 Reagin Ab RPR Ql (S) Non-Reactive Normal Non-Reactive [facility] Comment on above: Result Comment: The [...] #### A DIFF, ANEU, CBC, GLU1P #### [place] [address] #### RPR #### [address] [address] .Auto Diffon 06-20-2025 Basophil, Absolute 0.0 10 3/mcL Normal 0.0-0.3 [facility] Comment on above: Performed By: #### A DIFF, ANEU, CBC, GLU1P #### [place] [address] #### RPR #### [address] [address] Basophils/100 WBC (Bld) 0.3 % Normal 0.0-2.5 [facility] Comment on above: Performed By: #### A DIFF, ANEU, CBC, GLU1P #### [place] [address] #### RPR #### [address] [address] Eosinophil, Absolute 0.1 10 3/mcL Normal 0.0-0.7 [facility] Comment on above: Performed By: #### A DIFF, ANEU, CBC, GLU1P #### [place] [address] #### RPR #### [address] [address] Eosinophils/100 WBC (Bld) 0.7 % Normal 0.0-6.0 [facility] Comment on above: Performed By: #### A DIFF, ANEU, CBC, GLU1P #### [address] [address] #### RPR #### [address] [address] Lymphocyte, Absolute 1.7 10 3/mcL Normal 0.9-4.3 [facility] Comment on above: Performed By: #### A DIFF, ANEU, CBC, GLU1P #### [address] [address] #### RPR #### [address] [address] Lymphocytes/100 WBC (Bld) 21.2 % Normal 20.0-40.0 [facility] Comment on above: Performed By: #### A DIFF, ANEU, CBC, GLU1P #### [address] [address] #### RPR #### [address] [address] Monocyte, Absolute 0.3 10 3/mcL Normal 0.1-1.4 [facility] Comment on above: Performed By: #### A DIFF, ANEU, CBC, GLU1P #### [address] [address] #### RPR #### [address] [address] Monocytes/100 WBC (Bld) 4.0 % Normal 2.0-13.0 [facility] Comment on above: Performed By: #### A DIFF, ANEU, CBC, GLU1P #### [address] [address] #### RPR #### [address] [address] Neutrophils/100 WBC (Bld) 73.8 % Normal 50.0-75.0 [facility] Comment on above: Performed By: #### A DIFF, ANEU, CBC, GLU1P #### [address] [address] #### RPR #### [address] [address] .NEUABSon 06-20-2025 Neutrophil, Absolute 6.0 10 3/mcL Normal 2.3-8.1 [facility] Comment on above: Performed By: #### A DIFF, ANEU, CBC, GLU1P #### [place] [address] #### RPR #### [place] [address] CBCon 06-20-2025 Erythrocyte distribution width (RBC) [Ratio] 14.2 % Normal 11.5-15.5 [facility] Comment on above: Performed By: #### A DIFF, ANEU, CBC, GLU1P #### [place] [address] #### RPR #### [place] [address] Hematocrit (Bld) [Volume fraction] 33.1 % Low 34.0-46.0 [facility] Comment on above: Performed By: #### A DIFF, ANEU, CBC, GLU1P #### [place] [address] #### RPR #### [place] [address] Hgb 11.9 G/dL Low 12.0-16.0 [facility] Comment on above: Performed By: #### A DIFF, ANEU, CBC, GLU1P #### [place] [address] #### RPR #### [place] [address] MCH (RBC) [Entitic mass] 33.4 pg High 27.0-33.0 [facility] Comment on above: Performed By: #### A DIFF, ANEU, CBC, GLU1P #### [place] [address] #### RPR #### [place] [address] MCHC 36.0 G/dL Normal 32.0-36.0 [facility] Comment on above: Performed By: #### A DIFF, ANEU, CBC, GLU1P #### [place] [address] #### RPR #### [place] [address] MCV (RBC) [Entitic vol] 92.8 fL Normal 80.0-99.0 [facility] Comment on above: Performed By: #### A DIFF, ANEU, CBC, GLU1P #### [place] [address] #### RPR #### [place] [address] Platelet 335 10 3/mcL Normal 150-450 [facility] Comment on above: Performed By: #### A DIFF, ANEU, CBC, GLU1P #### [place] [address] #### RPR #### [place] [address] Platelet mean volume (Bld) [Entitic vol] 7.3 fL Normal 6.6-10.5 [facility] Comment on above: Performed By: #### A DIFF, ANEU, CBC, GLU1P #### [place] [address] #### RPR #### [place] [address] RBC 3.56 10 6/mcL Low 4.10-5.30 [facility] Comment on above: Performed By: #### A DIFF, ANEU, CBC, GLU1P #### [place] [address] #### RPR #### [place] [address] WBC 8.1 10 3/mcL Normal 4.5-10.8 [facility] Comment on above: Performed By: #### A DIFF, ANEU, CBC, GLU1P #### [place] [address] #### RPR #### [facility] [address] [place] [address] KVD5Kbs 06-20-2025 Glucose [Mass/Vol] 150 mg/dL High 70-[address] [facility] Comment on above: Performed By: #### A DIFF, ANEU, CBC, GLU1P #### [facility] [address] [place], [place] [address] #### RPR #### [address] [address] LABORATORYOrdered By: SYSTEM SYSTEM on 06-20-2025 Basophils [...] 04-29-2025 ABO/Rh Interp Negative Invalid Interpretation Code [facility] Comment on above: Performed By: #### A BSJACK ABOGEL #### [place] [address] ABS (Gel)on 04-29-2025 ABSC Interp (Gel) Negative Normal [facility] Comment on above: Performed By: #### A BSJACK ABOGEL #### [place] [address] FMHon 04-29-2025 Mat. Hemorrhage Negative Normal [facility] Comment on above: Performed By: #### F #### [place] [address] LABORATORYOrdered By: Ursula navarro on 04-29-2025 ABO and Rh group Nom (Bld) Blood group A Rh(D) negative Invalid Interpretation Code BB Auto SS Blood group antibody screen Ql Negative ABSC (04/29/25 3:47 PM) Normal BB Auto SS cell screen Dari test Ql (Bld) Negative (04/29/25 3:47 PM) Normal BB Manual SS VARISon 03-17-[address] Positive Normal [facility] Comment on above: Result Comment: INTE RPRETATION OF VARICELLA IMMUNE STATUS IgG BY EIA: Negative: No detectable VZV IgG antibody. Positive: VZV IgG antibody Detected. If clinically indicated, order Varicella IgM to rule out recent infection. Equivocal: Equivocal for antibodies to VZV. Suggest repeat testing in 10-14 days. Performed By: #### A DIFF, ANEU, CBC, GLU1P #### [facility] [address] [place], [place] [address] #### RPR #### [place] [address] CTPCRon 03-16-[address] Interp See CT Interp N Normal See CT Interp N [facility] Comment on above: Result Comment: Clinical Interpretation: C. trachomatis DNA not detected. Specimen is presumptive negative for C. trachomatis. A negative result does not preclude C. trachomatis infection because results depend on adequate specimen collection, absence of inhibitors, and sufficient DNA to be detected. Performed By: #### N GPCR1, CTPCR #### [place] [address] C.trachomatis PCR Negative Normal Negative [facility] Comment on above: Result Comment: Mole cular (PCR) assay performed on the Bhupinder Eda 4800 system. Performed By: #### N GPCR1, CTPCR #### [place] [address] Chlam Source Vaginal Normal [facility] Comment on above: Performed By: #### N GPCR1, CTPCR #### [place] [address] [id number] 03-16-2025 GC PCR Source Vaginal Normal [facility] Comment on above: Performed By: #### N GPCR1, CTPCR #### [place] [address] N. gonorrhoeae (PCR) Negative Normal Negative [facility] Comment on above: Result Comment: Mole cular (PCR) assay performed on the Bhupinder Eda 4800 System. Performed By: #### N GPCR1, CTPCR #### [place] [address] N. gonorrhoeae Interp See NG Interp N Normal See NG Interp N [facility] Comment on above: Result Comment: Clinical Interpretation: N. gonorrhoeae DNA not detected. Specimen is presumptive negative for N. gonorrhoeae. A negative result does not preclude Neisseria gonorrhoeae infection because results depend on adequate specimen collection, absence of inhibitors, and sufficient DNA to be detected. Performed By: #### N GPCR1, CTPCR #### [place] [address] RPRon 03-16-2025 Reagin Ab RPR Ql (S) Non-Reactive Normal Non-Reactive [facility] Comment on above: Result Comment: The [...] #### A DIFF, ANEU, CBC, GLU1P #### [place] [address] #### RPR #### [place] [address] RUBISon 03-16-[address] Negative Normal Positive [facility] Comment on above: Result Comment: This immune status assay detects IgM and/or IgG antibody to Rubella. Interpret results in conjunction with clinical history. POS: Antibody detected; exposure at undetermined recent or distant time. If clinically indicated, order Rubella IGM to rule out recent infection. NEG: No antibody detected. Performed By: #### A DIFF, ANEU, CBC, GLU1P #### [place] [address] #### RPR #### [place] [address] .Auto Diffon 03-15-2025 Basophil, Absolute 0.0 10 3/mcL Normal 0.0-0.3 [facility] Comment on above: Performed By: #### R LA, RUBIS, VARIS, HBSAG #### [place] [id number] #### ABSGEL, ABOGEL, ADIFF, HIVRP, TSH, CBC, ANEU #### [address] [address] Basophils/100 WBC (Bld) 0.3 % Normal 0.0-2.5 [facility] Comment on above: Performed By: #### R LA, RUBIS, VARIS, HBSAG #### [place] [address] #### ABSGEL, ABOGEL, ADIFF, HIVRP, TSH, CBC, ANEU #### [address] [address] Eosinophil, Absolute 0.1 10 3/mcL Normal 0.0-0.7 [facility] Comment on above: Performed By: #### R LA, RUBIS, VARIS, HBSAG #### [place] [address] #### ABSGEL, ABOGEL, ADIFF, HIVRP, TSH, CBC, ANEU #### [address] [address] Eosinophils/100 WBC (Bld) 0.7 % Normal 0.0-6.0 [facility] Comment on above: Performed By: #### R LA, RUBIS, VARIS, HBSAG #### [place] [address] #### ABSGEL, ABOGEL, ADIFF, HIVRP, TSH, CBC, ANEU #### [address] [address] Lymphocyte, Absolute 2.0 10 3/mcL Normal 0.9-4.3 [facility] Comment on above: Performed By: #### R LA, RUBIS, VARIS, HBSAG #### [place] [address] #### ABSGEL, ABOGEL, ADIFF, HIVRP, TSH, CBC, ANEU #### [address] [address] Lymphocytes/100 WBC (Bld) 26.0 % Normal 20.0-40.0 [facility] Comment on above: Performed By: #### R LA, RUBIS, VARIS, HBSAG #### [address] [address] #### ABSGEL, ABOGEL, ADIFF, HIVRP, TSH, CBC, ANEU #### [address] [address] Monocyte, Absolute 0.5 10 3/mcL Normal 0.1-1.4 [facility] Comment on above: Performed By: #### R LA, RUBIS, VARIS, HBSAG #### [place] [address] #### ABSGEL, ABOGEL, ADIFF, HIVRP, TSH, CBC, ANEU #### [address] [address] Monocytes/100 WBC (Bld) 6.0 % Normal 2.0-13.0 [facility] Comment on above: Performed By: #### R LA, RUBIS, VARIS, HBSAG #### [place] [address] #### ABSGEL, ABOGEL, ADIFF, HIVRP, TSH, CBC, ANEU #### [address] [address] Neutrophils/100 WBC (Bld) 67.0 % Normal 50.0-75.0 [facility] Comment on above: Performed By: #### R LA, RUBIS, VARIS, HBSAG #### [place] [address] #### ABSGEL, ABOGEL, ADIFF, HIVRP, TSH, CBC, ANEU #### [address] [address] .NEUABSon 03-15-2025 Neutrophil, Absolute 5.2 10 3/mcL Normal 2.3-8.1 [facility] Comment on above: Performed By: #### A DIFF, ANEU, CBC, GLU1P #### [address] [address] #### RPR #### [place] [id number] ABO/Rh (Gel)on 03-15-2025 ABO/Rh Interp Negative Invalid Interpretation Code [facility] Comment on above: Performed By: #### A DIFF, ANEU, CBC, GLU1P #### [address] [address] #### RPR #### [place] [address] ABS (Gel)on 03-15-2025 ABSC Interp (Gel) Negative Normal [facility] Comment on above: Performed By: #### A DIFF, ANEU, CBC, GLU1P #### [address] [address] #### RPR #### [place] [address] CBCon 03-15-2025 Erythrocyte distribution width (RBC) [Ratio] 13.4 % Normal 11.5-15.5 [facility] Comment on above: Performed By: #### R LA, RUBIS, VARIS, HBSAG #### [place] [address] #### ABSGEL, ABOGEL, ADIFF, HIVRP, TSH, CBC, ANEU #### [address] [address] Hematocrit (Bld) [Volume fraction] 37.7 % Normal 34.0-46.0 [facility] Comment on above: Performed By: #### R LA, RUBIS, VARIS, HBSAG #### [place] [address] #### ABSGEL, ABOGEL, ADIFF, HIVRP, TSH, CBC, ANEU #### [address] [address] Hgb 13.1 G/dL Normal 12.0-16.0 [facility] Comment on above: Performed By: #### R LA, RUBIS, VARIS, HBSAG #### [place] [address] #### ABSGEL, ABOGEL, ADIFF, HIVRP, TSH, CBC, ANEU #### [address] [address] MCH (RBC) [Entitic mass] 31.9 pg Normal 27.0-33.0 [facility] Comment on above: Performed By: #### R LA, RUBIS, VARIS, HBSAG #### [place] [address] #### ABSGEL, ABOGEL, ADIFF, HIVRP, TSH, CBC, ANEU #### [address] [address] MCHC 34.7 G/dL Normal 32.0-36.0 [facility] Comment on above: Performed By: #### R LA, RUBIS, VARIS, HBSAG #### [place] [address] #### ABSGEL, ABOGEL, ADIFF, HIVRP, TSH, CBC, ANEU #### [place] [address] MCV (RBC) [Entitic vol] 91.8 fL Normal 80.0-99.0 [facility] Comment on above: Performed By: #### R LA, RUBIS, VARIS, HBSAG #### [place] [address] #### ABSGEL, ABOGEL, ADIFF, HIVRP, TSH, CBC, ANEU #### [address] [address] Platelet 324 10 3/mcL Normal 150-450 [facility] Comment on above: Performed By: #### R LA, RUBIS, VARIS, HBSAG #### [place] [address] #### ABSGEL, ABOGEL, ADIFF, HIVRP, TSH, CBC, ANEU #### [place] [address] Platelet mean volume (Bld) [Entitic vol] 7.5 fL Normal 6.6-10.5 [facility] Comment on above: Performed By: #### R LA, RUBIS, VARIS, HBSAG #### [place] [address] #### ABSGEL, ABOGEL, ADIFF, HIVRP, TSH, CBC, ANEU #### [address] [address] RBC 4.11 10 6/mcL Normal 4.10-5.30 [facility] Comment on above: Performed By: #### R LA, RUBIS, VARIS, HBSAG #### [place] [address] #### ABSGEL, ABOGEL, ADIFF, HIVRP, TSH, CBC, ANEU #### [place] [address] WBC 7.7 10 3/mcL Normal 4.5-10.8 [facility] Comment on above: Performed By: #### R LA, RUBIS, VARIS, HBSAG #### [place] [address] #### ABSGEL, ABOGEL, ADIFF, HIVRP, TSH, CBC, ANEU #### [place] [address] HBSAGon 03-15-2025 Hep B Surf Ag Non-Reactive Normal Non-Reactive [facility] Comment on above: Performed By: #### A DIFF, ANEU, CBC, GLU1P #### [place] [address] #### RPR #### [place] [address] HIVRPon 03-15-2025 HIV p24 Antigen Non-Reactive Normal Non-Reactive [facility] Comment on above: Result Comment: Dete ction of p24 may be inhibited by biotin in the sample, causing false negative results in acute infection. Therefore do not test samples from patients who are taking biotin. Performed By: #### A DIFF, ANEU, CBC, GLU1P #### [place] [address] #### RPR #### [place] [address] HIV P24 Int Non-Reactive Invalid Interpretation Code [facility] Comment on above: Performed By: #### A DIFF, ANEU, CBC, GLU1P #### [address] [address] #### RPR #### [facility] [address] [place] [address] Rapid HIV 1/2 Antibody Non-Reactive Normal Non-Reactive [facility] Comment on above: Performed By: #### A DIFF, ANEU, CBC, GLU1P #### [address] [address] #### RPR #### [facility] [address] [place] [address] RHIV 1/2 Ab Int Non-Reactive Invalid Interpretation Code [facility] Comment on above: Performed By: #### A DIFF, ANEU, CBC, GLU1P #### [address] [address] #### RPR #### [facility] [address] [place] [address] LABORATORYOrdered By: Krysta Valdovinos on 03-15-2025 C. [...] Probable Contamination. Suggest recollection if clinically indicated. [facility] Work Phone: TSHon 03-15-2025 TSH Qn 2.74 m[IU]/L Normal 0.36-3.74 [facility] Comment on above: Performed By: #### A DIFF, ANEU, CBC, GLU1P #### [facility] [address] [place], [place] [address] #### RPR #### [facility] [address] [place] [address] CNOVon 04-10-2024 CNOV Office Visit (ROCHELLEUPCECILY ) EVELYN MADDOX ([id number]) 1995 F Date Time Provider Department 04/10/24 2:10 PM ALETHEA LEYVA During your visit today, we recorded the following information about you: Temperature Pulse Respiration Blood pressure 97.5 degrees 76/minute 16/minute 111/75 Weight Last Period 74 kg 03/27/24 Alethea Leyva APRN.[employer] 04/10/2024 3:46 PM Addendum Xray of left foot and small toe looks ok. I will call if the radiologist reads abnormal. Wash abrasion with soap and water, apply bacitracin ointment for 1-2 days. Eli tape toes for extra support. 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 ICE AREA FREQUENTLY REST/ELEVATE TYLENOL AND/OR IBUPROFEN FOR PAIN [facility] [address] [place] [address] [address] [place] [phone] [facility] D[id number] [place] [phone] Alethea Leyva APRN.[employer]AN 04/10/2024 3:48 PM Signed April 10, 2024 [...] Moderate This note was partially generated using Spunkmobile voice recognition system and there may be [...] of Date: 04/10 (more content not included)... Normal [facility] XR FOOT 3V AP/LAT/OBL LTon 0 04-10-2024 [...] within normal limits. IMPRESSION: Negative left foot. Nuclear Scientist: CASANDRA Transcribe Date/Time: Apr 10 2024 3:59P Dictated by : CORRINE MARRERO MD This examination was interpreted and the report reviewed and electronically signed by: CORRINE MARRERO MD on Apr 10 2024 4:00PM EST [id number] Normal [facility] XR Foot - left AP and Latera l and obliqueon 04-10-2024 IMPRESSION: Negative left foot. Nuclear Scientist: PSCB Transcribe Date/Time: Apr 10 2024 3:59P Dictated by : CORRINE MARRERO MD This examination was interpreted and the report reviewed and electronically signed by: CORRINE MARRERO MD on Apr 10 2024 4:00PM EST [facility] * * *Final Report* * * [...] preserved. Soft tissues appear within normal limits. [facility] Provider, Doreen Yoshi [facility] - 04/10/2024 * * *Final Report* * [...] normal limits. IMPRESSION IMPRESSION: Negative left foot. Nuclear Scientist: CASANDRA Transcribe Date/Time: Apr 10 2024 3:59P Dictated by : CORRINE MARRERO MD This examination was interpreted and the report reviewed and electronically signed by: CORRINE MARRERO MD on Apr 10 2024 4:00PM EST [facility] Radiology Study observation (narrative) [facility] XR Foot - left AP and Latera l and obliqueOrdered By: Ccf Provider on 04-10-2024 [facility] [employer] Crib Manager Cytology Reporton 2022 Tool Crib Manager Cytology Report . Pathology Reports Accession: Collected Date/Time: Received Date/Time: Pathologist: [id number] 06/10/2023 11:06 EDT 06/10/2023 18:00 EDT Tool Crib Manager Cytology Report SPECIMEN: Specimen Description: Liquid [...] and evaluated with the assistance of the neoSaej ThinPrep Test Imaging System. Pathology Reports Accession: Collected Date/Time: Received Date/Time: Pathologist: [id number] 06/10/2023 11:06 EDT 06/10/2023 18:00 EDT Electronically Signed by Pathology report verified by [facility] Screened by: KATELYN Electronically signed by Britney GALEAS (ASCP) Sign-Out Date: 06/22/2023 10:38 Performing Lab: [facility], [address] [place] [address] Pathology Dept Disclaimer The Pap test is a screening test for cervical cancer. As evidenced by published data, it is subject to both inherent false negative and false positive results. Your patient's results should be interpreted in context with pertinent clinical history including gynecological examination. Normal [facility] ([place]) HPVon 06-18-2023 HPV Interp Normal See Interp HPVN [facility] ([place] Comment on above: Order Comment: Order placed by AP_HPV_ORDER rule from [id number] Result Comment: High Risk HPV Typing: NEGATIVE [...] and sufficient DNA to be detected. See Inter HPVN Performed By: #### A DIFF, CBC, ANEU #### [place] [address] HPV Source Cervix Normal [facility] ([place]) Comment on above: Order Comment: Order placed by AP_HPV_ORDER rule from [id number] Performed By: #### A DIFF, CBC, ANEU #### [address] [address] .Auto Diffon 04-29-2023 Basophil, Absolute 0.0 10 3/mcL Normal 0.0-0.2 [facility]) Comment on above: Performed By: #### A DIFF, CBC, ANEU #### [address] [address] Basophils/100 WBC (Bld) 0.2 % Normal 0.0-2.5 [facility]) Comment on above: Performed By: #### A DIFF, CBC, ANEU #### [address] [address] Eosinophil, Absolute 0.2 10 3/mcL Normal 0.0-0.4 [facility] ([place]) Comment on above: Performed By: #### A DIFF, CBC, ANEU #### [address] [address] Eosinophils/100 WBC (Bld) 1.2 % Normal 0.0-7.0 [facility] ([place]) Comment on above: Performed By: #### A DIFF, CBC, ANEU #### [address] [address] Lymphocyte, Absolute 2.2 10 3/mcL Normal 0.8-3.9 [facility] ([place] Comment on above: Performed By: #### A DIFF, CBC, ANEU #### [address] [address] Lymphocytes/100 WBC (Bld) 17.0 % Normal 10.0-50.0 [facility] ([place]) Comment on above: Performed By: #### A DIFF, CBC, ANEU #### [address] [address] Monocyte, Absolute 1.1 10 3/mcL High 0.2-1.0 [facility] ([place]) Comment on above: Performed By: #### A DIFF, CBC, ANEU #### [address] [address] Monocytes/100 WBC (Bld) 8.1 % Normal 1.7-13.0 [facility] ([place]) Comment on above: Performed By: #### A DIFF, CBC, ANEU #### [address] [address] Neutrophils/100 WBC (Bld) 73.5 % Normal 37.0-80.0 [facility] ([place]) Comment on above: Performed By: #### A DIFF, CBC, ANEU #### [address] [address] .NEUABSon 04-29-2023 Neutrophil, Absolute 9.6 10 3/mcL High 2.9-6.2 [facility] ([place]) Comment on above: Performed By: #### A DIFF, CBC, ANEU #### [address] [address] CBCon 04-29-2023 Erythrocyte distribution width (RBC) [Ratio] 13.2 % Normal 11.5-14.5 [facility] ([place]) Comment on above: Performed By: #### A DIFF, CBC, ANEU #### [address] [address] Hematocrit (Bld) [Volume fraction] 33.9 % Low 37.0-47.0 [facility] ([place] Comment on above: Performed By: #### A DIFF, CBC, ANEU #### [address] [address] Hgb 11.5 G/dL Low 12.0-16.0 [facility] ([place] Comment on above: Performed By: #### A DIFF, CBC, ANEU #### [address] [address] MCH (RBC) [Entitic mass] 31.8 pg High 27.0-31.2 [facility] ([place] Comment on above: Performed By: #### A DIFF, CBC, ANEU #### [address] [address] MCHC 34.1 G/dL Normal 33.0-37.0 [facility] ([place]) Comment on above: Performed By: #### A DIFF, CBC, ANEU #### [address] [address] MCV (RBC) [Entitic vol] 93.4 fL Normal 80.0-94.0 [facility] ([place]) Comment on above: Performed By: #### A DIFF, CBC, ANEU #### [address] [address] Platelet 234 10 3/mcL Normal 130-400 [facility] ([place]) Comment on above: Performed By: #### A DIFF, CBC, ANEU #### [place] [address] [place], [place] [address] Platelet mean volume (Bld) [Entitic vol] 7.5 fL Normal 7.4-10.4 [facility] ([place]) Comment on above: Performed By: #### A DIFF, CBC, ANEU #### [place] [address] [place], [place] [address] RBC 3.63 10 6/mcL Low 4.20-5.40 [facility] ([place]) Comment on above: Performed By: #### A DIFF, CBC, ANEU #### [address] [address] WBC 13.0 10 3/mcL High 4.6-10.8 [facility] ([place]) Comment on above: Performed By: #### A DIFF, CBC, ANEU #### [address] [address] LABORATORYOrdered By: SYSTEM SYSTEM on 04-29-2023 Basophil, [...] Ab RPR Ql (S) Non-Reactive Normal Non-Reactive [facility] ([place]) Comment on above: Result Comment: The RPR [...] By: #### A DIFF, CBC, ANEU #### [place] [address] [address] .Auto Diffon 04-27-2023 Basophil, Absolute 0.0 10 3/mcL Normal 0.0-0.2 [facility] ([place]) Comment on above: Performed By: #### A DIFF, CBC, ANEU #### [address] [address] Basophils/100 WBC (Bld) 0.1 % Normal 0.0-2.5 [facility] ([place]) Comment on above: Performed By: #### A DIFF, CBC, ANEU #### [address] [address] Eosinophil, Absolute 0.1 10 3/mcL Normal 0.0-0.4 [facility] ([place]) Comment on above: Performed By: #### A DIFF, CBC, ANEU #### [address] [address] Eosinophils/100 WBC (Bld) 1.1 % Normal 0.0-7.0 [facility] ([place]) Comment on above: Performed By: #### A DIFF, CBC, ANEU #### [address] [address] Lymphocyte, Absolute 2.4 10 3/mcL Normal 0.8-3.9 [facility] ([place]) Comment on above: Performed By: #### A DIFF, CBC, ANEU #### [address] [address] Lymphocytes/100 WBC (Bld) 21.7 % Normal 10.0-50.0 [facility] ([place] Comment on above: Performed By: #### A DIFF, CBC, ANEU #### [address] [address] Monocyte, Absolute 0.9 10 3/mcL Normal 0.2-1.0 [facility] ([place]) Comment on above: Performed By: #### A DIFF, CBC, ANEU #### [address] [address] Monocytes/100 WBC (Bld) 8.2 % Normal 1.7-13.0 [facility] ([place]) Comment on above: Performed By: #### A DIFF, CBC, ANEU #### [address] [address] Neutrophils/100 WBC (Bld) 68.9 % Normal 37.0-80.0 [facility] ([place]) Comment on above: Performed By: #### A DIFF, CBC, ANEU #### [address] [address] .NEUABSon 04-27-2023 Neutrophil, Absolute 7.5 10 3/mcL High 2.9-6.2 [facility] ([place]) Comment on above: Performed By: #### A DIFF, CBC, ANEU #### [place] [id number] CBCon 04-27-2023 Erythrocyte distribution width (RBC) [Ratio] 13.4 % Normal 11.5-14.5 [facility] ([place] Comment on above: Performed By: #### A DIFF, CBC, ANEU #### [place] [address] Hematocrit (Bld) [Volume fraction] 37.4 % Normal 37.0-47.0 [facility] ([place] Comment on above: Performed By: #### A DIFF, CBC, ANEU #### [place] [id number] Hgb 13.0 G/dL Normal 12.0-16.0 [facility] ([place] Comment on above: Performed By: #### A DIFF, CBC, ANEU #### [address] [address] MCH (RBC) [Entitic mass] 32.4 pg High 27.0-31.2 [facility] ([place]) Comment on above: Performed By: #### A DIFF, CBC, ANEU #### [place] [address] MCHC 34.8 G/dL Normal 33.0-37.0 [facility] ([place] Comment on above: Performed By: #### A DIFF, CBC, ANEU #### [address] [address] MCV (RBC) [Entitic vol] 93.1 fL Normal 80.0-94.0 [facility] ([place]) Comment on above: Performed By: #### A DIFF, CBC, ANEU #### [address] [address] Platelet 248 10 3/mcL Normal 130-400 [facility] ([place]) Comment on above: Performed By: #### A DIFF, CBC, ANEU #### [address] [address] Platelet mean volume (Bld) [Entitic vol] 7.6 fL Normal 7.4-10.4 [facility] ([place]) Comment on above: Performed By: #### A DIFF, CBC, ANEU #### [address] [address] RBC 4.01 10 6/mcL Low 4.20-5.40 [facility] ([place]) Comment on above: Performed By: #### A DIFF, CBC, ANEU #### [address] [address] WBC 10.9 10 3/mcL High 4.6-10.8 [facility] ([place]) Comment on above: Performed By: #### A DIFF, CBC, ANEU #### [address] [address] Gel ABOon 04-27-2023 ABO/Rh Interp Negative Invalid Interpretation Code [facility] ([place]) Comment on above: Performed By: #### A DIFF, CBC, ANEU #### [address] [address] Gel ABSon 04-27-2023 Antibody Screen Gel Negative Normal [facility] ([place]) Comment on above: Performed By: #### A DIFF, CBC, ANEU #### [address] [address] LABORATORYOrdered By: Niurka Hughes on 04-26-2023 ABO/Rh [...] Nom (Bld) A negative (04/26/23 10:10 PM) [facility] Work Phone: Group B Strep Date Performed [id number] [facility] Work Phone: Group B Strep, External Positive (04/26/23 10:10 PM) [facility] Work Phone: Hepatitis B Date Performed [id number] [facility] Work Phone: Hepatitis B, External Negative (04/26/23 10:10 PM) [facility] Work Phone: HIV Antibodies, External Negative (04/26/23 10:10 PM) [facility] Work Phone: HIV Date Performed [id number] [facility] Work Phone: RPR Date Performed [id number] [facility] Work Phone: RPR, External Reactive (04/26/23 10:10 PM) [facility] Work Phone: Rubella Date Performed [id number] [facility] Work Phone: Rubella, External Nonimmune (04/26/23 10:10 PM) [facility] Work Phone: GBSPCRon 04-02-2023 Group B Strep (PCR) Positive Abnormal Negative [facility] ([place]) Comment on above: Performed By: #### G BSPCR #### [place] [address] [place], [place] [address] Group B Strep PCR Int Normal [facility] ([place]) Comment on above: Result Comment: Grou p [...] Below Performed By: #### G BSPCR #### [place] [address] [place], [place] [address] LABORATORYOrdered By: Gianni Cornell on 04-01-2023 Group [...] Ab RPR Ql (S) Non-Reactive Normal Non-Reactive [facility] ([place]) Comment on above: Result Comment: The RPR [...] #### A NISHANT, GLU, ADIFF, CBC #### [address] [address] #### RPR #### [address] [address] .Auto Diffon 01-14-2023 Basophil, Absolute 0.0 10 3/mcL Normal 0.0-0.2 [facility] ([place]) Comment on above: Performed By: #### A NISHANT, GLU, ADIFF, CBC #### [address] [address] #### RPR #### [address] [address] Basophils/100 WBC (Bld) 0.3 % Normal 0.0-2.5 [facility] ([place]) Comment on above: Performed By: #### A NISHANT, GLU, ADIFF, CBC #### [place] [address] #### RPR #### [address] [address] Eosinophil, Absolute 0.1 10 3/mcL Normal 0.0-0.4 [facility] ([place]) Comment on above: Performed By: #### A NISHANT, GLU, ADIFF, CBC #### [address] [address] #### RPR #### [address] [address] Eosinophils/100 WBC (Bld) 1.1 % Normal 0.0-7.0 [facility] ([place]) Comment on above: Performed By: #### A NISHANT, GLU, ADIFF, CBC #### [address] [address] #### RPR #### [address] [address] Lymphocyte, Absolute 1.6 10 3/mcL Normal 0.8-3.9 [facility] ([place]) Comment on above: Performed By: #### A NISHANT, GLU, ADIFF, CBC #### [address] [address] #### RPR #### [address] [address] Lymphocytes/100 WBC (Bld) 16.4 % Normal 10.0-50.0 [facility] ([place]) Comment on above: Performed By: #### A NISHANT, GLU, ADIFF, CBC #### [address] [address] #### RPR #### [address] [address] Monocyte, Absolute 0.6 10 3/mcL Normal 0.2-1.0 [facility] ([place]) Comment on above: Performed By: #### A NISHANT, GLU, ADIFF, CBC #### [address] [address] #### RPR #### [address] [address] Monocytes/100 WBC (Bld) 6.3 % Normal 1.7-13.0 [facility] ([place]) Comment on above: Performed By: #### A NISHANT, GLU, ADIFF, CBC #### [address] [address] #### RPR #### [address] [address] Neutrophils/100 WBC (Bld) 75.9 % Normal 37.0-80.0 [facility] ([place]) Comment on above: Performed By: #### A NISHANT, GLU, ADIFF, CBC #### [address] [address] #### RPR #### [address] [address] .NEUABSon 01-14-2023 Neutrophil, Absolute 7.5 10 3/mcL High 2.9-6.2 [facility] ([place]) Comment on above: Performed By: #### A NISHANT, GLU, ADIFF, CBC #### [address] [address] #### RPR #### [address] [address] CBCon 01-14-2023 Erythrocyte distribution width (RBC) [Ratio] 14.0 % Normal 11.5-14.5 [facility] ([place]) Comment on above: Performed By: #### A NISHANT, GLU, ADIFF, CBC #### [place] [address] #### RPR #### [place] [address] Hematocrit (Bld) [Volume fraction] 35.6 % Low 37.0-47.0 [facility] ([place]) Comment on above: Performed By: #### A NISHANT, GLU, ADIFF, CBC #### [place] [address] #### RPR #### [place] [address] Hgb 12.3 G/dL Normal 12.0-16.0 [facility] ([place]) Comment on above: Performed By: #### A NISHANT, GLU, ADIFF, CBC #### [place] [address] #### RPR #### [place] [address] MCH (RBC) [Entitic mass] 32.0 pg High 27.0-31.2 [facility] ([place]) Comment on above: Performed By: #### A NISHANT, GLU, ADIFF, CBC #### [place] [address] #### RPR #### [place] [address] MCHC 34.6 G/dL Normal 33.0-37.0 [facility] ([place]) Comment on above: Performed By: #### A NISHANT, GLU, ADIFF, CBC #### [place] [address] #### RPR #### [facility] [address] [place], [place] [address] MCV (RBC) [Entitic vol] 92.7 fL Normal 80.0-94.0 [facility] ([place]) Comment on above: Performed By: #### A NISHANT, GLU, ADIFF, CBC #### [address] [address] #### RPR #### [place] [address] Platelet 344 10 3/mcL Normal 130-400 [facility] ([place]) Comment on above: Performed By: #### A NISHANT, GLU, ADIFF, CBC #### [address] [address] #### RPR #### [place] [address] Platelet mean volume (Bld) [Entitic vol] 7.8 fL Normal 7.4-10.4 [facility] ([place]) Comment on above: Performed By: #### A NISHANT, GLU, ADIFF, CBC #### [place] [address] #### RPR #### [place] [address] RBC 3.84 10 6/mcL Low 4.20-5.40 [facility] ([place]) Comment on above: Performed By: #### A NISHANT, GLU, ADIFF, CBC #### [place] [address] #### RPR #### [place] [address] WBC 9.9 10 3/mcL Normal 4.6-10.8 [facility] ([place]) Comment on above: Performed By: #### A NISHANT, GLU, ADIFF, CBC #### [place] [address] #### RPR #### [place] [address] GLUon 01-14-2023 Glucose [Mass/Vol] 82 mg/dL Normal 70-105 [facility] ([place]) Comment on above: Order Comment: post glucola Performed By: #### A NISHANT, GLU, ADIFF, CBC #### [place] [address] [place], [place] [address] #### RPR #### [facility] [address] [place] [address] Gel ABOon 01-14-2023 ABO/Rh Interp Negative Invalid Interpretation Code [facility] ([place]) Comment on above: Performed By: #### A DIFF, CBC, ANEU #### [place] [address] [place], [place] [address] Gel ABSon 01-14-2023 Antibody Screen Gel Negative Normal [facility] ([place]) Comment on above: Performed By: #### A DIFF, CBC, ANEU #### [address] [address] LABORATORYOrdered By: Gerald Can on 01-14-2023 Basophil, [...] trachomatis Interp Normal See CT Interp N [facility] ([place]) Comment on above: Result Comment: C. t rachomatis DNA not detected. Specimen is presumptive negative for C. trachomatis. A negative result does not preclude C. trachomatis infection because results depend on adequate specimen collection, absence of inhibitors, and sufficient DNA to be detected. See CT Interp N Performed By: #### A DIFF, CBC, ANEU #### [place] [address] [place], [place] [address] C.trachomatis PCR Negative Normal Negative [facility] ([place]) Comment on above: Result Comment: Stokes sport tube received with two swabs. Review collection procedure. Inappropriate collection may cause aberrant results. Molecular (PCR) assay performed on the [employer]up[employer] E[employer] 4800 system. Performed By: #### A DIFF, CBC, ANEU #### [place] [address] Chlam Source Vaginal Normal [facility] ([place]) Comment on above: Performed By: #### A DIFF, CBC, ANEU #### [address] [address] [id number] 10-25-2022 GC PCR Source Vaginal Normal [facility] ([place]) Comment on above: Performed By: #### A DIFF, CBC, ANEU #### [address] [address] N. gonorrhoeae (PCR) Negative Normal Negative [facility] ([place]) Comment on above: Result Comment: Stokes sport tube received with two swabs. Review collection procedure. Inappropriate collection may cause aberrant results. Molecular (PCR) assay performed on the [employer] 4800 System. Performed By: #### A DIFF, CBC, ANEU #### [address] [address] N. gonorrhoeae Interp Normal See NG Interp N [facility] ([place]) Comment on above: Result Comment: N. g onorrhoeae DNA not detected. Specimen is presumptive negative for N. gonorrhoeae. A negative result does not preclude Neisseria gonorrhoeae infection because results depend on adequate specimen collection, absence of inhibitors, and sufficient DNA to be detected. See NG Interp N Performed By: #### A DIFF, CBC, ANEU #### [address] [address] RPRon 10-24-2022 Reagin Ab RPR Ql (S) Non-Reactive Normal Non-Reactive [facility] ([place]) Comment on above: Result Comment: The RPR [...] By: #### A DIFF, CBC, ANEU #### [address] [address] RUBISon 10-24-[address] Negative Normal Positive [facility] ([place]) Comment on above: Result Comment: This immune status assay detects IgM and/or IgG antibody to Rubella. Interpret results in conjunction with clinical history. POS: Antibody detected; exposure at undetermined recent or distant time. If clinically indicated, order Rubella IGM to rule out recent infection. NEG: No antibody detected. Performed By: #### A DIFF, CBC, ANEU #### [address] [address] VARISon 10-24-[address] Positive Normal [facility] ([place]) Comment on above: Result Comment: INTE RPRETATION OF VARICELLA IMMUNE STATUS IgG BY EIA: Negative: No detectable VZV IgG antibody. Positive: VZV IgG antibody Detected. If clinically indicated, order Varicella IgM to rule out recent infection. Equivocal: Equivocal for antibodies to VZV. Suggest repeat testing in 10-14 days. Performed By: #### A DIFF, CBC, ANEU #### [address] [address] HBSAGon 10-23-2022 Hep B Surf Ag Non-Reactive Normal Non-Reactive [facility] ([place]) Comment on above: Performed By: #### A DIFF, CBC, ANEU #### [address] [address] .Auto Diffon 10-22-2022 Basophil, Absolute 0.1 10 3/mcL Normal 0.0-0.2 [facility] ([place]) Comment on above: Performed By: #### A DIFF, CBC, ANEU #### [address] [address] Basophils/100 WBC (Bld) 0.6 % Normal 0.0-2.5 [facility] ([place]) Comment on above: Performed By: #### A DIFF, CBC, ANEU #### [address] [address] Eosinophil, Absolute 0.1 10 3/mcL Normal 0.0-0.4 [facility] ([place]) Comment on above: Performed By: #### A DIFF, CBC, ANEU #### [address] [address] Eosinophils/100 WBC (Bld) 0.7 % Normal 0.0-7.0 [facility] ([place]) Comment on above: Performed By: #### A DIFF, CBC, ANEU #### [address] [address] Lymphocyte, Absolute 2.4 10 3/mcL Normal 0.8-3.9 [facility] ([place]) Comment on above: Performed By: #### A DIFF, CBC, ANEU #### [address] [address] Lymphocytes/100 WBC (Bld) 20.4 % Normal 10.0-50.0 [facility] ([place]) Comment on above: Performed By: #### A DIFF, CBC, ANEU #### [address] [address] Monocyte, Absolute 0.7 10 3/mcL Normal 0.2-1.0 [facility] ([place]) Comment on above: Performed By: #### A DIFF, CBC, ANEU #### [address] [address] Monocytes/100 WBC (Bld) 5.9 % Normal 1.7-13.0 [facility] ([place]) Comment on above: Performed By: #### A DIFF, CBC, ANEU #### [address] [address] Neutrophils/100 WBC (Bld) 72.4 % Normal 37.0-80.0 [facility] ([place]) Comment on above: Performed By: #### A DIFF, CBC, ANEU #### [address] [address] .NEUABSon 10-22-2022 Neutrophil, Absolute 8.4 10 3/mcL High 2.9-6.2 [facility] ([place]) Comment on above: Performed By: #### A DIFF, CBC, ANEU #### [address] [address] CBCon 01-18-2023 Erythrocyte distribution width (RBC) [Ratio] 13.3 % Normal 11.5-14.5 [facility] ([place]) Comment on above: Performed By: #### A DIFF, CBC, ANEU #### [address] [address] Hematocrit (Bld) [Volume fraction] 36.9 % Low 37.0-47.0 [facility] ([place]) Comment on above: Performed By: #### A DIFF, CBC, ANEU #### [address] [address] Hgb 12.7 G/dL Normal 12.0-16.0 [facility] ([place] Comment on above: Performed By: #### A DIFF, CBC, ANEU #### [address] [address] MCH (RBC) [Entitic mass] 31.1 pg Normal 27.0-31.2 [facility] ([place]) Comment on above: Performed By: #### A DIFF, CBC, ANEU #### [address] [address] MCHC 34.3 G/dL Normal 33.0-37.0 [facility] ([place]) Comment on above: Performed By: #### A DIFF, CBC, ANEU #### [address] [address] MCV (RBC) [Entitic vol] 90.5 fL Normal 80.0-94.0 [facility] ([place]) Comment on above: Performed By: #### A DIFF, CBC, ANEU #### [address] [address] Platelet 337 10 3/mcL Normal 130-400 [facility] ([place]) Comment on above: Performed By: #### A DIFF, CBC, ANEU #### [address] [address] Platelet mean volume (Bld) [Entitic vol] 7.4 fL Normal 7.4-10.4 [facility] ([place]) Comment on above: Performed By: #### A DIFF, CBC, ANEU #### [address] [address] RBC 4.08 10 6/mcL Low 4.20-5.40 [facility] ([place]) Comment on above: Performed By: #### A DIFF, CBC, ANEU #### [address] [address] WBC 11.6 10 3/mcL High 4.6-10.8 [facility] ([place]) Comment on above: Performed By: #### A DIFF, CBC, ANEU #### [address] [address] Gel ABOon 10-22-2022 ABO/Rh Interp Negative Invalid Interpretation Code [facility] ([place]) Comment on above: Performed By: #### A DIFF, CBC, ANEU #### [address] [address] Gel ABSon 10-22-2022 Antibody Screen Gel Negative Normal [facility] ([place]) Comment on above: Performed By: #### A DIFF, CBC, ANEU #### [address] [address] HIVRPon 10-22-2022 HIV p24 Antigen Non-Reactive Normal Non-Reactive [facility] ([place]) Comment on above: Result Comment: Dete ction of p24 may be inhibited by biotin in the sample, causing false negative results in acute infection. Therefore do not test samples from patients who are taking biotin. Performed By: #### A DIFF, CBC, ANEU #### [address] [address] HIV P24 Int Non-Reactive Invalid Interpretation Code [facility] ([place]) Comment on above: Performed By: #### A DIFF, CBC, ANEU #### [address] [address] Rapid HIV 1/2 Antibody Non-Reactive Normal Non-Reactive [facility] ([place] Comment on above: Performed By: #### A DIFF, CBC, ANEU #### [address] [address] RHIV 1/2 Ab Int Non-Reactive Invalid Interpretation Code [facility] ([place]) Comment on above: Performed By: #### A DIFF, CBC, ANEU #### [place] [address] LABORATORYOrdered By: Krysta Valdovinos on 10-22-2022 C. [...] cfu/ml. No Significant growth. Sensitivity not indicated. [facility] Work Phone: TSHon 10-22-2022 TSH Qn 2.18 m[IU]/L Normal 0.36-3.74 [facility] ([place]) Comment on above: Performed By: #### A DIFF, CBC, ANEU #### [facility] [address] [place], [place] [address] Vital Signs Date Time Vital Sign Value Performing Clinician Facility 07-10-2025 15:39-0400 Body height 162.56 cm Angely Stone CNM Work Phone: [facility] 07-10-2025 15:39-0400 Body mass index (BMI) [Ratio] 30.9 kg/m2 Angely LEYVA Work Phone: [facility] 07-10-2025 15:39-0400 Body weight 81.9 kg Angely LEYVAM Work Phone: [facility] 07-10-2025 15:39-0400 Diastolic blood pressure 74 mm[Hg] Angely LEYVA Work Phone: [facility] 07-10-2025 15:39-0400 Systolic blood pressure 115 mm[Hg] Angely LEYVA Work Phone: [facility] 06-27-2025 11:41-0400 Body height 162.56 cm Angely Stone CNM Work Phone: [facility] 06-27-2025 11:41-0400 Body mass index (BMI) [Ratio] 30.2 kg/m2 Angely Stone CNM Work Phone: [facility] 06-27-2025 11:41-0400 Body weight 79.94 kg Angely Stone CNM Work Phone: [facility] 06-27-2025 11:41-0400 Diastolic blood pressure 82 mm[Hg] Angely Stone CNM Work Phone: [facility] 06-27-2025 11:41-0400 Systolic blood pressure 127 mm[Hg] Angely Stone CNM Work Phone: [facility] 04-10-2024 14:52-0400 Body temperature 97.5 [degF] Alethea Ledger FEED MANAGEMENT ADVISOR.APPEALS REVIEWER VETERAN Work Phone: [facility] 04-10-2024 14:52-0400 Body weight 74 kg Alethea Ledger FEED MANAGEMENT ADVISOR.APPEALS REVIEWER VETERAN Work Phone: [facility] 04-10-2024 14:52-0400 Diastolic blood pressure 75 mm[Hg] Alethea Ledger FEED MANAGEMENT ADVISOR.APPEALS REVIEWER VETERAN Work Phone: [facility] 04-10-2024 14:52-0400 Heart rate 76 /min Alethea Ledger FEED MANAGEMENT ADVISOR.APPEALS REVIEWER VETERAN Work Phone: [facility] 04-10-2024 14:52-0400 Respiratory rate 16 /min Alethea Ledger FEED MANAGEMENT ADVISOR.APPEALS REVIEWER VETERAN Work Phone: [facility] 04-10-2024 14:52-0400 SaO2% (BldA) [Mass fraction] 95 % Alethea Ledger FEED MANAGEMENT ADVISOR.APPEALS REVIEWER VETERAN Work Phone: [facility] 04-10-2024 14:52-0400 Systolic blood pressure 111 mm[Hg] Alethea Ledger FEED MANAGEMENT ADVISOR.APPEALS REVIEWER VETERAN Work Phone: [facility] 04-29-2023 11:00-0400 Body temperature 98.6 [degF] JOHN VERDUGO DO [facility] 04-29-2023 11:00-0400 Diastolic Blood Pressure Non-Invasive 65 1 JOHN VERDUGO DO [facility] 04-29-2023 11:00-0400 Heart rate 88 /min JOHN VERDUGO DO [facility] 04-29-2023 11:00-0400 Respiratory rate 18 /min JOHN VERDUGO DO [facility] 04-29-2023 11:00-0400 Systolic Blood Pressure Non-Invasive 118 1 JOHN VERDUGO DO [facility] 04-28-2023 23:59-0400 Body temperature 97.88 [degF] JOHN VERDUGO DO [facility] 04-28-2023 23:59-0400 Diastolic Blood Pressure Non-Invasive 67 1 JOHN VERDUGO DO [facility] 04-28-2023 23:59-0400 Heart rate 72 /min JOHN VERDUGO DO [facility] 04-28-2023 23:59-0400 Reason For Taking VItal Signs JOHN VERDUGO DO [facility] 04-28-2023 23:59-0400 Respiratory rate 16 /min JOHN VERDUGO DO [facility] 04-28-2023 23:59-0400 Systolic Blood Pressure Non-Invasive 107 1 JOHN VERDUGO DO [facility] 04-28-2023 15:40-0400 Body temperature 97.52 [degF] JOHN VERDUGO DO [facility] 04-28-2023 15:40-0400 Diastolic Blood Pressure Non-Invasive 77 1 JOHN SHEROCK DO [facility] 04-28-2023 15:40-0400 Heart rate 92 /min JOHN VERDUGO DO [facility] 04-28-2023 15:40-0400 Reason For Taking VItal Signs JOHN VERDUGO DO [facility] 04-28-2023 15:40-0400 Respiratory rate 18 /min JOHN VERDUGO DO [facility] 04-28-2023 15:40-0400 Systolic Blood Pressure Non-Invasive 115 1 JOHN VERDUGO DO [facility] 04-28-2023 08:16-0400 Reason For Taking VItal Signs JOHN VERDUGO DO [facility] 04-26-2023 22:10-0400 Body height 162.6 cm JOHN VERDUGO DO [facility] 04-26-2023 22:10-0400 Body weight 84.1 kg JOHN VERDUGO DO [facility] 04-26-2023 22:10-0400 Body weight 31.81 kg/m2 JOHN VERDUGO DO [facility] Encounters Encounter Date Encounter Type Care Provider Facility Start: 07-27-2025 ambulatory Atiya Chase NP Facil ity:[facility] Start: 07-10-2025 End: 07-10-2025 Patient encounter procedure Angely Stone CNM -Laboratory Specimen Work Phone: Start: 07-10-2025 End: 07-10-2025 ambulatory Angely Sotne CNM Work Phone: -[facility] Start: 07-03-2025 End: 07-03-2025 ambulatory Angely Stone CNM Work Phone: -Laboratory Start: 07-03-2025 End: 07-03-2025 Patient encounter procedure Angely Stone CNM -Laboratory Work Phone: Start: 07-03-2025 End: 07-03-2025 ambulatory No Primary Care Physician Facility:[facility] Start: 06-27-2025 End: 06-27-2025 Patient encounter procedure Angely Stone CNM -[facility] Work Phone: Start: 06-27-2025 End: 06-27-2025 ambulatory Angely Stone CNM Work Phone: -[facility] Start: 06-20-2025 End: 06-20-2025 ambulatory ROMÁN W CRISTO DO Facility:[facility] Start: 06-20-2025 End: 06-20-2025 Patient encounter procedure BELKYS ESCALANTE FEED MANAGEMENT ADVISOR-CNM [facility] Start: 04-29-2025 End: 04-29-2025 Emergency department patient visit DR LUIS EDUARDO PADILLA DO [facility] Start: 04-05-2025 End: 04-05-2025 ambulatory ROMÁN W CRISTO DO Facility:[facility] Start: 04-05-2025 End: 04-05-2025 Patient encounter procedure BELKYS ESCALANTE FEED MANAGEMENT ADVISOR-CNM [facility] Start: 03-15-2025 End: 03-19-2025 ambulatory BELKYS ESCALANTE FEED MANAGEMENT ADVISOR-CNM Facility:[facility] Start: 03-15-2025 End: 03-19-2025 Outreach Lab BELKYS ESCALANTE FEED MANAGEMENT ADVISOR-CNM [facility] Start: 03-15-2025 End: 03-15-2025 ambulatory BELKYS ESCALANTE FEED MANAGEMENT ADVISOR-CNM Facility:[facility] Start: 03-15-2025 End: 03-15-2025 Patient encounter procedure BELKYS ESCALANTE FEED MANAGEMENT ADVISOR-CNM [facility] Start: 02-01-2025 End: 02-01-2025 ambulatory ANA AGARWAL FEED MANAGEMENT ADVISOR-CNM Facility:[facility] Start: 02-01-2025 End: 02-01-2025 Patient encounter procedure ANA AGARWAL FEED MANAGEMENT ADVISOR-CNM [facility] Start: 04-10-2024 ambulatory ALETHEA LEYVA Facility:1 [id number] Start: 04-10-2024 End: 04-10-2024 Subsequent hospital visit by physician [facility] Comment on above: Toe injury, left, in itial encounter [S99.922A] Start: 04-10-2024 End: 04-10-2024 Patient encounter procedure Alethea Leyva FEED MANAGEMENT ADVISOR.APPEALS REVIEWER VETERAN Work Phone: [facility] Comment on above: Toe injury, left, in itial encounter (Primary Dx) Start: 04-10-2024 End: 04-10-2024 ambulatory ALETHEAJessica LEYVA Facility:[id number] Start: 06-10-2023 End: 06-15-2023 ambulatory BELKYS ESCALANTE FEED MANAGEMENT ADVISOR-CNM Facility:B Start: 04-26-2023 End: 04-29-2023 Evaluation and management of inpatient JOHN Jaya VERDUGO DO Facility:B Start: 04-26-2023 End: 04-29-2023 Evaluation and management of inpatient JOHN Jaya VERDUGO DO [facility] Start: 04-01-2023 End: 04-06-2023 ambulatory ROMÁN LEMONS DO Facility:[facility] Start: 04-01-2023 End: 04-05-2023 Outreach Lab ANA AGARWAL FEED MANAGEMENT ADVISOR-CNM [facility] Start: 03-25-2023 End: 03-30-2023 ambulatory ROMÁN W CRISTO DO Facility:[facility] Start: 03-25-2023 End: 03-29-2023 Outreach Lab ANA AGARWAL FEED MANAGEMENT ADVISOR-CNM [facility] Start: 01-16-2023 End: 01-16-2023 ambulatory RICHRAFIA ESCALANTE FEED MANAGEMENT ADVISOR-CNM Facility:[facility] Start: 01-16-2023 End: 01-16-2023 SAME DAY STAY BELKYS ESCALANTE FEED MANAGEMENT ADVISOR-CNM [facility] Start: 01-14-2023 End: 01-15-2023 ambulatory RICHRAFIA ESCALANTE FEED MANAGEMENT ADVISOR-CNM Facility:[facility] Start: 01-14-2023 End: 01-14-2023 Patient encounter procedure ANA AGARWAL FEED MANAGEMENT ADVISOR-CNM [facility] Start: 11-25-2022 End: 11-26-2022 ambulatory ROMÁN W CRISTO DO Facility:A Start: 11-25-2022 End: 11-25-2022 Patient encounter procedure ANA AGARWAL FEED MANAGEMENT ADVISOR-CNM [facility] Start: 10-22-2022 End: 10-27-2022 ambulatory ROMÁN W CRISTO DO Facility:[facility] Start: 10-22-2022 End: 10-26-2022 Outreach Lab ANA AGARWAL FEED MANAGEMENT ADVISOR-CNM [facility] Start: 10-22-2022 End: 10-22-2022 Patient encounter procedure ANADEBBIE AGARWAL FEED MANAGEMENT ADVISOR-CNM [facility] Start: 09-22-2022 End: 09-23-2022 ambulatory ROMÁNBHAVESH LEMONS DO Facility:A Start: 09-22-2022 End: 09-22-2022 Patient encounter procedure ANA AGARWAL FEED MANAGEMENT ADVISOR-CNM [facility] Procedures Date Procedure Procedure Detail Performing Clinician Start: 07-10-2025 Measurement of pH in vaginal fluid specimen using nitrazine yellow for detection of rupture of amniotic membrane Angely Stone CNM Work Phone: Comment on above: Amniotic fluid not p resent indicates No Rupture of FetalMembranes at time of specimen collection. Start: 04-10-2024 Radex foot complete minimum 3 views Alethea Leyva FEED MANAGEMENT ADVISOR.APPEALS REVIEWER VETERAN Work Phone: Start: 05-31-2020 Structure of wisdom tooth (body structure) JOHN VERDUGO DO Plan of Treatment Date Care Activity Detail Author Start: 07-03-2025 [facility] Start: 07-03-2025 Patient encounter procedure Registered Clinical -Laboratory Work Phone: Start: 06-05-2024 Covid-19 Vaccine ( season) Covid-19 Vaccine ( season) [facility] Start: 06-05-2024 Influenza vaccination Influenza Vacc ine (#1) [facility] Start: 10-05-2023 Behavioral Health Screening Behavioral Health Screening [facility] Start: 06-05-2023 Covid-19 Vaccine ( season) Covid-19 Vaccine ( season) [facility] Start: 2016 Screening for malign ant neoplasm of cervix Cervical Cancer Screening [facility] Start: 2014 Hepatitis B Vaccine (1 of 3 - 19+ 3-dose series) Hepatitis B Vaccine (1 of 3 - 19+ 3-dose series) [facility] Start: 2014 Urine microalbumin profile DTaP,Tdap,Td Vaccine (1 - Tdap) [facility] Start: 2013 Anxiety Screening Anxiety Screening [facility] Start: 2013 Depression Screening Depression Scre yunior [facility] Start: 2013 Hepatitis C screening Hepatitis C Sc reelior [facility] Start: 2013 HIV screening HIV Screening [facility] Start: 09-09-2013 Hepatitis B Vaccine (2 of 3 - 3-dose series) Hepatitis B Vaccine (2 of 3 - 3-dose series) [facility] Payers Date Payer Category Payer Self-pay 2025 Private Health Insurance [id number] 2023 Unknown [id number] 2022 Unknown [id number] 2022 Unknown [id number] 1995 Unknown [id number] 2.16.8 40.1.426805.3.579.2.7 1995 Unknown [id number] 2.16.8 40.1.424320.3.579.2.627 1995 Unknown [id number] 2.16.8 40.1.624857.3.579.2.627 1995 Unknown [id number] 2.16.8 40.1.541782.3.579.2.627 1995 Unknown [id number] 2.16.8 40.1.609743.3.579.2.627 1995 Unknown [id number] 2.16.8 40.1.650211.3.579.2.627 1995 Unknown [id number] 2.16.8 40.1.548932.3.579.2.627 1995 Unknown [id number] 2.16.8 40.1.735065.3.579.2.627 1995 Unknown [id number] 2.16.8 40.1.238779.3.579.2.627 1995 Unknown [id number] 2.16.8 40.1.400866.3.579.2.627 1995 Unknown [id number] 2.16.8 40.1.977868.3.579.2.627 1995 Unknown [id number] 2.16. 840.1.233200.3.579.2.627 1995 Unknown [id number] 2.16. 840.1.674469.3.579.2.627 1995 Unknown [id number] 2.16. 840.1.252290.3.579.2.627 1995 Unknown [id number] 2.16. 840.1.476894.3.579.2.627 1995 Unknown [id number] 2.16. 840.1.951185.3.579.2.627 1995 Unknown [id number] 2.16.8 40.1.689937.3.579.2.627 Unknown [id number] 2.16.8 40.1.758382.3.579.2.462 Unknown [id number] 2.16.8 40.1.026396.3.579.2.462 Unknown [id number] 2.16.8 40.1.104082.3.579.2.462 Unknown [id number] 2.16.8 40.1.178606.3.579.2.462 Unknown [id number] 2.16.8 40.1.891192.3.579.2.462 Social History Date Type Detail Facility Tobacco smoking status [facility] Start: 1995 Sex Assigned At Female A [facility] Start: 04-26-2023 End: 06-22-2025 Tobacco smoking status Never smoked tobacco (finding) [facility] Start: 04-10-2024 Tobacco use and exposure Smokeless tobacco non-user [facility] Start: 04-10-2024 Alcoholic beverage intake Current drinker of alcohol (finding) [facility] Start: 09-13-2020 End: 04-10-2024 History of Social function [facility] Start: 09-13-2020 End: 04-10-2024 Tobacco use panel [facility] National Score (1-10 0), lower number is lower risk Not on file [facility] Start: 04-10-2024 Alcohol Comment occ [facility] Start: 1995 Sex assigned at Not on file [facility] Start: 09-10-2022 Sex Female (finding) [facility] Functional Status Date Assessment Result Facility 04-29-2023 Functional Status Rooming in [facility] 04-26-2023 Functional Status Home with family care A [facility] Mental Status Date Assessment Result Facility 04-27-2023 Mental Status Orientation Oriented x 4 [facility] Clinical Notes 10-22-2022 to 07-10-2025 Note Date & Type Note Facility 07-10-2025 Progress note [facility] 07-10-2025 Progress note Note Date/Time July 10, 2025 4:13pm [facility] [address], [address] [place] [address] OFFICE VISIT Date of Service: 07/10/25 MR#: [id number] Acct: [id number] Name: EVELYN MADDOX I Rep #: [id number] : 1995 Provider: Dr. Enma Carl DO Age/Sex: 29/F Location: [facility] Status: Signed Intake Vital Signs 06/27/25 11:41 07/10/25 15:39 Height 5 ft 4 in 5 ft 4 in Weight: 180 lb 9 oz BMI 30.9 BP 115/74 Intake Visit Reasons: 32wk ob Business Applications Specialist Required: No Is patient in pain?: No Allergies No Known Allergies Allergy (Verified 07/10/25 15:37) Medications ?Medication ?Instructions ?Recorded ?Confirmed ?Type ascorbic acid (vitamin C) 500 mg mg PO 06/22/25 History capsule aspirin 81 mg tablet 81 mg PO QDAY 06/22/2507/10 History calcium gluconate 50 mg calcium mg PO 06/22/25 5 History capsule magnesium 250 mg tablet 250 mg PO QDAY 06/22/25 10/03/29 History multivit-min no.71-iron fum 28 cap PO 06/22/25 5 History mg-folate no.1 1 mg-dha 300 mg capsule (PNV-[place]) vitamin E (dl, acetate) 90 mg (200 90 mg PO QDAY 06/2207/10/25 History unit) capsule Last Menstrual Period: 11/28/24 Zika: Zika virus screening: Negative : No PFSH PFSH Medical History Seasonal allergies Surgical History [place] teeth extracted Family History Father Colon cancer, [...] children housing: house number of children: 1 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 OB Visit GAURANG Calculator Estimated Delivery Date Method Current WG Current Estimate 09/04/25 LMP (Certain) 32w 0d Expected Delivery Route/Plan Labor Preferences- CB/BF classes: [...] reviewed and PRR- waiting on glucose results. g ood fm and no vb/lof/ctx. will need rhogam 07/2207/10/25 -?-?-?-?-?-?-?-?-?-?-?-?- 32w 0d 180 lb 9 oz 115/74 Nega tive -?-?-?-?-?-?-?-?-?-?-?-?- Negative 145 Cephalic -?-?-?-?-?-?-?-?-?-?-?-?- JV- pt is here f or some leaking fluid, vaginal bulge, and is nervous about the position of the baby. on exam she has a significant rectocele. no pooling of fluid seen but rom plus ordered. position is vtx. patient reassured. ACOG First Trimester First Trimester: Desire for , Alcohol, Tobacco Cessation, Illicit/Recreational Drug/Substance Use, Intimate Partner Violence, Barriers to care, Unstable Housing, Communication Barriers, Environmental/Work Hazards, Anticipated Course of Care, Toxoplasmosis Precations, Use of Any medications, Sexual activity, Exercise, Dental Care, Sauna/Hot tub use, Seat Belt use, Childbirth classes/Hospital facilities, Travel, Indications for Ultrasound and Screening for Aneuploidy; Discussed Results POC Urinalysis 2 Dip (Clinic) Office Urine Glucose Negative Last Edit by Sudha Barron on 07/10/25 15: 59 Office Urine Protein Negative Last Edit by Sudha Barron on 07/10/25 15: 59 Coding Level of Care Code OB Routine Diagnoses Abnormal glucose affecting O99.810 Supervision of high-risk O09.90 32 weeks gestation of Z3A.32 Weeks of gestation: 32 weeks FH: breast cancer Z80.3 Rh negative status during O26.899; Z67.91 COVID-19 affecting , antepartum O98.519; U07.1 Assessment and Plan Assessment and Plan (1) Abnormal glucose affecting : Status: Acute Comment: normal 3hr (2) Supervision of high-risk : Status: Acute Comment: , GAURANG 09/04/25, DEREK Herr, Tegan (3) : Status: Acute Qualifiers: Weeks of gestation: 32 weeks Qualified Code(s): Z3A.32 - 32 weeks gestation of Comment: declined NIPT & Carrier, JAMES to BWC @ 30wks (4) FH: breast cancer: Status: Acute Comment: Maternal grandmother, Paternal Aunt (5) Rh negative status during : Status: Acute Comment: is A+, Had Rhogam @ 24wks due to fall (6) COVID-19 affecting , antepartum: Status: Acute Comment: 06/12/25, ASA 81 mg daily Orders: Orders POC Urinalysis 2 Dip (Clinic) Today (ROM) Rupture Of Membranes Today N89.8 - Other specified noninflammatory disorders of vagina, O26.899 - Other specified related conditions, unspecified trimester 07/10/25 1614 <Electronically signed by Raiza Kay DO> Date _ Raiza Carl DO Cosigner Signature: Date (if applicable) CC: ~ [facility] Work Phone: 1(202) 871-605809-23-2025 Evaluation note* Diagnosis Onset Date Resolution Status Admit Date COVID-19 affecting , antepartum acute June 27, 2025 11:38am FH: breast cancer acute [facility] 2024 11:38am acute June 11:38am Rh negative status during acute June 27, 2025 11:38am Supervision of high-risk acute June 27, 2025 11:38am [facility] Work Phone: 1(622) 692-247709-23-2025 Evaluation note* Diagnosis Onset Date Resolution Status Admit Date COVID-19 affecting , antepartum acute June 27, 2025 11:38am [facility] 11:38am acute June 11:38am Rh negative status during acute June 27, 2025 11:38am Supervision of high-risk acute June 27, 2025 11:38am Abnormal glucose affecting acute July 10 3:34pm COVID-19 affecting , antepartum acute July 10 3:34pm FH: breast cancer acute July 10, 2025 3:34pm acute July 10 025 3:34pm Rh negative status during acute July 10 3:34pm Supervision of high-risk acute July 10 3:34pm [facility] Work Phone: 1(829) 745-464809-23-2025 [facility] [address] [place] [address], [address] [place] [address] OFFICE VISIT Date of Service: 06/27/25 MR#: [id number] Acct: [id number] Name: EVELYN MADDOX Rep #: [id number] : 1995 Provider: VILMA Stone Age/Sex: 29/F Location: [facility] Status: Signed Intake Vital Signs 06/27/25 11:41 Height 5 ft 4 in Weight: 176 lb 4 oz BMI 30.2 BP 127/82 H Intake Visit Reasons: *NEW* NOB JAMES GAURANG 09/04 30wk2d Chief Complaint: New OB Business Applications Specialist Required: No Is patient in pain?: No [...] mg-folate no.1 1 mg-dha 300 mg capsule (PNV-[place]) vitamin E (dl, acetate) 90 mg (200 90 mg PO QDAY 06/2206/27/25 History unit) capsule Last Menstrual Period: 11/28/24 : No Have you fallen in the past year?: No PFSH PFSH Medical History Seasonal allergies Surgical History [place] teeth extracted Family History Father Colon cancer, [...] physical activity do you participate in: none luis/christianity: Latter Day seatbelt use: always do you feel safe at home: Yes additional social history: Jairo Patel History 2 Elective abortions Hx Para 1 Spontaneous abortions Hx # Term Pregnancies Ectopic pregnancies Hx # Pregnancies Multiple births # of living children 1 Past Pregnancies Del. Date Name GA/Weeks Outcome Route Bth Weight Infant Gen Labor Lgth Anesthesia Del Locatn Provider FOB 04/28/23 [place] 41 live - full term 7#7oz Male epidural [facility] Claudio Camilo Delivery Date: 04/28/23 Last Updated [...] Negative 150 31 -?-?-?-?-?-?-?-?-?-?-?-?- KW- J[facility] from [facility]. Records reviewed and PRR KW- JAMES from [place]. Recor ds reviewed and PRR- waiting on [...] No, Recent travel outside of [place]: Yes ([place]), Concern for hepatitis exposure: No, Varicella immune: [...] blood transfusions, Pulmonary (e.g.,TB,Asthma), Drug/latex allergies/reactions, Breast, Tool Crib Manager surgery, Anestheticcomplications, History of abnormal pap, [...] the past year?: No 06/27/25 1222 s VILMA> Date _ Angely Stone CNM Cosigner Signature: Date (if applicable) CC: ~ [facility]09-16-2025 Evaluation + Plan note Diagnostic Tests Pending * Rapid Plasma Reagin(RFX Titer + Confirm) 06/20/25 [facility] 07-26-2025 Hospital Discharge instructions Patient Education 04/29/2025 17:32:46 7 - Labor and Delivery Outpatient Instructions (CUSTOM) [facility] AND DELIVERY OUTPATIENT HOME-GOING INSTRUCTIONS _X_ [...] the nearest Emergency Room for assistance. Form [id number] D: 09/12 Document Released: 09/21/2006 Document Revised: 09/09/2012 Document Reviewed: 09/21/2006 ExitCare Patient Information 2012 [employer]. Follow Up Care 04/29/2025 14:48:47 With:JOHN VERDUGO Address: [address] [facility] [place] [phone]- [phone] Business (1) When: Unknown Comments:Follow-up as scheduled [facility] 07-26-2025 Note Discharge Instructions Thank you for allowing [facility] to assist you with your healthcare needs. The following is importantdischarge information regarding your hospital visit. Your Care Team ROMÁN LEMONS DO What to do next Follow Up Appointments Follow Up with JOHN VERDUGO Where:[address] [facility] [place] [address]- [phone] Business (1) Additional Information: Follow-up as scheduled Someone [...] medication providers or retail pharmacies. Education Materials [facility] AND DELIVERY OUTPATIENT HOME-GOING INSTRUCTIONS _X_ [...] the nearest Emergency Room for assistance. Form [id number] D: 09/12 Document Released: 09/21/2006 Document Revised: 09/09/2012 Document Reviewed: 09/21/2006 ExitCare Patient Information 2012 [facility]. Additional Information VACCINATE! IT SAVES LIVES! Members of the community who have not yet received the COVID-19 vaccine and would like to receive it can visit one of [facility] vaccine clinics. There are many vaccine clinic locations within the [facility]. For locations and available times, please visit www.gettheshot.coronavirus.[place].gov/. It is important to note that some COVID mobile vaccine clinics are held outdoors and may be canceled in rainy or stormy conditions. To learn more about pediatric vaccinations (ages 5-11), we invite you to visit the [facility] webpage. https://www.[facility].org/pages/1831-Ilnzj-Cwhqrsiczmg-Pvhinuqpco-Vhiyw-Qbg stions.htmlTo learn more about the COVID-19 vaccine, we invite you to visit the CDC website for a list of frequently asked questions. https://www.cdc.gov/coronavirus/2019-ncov/vaccines/faq.html [facility] Patient Portal Access Instructions: Stay connected with your healthcare team and access your personal medical information anytime with the [facility] Patient Portal.If you would like a full copy of your medical records, please contact the [facility] Medical Records Department, Thursday through Thursday between 8a.m. and 4:30p.m. Please follow the directions below to access the portal: 1.Access the email account you provided upon registration to the [facility].2.Look for an invitation email from [facility].3.Open the email and access the invitation link: Accept Invitation to [facility]4.Fill in the required martines to create your account. Sign into [email or web address] [place] with your username and password that you [...] you will allow to register on the [facility] Patient Portal for access to your information. You can also access the [facility] Patient Portal on the [employer]. Simply click on Health Records under SeekSherpa and then click on the Tengah logo. HOW TO SAFELY DISPOSE OF PRESCRIPTION [...] Call your local pharmacy or go to http://bit.ly/5I5Uj4t to find one close to you.3.Make use of household items: Use cat litter or old coffee grounds to dispose medications if other options arenot available. Mix your drugs with these household products, seal them in an airtight container andthrow it into the garbage. Call [facility]: [phone] to be sure your drugs can be [...] that I should contact my do ctor. 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 MICRO - Microbiology PROCEDURE: Urine Culture [...] Locations *1: This test was performed at: [address], [address]- , [facility]06-[facility]25 Evaluation + Plan note Diagnostic Tests Pending * Panel (AO) 03/15/25 * Varicella Zoster Antibody 03/15/25 [facility] 07-07-2024 History of Present illness Narrative* Zeny [...] PATIENT PRESENTS WITH AN IMPLANTABLE OR ATTACHED CHURCH COMMUNICATIONS ADMINISTRATOR: No RADIOLOGY DEPARTMENT: General X-ray: Exam(s) Completed: Lower Extremity X- Ray(s): Foot, Left PERIPHERAL IV DATA: Not applicable SIGNED BY: RT Brisa(R) April 10, 2024 3:42 PM [facility] NoteHNO ID: [id number] Author: ZENY POLLARD RT(R) Service: ? Author [...] PATIENT PRESENTS WITH AN IMPLANTABLE OR ATTACHED CHURCH COMMUNICATIONS ADMINISTRATOR: No RADIOLOGY DEPARTMENT: General X-ray: Exam(s) Completed: Lower Extremity X-Ray(s): Foot, Left PERIPHERAL IV DATA: Not applicable SIGNED BY: RT Brisa(Olivia) April 10, 2024 3:42 PMFranciscan Health Crown PointRislbhta36-17-3614 NoteHNO ID: [id number] Author: ALETHEA LEYVA APRN.APPEALS REVIEWER VETERAN Service: ? Author Type: Nurse Practitioner Type: [...] Moderate This note was partially generated using Spunkmobile voice recognition system and there may be [...] for today. Plan as outlined above.[facility] [id number] History of Present illness Narrative* Alethea Leyva APRN.APPEALS REVIEWER VETERAN - 04/10/2024 3:06 PM EDT Images from [...] Moderate This note was partially generated using Spunkmobile voice recognition system and there may be [...] Plan as outlined above. documented in this encounterBl[facility] Instructions* Patient Instructions* Alethea Leyva APRN.CNP - 04/10/2024 3:06 PM EDT Xray of left foot and small toe looks ok. I will call if the radiologist reads abnormal. Wash abrasion with soap and water, apply bacitracin ointment for 1-2 days. Eli tape toes for extra support. 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 ICE AREA FREQUENTLY REST/ELEVATE TYLENOL AND/OR IBUPROFEN FOR PAIN [facility] [address] [place] [address] NISSA [phone] TUAN BELL DPM [facility] NISSA [phone] documented in this encounterBlanch[facility] Hospital Discharge instructions Patient Education 04/28/2023 [...] work with your health care provider or call center consultant. If you are not : ?Avoid [...] about methods of control (contraception). Medicines Take prur-dcl-jhavgpj and prescription medicines only as told by [...] 07/18/2008 Document Revised: 09/24/2018 Document Reviewed: 07/05/2018 [employer] Patient Education 2020 [employer] 04/28/2023 01:15:56 Care After Vaginal Delivery Care [...] work with your health care provider or call center consultant. If you are not : ?Avoid [...] about methods of control (contraception). Medicines Take bdbv-vwq-rfespzn and prescription medicines only as told by [...] 07/18/2008 Document Revised: 09/24/2018 Document Reviewed: 07/05/2018 [employer] Patient Education 2020 [employer]. 04/28/2023 01:15:51 7b- Depression and Blues (07/2020) (CUSTOM) [facility] Depression and Blues All mothers are at [...] psychosis. Often, a screening tool called the [place] Depression Scale is used to diagnose depression [...] music. Avoid alcohol. Ask for help with casing mixer, cooking, grocery shopping, or running errands as needed. Do nottry to do everything. Talk to people close to you about how you are feeling. Get support from your partner, family members, and friends. Try to stay positive in how you think. Think about the things you are grateful for. Do not spend a lot of time alone. Only take hblh-dvi-lqzkawt or prescription medicine as directed by your [...] or get worse. Resource: ExitCare Patient Information 2015 [facility]. This information is not intended to replace advicegiven to you by your health care provider. Make sure you discuss any questions you have with your health care provider. 04/28/2023 01:15:51 7b- Depression and Blues (07/2020) (CUSTOM) [place] Depression and Blues All mothers are at [...] psychosis. Often, a screening tool called the [place] Depression Scale is used to diagnose depression [...] music. Avoid alcohol. Ask for help with casing mixer, cooking, grocery shopping, or running errands as needed. Do nottry to do everything. Talk to people close to you about how you are feeling. Get support from your partner, family members, and friends. Try to stay positive in how you think. Think about the things you are grateful for. Do not spend a lot of time alone. Only take slql-sub-qcgbepy or prescription medicine as directed by your [...] get worse. Resource: ExitCare Patient Information 2014 [employer], [employer]. This information is not intended to replace advicegiven to you by your health care provider. Make sure you discuss any questions you have with your health care provider. Follow Up Care 04/26/2023 22:01:54 With:BELKYS ESCALANTE Address: DR JOHN STORY [address] [place] [phone] [phone] When:Within 6 Week(s) Comments: visit [facility] 07-24-2023 Note Labor Details Baby A FHR Baseline:125 bpm FHR Baseline Variability:Moderate variability FHR Deceleration Description:Early, Intermittent Membranes Membrane Status:A.R.O.M. ROM Date, Time:04/27/2023 19:30 EDT FHR Accelerations:Present Uterine Uterine Contraction Frequency3 Uterine Contraction Monitoring MethodExternal toco Cervical Cervix Dilation9 cm Cervix Eogfhprcna87 Station-2 Labor Induction Information postdates IOL Physical [...] + LR Premix Diluent 1,000 mL Pfizerpen, 2009386 unit(s)= 50 mL, IV Piggyback, q4h Pitocin, [...] by BELKYS ESCALANTE on 04/27/2023 09:50 PM [facility]07-24-2023 Note Reason for Visit OB Induction LMP/EGA/GAURANG [...] by first trimester ultrasound who [facility]OL due to postdates. Received [...] non-immune Historical No qualifying data Procedure/Surgical History [place] tooth: 05/31/20 Medications Inpatient Ambien, 10 mg= [...] + LR Premix Diluent 1,000 mL Pfizerpen, [id number] unit(s)= 50 mL, IV Piggyback, q4h Pitocin, [...] on 04/27/2023 07:25 PM Digitally Signed by SHEROCK, JOHN E DO [facility]07-24-2023 Anesthesiology Consult note Patient: EVELYN MADDOX I [facility]: [id number] Age: 27 years Sex: Female : 1995 Associated Diagnoses: None Author: JAYNA ALMARAZPOCKET CREASER Preoperative Information Time of last food or [...] Medical Group B streptococcus / SNOMED CT 177819070 / Confirmed / SNOMED CT 706393980 / Confirmed Rubella non-immune / SNOMED CT 867027277 / Confirmed, Active Problems (3) Group B streptococcus Rubella non-immune Histories Past Medical History: No active or resolved past medical history items have been selected or recorded. Family History: Atrial fibrillation Mother Cancer of colon Father Procedure history: [place] tooth ([id number]) on 05/31/2020 at 24 Years. Social History [...] Oral36.6 DegC (APR 27 16:46) Heart Rate Tpqgmhaas13 bpm (APR 27 18:10) Resp Rate 18 br/min (APR 27 15:45) JLB277 mmHg (APR 27 18:10) DBPL 55mmHg (APR 27 18:10) BMI31.81 (APR 26 22:10) Measurements from flowsheet : Measurements 04/26/2023 22:10 EDT Height 162.6 cm Admission Weight 84.1 kg [place] Body Weight 54.74 kg BSA Admission 1.89 [...] with support Epidural Placed By JAYNA ALMARAZ FEED MANAGEMENT ADVISOR-POCKET CREASER Epidural Test Dose Time 04/27/2023 18:05 04/27/2023 [...] date/time 04/27/2023 17:45 Provider Notified BELKYS ESCALANTE FEED MANAGEMENT ADVISOR-CNM Notification Method Phone Information Communicated Nurse communication Details Communicated patient is 5/80/-2, going to get her an epidural, pitocin turned off Notification Outcome Orders not received Person Reporting Result(s) charles gleason rn 04/27/2023 17:44 EDT Monitoring Annotations patient up to the bathroom 04/27/2023 17:33 EDT Notify date/time 04/27/2023 17:33 Provider Notified JAYNA ALMARAZ FEED MANAGEMENT ADVISOR-POCKET CREASER Notification Method Phone Information Communicated Nurse communication [...] date/time 04/27/2023 17:04 Provider Notified BELKYS ESCALANTE FEED MANAGEMENT ADVISOR-CNM Notification Method Phone Information Communicated Nurse communication [...] date/time 04/27/2023 16:00 Provider Notified BELKYS ESCALANTE FEED MANAGEMENT ADVISOR-CN Notification Method Phone Information Communicated Nurse communication [...] Orders not received Person Reporting Result(s) Charles Gleason, RN 04/27/2023 14:11 EDT Monitoring Annotations nurse [...] Part Vertex Vaginal Exam Performed By Gleason, [place] Moon Jackman's Score 6 Vaginal Discharge [...] feelings, concerns Skin Temperature Warm Skin Description Waterflow, Dry Skin Integrity Intact Sensory Perception Darrel [...] Months Boyce No Presence of Secondary Diagnosis [place] No Use of Ambulatory Aid Boyce None, [...] cytotec, cervical exam the same as at 0-/-2, posterior, skip every 2-3 minutes Notification Outcome [...] Antibodies, External Ne (more content not included)... [facility]07-24-20[facility] Evaluation + Plan noteExtracted from: Title:OB Admission H&P Author:BELYKS ESCALANTE APRN-VILMA Date:04/27/23 Assessment 1. IOL 2. GBS POS Plan 1. Admit to labor and delivery 2. IV with LR at 125ml/hour 3. Continuous monitoring 4. GBS prophylaxis with PCN G 5. Dr. Verdugo notified of admission and was on primary throughout the night last night and today until [address] Colón is backup coverage for the evening and night tonight [facility] 07-23-2023 Anesthesiology Consult note* JAYNA ALMARAZ APRN-POCKET CREASER: PERFORM, SIGN, VERIFY Event Display: Anesthesiology Consultation Authored Date: [id number] Patient: EVELYN MADDOX I Age: 27 years Sex: Female : 1995 Associated Diagnoses: None Author: JAYNA ALMARAZ APRN-POCKET CREASER Preoperative Information Time of last food or [...] Medical Group B streptococcus / SNOMED CT 956324687 / Confirmed / SNOMED CT 663522087 / Confirmed Rubella non-immune / SNOMED CT 929584493 / Confirmed, Active Problems (3) Group B streptococcus Rubella non-immune Histories Past Medical History: No active or resolved past medical history items have been selected or recorded. Family History: Atrial fibrillation Mother Cancer of colon Father Procedure history: [place] tooth ([id number]) on 05/31/2020 at 24 Years. Social History [...] Oral36.6 DegC (APR 27 16:46) Heart Rate Hzavpqkxv32 bpm (APR 27 18:10) Resp Rate 18 br/min (APR 27 15:45) FUY166 mmHg (APR 27 18:10) DBPL 55mmHg (APR 27 18:10) BMI31.81 (APR 26 22:10) Measurements from flowsheet : Measurements 04/26/2023 22:10 EDT Height 162.6 cm Admission Weight 84.1 kg [place] Body Weight 54.74 kg BSA Admission 1.89 [...] with support Epidural Placed By JAYNA ALMARAZ FEED MANAGEMENT ADVISOR-POCKET CREASER Epidural Test Dose Time 04/27/2023 18:05 04/27/2023 [...] date/time 04/27/2023 17:45 Provider Notified BELKYS ESCALANTE FEED MANAGEMENT ADVISOR-CNM Notification Method Phone Information Communicated Nurse communication Details Communicated patient is 5/80/-2, going to get her an epidural, pitocin turned off Notification Outcome Orders not received Person Reporting Result(s) charles gleason rn 04/27/2023 17:44 EDT Monitoring Annotations patient up to the bathroom 04/27/2023 17:33 EDT Notify date/time 04/27/2023 17:33 Provider Notified JAYNA ALMARAZ FEED MANAGEMENT ADVISOR-POCKET CREASER Notification Method Phone Information Communicated Nurse communication Details Communicated patient requesting epidural Person Reporting Result(s) charles gleason rn 04/27/2023 17:30 EDT Primary Pain Intensity 9 Pain Scale Type 0-10 Pain scale Cervix Dilation 5 cm Cervix Effacement 80 Station -2 Cervical Consistency Soft Cervical Position Mid Presenting Part Vertex Vaginal Exam Performed By Israel, RN Sarai Jackman's Score 10 Vaginal Discharge Description Bloody [...] date/time 04/27/2023 17:04 Provider Notified BELKYS ESCALANTE FEED MANAGEMENT ADVISOR-CNM Notification Method Phone Information Communicated Nurse communication [...] date/time 04/27/2023 16:00 Provider Notified BELKYS ESCALANTE Notification Method Phone [...] Vaginal Exam Performed By Israel, [place] Moon Uterine Contraction Monitoring Method External toco Uterine [...] Part Vertex Vaginal Exam Performed By Gleason, [place] Jackman's Score 6 Vaginal Discharge Description Bloody [...] feelings, concerns Skin Temperature Warm Skin Description Waterflow, Dry Skin Integrity Intact Sensory Perception Darrel [...] Orders not received Person Reporting Result(s) Tim TOLEDO 04/27/2023 4:25 EDT Activity Status ADL Awake, [...] here for IOL. edc, , cervical exam 1/40/-3, contractions every 4-5minutes, patient not feeling them. [...] 01/14/2023 Designated Person #1 We May Share OFELIA Camilo [facility] [phone] Designated Person #1 Relationship Spouse Privacy Restrictions Requested None Height 162.6 cm Admission Weight 84.1 kg [place] Body Weight 54.74 kg BSA Admission 1.89 [...] Baby For Adoption No Surrogate No Discharge [place] Physician Dr. Lemons [facility] Participant No Safe Sleep Environment for [...] No Weight Loss No Preferred Spoken Language Par[place]ayan Preferred Written Language Par[place]ayan Teaching Evaluation Verbalizes/Nonverbally indicates understanding Safety Brochure Information Reviewed Yes [facility] [place] Video Viewed No Chief Complaint induction of labor Mode of Arrival Ambulatory Accompanied by Spouse Information Given by Patient Patient's Current Physicians Dr. Verdugo Emergency Contact Number Tegan Maddox [phone] Reason For Visit OB Induction Belongings At [...] EDT OBHx 1 . Assessment and Plan [place] Society of Anesthesiologists (ASA) physical status classification: Class II. Anesthetic Preoperative Plan Premedication: None. Anesthetic technique: Epidural. Induction. Maintenance airway: Mask. Regional: Epidural. Postoperative pain management: Per surgeon. Risks discussed: nausea, vomiting, headache, sore throat, dental injury, hypotension, allergic reaction, serious complications. Informed consent: signed by patient. Digitally Signed by JAYNA ALMARAZ on 04/27/2023 06:24 PM [facility] 04-12-2023 Evaluation + Plan note Diagnostic Tests Pending * Rapid Plasma Reagin Test 01/14/23 [facility] 01-20-2023 Note. MICRO - Microbiology PROCEDURE: Urine Culture [*1] SOURCE: Urine BODY SITE: COLLECTED DATE/TIME: 10/22/2022 16:43 EST RECEIVED DATE/TIME: 10/23/2022 14:08 EST START DATE/TIME: 10/23/2022 14:08 EST FREE TEXT SOURCE: FINAL REPORTS Final Report [] Verified Date/Time/Personnel: 10/24/2022 15:10 EST <10,000 cfu/ml. No Significant growth. Sensitivity not indicated. Performing Locations *1: This test was performed at: [facility], [address] [place] [address], [id number] , [facility] ([place])10-22-2022 Evaluation + Plan note Diagnostic Tests Pending * Panel (AO) 10/22/22 * Varicella Zoster Antibody 10/22/22 [facility] Evaluation + Plan note No data available for this section [facility] Evaluation note* Diagnosis Toe injury, left, initial encounter [facility] in this [facility]* Diagnosis Toe injury, left, initial encounter- Primary Toe injury, left, initial encounter documented in this encounter [facility] [place] [facility]* Diagnosis Onset Date Resolution Status Admit Date COVID-19 affecting , antepartum acute June 27, 2025 11:38am FH: breast cancer acute Sept2024 11:38am acute June 11:38am Rh negative status during acute June 27, 2025 11:38am Supervision of high-risk acute June 27, 2025 11:38am [facility] Work Phone: Hospital Discharge instructions No data available for this section [facility] Progress note No data available for this section [facility] Proybxbm note Author Angely Stone [facility] Services Note Date/Time June 27, 2025 12:22pm [facility] [address], [address] [place] [address] OFFICE VISIT Date of Service: 06/27/25 MR#: [id number] Acct: [id number] Name: EVELYN MADDOX Rep #: [id number] : 1995 Provider: VILMA Stone Age/Sex: 29/F Location: [facility] Status: Signed Intake Vital Signs 06/27/25 11:41 Height 5 ft 4 in Weight: 176 lb 4 oz BMI 30.2 BP 127/82 H Intake Visit Reasons: *NEW* NOB JAMES GAURANG 09/04 30wk2d Chief Complaint: New OB Business Applications Specialist Required: No Is patient in pain?: No [...] mg-folate no.1 1 mg-dha 300 mg capsule (PNV-[place]) vitamin E (dl, acetate) 90 mg (200 90 mg PO QDAY 06/2206/27/25 History unit) capsule Last Menstrual Period: 11/28/24 : No Have you fallen in the past year?: No PFSH PFSH Medical History Seasonal allergies Surgical History [place] teeth extracted Family History Father Colon cancer, [...] physical activity do you participate in: none luis/christianity: Latter Day seatbelt use: always do you feel safe at home: Yes additional social history: Jairo Patel History 2 Elective abortions Hx Para 1 Spontaneous abortions Hx # Term Pregnancies Ectopic pregnancies Hx # Pregnancies Multiple births # of living children 1 Past Pregnancies Del. Date Name GA/Weeks Outcome Route Bth Weight Gen Labor Lgth Anesthesia Del Locatn Provider FOB 04/28/23 [place] 41 live - full term 7#7oz [facility] Delivery Date: 04/28/23 Last Updated by: [...] No, Recent travel outside of [place]: Yes ([place]), Concern for hepatitis exposure: No, Varicella immune: [...] blood transfusions, Pulmonary (e.g.,TB,Asthma), Drug/latex allergies/reactions, Breast, Tool Crib Manager surgery, Anesthetic complications, History of abnormal [...] Comment: declined NIPT & Carrier, JAMES to [facility] @ 30wks (3) FH: breast cancer: Status: [...] in the past year?: No 06/27/25 1222 <Electronically signed by Angely chahal CNM> Date _ Angely Stone CNM Cosigner Signature: Date (if applicable) CC: ~ [place] [employer] Work Phone: Reason for referral (narrative)* Diagnostic Procedure Only (Urgent) - Closed Specialty Diagnoses / Procedures Referred By Contac t Referred To Contact XR IMAGING Diagnoses Toe injury, left, initial encounter Procedures XR FOOT GENERAL 3V AP/LAT/OBL LEFT RADEX FOOT COMPLETE MINIMUM 3 VIEWS Alethea Leyva APRN.CNP [address] [place] [address] [place] [address] Referral ID Status Reason Start Date Expiration Date V isits Requested Visits Authorized [id number] Closed Auto-Generate d Referral 04/10/2024 05/10/2025 1 1 [facility] for referral (narrative)* Diagnostic Procedure Only (Urgent) - Closed Specialty Diagnoses / Procedures Referred By Contdar t Referred To Contact XR IMAGING Diagnoses Toe injury, left, initial encounter Procedures XR FOOT GENERAL 3V AP/LAT/OBL LEFT RADEX FOOT COMPLETE MINIMUM 3 VIEWS Alethea Leyva APRN.CNP [address] [place] [address] [place] [address] Referral ID Status Reason Start Date Expiration Date V isits Requested Visits Authorized [id number] Closed Auto-Generate d Referral 04/10/2024 05/10/2025 1 1 [facility]No reason for referral information availableY[facility]gt[facility] Work Phone: Reason for visit Narrative* Diagnostic Procedure Only (Urgent) - Closed Specialty Diagnoses / Procedures Referred By Contac t Referred To Contact XR IMAGING Diagnoses Toe injury, left, initial encounter Procedures XR FOOT GENERAL 3V AP/LAT/OBL LEFT RADEX FOOT COMPLETE MINIMUM 3 VIEWS Alethea Leyva APRN.CNP [address] [place] [address] [place] [address] Referral ID Status Reason Start Date Expiration Date V isits Requested Visits Authorized [id number] Closed Auto-Generate d Referral 04/10/2024 05/10/2025 1 1 [facility] Summary Purpose Family History Relationship Condition [...] 27, 2025 11:38am Rh negative status during Jun 11:38am Supervision of high-risk [facility]2024 11:38am Chief Complaint Admit Date *NEW* NOB JAMES GAURANG 09/04 30wk2d June 27, 2025 11:38am SCREENING July 03, 2025 8:05am 32wk ob July 10, 2025 3: 34pm Reason for Visit Admit Date COVID-19 affecting , antepartum June 27, 2025 11:38am FH: breast cancer June 27, 2025 11:38am June 27, 2025 11:38am Rh negative status during Sept ember 2024 11:38am Supervision of high-risk Septe mber 2024 11:38am Abnormal glucose affecting Oct mell 2024 3:34pm COVID-19 affecting , antepartum July 10, 2025 3:34pm FH: breast cancer July 10, 2025 3: 34pm July 10, 2025 3: 34pm Rh negative status during Octo jalen 2024 3:34pm Supervision of high-risk Octob er 2024 3:34pm Additional Source Comments Care Team (unrecognized sect ion and content) Care Team Personnel Name: ROMÁN LEMONS DO Member Role: Primary Care Physician Address: Address: [address] [place] [address] Care Team Related Persons Name: TEGAN MADDOX Care Team Personnel Name: ROMÁN LEMONS DO Member Role: Primary Care Physician Address: Address: [place] [id number] [place] [address] Care Team Related Persons Name: TEGAN MADDOX Address: Home [address] [place] [address] Care Team Personnel Name: ROMÁN LEMONS DO Member Role: Primary Care Physician Address: Address: [address] [id number] [place] [address] Care Team Related Persons Name: SHIVTEGAN Vo Address: Home [address] [place] [address] Care Team Personnel Name: ROMÁN LEMONS DO Member Role: Primary Care Physician Address: Address: [address] 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 Relationship Specialty Start Date End Date Román [place] [id number] [address] PCP - General Internal Medicine 08/03/18 Team Status: Active Member Role/Relationship Status Dates No Primary Care Physician Primary care physician Activ e Team Status: Inactive Member Role/Relationship Status Dates Angely Stone CNM Attending physician Active Start: June 27, 2025 End: June 27, 2025 Team Status: Active Member Role/Relationship Status Dates Angely Stone CNM Attending physician Active Start: July 03, 2025 Angeyl Stone CNM Referring Provider Active S tart: [...] July 03, 2025 End: July 03, 2025 Team Status: Inactive Member Role/Relationship Status Dates No Primary Care Physician Primary care physician Activ e Start: July 10, 2025 End: July 10, 2025 No Primary Care Physician Referring Provider Active Start: July 10, 2025 End: July 10, 2025 Dr. Raiza Carl , Attending physician Acti ve Start: July 10, 2025 End: July 10, 2025 Team Status: Active Member Role/Relationship Status Dates No Primary Care Physician Primary care physician Activ e Start: July 10, 2025 Angely Stone CNM Attending physician Active Start: July 10, 2025 INFORMATION SOURCE (unrecogn ized section and content) DATE CREATED AUTHOR 07/13/2023 [facility] ([place]) DATE CREATED AUTHOR AUTHOR'S ORGANIZ ATION 04/10/2024 [facility] DATE CREATED AUTHOR AUTHOR'S ORGANIZ ATION 06/10/2025 [facility] DATE CREATED AUTHOR AUTHOR'S ORGANIZ ATION 06/21/2025 [facility] DATE CREATED AUTHOR AUTHOR'S ORGANIZ ATION 07/21/2025 [facility] Source Comments (unrecognize d section and content) In the event this informatio n is protected by the Federal Confidentiality of Alcohol and Drug Abuse Patient Records regulations: The Federal rules restrict any use of the information to criminally investigate or prosecute any alcohol or drug abuse patient.[facility] the event this information is protected by the Federal Confidentiality of Alcohol and Drug Abuse Patient Records regulations: The Federal rules restrict any use of the information to criminally investigate or prosecute any alcohol or drug abuse patient.[facility] Reason for Visit (unrecogniz ed section [...] BE BASED ON THE PRIMARY CLINICAL RECORDS. [employer] provides no warranty or guarantee of the accuracy or completeness of information in this document.
== END | disposition home or self-care (01) ==
PROVIDERS: Visit Provider Nurse Practitioner Women's Health
DX: O09.93 Supervision of high risk pregnancy, unspecified, third trimester (principal)
CPT/HCPCS: 36415; 86850; 86900; 86901

== ENCOUNTER → 2025-08-10 | Outpatient (CLI) | payer OTHER, SELFPAY | END | disposition home or self-care (01) | LOC: LABSPEC 11:41 | PROVIDERS: Visit Provider Obstetrics & Gynecology | DX: O09.93 Supervision of high risk pregnancy, unspecified, third trimester (principal); Z3A.00 Weeks of gestation of pregnancy not specified | CPT/HCPCS: 87081 ==

== ENCOUNTER → 2025-08-30 | Outpatient (CLI) | payer OTHER, SELFPAY ==
[2025-08-30 11:50] LABS: ROM Internal Control Test YES-OK TO RESULT pt. (Internal QC); ROM Patient Test Negative (Negative); Record Kit Lot#, ROM+ K3607
== END | disposition home or self-care (01) ==
PROVIDERS: Referring Provider Obstetrics & Gynecology; Visit Provider Obstetrics & Gynecology
DX: O42.90 Premature rupture of membranes, unspecified as to length of time between rupture and onset of labor, unspecified weeks of gestation (principal); O09.93 Supervision of high risk pregnancy, unspecified, third trimester; Z3A.39 39 weeks gestation of pregnancy
CPT/HCPCS: 84112

== ENCOUNTER 2025-09-11 07:17 | Inpatient (IN) | payer OTHER, SELFPAY ==
[2025-09-11] VITALS (114 sets, daily range): BP systolic 100–166; BP diastolic 56–87; PULSE 65–106; RESP 14–20; TEMP 36.3–37.4; O2SAT 92–100; BMI 33.3
--- OUTSIDE RECORDS SUMMARY | 2025-09-11 07:09 | XMS RPT_ITS | CCD ---
Author Organization [facility] Care Team Providers Care Tape Folding Machine Operator Name Role Phone CRISTO MELARA ROMÁN W Primary Care Physician BOIRS CARDOZON-CNRolo, BELKYS Rodriguez Attending Ashley vailable CRISTO DO, ROMÁN W Primary Care Unavailable CRISTO DO, ROMÁN W Primary Care Unavailable AGARWAL CNA-CNM, ANA Rodriguez Attending Unavai lablizzy ESCALANTE CNA-CNM, BELKYS Rodriguez Attending Ashley vailable CRISTO DO, ROMÁN W Primary Care Unavailable CRISTO DO, ROMÁN W Primary Care Unavailable AGARWAL CNA-CNM, ANA Rodriguez Attending Unavai lable CRISTO DO, ROMÁN W Primary Care Unavailable AGARWAL CNA-CNM, ANA Rodriguez Attending Unavai lable CRISTO DO, ROMÁN W Primary Care Unavailable AGARWAL CNA-CNM, ANA Rodriguez Attending Unavai lable CRISTO DO, ROMÁN W Primary Care Unavailable AGARWAL CNA-CNM, ANA Rodriguez Attending Unavai lable CRISTO DO, ROMÁN W Primary Care Unavailable AGARWAL CNA-CNM, ANA Rodriguez Attending Unavai lable BORIS CNA-CNM, BELKYS Rodriguez Attending Ashley vailable CRISTO DO, ROMÁN W Primary Care Unavailable CRISTO DO, ROMÁN W Primary Care Unavailable AGARWAL CNA-CNM, ANA Rodriguez Attending JOHN Herrera DO Admitting Unavailab JOHN Timmons DO Attending Unavailab le CRISTO DO, ROMÁN W Primary Care Unavailable ALETHEA LEYVA Attending Unavailable ALETHEA LEYVA Referring Unavailable CristoRomán rose DO Primary Care Provider Unavailable Primary Care Provider Unavailmeet HERNANDEZ DO ROMÁN Candi Primary Care Physician CRISTO DO, ROMÁN W Primary Care Unavailable MCHCOB, PHYSICIAN Referring Unavailable RANDY MELARA, DR LUIS EDUARDO Machado Attending Unavailable ANY CNA-CNM, ANA Rodriguez Attending Unavai lable CRISTO DO, ROMÁN W Primary Care Unavailable ESCALANTE CNA-CNM, BELKYS Rodriguez Attending Ashley vailable CRISTO DO, ROMÁN W Primary Care Unavailable ESCALANTE CNA-CNM, BELKYS Rodriguez Attending Ashley vailable CRISTO DO, ROMÁN W Primary Care Unavailable CRISTO DO, ROMÁN W Primary Care Unavailable ESCALANTE CNA-CNM, BELKYS Rodriguez Attending Ashley vailable CRISTO DO, ROMÁN W Primary Care Unavailable BORIS CNA-CNM, BELKYS Rodriguez Attending Ashley vailable Chase ESPARZA, Angely Attending Physician [phone] Chase ESPARZA, Angely Referring Provider Care Physician, No Primary Primary Care Physicia n Unavailable Care Physician, No Primary Referring Provider Un available Dr. Raiza Carl DO Attending Physician Care Physician, No Primary Referring Unava ilable Care Physician, No Primary Primary Care Unava ilable Amy Acuña Attending Unavailable Care Physician, No Primary Referring Unava ilable Care Physician, No Primary Primary Care Unava ilable Angely Conner Attending Unavailable Care Physician, No Primary Referring Unava ilable Angely Stone Attending Unavailable Care Physician, No Primary Primary Care Unava ilable Angely Stone Attending Unavailable Care Physician, No Primary Referring Unava ilable Raiza Carl Attending Unavailabl e Care Physician, No Primary Primary Care Unava ilable Care Physician, No Primary Referring Unava ilable Care Physician, No Primary Primary Care Unava ilable Salvatore ADMINISTRATIVE AIDEAtiya Attending Unavailable Care Physician, No Primary Primary Care Unava ilable Amy Acuña Attending Unavailable Angely Stone Attending Unavailable Angely Stone Referring Unavailable Care Physician, No Primary Primary Care Unava ilable Angely Stone Attending Unavailable Care Physician, No Primary Primary Care Unava ilable Care Physician, No Primary Primary Care Unava ilable Salvatore ADMINISTRATIVE AIDEAtiya Attending Unavailable Medications Current Medications Medication Drug Class(es) Dates [...] 60.0 Unit: tab(s) Repeat number: 1 Mv-Mins 26-Oqys-Yvajx No.1-Dha (Pnv-Gladstone) 28-1-300 mg capsule (3 sources) Start: 06-22-2025 [...] tolerance complicating ; childbirth; or the puerperium (5 sources) Abnormal glucose level; Translations: [Abnormal glucose complicating ] Onset: 08-14-2025 5 Episodic Comment on above: normal 3hr Liveborn (1 source) Born by normal vaginal delivery; Translations: [Single liveborn infant, delivered vaginally] Onset: 04-28-2023 Episodic OB-related trauma [...] on above: , GAURANG 09/04/25, P C Schulenburg, Tegan Other complications of (7 sources) RhD negative; Translations: [Other specified related conditions, unspecified trimester] 06-22-2025 Episodic Comment on above: is A+, Had R hogam @ 24wks due to fall Other complications of (1 source) Supervision of high risk , unspecified, third trimester; Translations: [Supervision of high risk , unspecified, third trimester] Onset: 08-14-2025 Episodic Other complications of (1 source) Other specified related conditions, third trimester; Translations: [Other specified related conditions, third trimester] Onset: 08-14-2025 Episodic Other complications of (1 source) Other viral diseases complicating , unspecified trimester; Translations: [Other viral diseases complicating , unspecified trimester] Onset: 08-14-2025 Episodic Other complications of (1 source) Other specified related conditions, unspecified trimester; Translations: [Other specified related conditions, unspecified trimester] Onset: 07-28-2025 Episodic Other complications of (1 source) Supervision of high risk , unspecified, unspecified trimester; Translations: [Supervision of high risk , unspecified, unspecified trimester] Onset: 06-27-2025 Episodic Other injuries [...] declined NIPT & [place] ier, JAMES to BW @ 30wks Other screening for suspected conditions [...] Paternal Aunt Residual codes; unclassified (1 source) Family history of malignant neoplasm of breast; Translations: [Family history of malignant neoplasm of breast] Onset: 08-14-2025 Episodic Residual codes; unclassified (1 source) Unspecified blood type, Rh negative; Translations: [Unspecified blood type, Rh negative] Onset: 08-14-2025 Episodic Residual codes; unclassified (1 source) 37 weeks gestation of ; Translations: [37 weeks gestation of ] Onset: 08-14-2025 Episodic Residual codes; unclassified (1 source) 36 weeks gestation of ; Translations: [36 weeks gestation of ] Onset: 08-10-2025 Episodic Residual codes; unclassified (1 source) 34 weeks gestation of ; Translations: [34 weeks gestation of ] Onset: 07-27-2025 Episodic Residual codes; unclassified (1 source) 30 weeks gestation of ; Translations: [30 weeks gestation of ] Onset: 06-27-2025 Episodic Unclassified (7 sources) Streptococcus agalactiae (organism) 04-26-2023 Viral infection (1 source) COVID-19; Translations: [COVID-19] Onset: 08-14-2025 Past or Other Problems Problem Classification Problem Date Documented Date Episodic/Chronic Genitourinary symptoms and ill-defined conditions (4 sources) Frequency of micturition; Translations: [Frequency of micturition] Onset: 10-22-2022 Episodic Immunizations and screening for infectious disease (11 sources) Rubella non-immune; Translations: [Encounter for screening for infections with a predominantly sexual mode of transmission] Onset: 10-22-2022 04-26-2023 Episodic Results Test Name Value Interpretation Reference Range Facility Rule out Beta Strep (Grp. B) on 08-16-2025 OMI Group B Beta Streptococcus is not isolated. Normal [facility] Comment on above: Performed By: #### M 100.3407 #### [facility] [address] [place], [address] Product Engineering Manager Office Visit Reporton 08-14-2025 Product Engineering Manager Office Visit Report [facility] [address], [address] [place] [address] OFFICE VISIT Date of Service: 08/14/25 MR#: [id number] Acct: [id number] Name: EVELYN MADDOX I Rep #: [id number] : 1995 Provider: VILMA Ventura ams Age/Sex: 29/F Location: [facility] Status: Signed Intake Vital Signs 07/10/25 15:39 07/27/25 10:04 08/10/25 09:36 08/14/25 09:40 Height 5 ft 4 in 5 ft 4 in 5 ft 4 in 5 ft 4 in Weight: 188 lb 3 oz BMI 32.3 BP 105/72 Intake Visit Reasons: 37wk ob Ceo & Board Director Required: No Is patient in pain?: No Allergies No Known Allergies Allergy (Verified 08/14/25 09:40) Medications ???Medication ???Instructions ???Recorded ???Confirmed ???Type ascorbic acid (vitamin C) 500 mg mg PO 06/22/25 08/14/25 History capsule aspirin 81 mg tablet 81 mg PO QDAY 06/22/25 08/14/25 Hi story calcium gluconate 50 mg calcium mg PO 06/22/25 08/14/25 History capsule magnesium 250 mg tablet 250 mg PO QDAY 06/22/25 08/14/25 H istory multivit-min no.71-iron fum 28 cap PO 06/22/25 08/14/25 History mg-folate no.1 1 mg-dha 300 mg capsule (PNV-Gladstone) vitamin E (dl, acetate) 90 mg (200 90 mg PO QDAY 06/22/25 08/14/25 History unit) capsule Last Menstrual Period: 11/28/24 Zika: Zika virus screening: Negative : No Have you fallen in the past year?: No PFSH PFSH Medical History Seasonal allergies Surgical History [place] teeth extracted Family History Father Colon cancer, [...] physical activity do you participate in: none luis/hinduism: Uatsdin seatbelt use: always do you feel safe at home: Yes additional social history: Jairo Patel History 2 Elective abortions Hx Para 1 Spontaneous abortions Hx # Term Pregnancies Ectopic pregnancies Hx # Pregnancies Multiple births # of living children 1 Past Pregnancies Del. Date Name GA/Weeks Outcome Route Bth Weight Infant Gen Labor Lgth Anesthesia Del Locatn Provider FOB 04/28/23 Schul[place] 41 live - full term 7#7oz Male epidural Aul tman Claudio Escalante Tegan Delivery Date: 04/28/23 Last Updated by: Pia Mora IOL, post dates- baby had knot in cord HPI 37wk ob Details: EVELYN MADDOX is a 29 year old who presents for routine OB visit. OB Visit GAURANG Calculator Estimated Delivery Date Method Current WG Current Estimate 09/04/25 LMP (Certain) 37w 0d Expected Delivery Route/Plan Labor Preferences- CB/BF classes: no labor support person: Tegan labor intervention preferences: [] pain management options preferred: epidural cut cord/dad catch: cord : yes PP control planned: [] discussed possible routes of delivery and associated risks: [] special requests: [] Specific Issue/Plans Covid status: [] Flu vaccine: declines Tdap vaccine: declines Rhogam: given LARC form signed: yes Problem list reviewed and updated with the [...] 1d 176 lb 4 oz 127/82 Negative -? (more content not included)... Normal [facility] Product Engineering Manager Office Visit Reporton 08-10-2025 Product Engineering Manager Office Visit Report [facility]'s [address], [address] [place] [address] OFFICE VISIT Date of Service: 08/10/25 MR#: [id number] Acct: [id number] Name: EVELYN MADDOX I Rep #: [id number] : 1995 Provider: Dr. Amy nolasco MD Age/Sex: 29/F Location: [facility] Status: Signed Intake Vital Signs 06/27/25 11:41 07/27/25 10:04 08/10/25 09:36 Height 5 ft 4 in 5 ft 4 in 5 ft 4 in Weight: 185 lb 9 oz 188 lb BMI 31.8 32.2 BP 107/74 134/83 H Intake Visit Reasons: 36wk ob Ceo & Board Director Required: No Is patient in pain?: No Allergies No Known Allergies Allergy (Verified 08/10/25 09:34) Medications ???Medication ???Instructions ???Recorded ???Confirmed ???Type ascorbic acid (vitamin C) 500 mg mg PO 06/22/25 08/10/25 History capsule aspirin 81 mg tablet 81 mg PO QDAY 06/22/25 08/10/25 Hi story calcium gluconate 50 mg calcium mg PO 06/22/25 08/10/25 History capsule magnesium 250 mg tablet 250 mg PO QDAY 06/22/25 08/10/25 H istory multivit-min no.71-iron fum 28 cap PO 06/22/25 08/10/25 History mg-folate no.1 1 mg-dha 300 mg capsule (PNV-Gladstone) vitamin E (dl, acetate) 90 mg (200 90 mg PO QDAY 06/22/25 08/10/25 History unit) capsule Last Menstrual Period: 11/28/24 Zika: Zika virus screening: Negative : No PFSH PFSH Medical History Seasonal allergies Surgical History [place] teeth extracted Family History Father Colon cancer, [...] physical activity do you participate in: none luis/hinduism: Uatsdin seatbelt use: always do you feel safe at home: Yes additional social history: Jairo Patel History 2 Elective abortions Hx Para 1 Spontaneous abortions Hx # Term Pregnancies Ectopic pregnancies Hx # Pregnancies Multiple births # of living children 1 Past Pregnancies Del. Date Name GA/Weeks Outcome Route Bth Weight Infant Gen Labor Lgth Anesthesia Del Locatn Provider FOB 04/28/23 [place] 41 live - full term 7#7oz Male epidural Aul tman Claudio Camilo Delivery Date: 04/28/23 Last Updated by: Pia Mora IOL, post dates- baby had knot in cord HPI 36wk ob Details: EVELYN MADDOX is a 29 year old who presents for routine OB visit. OB Visit GAURANG Calculator Estimated Delivery Date Method Current WG Current Estimate 09/04/25 LMP (Certain) 36w 3d Expected Delivery Route/Plan Labor Preferences- CB/BF classes: no labor support person: Tegan labor intervention preferences: [] pain management options preferred: epidural cut cord/dad catch: cord : yes PP control planned: [] discussed possible routes of delivery and associated risks: [] special requests: [] Specific Issue/Plans Covid status: [] Flu vaccine: declines Tdap vaccine: declines Rhogam: given LARC form signed: yes Problem list reviewed and updated with the [...] 176 lb 4 oz 127/82 Negative -???-???-???-???-???-?? ?-???-??? (more content not included)... Normal [facility] Product Engineering Manager Office Visit Reporton 07-27-2025 Product Engineering Manager Office Visit Report [facility] [address], [address] [place] [address] OFFICE VISIT Date of Service: 07/27/25 MR#: [id number] Acct: [id number] Name: EVELYN MADDOX I Rep #: [id number] : 1995 Provider: SALLY hughes Age/Sex: 29/F Location: [facility] Status: Signed with Addenda ADDENDUM by Prudence Stanford on 07/27/25 at 1037 Office Procedure Documentation entered by Prudence Stanford 07/27/25 10:37: Injections Is this a patient provided medication?: No Office Meds RhoGAM Ultra-Filtered PLUS 1,500 unit (300 mcg) intramuscular syringe Performing Provider: KAILEY White NPC Performing Location: [facility] Administered by: Prudence Stanford on 07/27/25 10:36 Dose Route Admin Location Dispensed Lot Number Expiration Date Package NDC NDC Boot And Saddle Repair Person 1,500 unit IM Left gluteal 1 ea [id number] 04/29/27 68369-474-27 [id number] [facility] Date cc: * Signed Intake Vital Signs 06/27/25 11:41 07/10/25 15:39 07/27/25 10:04 Height 5 ft 4 in 5 ft 4 in 5 ft 4 in Weight: 185 lb 9 oz BMI 31.8 BP 107/74 Intake Visit Reasons: 34wk ob Ceo & Board Director Required: No Is patient in pain?: No Allergies No Known Allergies Allergy (Verified 07/27/25 10:05) Medications ???Medication ???Instructions ???Recorded ???Confirmed ???Type ascorbic acid (vitamin C) 500 mg mg PO 06/22/25 07/27/25 History capsule aspirin 81 mg tablet 81 mg PO QDAY 06/22/25 07/27/25 Hi story calcium gluconate 50 mg calcium mg PO 06/22/25 07/27/25 History capsule magnesium 250 mg tablet 250 mg PO QDAY 06/22/25 07/27/25 H istory multivit-min no.71-iron fum 28 cap PO 06/22/25 07/27/25 History mg-folate no.1 1 mg-dha 300 mg capsule (PNV-Gladstone) vitamin E (dl, acetate) 90 mg (200 90 mg PO QDAY 06/22/25 07/27/25 History unit) capsule Last Menstrual Period: 11/28/24 Zika: Zika virus screening: Negative : Yes PFSH PFSH Medical History Seasonal allergies Surgical History [place] teeth extracted Family History Father Colon cancer, [...] animals: No history of recent travel: Yes ([place]- Jun) out of country: Yes sexually active: [...] physical activity do you participate in: none luis/hinduism: Uatsdin seatbelt use: always do you feel safe at home: Yes additional social history: Jairo Patel History 2 Elective abortions Hx Para 1 Spontaneous abortions Hx # Term Pregnancies Ectopic pregnancies Hx # Pregnancies Multiple births # of living children 1 Past Pregnancies Del. Date Name GA/Weeks Outcome Route Bth Weight Infant Gen Labor Lgth Anesthesia Del Locatn Provider FOB 04/28/23 Schul[place] 41 live - full term 7#7oz Male epidural Aul julion Claudio Escalante Tegan Delivery Date: 04/28/23 Last Updated by: Pia Mora IOL, post dates- baby had knot in cord HPI 34wk ob Details: EVELYN MADDOX is a 29 year old who presents for routine OB visit. OB Visit GAURANG Calculator Estimated Delivery Date Method Current WG Current Estimate 12/01/25 LMP (Certain) 34w 3d Expected Delivery Route/Plan Labor Preferences- CB/BF classes: no labor support person: Tegan labor intervention preferences: [] pain management options preferred: epidural cut cord/dad catch: cord : yes PP control planned: [] discussed possible routes of delivery and associated risks: [] special requests: [] Specific Issue/Plans Covid status: [] Flu vaccine: declines Tdap vaccine: declines Rhogam: given LARC form signed: (more content not included)... Normal [facility] Type AND Screenon 07-27-2025 Ab SCREEN GEL Negative Normal [facility] Comment on above: Order Comment: PN Performed By: #### B TS #### [facility] [address] [place], [place], [id number] (ROM) Rupture Of Membraneson 07-10-2025 ROM Negative Normal Negative [facility] Comment on above: Order Comment: Comme nts: Call Dr. Carl at [phone] Result Comment: Amni otic fluid not present indicates No Rupture of Membranes at time of specimen collection. Performed By: #### L 205.1000 #### [facility] [address] [place], [place], [id number] Product Engineering Manager Office Visit Reporton 07-10-2025 Product Engineering Manager Office Visit Report [facility] [address], [address] [place] [address] OFFICE VISIT Date of Service: 07/10/25 MR#: [id number] Acct: [id number] Name: EVELYN MADDOX Lise Rep #: [id number] : 1995 Provider: Dr. Raiza Cruz DO Age/Sex: 29/F Location[place] [facility] Status: Signed Intake Vital Signs 06/27/25 11:41 07/10/25 15:39 Height 5 ft 4 in 5 ft 4 in Weight: 180 lb 9 oz BMI 30.9 BP 115/74 Intake Visit Reasons: 32wk ob Ceo & Board Director Required: No Is patient in pain?: No [...] mg-folate no.1 1 mg-dha 300 mg capsule (PNV-Gladstone) vitamin E (dl, acetate) 90 mg (200 90 mg PO QDAY 06/22/25 07/10/25 History unit) capsule Last Menstrual Period: 11/28/24 Zika: Zika virus screening: Negative : No PFSH PFSH Medical History Seasonal allergies Surgical History [place] teeth extracted Family History Father Colon cancer, [...] physical activity do you participate in: none luis/hinduism: Uatsdin seatbelt use: always do you feel safe at home: Yes additional social history: Jairo Patel History 2 Elective abortions Hx Para 1 Spontaneous abortions Hx # Term Pregnancies Ectopic pregnancies Hx # Pregnancies Multiple births # of living children 1 Past Pregnancies Del. Date Name GA/Weeks Outcome Route Bth Weight Gen Labor Lgth Anesthesia Del Locatn Provider FOB 04/28/23 Nemesio 41 live - full term 7#7oz Male [...] -???-???-???-???-???-?? ?-???-???- (more content not included)... Normal [facility] Gestational GTT 3HR 100gon 0 07-03-2025 GEST GTT 100gm Normal [facility] Comment on above: Order Comment: Y [...] 1156 Performed By: #### L 500.4710 #### [facility] [place], [address] Quantitative serum or plasma 3 hour gestational glucose tolerance panelOrdered By: Angely Stone on 07-03-2025 Glucose tolerance 3 hours gestational panel See comment [facility] Comment on above: FASTING 81 Col: [...] Stone on 06-27-2025 Glucose Ql (U) Negative [facility] - UrinalysisOrder ed By: Angely Stone on 06-27-2025 Protein Ql (U) Negative [facility] Product Engineering Manager Office Visit Reporton 06-27-2025 Product Engineering Manager Office Visit Report [facility] [address], [address] [place] [address] OFFICE VISIT Date of Service: 06/27/25 MR#: [id number] Acct: [id number] Name: EVELYN MADDOX Rep #: [id number] : 1995 Provider: VILMA Ventura ams Age/Sex: 29/F Location: [facility] Status: Signed Intake Vital Signs 06/27/25 11:41 Height 5 ft 4 in Weight: 176 lb 4 oz BMI 30.2 BP 127/82 H Intake Visit Reasons: *NEW* NOB JAMES GAURANG 09/04 30wk2d Chief Complaint: New 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 Required: No Is patient in pain?: No [...] mg-folate no.1 1 mg-dha 300 mg capsule (PNV-Gladstone) vitamin E (dl, acetate) 90 mg (200 90 mg PO QDAY 06/22/25 06/27/25 History unit) capsule Last Menstrual Period: 11/28/24 : No Have you fallen in the past year?: No PFSH PFSH Medical History Seasonal allergies Surgical History [place] teeth extracted Family History Father Colon cancer, [...] animals: No history of recent travel: Yes ([place]- Jun) out of country: Yes sexually active: [...] physical activity do you participate in: none luis/hinduism: Uatsdin seatbelt use: always do you feel safe at home: Yes additional social history: Jairo Patel History 2 Elective abortions Hx Para 1 Spontaneous abortions Hx # Term Pregnancies Ectopic pregnancies Hx # Pregnancies Multiple births # of living children 1 Past Pregnancies Del. Date Name GA/Weeks Outcome Route Bth Weight Gen Labor Lgth Anesthesia Del Locatn Provider FOB 04/28/23 [place] 41 live - full term 7#7oz Male [...] ??- 30 (more content not included)... Normal [facility] RPRon 06-21-2025 Reagin Ab RPR Ql (S) Non-Reactive Normal Non-Reactive [facility] Comment on above: Result Comment: The RPR [...] #### A DIFF, ANEU, CBC, GLU1P #### [place] [id number] #### RPR #### [address] [address] .Auto Diffon 06-20-2025 Basophil, Absolute 0.0 10 3/mcL Normal 0.0-0.3 [facility] Comment on above: Performed By: #### A DIFF, ANEU, CBC, GLU1P #### [place] [address] #### RPR #### [address] [address] Basophils/100 WBC (Bld) 0.3 % Normal 0.0-2.5 [facility] Comment on above: Performed By: #### A DIFF, ANEU, CBC, GLU1P #### [place] [address] #### RPR #### [address] [address] Eosinophil, Absolute 0.1 10 3/mcL Normal 0.0-0.7 [facility] Comment on above: Performed By: #### A DIFF, ANEU, CBC, GLU1P #### [place] [address] #### RPR #### [address] [address] Eosinophils/100 WBC (Bld) 0.7 % Normal 0.0-6.0 [facility] Comment on above: Performed By: #### A DIFF, ANEU, CBC, GLU1P #### [place] [address] #### RPR #### [address] [address] Lymphocyte, Absolute 1.7 10 3/mcL Normal 0.9-4.3 [facility] Comment on above: Performed By: #### A DIFF, ANEU, CBC, GLU1P #### [place] [address] #### RPR #### [address] [address] Lymphocytes/100 WBC (Bld) 21.2 % Normal 20.0-40.0 [facility] Comment on above: Performed By: #### A DIFF, ANEU, CBC, GLU1P #### [address] [address] #### RPR #### [address] [address] Monocyte, Absolute 0.3 10 3/mcL Normal 0.1-1.4 [facility] Comment on above: Performed By: #### A DIFF, ANEU, CBC, GLU1P #### [address] [address] #### RPR #### [address] [address] Monocytes/100 WBC (Bld) 4.0 % Normal 2.0-13.0 [facility] Comment on above: Performed By: #### A DIFF, ANEU, CBC, GLU1P #### [place] [address] #### RPR #### [address] [address] Neutrophils/100 WBC (Bld) 73.8 % Normal 50.0-75.0 [facility] Comment on above: Performed By: #### A DIFF, ANEU, CBC, GLU1P #### [address] [address] #### RPR #### [address] [address] .NEUABSon 06-20-2025 Neutrophil, Absolute 6.0 10 3/mcL Normal 2.3-8.1 [facility] Comment on above: Performed By: #### A DIFF, ANEU, CBC, GLU1P #### [place] [address] #### RPR #### [address] [address] CBCon 06-20-2025 Erythrocyte distribution width (RBC) [Ratio] 14.2 % Normal 11.5-15.5 [facility] Comment on above: Performed By: #### A DIFF, ANEU, CBC, GLU1P #### [place] [address] #### RPR #### [place] [address] Hematocrit (Bld) [Volume fraction] 33.1 % Low 34.0-46.0 [facility] Comment on above: Performed By: #### A DIFF, ANEU, CBC, GLU1P #### [place] [address] #### RPR #### [place] [address] Hgb 11.9 G/dL Low 12.0-16.0 [facility] Comment on above: Performed By: #### A DIFF, ANEU, CBC, GLU1P #### [place] [address] #### RPR #### [place] [address] MCH (RBC) [Entitic mass] 33.4 pg High 27.0-33.0 [facility] Comment on above: Performed By: #### A DIFF, ANEU, CBC, GLU1P #### [place] [address] #### RPR #### [place] [address] MCHC 36.0 G/dL Normal 32.0-36.0 [facility] Comment on above: Performed By: #### A DIFF, ANEU, CBC, GLU1P #### [place] [address] #### RPR #### [place] [address] MCV (RBC) [Entitic vol] 92.8 fL Normal 80.0-99.0 [facility] Comment on above: Performed By: #### A DIFF, ANEU, CBC, GLU1P #### [place] [address] #### RPR #### [place] [address] Platelet 335 10 3/mcL Normal 150-450 [facility] Comment on above: Performed By: #### A DIFF, ANEU, CBC, GLU1P #### [place] [address] #### RPR #### [place] [address] Platelet mean volume (Bld) [Entitic vol] 7.3 fL Normal 6.6-10.5 [facility] Comment on above: Performed By: #### A DIFF, ANEU, CBC, GLU1P #### [place] [address] #### RPR #### [place] [address] RBC 3.56 10 6/mcL Low 4.10-5.30 [facility] Comment on above: Performed By: #### A DIFF, ANEU, CBC, GLU1P #### [place] [address] #### RPR #### [place] [address] WBC 8.1 10 3/mcL Normal 4.5-10.8 [facility] Comment on above: Performed By: #### A DIFF, ANEU, CBC, GLU1P #### [place] [address] #### RPR #### [place] [address] [id number] 06-20-2025 Glucose [Mass/Vol] 150 mg/dL High 70-140 [facility] Comment on above: Performed By: #### A DIFF, ANEU, CBC, GLU1P #### [place] [address] #### RPR #### [place] [address] LABORATORYOrdered By: SYSTEM SYSTEM on 06-20-2025 Basophils [...] ABO/Rh Interp Negative Invalid Interpretation Code [facility] Comment on above: Performed By: #### A BSGEL, ABOGEL #### [address] [address] ABS (Gel)on 04-29-2025 ABSC Interp (Gel) Negative Normal [facility] Comment on above: Performed By: #### A BSGEL, ABOGEL #### [address] [address] FMHon 04-29-2025 Mat. Hemorrhage Negative Normal [facility] Comment on above: Performed By: #### F MH #### [place] [address] LABORATORYOrdered By: Ursula navarro on 04-29-2025 ABO and Rh group Nom (Bld) Blood group A Rh(D) negative Invalid Interpretation Code AH BB Auto SS Blood group antibody screen Ql Negative ABSC (04/29/25 3:47 PM) Normal AH BB Auto SS cell screen Dari test Ql (Bld) Negative (04/29/25 3:47 PM) Normal BB Manual SS VARISon 03-17-[address] Positive Normal [facility] Comment on above: Result Comment: INTE RPRETATION OF VARICELLA IMMUNE STATUS IgG BY EIA: Negative: No detectable VZV IgG antibody. Positive: VZV IgG antibody Detected. If clinically indicated, order Varicella IgM to rule out recent infection. Equivocal: Equivocal for antibodies to VZV. Suggest repeat testing in 10-14 days. Performed By: #### A DIFF, ANEU, CBC, GLU1P #### [facility] [address] [place], [place] [address] #### RPR #### [address] [address] CTPCRon 03-16-2025 C. trachomatis Interp See CT Interp N Normal See CT Interp N [facility] Comment on above: Result Comment: Clinical Interpretation: C. trachomatis DNA not detected. Specimen is presumptive negative for C. trachomatis. A negative result does not preclude C. trachomatis infection because results depend on adequate specimen collection, absence of inhibitors, and sufficient DNA to be detected. Performed By: #### N GPCR1, CTPCR #### [place] [address] C.trachomatis PCR Negative Normal Negative [facility] Comment on above: Result Comment: Andrae cular (PCR) assay performed on the Bhupinder Eda 4800 system. Performed By: #### N GPCR1, CTPCR #### [place] [address] Chlam Source Vaginal Normal [facility] Comment on above: Performed By: #### N GPCR1, CTPCR #### [place] [address] [id number] 03-16-2025 GC PCR Source Vaginal Normal [facility] Comment on above: Performed By: #### N GPCR1, CTPCR #### [place] [address] N. gonorrhoeae (PCR) Negative Normal Negative [facility] Comment on above: Result Comment: Andrae cular (PCR) assay performed on the [employer]up[employer] Eda 4800 System. Performed By: #### N GPCR1, CTPCR #### [place] [address] N. gonorrhoeae Interp See NG Interp N Normal See NG Interp N [facility] Comment on above: Result Comment: Clinical Interpretation: N. gonorrhoeae DNA not detected. Specimen is presumptive negative for N. gonorrhoeae. A negative result does not preclude Neisseria gonorrhoeae infection because results depend on adequate specimen collection, absence of inhibitors, and sufficient DNA to be detected. Performed By: #### N GPCR1, CTPCR #### [place] [address] RPRon 03-16-2025 Reagin Ab RPR Ql (S) Non-Reactive Normal Non-Reactive [facility] Comment on above: Result Comment: The RPR [...] #### A DIFF, ANEU, CBC, GLU1P #### [place] [address] #### RPR #### [place] [address] RUBISon 03-16-[address] Negative Normal Positive [facility] Comment on above: Result Comment: This immune status assay detects IgM and/or IgG antibody to Rubella. Interpret results in conjunction with clinical history. POS: Antibody detected; exposure at undetermined recent or distant time. If clinically indicated, order Rubella IGM to rule out recent infection. NEG: No antibody detected. Performed By: #### A DIFF, ANEU, CBC, GLU1P #### [place] [address] #### RPR #### [place] [address] .Auto Diffon 03-15-2025 Basophil, Absolute 0.0 10 3/mcL Normal 0.0-0.3 [facility] Comment on above: Performed By: #### R SC, RUBIS, VARIS, HBSAG #### [place] [address] #### ABSGEL, ABOGEL, ADIFF, HIVRP, TSH, CBC, ANEU #### [address] [address] Basophils/100 WBC (Bld) 0.3 % Normal 0.0-2.5 [facility] Comment on above: Performed By: #### R SC, RUBIS, VARIS, HBSAG #### [place] [address] #### ABSGEL, ABOGEL, ADIFF, HIVRP, TSH, CBC, ANEU #### [address] [place] [address] Eosinophil, Absolute 0.1 10 3/mcL Normal 0.0-0.7 [facility] Comment on above: Performed By: #### R SC, RUBIS, VARIS, HBSAG #### [place] [address] #### ABSGEL, ABOGEL, ADIFF, HIVRP, TSH, CBC, ANEU #### [address] [address] Eosinophils/100 WBC (Bld) 0.7 % Normal 0.0-6.0 [facility] Comment on above: Performed By: #### R SC, RUBIS, VARIS, HBSAG #### [place] [address] #### ABSGEL, ABOGEL, ADIFF, HIVRP, TSH, CBC, ANEU #### [address] [address] Lymphocyte, Absolute 2.0 10 3/mcL Normal 0.9-4.3 [facility] Comment on above: Performed By: #### R SC, RUBIS, VARIS, HBSAG #### [place] [address] #### ABSGEL, ABOGEL, ADIFF, HIVRP, TSH, CBC, ANEU #### [address] [address] Lymphocytes/100 WBC (Bld) 26.0 % Normal 20.0-40.0 [facility] Comment on above: Performed By: #### R SC, RUBIS, VARIS, HBSAG #### [place] [address] #### ABSGEL, ABOGEL, ADIFF, HIVRP, TSH, CBC, ANEU #### [address] [address] Monocyte, Absolute 0.5 10 3/mcL Normal 0.1-1.4 [facility] Comment on above: Performed By: #### R SC, RUBIS, VARIS, HBSAG #### [place] [address] #### ABSGEL, ABOGEL, ADIFF, HIVRP, TSH, CBC, ANEU #### [address] [address] Monocytes/100 WBC (Bld) 6.0 % Normal 2.0-13.0 [facility] Comment on above: Performed By: #### R SC, RUBIS, VARIS, HBSAG #### [place] [address] #### ABSGEL, ABOGEL, ADIFF, HIVRP, TSH, CBC, ANEU #### [address] [address] Neutrophils/100 WBC (Bld) 67.0 % Normal 50.0-75.0 [facility] Comment on above: Performed By: #### R SC, RUBIS, VARIS, HBSAG #### [place] [address] #### ABSGEL, ABOGEL, ADIFF, HIVRP, TSH, CBC, ANEU #### [address] [address] .NEUABSon 03-15-2025 Neutrophil, Absolute 5.2 10 3/mcL Normal 2.3-8.1 [facility] Comment on above: Performed By: #### A DIFF, ANEU, CBC, GLU1P #### [address] [address] #### RPR #### [place] [id number] ABO/Rh (Gel)on 03-15-2025 ABO/Rh Interp Negative Invalid Interpretation Code [facility] Comment on above: Performed By: #### A DIFF, ANEU, CBC, GLU1P #### [address] [address] #### RPR #### [place] [id number] ABS (Gel)on 03-15-2025 ABSC Interp (Gel) Negative Normal [facility] Comment on above: Performed By: #### A DIFF, ANEU, CBC, GLU1P #### [address] [address] #### RPR #### [place] [address] CBCon 03-15-2025 Erythrocyte distribution width (RBC) [Ratio] 13.4 % Normal 11.5-15.5 [facility] Comment on above: Performed By: #### R SC, RUBIS, VARIS, HBSAG #### [place] [address] #### ABSGEL, ABOGEL, ADIFF, HIVRP, TSH, CBC, ANEU #### [place] [address] Hematocrit (Bld) [Volume fraction] 37.7 % Normal 34.0-46.0 [facility] Comment on above: Performed By: #### R SC, RUBIS, VARIS, HBSAG #### [place] [address] #### ABSGEL, ABOGEL, ADIFF, HIVRP, TSH, CBC, ANEU #### [place] [address] Hgb 13.1 G/dL Normal 12.0-16.0 [facility] Comment on above: Performed By: #### R SC, RUBIS, VARIS, HBSAG #### [place] [address] #### ABSGEL, ABOGEL, ADIFF, HIVRP, TSH, CBC, ANEU #### [place] [address] MCH (RBC) [Entitic mass] 31.9 pg Normal 27.0-33.0 [facility] Comment on above: Performed By: #### R SC, RUBIS, VARIS, HBSAG #### [place] [address] #### ABSGEL, ABOGEL, ADIFF, HIVRP, TSH, CBC, ANEU #### [place] [address] MCHC 34.7 G/dL Normal 32.0-36.0 [facility] Comment on above: Performed By: #### R SC, RUBIS, VARIS, HBSAG #### [place] [address] #### ABSGEL, ABOGEL, ADIFF, HIVRP, TSH, CBC, ANEU #### [address] [address] MCV (RBC) [Entitic vol] 91.8 fL Normal 80.0-99.0 [facility] Comment on above: Performed By: #### R SC, RUBIS, VARIS, HBSAG #### [place] [address] #### ABSGEL, ABOGEL, ADIFF, HIVRP, TSH, CBC, ANEU #### [address] [address] Platelet 324 10 3/mcL Normal 150-450 [facility] Comment on above: Performed By: #### R SC, RUBIS, VARIS, HBSAG #### [place] [address] #### ABSGEL, ABOGEL, ADIFF, HIVRP, TSH, CBC, ANEU #### [address] [address] Platelet mean volume (Bld) [Entitic vol] 7.5 fL Normal 6.6-10.5 [facility] Comment on above: Performed By: #### R SC, RUBIS, VARIS, HBSAG #### [place] [address] #### ABSGEL, ABOGEL, ADIFF, HIVRP, TSH, CBC, ANEU #### [address] [address] RBC 4.11 10 6/mcL Normal 4.10-5.30 [facility] Comment on above: Performed By: #### R SC, RUBIS, VARIS, HBSAG #### [place] [address] #### ABSGEL, ABOGEL, ADIFF, HIVRP, TSH, CBC, ANEU #### [place] [id number] WBC 7.7 10 3/mcL Normal 4.5-10.8 [facility] Comment on above: Performed By: #### R SC, RUBIS, VARIS, HBSAG #### [place] [address] #### ABSGEL, ABOGEL, ADIFF, HIVRP, TSH, CBC, ANEU #### [place] [address] HBSAGon 03-15-2025 Hep B Surf Ag Non-Reactive Normal Non-Reactive [facility] Comment on above: Performed By: #### A DIFF, ANEU, CBC, GLU1P #### [place] [address] #### RPR #### [place] [address] HIVRPon 03-15-2025 HIV p24 Antigen Non-Reactive Normal Non-Reactive [facility] Comment on above: Result Comment: Dete ction of p24 may be inhibited by biotin in the sample, causing false negative results in acute infection. Therefore do not test samples from patients who are taking biotin. Performed By: #### A DIFF, ANEU, CBC, GLU1P #### [place] [address] #### RPR #### [place] [address] HIV P24 Int Non-Reactive Invalid Interpretation Code [facility] Comment on above: Performed By: #### A DIFF, ANEU, CBC, GLU1P #### [place] [address] #### RPR #### [place] [address] Rapid HIV 1/2 Antibody Non-Reactive Normal Non-Reactive [facility] Comment on above: Performed By: #### A DIFF, ANEU, CBC, GLU1P #### [place] [address] #### RPR #### [place] [address] RHIV 1/2 Ab Int Non-Reactive Invalid Interpretation Code [facility] Comment on above: Performed By: #### A DIFF, ANEU, CBC, GLU1P #### [facility] [address] [place], [place] [address] #### RPR #### [facility] [address] [place] [address] LABORATORYOrdered By: Krysta Valdovinos on 03-15-2025 C. [...] Probable Contamination. Suggest recollection if clinically indicated. [facility] Work Phone: TSHon 03-15-2025 TSH Qn 2.74 m[IU]/L Normal 0.36-3.74 [facility] Comment on above: Performed By: #### A DIFF, ANEU, CBC, GLU1P #### [facility] [address] [place], [place] [address] #### RPR #### [address] [address] CNOVon 04-10-2024 CNOV Office Visit (UCUPNO ) EVELYN MADDOX ([id number]) 1995 F Date Time Provider Department 04/10/24 2:10 PM ALETHEA LEYVA During your visit today, we recorded the following information about you: Temperature Pulse Respiration Blood pressure 97.5 degrees 76/minute 16/minute 111/75 Weight Last Period 74 kg 03/27/24 Alethea Leyva APRN.CNP 04/10/2024 3:46 PM Addendum Xray of left foot and small toe looks ok. I will call if the radiologist reads abnormal. Wash abrasion with soap and water, apply bacitracin ointment for 1-2 days. Eli tape toes for extra support. 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 ICE AREA FREQUENTLY REST/ELEVATE TYLENOL AND/OR IBUPROFEN FOR PAIN [facility] [address] [place] [address] NISSA [phone] [facility] D[facility] [id number] [facility] N[place] [phone] Alethea Leyva APRN.SENIOR JAVA SOFTWARE ENGINEER 04/10/2024 3:48 PM Signed April 10, 2024 [...] toes -follow up with podiatry Alethea Leyva APRN.SENIOR JAVA SOFTWARE ENGINEER Medical Decision Making: Problems: Low: Acute, uncomplicated illness or injury Data: Unique source(s) for external note(s) reviewed: 1 Unique test result(s) reviewed: 1 Unique test(s) ordered: 1 Independent interpretation of test from other physician/QHCP Risk: Moderate: Moderate risk from testing/treatment Medical Decision Making Level: 4 - Moderate This note was partially generated using [employer] voice recognition system and there may be [...] of Date: 04/10 (more content not included)... [facility] XR FOOT 3V AP/LAT/OBL LTon 0 [...] within normal limits. IMPRESSION: Negative left foot. Educational Technology Specialist: CASANDRA Transcribe Date/Time: Apr 10 2024 3:59P Dictated by : CORRINE RODRIGUEZ MD This examination was interpreted and the report reviewed and electronically signed by: CORRINE RODRIGUEZ MD on Apr 10 2024 4:00PM EST [id number] [facility] XR Foot - left AP and Latera l and obliqueon 04-10-2024 IMPRESSION: Negative left foot. Educational Technology Specialist: CASANDRA Transcribe Date/Time: Apr 10 2024 3:59P Dictated by : CORRINE RODRIGUEZ MD This examination was interpreted and the report reviewed and electronically signed by: CORRINE RODRIGUEZ MD on Apr 10 2024 4:00PM EST [...] limits. [facility] RAD Provider, Jam Ross - 04/10/2024 * [...] normal limits. IMPRESSION IMPRESSION: Negative left foot. Educational Technology Specialist: PSCB Transcribe Date/Time: Apr 10 2024 3:59P Dictated by : CORRINE RODRIGUEZ MD This examination was interpreted and the report reviewed and electronically signed by: CORRINE RODRIGUEZ MD on Apr 10 2024 4:00PM [facility] Radiology Study observation (narrative) [facility] XR Foot - left AP and Latera l and obliqueOrdered By: Ccf Provider on 04-10-2024 [facility] Meat Counter Worker Cytology Reporton 2022 Meat Counter Worker Cytology Report . Pathology Reports Accession: Collected Date/Time: Received Date/Time: Pathologist: [id number] 06/10/2023 11:06 EDT 06/10/2023 18:00 EDT Meat Counter Worker Cytology Report SPECIMEN: Specimen Description: Liquid Prep [...] and evaluated with the assistance of the [employer] LimitedPrep Test Imaging System. Pathology Reports Accession: Collected Date/Time: Received Date/Time: Pathologist: [id number] 06/10/2023 11:06 EDT 06/10/2023 18:00 EDT Electronically Signed by Pathology report verified by [facility] Screened by: [place] Electronically signed by Britney GALEAS (ASCP) Sign-Out Date: 06/22/2023 10:38 Performing Lab: [facility], [address] [place] [address] Pathology Dept Disclaimer The Pap test is a screening test for cervical cancer. As evidenced by published data, it is subject to both inherent false negative and false positive results. Your patient's results should be interpreted in context with pertinent clinical history including gynecological examination. Normal [facility] ([place] HPVon 06-18-2023 HPV Interp Normal See Interp HPVN [facility] [place] Comment on above: Order Comment: Order placed by AP_HPV_ORDER rule from [id number] Result Comment: High Risk HPV Typing: NEGATIVE [...] By: #### A DIFF, CBC, ANEU #### [place] [address] HPV Source Cervix Normal [facility] ([place] Comment on above: Order Comment: Order placed by AP_HPV_ORDER rule from [id number] Performed By: #### A DIFF, CBC, ANEU #### [place] [address] .Auto Diffon 04-29-2023 Basophil, Absolute 0.0 10 3/mcL Normal 0.0-0.2 [facility] ([place]) Comment on above: Performed By: #### A DIFF, CBC, ANEU #### [place] [id number] Basophils/100 WBC (Bld) 0.2 % Normal 0.0-2.5 [facility] ([place]) Comment on above: Performed By: #### A DIFF, CBC, ANEU #### [place] [address] Eosinophil, Absolute 0.2 10 3/mcL Normal 0.0-0.4 [facility] ([place]) Comment on above: Performed By: #### A DIFF, CBC, ANEU #### [place] [address] Eosinophils/100 WBC (Bld) 1.2 % Normal 0.0-7.0 [facility] ([place] Comment on above: Performed By: #### A DIFF, CBC, ANEU #### [address] [address] Lymphocyte, Absolute 2.2 10 3/mcL Normal 0.8-3.9 [facility] ([place]) Comment on above: Performed By: #### A DIFF, CBC, ANEU #### [address] [address] Lymphocytes/100 WBC (Bld) 17.0 % Normal 10.0-50.0 [facility] ([place] Comment on above: Performed By: #### A DIFF, CBC, ANEU #### [address] [address] Monocyte, Absolute 1.1 10 3/mcL High 0.2-1.0 [facility] ([place]) Comment on above: Performed By: #### A DIFF, CBC, ANEU #### [address] [address] Monocytes/100 WBC (Bld) 8.1 % Normal 1.7-13.0 [facility] ([place] Comment on above: Performed By: #### A DIFF, CBC, ANEU #### [address] [address] Neutrophils/100 WBC (Bld) 73.5 % Normal 37.0-80.0 [facility] ([place] Comment on above: Performed By: #### A DIFF, CBC, ANEU #### [address] [address] .NEUABSon 04-29-2023 Neutrophil, Absolute 9.6 10 3/mcL High 2.9-6.2 [facility] ([place]) Comment on above: Performed By: #### A DIFF, CBC, ANEU #### [address] [address] CBCon 04-29-2023 Erythrocyte distribution width (RBC) [Ratio] 13.2 % Normal 11.5-14.5 [facility] ([place] Comment on above: Performed By: #### A DIFF, CBC, ANEU #### [address] [address] Hematocrit (Bld) [Volume fraction] 33.9 % Low 37.0-47.0 [facility] ([place] Comment on above: Performed By: #### A DIFF, CBC, ANEU #### [address] [address] Hgb 11.5 G/dL Low 12.0-16.0 [facility] ([place] Comment on above: Performed By: #### A DIFF, CBC, ANEU #### [address] [address] MCH (RBC) [Entitic mass] 31.8 pg High 27.0-31.2 [facility] ([place] Comment on above: Performed By: #### A DIFF, CBC, ANEU #### [address] [address] MCHC 34.1 G/dL Normal 33.0-37.0 [facility] ([place] Comment on above: Performed By: #### A DIFF, CBC, ANEU #### [address] [address] MCV (RBC) [Entitic vol] 93.4 fL Normal 80.0-94.0 [facility] ([place] Comment on above: Performed By: #### A DIFF, CBC, ANEU #### [address] [address] Platelet 234 10 3/mcL Normal 130-400 [facility] ([place] Comment on above: Performed By: #### A DIFF, CBC, ANEU #### [address] [address] Platelet mean volume (Bld) [Entitic vol] 7.5 fL Normal 7.4-10.4 [facility] ([place] Comment on above: Performed By: #### A DIFF, CBC, ANEU #### [address] [address] RBC 3.63 10 6/mcL Low 4.20-5.40 [facility] ([place] Comment on above: Performed By: #### A DIFF, CBC, ANEU #### [address] [address] WBC 13.0 10 3/mcL High 4.6-10.8 [facility] ([place]) Comment on above: Performed By: #### A DIFF, CBC, ANEU #### [place] [address] [place], [place] [address] LABORATORYOrdered By: SYSTEM SYSTEM on 04-29-2023 Basophil, [...] Ql (S) Non-Reactive Normal Non-Reactive [facility] ([place]) Comment on above: Result Comment: The RPR [...] By: #### A DIFF, CBC, ANEU #### [address] [address] .Auto Diffon 04-27-2023 Basophil, Absolute 0.0 10 3/mcL Normal 0.0-0.2 [facility] ([place]) Comment on above: Performed By: #### A DIFF, CBC, ANEU #### [address] [address] Basophils/100 WBC (Bld) 0.1 % Normal 0.0-2.5 [facility] ([place]) Comment on above: Performed By: #### A DIFF, CBC, ANEU #### [address] [address] Eosinophil, Absolute 0.1 10 3/mcL Normal 0.0-0.4 [facility] ([place]) Comment on above: Performed By: #### A DIFF, CBC, ANEU #### [address] [address] Eosinophils/100 WBC (Bld) 1.1 % Normal 0.0-7.0 [facility] ([place]) Comment on above: Performed By: #### A DIFF, CBC, ANEU #### [address] [address] Lymphocyte, Absolute 2.4 10 3/mcL Normal 0.8-3.9 [facility] ([place]) Comment on above: Performed By: #### A DIFF, CBC, ANEU #### [address] [address] Lymphocytes/100 WBC (Bld) 21.7 % Normal 10.0-50.0 [facility] ([place]) Comment on above: Performed By: #### A DIFF, CBC, ANEU #### [address] [address] Monocyte, Absolute 0.9 10 3/mcL Normal 0.2-1.0 [facility] ([place]) Comment on above: Performed By: #### A DIFF, CBC, ANEU #### [address] [address] Monocytes/100 WBC (Bld) 8.2 % Normal 1.7-13.0 [facility] ([place]) Comment on above: Performed By: #### A DIFF, CBC, ANEU #### [address] [address] Neutrophils/100 WBC (Bld) 68.9 % Normal 37.0-80.0 [facility] ([place]) Comment on above: Performed By: #### A DIFF, CBC, ANEU #### [address] [address] .NEUABSon 04-27-2023 Neutrophil, Absolute 7.5 10 3/mcL High 2.9-6.2 [facility] ([place]) Comment on above: Performed By: #### A DIFF, CBC, ANEU #### [address] [address] CBCon 04-27-2023 Erythrocyte distribution width (RBC) [Ratio] 13.4 % Normal 11.5-14.5 [facility] ([place] Comment on above: Performed By: #### A DIFF, CBC, ANEU #### [address] [address] Hematocrit (Bld) [Volume fraction] 37.4 % Normal 37.0-47.0 [facility] ([place]) Comment on above: Performed By: #### A DIFF, CBC, ANEU #### [address] [address] Hgb 13.0 G/dL Normal 12.0-16.0 [facility] ([place]) Comment on above: Performed By: #### A DIFF, CBC, ANEU #### [address] [address] MCH (RBC) [Entitic mass] 32.4 pg High 27.0-31.2 [facility] ([place]) Comment on above: Performed By: #### A DIFF, CBC, ANEU #### [address] [address] MCHC 34.8 G/dL Normal 33.0-37.0 [facility] ([place] Comment on above: Performed By: #### A DIFF, CBC, ANEU #### [address] [address] MCV (RBC) [Entitic vol] 93.1 fL Normal 80.0-94.0 [facility] ([place] Comment on above: Performed By: #### A DIFF, CBC, ANEU #### [address] [address] Platelet 248 10 3/mcL Normal 130-400 [facility] ([place] Comment on above: Performed By: #### A DIFF, CBC, ANEU #### [address] [address] Platelet mean volume (Bld) [Entitic vol] 7.6 fL Normal 7.4-10.4 [facility] ([place]) Comment on above: Performed By: #### A DIFF, CBC, ANEU #### [address] [address] RBC 4.01 10 6/mcL Low 4.20-5.40 [facility] ([place]) Comment on above: Performed By: #### A DIFF, CBC, ANEU #### [place] [id number] [place], [place] [address] WBC 10.9 10 3/mcL High 4.6-10.8 [facility] ([place]) Comment on above: Performed By: #### A DIFF, CBC, ANEU #### [address] [address] [place], [place] [address] Gel ABOon 04-27-2023 ABO/Rh Interp Negative Invalid Interpretation Code [facility] ([place]) Comment on above: Performed By: #### A DIFF, CBC, ANEU #### [address] [address] Gel ABSon 04-27-2023 Antibody Screen Gel Negative Normal [facility] ([place]) Comment on above: Performed By: #### A DIFF, CBC, ANEU #### [address] [address] LABORATORYOrdered By: Niurka Hughes on 04-26-2023 ABO/Rh [...] (04/26/23 10:52 PM) Invalid Interpretation Code Non-Reactive [facility] SS Comment on above: Interpretive Data: [...] Nom (Bld) A negative (04/26/23 10:10 PM) [facility] Work Phone: Group B Strep Date Performed [id number] [facility] Work Phone: Group B Strep, External Positive (04/26/23 10:10 PM) [facility] Work Phone: Hepatitis B Date Performed [id number] [facility] Work Phone: Hepatitis B, External Negative (04/26/23 10:10 PM) [facility] Work Phone: HIV Antibodies, External Negative (04/26/23 10:10 PM) [facility] Work Phone: HIV Date Performed [id number] [facility] Work Phone: RPR Date Performed [id number] [facility] Work Phone: RPR, External Reactive (04/26/23 10:10 PM) [facility] Work Phone: Rubella Date Performed [id number] [facility] Work Phone: Rubella, External Nonimmune (04/26/23 10:10 PM) [facility] Work Phone: GBSPCRon 04-02-2023 Group B Strep (PCR) Positive Abnormal Negative [facility] ([place]) Comment on above: Performed By: #### G BSPCR #### [facility] [address] [place], [place] [address] Group B Strep PCR Int Normal [facility] ([place]) Comment on above: Result Comment: Grou p [...] Below Performed By: #### G BSPCR #### [address] [address] LABORATORYOrdered By: Gianni Cornell on 04-01-2023 Group [...] Ql (S) Non-Reactive Normal Non-Reactive [facility] ([place]) Comment on above: Result Comment: The RPR [...] #### A NISHANT, GLU, ADIFF, CBC #### [address] [address] #### RPR #### [address] [address] .Auto Diffon 01-14-2023 Basophil, Absolute 0.0 10 3/mcL Normal 0.0-0.2 [facility] ([place]) Comment on above: Performed By: #### A NISHANT, GLU, ADIFF, CBC #### [address] [address] #### RPR #### [address] [address] Basophils/100 WBC (Bld) 0.3 % Normal 0.0-2.5 [facility] ([place]) Comment on above: Performed By: #### A NISHANT, GLU, ADIFF, CBC #### [address] [address] #### RPR #### [address] [address] Eosinophil, Absolute 0.1 10 3/mcL Normal 0.0-0.4 [facility] ([place]) Comment on above: Performed By: #### A NISHANT, GLU, ADIFF, CBC #### [address] [address] #### RPR #### [address] [address] Eosinophils/100 WBC (Bld) 1.1 % Normal 0.0-7.0 [facility] ([place]) Comment on above: Performed By: #### A NISHANT, GLU, ADIFF, CBC #### [address] [address] #### RPR #### [address] [address] Lymphocyte, Absolute 1.6 10 3/mcL Normal 0.8-3.9 [facility] ([place]) Comment on above: Performed By: #### A NISHANT, GLU, ADIFF, CBC #### [address] [address] #### RPR #### [address] [address] Lymphocytes/100 WBC (Bld) 16.4 % Normal 10.0-50.0 [facility] ([place]) Comment on above: Performed By: #### A NISHANT, GLU, ADIFF, CBC #### [address] [address] #### RPR #### [address] [address] Monocyte, Absolute 0.6 10 3/mcL Normal 0.2-1.0 [facility] ([place]) Comment on above: Performed By: #### A NISHANT, GLU, ADIFF, CBC #### [address] [address] #### RPR #### [address] [address] Monocytes/100 WBC (Bld) 6.3 % Normal 1.7-13.0 [facility] ([place]) Comment on above: Performed By: #### A NSIHANT, GLU, ADIFF, CBC #### [place] [address] #### RPR #### [place] [address] Neutrophils/100 WBC (Bld) 75.9 % Normal 37.0-80.0 [facility] ([place]) Comment on above: Performed By: #### A NISHANT, GLU, ADIFF, CBC #### [place] [address] #### RPR #### [place] [address] .NEUABSon 01-14-2023 Neutrophil, Absolute 7.5 10 3/mcL High 2.9-6.2 [facility] ([place]) Comment on above: Performed By: #### A NISHANT, GLU, ADIFF, CBC #### [place] [address] #### RPR #### [place] [address] CBCon 01-14-2023 Erythrocyte distribution width (RBC) [Ratio] 14.0 % Normal 11.5-14.5 [facility] ([place]) Comment on above: Performed By: #### A NISHANT, GLU, ADIFF, CBC #### [place] [address] #### RPR #### [place] [address] Hematocrit (Bld) [Volume fraction] 35.6 % Low 37.0-47.0 [facility] ([place]) Comment on above: Performed By: #### A NISHANT, GLU, ADIFF, CBC #### [place] [address] #### RPR #### [place] [address] Hgb 12.3 G/dL Normal 12.0-16.0 [facility] ([place] Comment on above: Performed By: #### A NISHANT, GLU, ADIFF, CBC #### [place] [address] #### RPR #### [place] [address] MCH (RBC) [Entitic mass] 32.0 pg High 27.0-31.2 [facility] ([place] Comment on above: Performed By: #### A NISHANT, GLU, ADIFF, CBC #### [place] [address] #### RPR #### [place] [address] MCHC 34.6 G/dL Normal 33.0-37.0 [facility] ([place] Comment on above: Performed By: #### A NISHANT, GLU, ADIFF, CBC #### [place] [address] #### RPR #### [place] [address] MCV (RBC) [Entitic vol] 92.7 fL Normal 80.0-94.0 [facility] ([place]) Comment on above: Performed By: #### A NISHANT, GLU, ADIFF, CBC #### [place] [address] #### RPR #### [place] [address] Platelet 344 10 3/mcL Normal 130-400 [facility] ([place]) Comment on above: Performed By: #### A NISHANT, GLU, ADIFF, CBC #### [address] [address] #### RPR #### [address] [address] Platelet mean volume (Bld) [Entitic vol] 7.8 fL Normal 7.4-10.4 [facility] ([place]) Comment on above: Performed By: #### A NISHANT, GLU, ADIFF, CBC #### [place] [address] #### RPR #### [place] [address] RBC 3.84 10 6/mcL Low 4.20-5.40 [facility] ([place]) Comment on above: Performed By: #### A NISHANT, GLU, ADIFF, CBC #### [place] [address] #### RPR #### [place] [address] WBC 9.9 10 3/mcL Normal 4.6-10.8 [facility] ([place]) Comment on above: Performed By: #### A NISHANT, GLU, ADIFF, CBC #### [address] [address] #### RPR #### [address] [address] GLUon 01-14-2023 Glucose [Mass/Vol] 82 mg/dL Normal 70-105 [facility] ([place]) Comment on above: Order Comment: post glucola Performed By: #### A NISHANT, GLU, ADIFF, CBC #### [address] [address] #### RPR #### [address] [address] Gel ABOon 01-14-2023 ABO/Rh Interp Negative Invalid Interpretation Code [facility] ([place]) Comment on above: Performed By: #### A DIFF, CBC, ANEU #### [address] [address] Gel ABSon 01-14-2023 Antibody Screen Gel Negative Normal [facility] ([place]) Comment on above: Performed By: #### A DIFF, CBC, ANEU #### [place] [address] [place] [address] LABORATORYOrdered By: Gerald Can on 01-14-2023 Basophil, [...] Normal See CT Interp N [facility] ([place]) Comment on above: Result Comment: C. t rachomatis DNA not detected. Specimen is presumptive negative for C. trachomatis. A negative result does not preclude C. trachomatis infection because results depend on adequate specimen collection, absence of inhibitors, and sufficient DNA to be detected. See CT Interp N Performed By: #### A DIFF, CBC, ANEU #### [address] [address] C.trachomatis PCR Negative Normal Negative [facility] ([place]) Comment on above: Result Comment: Stoeks sport tube received with two swabs. Review collection procedure. Inappropriate collection may cause aberrant results. Molecular (PCR) assay performed on the Bhupinder Eda 4800 system. Performed By: #### A DIFF, CBC, ANEU #### [address] [address] Chlam Source Vaginal Normal [facility] ([place]) Comment on above: Performed By: #### A DIFF, CBC, ANEU #### [address] [address] [id number] 10-25-2022 GC PCR Source Vaginal Normal [facility] ([place]) Comment on above: Performed By: #### A DIFF, CBC, ANEU #### [address] [address] N. gonorrhoeae (PCR) Negative Normal Negative [facility] ([place]) Comment on above: Result Comment: Stokes sport tube received with two swabs. Review collection procedure. Inappropriate collection may cause aberrant results. Molecular (PCR) assay performed on the Bhupinder Eda 4800 System. Performed By: #### A DIFF, CBC, ANEU #### [address] [address] N. gonorrhoeae Interp Normal See NG Interp N [facility] ([place]) Comment on above: Result Comment: N. g onorrhoeae DNA not detected. Specimen is presumptive negative for N. gonorrhoeae. A negative result does not preclude Neisseria gonorrhoeae infection because results depend on adequate specimen collection, absence of inhibitors, and sufficient DNA to be detected. See NG Interp N Performed By: #### A DIFF, CBC, ANEU #### [place] [id number] RPRon 10-24-2022 Reagin Ab RPR Ql (S) Non-Reactive Normal Non-Reactive [facility] ([place]) Comment on above: Result Comment: The RPR [...] By: #### A DIFF, CBC, ANEU #### [address] [address] RUBISon 10-24-[address] Negative Normal Positive [facility] ([place]) Comment on above: Result Comment: This immune status assay detects IgM and/or IgG antibody to Rubella. Interpret results in conjunction with clinical history. POS: Antibody detected; exposure at undetermined recent or distant time. If clinically indicated, order Rubella IGM to rule out recent infection. NEG: No antibody detected. Performed By: #### A DIFF, CBC, ANEU #### [address] [address] VARISon 10-24-[address] Positive Normal [facility] ([place]) Comment on above: Result Comment: INTE RPRETATION OF VARICELLA IMMUNE STATUS IgG BY EIA: Negative: No detectable VZV IgG antibody. Positive: VZV IgG antibody Detected. If clinically indicated, order Varicella IgM to rule out recent infection. Equivocal: Equivocal for antibodies to VZV. Suggest repeat testing in 10-14 days. Performed By: #### A DIFF, CBC, ANEU #### [place] [address] HBSAGon 10-23-2022 Hep B Surf Ag Non-Reactive Normal Non-Reactive [facility] ([place]) Comment on above: Performed By: #### A DIFF, CBC, ANEU #### [place] [address] .Auto Diffon 10-22-2022 Basophil, Absolute 0.1 10 3/mcL Normal 0.0-0.2 [facility] ([place]) Comment on above: Performed By: #### A DIFF, CBC, ANEU #### [place] [address] Basophils/100 WBC (Bld) 0.6 % Normal 0.0-2.5 [facility] ([place]) Comment on above: Performed By: #### A DIFF, CBC, ANEU #### [place] [address] Eosinophil, Absolute 0.1 10 3/mcL Normal 0.0-0.4 [facility] ([place]) Comment on above: Performed By: #### A DIFF, CBC, ANEU #### [place] [id number] Eosinophils/100 WBC (Bld) 0.7 % Normal 0.0-7.0 [facility] ([place]) Comment on above: Performed By: #### A DIFF, CBC, ANEU #### [address] [address] Lymphocyte, Absolute 2.4 10 3/mcL Normal 0.8-3.9 [facility] ([place]) Comment on above: Performed By: #### A DIFF, CBC, ANEU #### [place] [address] [place], [place] [address] Lymphocytes/100 WBC (Bld) 20.4 % Normal 10.0-50.0 [facility] ([place]) Comment on above: Performed By: #### A DIFF, CBC, ANEU #### [address] [address] Monocyte, Absolute 0.7 10 3/mcL Normal 0.2-1.0 [facility] ([place]) Comment on above: Performed By: #### A DIFF, CBC, ANEU #### [address] [address] Monocytes/100 WBC (Bld) 5.9 % Normal 1.7-13.0 [facility] ([place]) Comment on above: Performed By: #### A DIFF, CBC, ANEU #### [address] [address] Neutrophils/100 WBC (Bld) 72.4 % Normal 37.0-80.0 [facility] ([place]) Comment on above: Performed By: #### A DIFF, CBC, ANEU #### [address] [address] .NEUABSon 10-22-2022 Neutrophil, Absolute 8.4 10 3/mcL High 2.9-6.2 [facility] ([place]) Comment on above: Performed By: #### A DIFF, CBC, ANEU #### [address] [address] CBCon 10-22-2022 Erythrocyte distribution width (RBC) [Ratio] 13.3 % Normal 11.5-14.5 [facility] ([place]) Comment on above: Performed By: #### A DIFF, CBC, ANEU #### [address] [address] Hematocrit (Bld) [Volume fraction] 36.9 % Low 37.0-47.0 [facility] ([place]) Comment on above: Performed By: #### A DIFF, CBC, ANEU #### [address] [address] Hgb 12.7 G/dL Normal 12.0-16.0 [facility] ([place]) Comment on above: Performed By: #### A DIFF, CBC, ANEU #### [address] [address] MCH (RBC) [Entitic mass] 31.1 pg Normal 27.0-31.2 [facility] ([place]) Comment on above: Performed By: #### A DIFF, CBC, ANEU #### [address] [address] MCHC 34.3 G/dL Normal 33.0-37.0 [facility] ([place]) Comment on above: Performed By: #### A DIFF, CBC, ANEU #### [address] [address] MCV (RBC) [Entitic vol] 90.5 fL Normal 80.0-94.0 [facility] ([place]) Comment on above: Performed By: #### A DIFF, CBC, ANEU #### [address] [address] Platelet 337 10 3/mcL Normal 130-400 [facility] ([place]) Comment on above: Performed By: #### A DIFF, CBC, ANEU #### [address] [address] Platelet mean volume (Bld) [Entitic vol] 7.4 fL Normal 7.4-10.4 [facility] ([place]) Comment on above: Performed By: #### A DIFF, CBC, ANEU #### [address] [address] RBC 4.08 10 6/mcL Low 4.20-5.40 [facility] ([place]) Comment on above: Performed By: #### A DIFF, CBC, ANEU #### [address] [address] WBC 11.6 10 3/mcL High 4.6-10.8 [facility] ([place]) Comment on above: Performed By: #### A DIFF, CBC, ANEU #### [address] [address] Gel ABOon 10-22-2022 ABO/Rh Interp Negative Invalid Interpretation Code [facility] ([place]) Comment on above: Performed By: #### A DIFF, CBC, ANEU #### [address] [address] Gel ABSon 10-22-2022 Antibody Screen Gel Negative Normal [facility] ([place]) Comment on above: Performed By: #### A DIFF, CBC, ANEU #### [place] [address] HIVRPon 10-22-2022 HIV p24 Antigen Non-Reactive Normal Non-Reactive [facility] ([place]) Comment on above: Result Comment: Dete ction of p24 may be inhibited by biotin in the sample, causing false negative results in acute infection. Therefore do not test samples from patients who are taking biotin. Performed By: #### A DIFF, CBC, ANEU #### [place] [address] HIV P24 Int Non-Reactive Invalid Interpretation Code [facility]) Comment on above: Performed By: #### A DIFF, CBC, ANEU #### [place] [address] Rapid HIV 1/2 Antibody Non-Reactive Normal Non-Reactive [facility] ([place]) Comment on above: Performed By: #### A DIFF, CBC, ANEU #### [address] [address] RHIV 1/2 Ab Int Non-Reactive Invalid Interpretation Code [facility] ([place]) Comment on above: Performed By: #### A DIFF, CBC, ANEU #### [place] [address] LABORATORYOrdered By: Krysta Valdovinos on 10-22-2022 C. [...] cfu/ml. No Significant growth. Sensitivity not indicated. [facility] Work Phone: TSHon 10-22-2022 TSH Qn 2.18 m[IU]/L Normal 0.36-3.74 [facility] ([place]) Comment on above: Performed By: #### A DIFF, CBC, ANEU #### [facility] [address] [place], [place] [address] Vital Signs Date Time Vital Sign Value Performing Clinician Facility 07-10-2025 15:39-0400 Body height 162.56 cm Angely LEYVAM Work Phone: [facility] 07-10-2025 15:39-0400 Body mass index (BMI) [Ratio] 30.9 kg/m2 Angely LEYVAM Work Phone: [facility] 07-10-2025 15:39-0400 Body weight 81.9 kg Angely LEYVAM Work Phone: [facility] 07-10-2025 15:39-0400 Diastolic blood pressure 74 mm[Hg] Angely LEYVAM Work Phone: [facility] 07-10-2025 15:39-0400 Systolic blood pressure 115 mm[Hg] Angely LEYVAM Work Phone: [facility] 06-27-2025 11:41-0400 Body height 162.56 cm Angely LEYVAM Work Phone: [facility] 06-27-2025 11:41-0400 Body mass index (BMI) [Ratio] 30.2 kg/m2 Angely LEYVAM Work Phone: [facility] 06-27-2025 11:41-0400 Body weight 79.94 kg Angely LEYVAM Work Phone: [facility] 06-27-2025 11:41-0400 Diastolic blood pressure 82 mm[Hg] Angely LEYVAM Work Phone: [facility] 06-27-2025 11:41-0400 Systolic blood pressure 127 mm[Hg] Angely Chase CNM Work Phone: [facility] 04-10-2024 14:52-0400 Body temperature 97.5 [degF] Alethea Ledger CNA.SENIOR [employer]AVA SOFTWARE ENGINEER Work Phone: [facility] 04-10-2024 14:52-0400 Body weight 74 kg Alethea Ledger CNA.SENIOR [employer]AVA SOFTWARE ENGINEER Work Phone: [facility] 04-10-2024 14:52-0400 Diastolic blood pressure 75 mm[Hg] Alethea Ledger CNA.SENIOR [employer]AVA SOFTWARE ENGINEER Work Phone: [facility] 04-10-2024 14:52-0400 Heart rate 76 /min Alethea Ledger CNA.SENIOR [employer]AVA SOFTWARE ENGINEER Work Phone: [facility] 04-10-2024 14:52-0400 Respiratory rate 16 /min Alethea Ledger CNA.SENIOR [employer]AVA SOFTWARE ENGINEER Work Phone: [facility] 04-10-2024 14:52-0400 SaO2% (BldA) [Mass fraction] 95 % Alethea Ledger CNA.SENIOR JAVA SOFTWARE ENGINEER Work Phone: [facility] 04-10-2024 14:52-0400 Systolic blood pressure 111 mm[Hg] Alethea Ledger CNA.SENIOR [employer]AVA SOFTWARE ENGINEER Work Phone: [facility] 04-29-2023 11:00-0400 Body temperature 98.6 [degF] JOHN VERDUGO DO [facility] 04-29-2023 11:00-0400 Diastolic Blood Pressure Non-Invasive 65 1 JOHN VERDUGO DO [facility] 04-29-2023 11:00-0400 Heart rate 88 /min JOHN VERDUGO DO [facility] 04-29-2023 11:00-0400 Respiratory rate 18 /min JOHN VERDUGO DO [facility] 04-29-2023 11:00-0400 Systolic Blood Pressure Non-Invasive 118 1 JOHN VERDUGO DO [facility] 04-28-2023 23:59-0400 Body temperature 97.88 [degF] JOHN VERDUGO DO [facility] 04-28-2023 23:59-0400 Diastolic Blood Pressure Non-Invasive 67 1 JOHN VERDUGO DO [facility] 04-28-2023 23:59-0400 Heart rate 72 /min JOHN VERDUGO DO [facility] 04-28-2023 23:59-0400 Reason For Taking VItal Signs JOHN VERDUGO DO [facility] 04-28-2023 23:59-0400 Respiratory rate 16 /min JOHN VERDUGO DO [facility] 04-28-2023 23:59-0400 Systolic Blood Pressure Non-Invasive 107 1 JOHN VERDUGO DO [facility] 04-28-2023 15:40-0400 Body temperature 97.52 [degF] JOHN VERDUGO DO [facility] 04-28-2023 15:40-0400 Diastolic Blood Pressure Non-Invasive 77 1 JOHN VERDUGO DO [facility] 04-28-2023 15:40-0400 Heart rate 92 /min JOHN VERDUGO DO [facility] 04-28-2023 15:40-0400 Reason For Taking VItal Signs JOHN VERDUGO DO [facility] 04-28-2023 15:40-0400 Respiratory rate 18 /min JOHN VERDUGO DO [facility] 04-28-2023 15:40-0400 Systolic Blood Pressure Non-Invasive 115 1 JOHN VERDUGO DO [facility] 04-28-2023 08:16-0400 Reason For Taking VItal Signs JOHN VERDUGO DO [facility] 04-26-2023 22:10-0400 Body height 162.6 cm JOHN VERDUGO DO [facility] 04-26-2023 22:10-0400 Body weight 84.1 kg JOHN VERDUGO DO [facility] 04-26-2023 22:10-0400 Body weight 31.81 kg/m2 JOHN VERDUGO DO [facility] Encounters Encounter Date Encounter Type Care Provider Facility Start: 08-21-2025 ambulatory No Primary Car e Physician Facility:[facility] Start: 08-14-2025 End: 08-14-2025 ambulatory No Primary Care Physician Facility:[facility] Start: 08-10-2025 End: 08-10-2025 ambulatory No Primary Care Physician Facility:[facility] Start: 08-10-2025 End: 08-10-2025 ambulatory No Primary Care Physician Facility:[facility] Start: 07-27-2025 End: 07-27-2025 ambulatory No Primary Care Physician Facility:[facility] Start: 07-10-2025 End: 07-10-2025 Patient encounter procedure Angely Stone CNM -Laboratory Specimen Work Phone: Start: 07-10-2025 End: 07-10-2025 ambulatory Angely Stone CNM Work Phone: [facility] Start: 07-10-2025 End: 07-10-2025 ambulatory Angely Stone Facility:[facility] Start: 07-03-2025 End: 07-03-2025 ambulatory Angely Stone CNM Work Phone: -Laboratory Start: 07-03-2025 End: 07-03-2025 Patient encounter procedure Angely Stone CNM -Laboratory Work Phone: Start: 07-03-2025 End: 07-03-2025 ambulatory Agnely Stone Facility:[facility] Start: 06-27-2025 End: 06-27-2025 Patient encounter procedure Angely Stone CNM -[facility] Work Phone: Start: 06-27-2025 End: 06-27-2025 ambulatory Angely Stone CNM Work Phone: -[facility] Start: 06-20-2025 End: 06-20-2025 ambulatory ROMÁN HERNANDEZ DO Facility:[facility] Start: 06-20-2025 End: 06-20-2025 Patient encounter procedure BELKYS ESCALANTE CNA-CNM [facility] Start: 04-29-2025 End: 04-29-2025 Emergency department patient visit DR LUIS EDUARDO PADILLA DO [facility] Start: 04-05-2025 End: 04-05-2025 ambulatory ROMÁN HERNANDEZ DO Facility:[facility] Start: 04-05-2025 End: 04-05-2025 Patient encounter procedure BELKYS ESCALANTE CNA-CNM [facility] Start: 03-15-2025 End: 03-19-2025 ambulatory BELKYS ESCALANTE CNA-CNM Facility:[facility] Start: 03-15-2025 End: 03-19-2025 Outreach Lab BELKYS ESCALANTE CNA-CNM [facility] Start: 03-15-2025 End: 03-15-2025 ambulatory BELKYS ESCALANTE CNA-CNM Facility:[facility] Start: 03-15-2025 End: 03-15-2025 Patient encounter procedure BELKYS ESCALANTE CNA-CNM [facility] Start: 02-01-2025 End: 02-01-2025 ambulatory ANA AGARWAL CNA-CNM Facility:[facility] Start: 02-01-2025 End: 02-01-2025 Patient encounter procedure ANA AGARWAL CNA-CNM [facility] Start: 04-10-2024 ambulatory ALETHEA LEYVA Facility:[id number] Start: 04-10-2024 End: 04-10-2024 Subsequent hospital visit by physician [facility] Comment on above: Toe injury, left, in itial encounter [S99.922A] Start: 04-10-2024 End: 04-10-2024 Patient encounter procedure Alethea Leyva CNA.SENIOR JAVA SOFTWARE ENGINEER Work Phone: [facility] Comment on above: Toe injury, left, in itial encounter (Primary Dx) Start: 04-10-2024 End: 04-10-2024 ambulatory ALETHEA LEYVA Facility:[id number] Start: 06-10-2023 End: 06-15-2023 ambulatory BELKYS ESCALANTE CNA-CNM Facility:B Start: 04-26-2023 End: 04-29-2023 Evaluation and management of inpatient JOHN E SHEROCK DO Facility:B Start: 04-26-2023 End: 04-29-2023 Evaluation and management of inpatient JOHN E SHEROCK DO [facility] Start: 04-01-2023 End: 04-06-2023 ambulatory ROMÁN HERNANDEZ DO Facility:B Start: 04-01-2023 End: 04-05-2023 Outreach Lab ANA AGARWAL CNA-CNM [facility] Start: 03-25-2023 End: 03-30-2023 ambulatory ROMÁN W CRISTO DO Facility:B Start: 03-25-2023 End: 03-29-2023 Outreach Lab ANA AGARWAL CNA-CNM [facility] Start: 01-16-2023 End: 01-16-2023 ambulatory RICHRAFIA ESCALANTE CNA-CNM Facility:B Start: 01-16-2023 End: 01-16-2023 SAME DAY STAY BELKYS ESCALANTE CNA-CNM [facility] Start: 01-14-2023 End: 01-15-2023 ambulatory RICHRAFIA ESCALANTE CNA-CNM Facility:B Start: 01-14-2023 End: 01-14-2023 Patient encounter procedure ANA AGARWAL CNA-CNM [facility] Start: 11-25-2022 End: 11-26-2022 [facility] Start: 11-25-2022 End: 11-25-2022 Patient encounter procedure ANA AGARWAL CNA-CNM [facility] Start: 10-22-2022 End: 10-27-2022 ambulatory ROMÁN W CRISTO DO Facility:B Start: 10-22-2022 End: 10-26-2022 Outreach Lab ANA AGARWAL CNA-CNM [facility] Start: 10-22-2022 End: 10-22-2022 Patient encounter procedure ANADEBBIE AGARWAL CNA-CNM [facility] Start: 09-22-2022 End: 09-23-2022 ambulatory ROMÁN HERNANDEZ DO Facility:A Start: 09-22-2022 End: 09-22-2022 Patient encounter procedure ANA Jennifer AGARWAL CNA-CNM [facility] Procedures Date Procedure Procedure Detail Performing Clinician Start: 07-10-2025 Measurement of pH in vaginal fluid specimen using nitrazine yellow for detection of rupture of amniotic membrane Angely Stone CNM Work Phone: Comment on above: Amniotic fluid not p resent indicates No Rupture of FetalMembranes at time of specimen collection. Start: 04-10-2024 Radex foot complete minimum 3 views Alethea Leyva CNA.SENIOR JAVA SOFTWARE ENGINEER Work Phone: Start: 05-31-2020 Structure of wisdom tooth (body structure) JOHN VERDUGO DO Plan of Treatment Date Care Activity Detail Author Start: 07-03-2025 [facility] Start: 07-03-2025 Patient encounter procedure Registered Clinical -Laboratory Work Phone: Start: 06-05-2024 Covid-19 Vaccine ( season) Covid-19 Vaccine ( season) [facility] Start: 06-05-2024 Influenza vaccination Influenza Vacc ine (#1) [facility] Start: 10-05-2023 Behavioral Health Screening Behavioral Health Screening [facility] Start: 06-05-2023 Covid-19 Vaccine ( season) Covid-19 Vaccine ( season) [facility] Start: 2016 Screening for malign ant neoplasm of cervix Cervical Cancer Screening [facility] Start: 2014 Hepatitis B Vaccine (1 of 3 - 19+ 3-dose series) Hepatitis B Vaccine (1 of 3 - 19+ 3-dose series) [facility] Start: 2014 Urine microalbumin profile DTaP,Tdap,Td Vaccine (1 - Tdap) [facility] Start: 2013 Anxiety Screening Anxiety Screening [facility] Start: 2013 Depression Screening Depression Scre ening [facility] Start: 2013 Hepatitis C screening Hepatitis C Ne jody [facility] Start: 2013 HIV screening HIV Screening [facility] Start: 09-09-2013 Hepatitis B Vaccine (2 of 3 - 3-dose series) Hepatitis B Vaccine (2 of 3 - 3-dose series) [facility] Payers Date Payer Category Payer Self-pay 2025 Private Health Insurance [id number] 2023 Unknown [id number] 2022 Unknown [id number] 2022 Unknown [id number] 1995 Unknown [id number] 2.16.8 40.1.270069.3.579.2.627 1995 Unknown [id number] 2.16.8 40.1.920342.3.579.2.627 1995 Unknown [id number] 2.16.8 40.1.179248.3.579.2.627 1995 Unknown [id number] 2.16.8 40.1.156294.3.579.2.627 1995 Unknown [id number] 2.16.8 40.1.871076.3.579.2.627 1995 Unknown [id number] 2.16.8 40.1.995991.3.579.2.627 1995 Unknown [id number] 2.16.8 40.1.716449.3.579.2.627 1995 Unknown [id number] 2.16.8 40.1.237642.3.579.2.627 1995 Unknown [id number] 2.16.8 40.1.955857.3.579.2.627 1995 Unknown [id number] 2.16.8 40.1.895493.3.579.2.627 1995 Unknown [id number] 2.16.8 40.1.740371.3.579.2.627 1995 Unknown [id number] 2.16. 840.1.224714.3.579.2.627 1995 Unknown [id number] 2.16. 840.1.989448.3.579.2.627 1995 Unknown [id number] 2.16. 840.1.158453.3.579.2.627 1995 Unknown [id number] 2.16. 840.1.025495.3.579.2.627 1995 Unknown [id number] 2.16. 840.1.557280.3.579.2.627 1995 Unknown [id number] 2.16.8 40.1.696044.3.579.2.627 Unknown [id number] 2.16.8 40.1.354766.3.579.2.462 Unknown [id number] 2.16.8 40.1.912605.3.579.2.462 Unknown [id number] 2.16.8 40.1.974906.3.579.2.462 Unknown [id number] 2.16.8 40.1.246237.3.579.2.462 Unknown [id number] 2.16.8 40.1.411600.3.579.2.462 Unknown [id number] 2.16.8 40.1.587666.3.579.2.462 Unknown [id number] 2.16.8 40.1.944398.3.579.2.462 Unknown [id number] 2.16.8 40.1.003626.3.579.2.462 Unknown [id number] 2.16.8 40.1.116413.3.579.2.462 Unknown [id number] 2.16.8 40.1.199454.3.579.2.462 Social History Date Type Detail Facility Tobacco smoking status [facility] Start: 1995 Sex Assigned At Female A [facility] Start: 04-26-2023 End: 06-22-2025 Tobacco smoking status Never smoked tobacco (finding) [facility] Start: 04-10-2024 Tobacco use and exposure Smokeless tobacco non-user [facility] Start: 04-10-2024 Alcoholic beverage intake Current drinker of alcohol (finding) [facility] Start: 09-13-2020 End: 04-10-2024 History of Social function [facility] Start: 09-13-2020 End: 04-10-2024 Tobacco use panel [facility] National Score (1-10 0), lower number is lower risk Not on file [facility] Start: 04-10-2024 Alcohol Comment occ [facility] Start: 1995 Sex assigned at Not on file C [facility] Start: 09-10-2022 Sex Female (finding) [facility] Functional Status Date Assessment Result Facility 04-29-2023 Functional Status Rooming in [facility] 04-26-2023 Functional Status Home with family care A [facility] Mental Status Date Assessment Result Facility 04-27-2023 Mental Status Orientation Oriented x 4 [facility] Clinical Notes 10-22-2022 to 07-10-2025 Note Date & Type Note Facility 07-10-2025 Progress note [facility] 07-10-2025 Progress note Note Date/Time July 10, 2025 4:13pm [facility] [address], [address] [place] [address] OFFICE VISIT Date of Service: 07/10/25 MR#: [id number] Acct: [id number] Name: EVELYN MADDOX I Rep #: [id number] : 1995 Provider: Dr. 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: No Is patient in pain?: No Allergies No Known Allergies Allergy (Verified 07/10/25 15:37) Medications ?Medication ?Instructions ?Recorded ?Confirmed ?Type ascorbic acid (vitamin C) 500 mg mg PO 06/22/25 History capsule aspirin 81 mg tablet 81 mg PO QDAY 06/22/2507/10 History calcium gluconate 50 mg calcium mg PO 06/22/25 5 History capsule magnesium 250 mg tablet 250 mg PO QDAY 06/22/2503/29 History multivit-min no.71-iron fum 28 cap PO 06/22/25 5 History mg-folate no.1 1 mg-dha 300 mg capsule (PNV-Gladstone) vitamin E (dl, acetate) 90 mg (200 90 mg PO QDAY 06/2207/10/25 History unit) capsule Last Menstrual Period: 11/28/24 Zika: Zika virus screening: Negative : No PFSH PFSH Medical History Seasonal allergies Surgical History [place] teeth extracted Family History Father Colon cancer, [...] physical activity do you participate in: none luis/hinduism: Uatsdin seatbelt use: always do you feel safe at home: Yes additional social history: Jairo Patel History 2 Elective abortions Hx Para 1 Spontaneous abortions Hx # Term Pregnancies Ectopic pregnancies Hx # Pregnancies Multiple births # of living children 1 Past Pregnancies Del. Date Name GA/Weeks Outcome Route Bth Weight Infant Gen Labor Lgth Anesthesia Del Locatn Provider FOB 04/28/23 [place] 41 live - full term 7#7oz Male epidural [facility] Claudio Camilo Delivery Date: 04/28/23 Last Updated [...] Negative 150 31 -?-?-?-?-?-?-?-?-?-?-?-?- KW- JAMES from gr nancy. Records reviewed and PRR KW- JAMES from simónnancy. Recor ds reviewed and PRR- waiting on [...] Cosigner Signature: Date (if applicable) CC: ~ [facility] [employer] Work Phone: 1(406) 575-442109-23-2025 Evaluation note* Diagnosis Onset Date Resolution Status Admit Date COVID-19 affecting , antepartum acute June 27, 2025 11:38am FH: breast cancer acute Sept2024 11:38am acute June 11:38am Rh negative status during acute June 27, 2025 11:38am Supervision of high-risk acute June 27, 2025 11:38am [facility] Work Phone: 1(331) 461-358209-23-2025 Evaluation note* Diagnosis Onset Date Resolution Status Admit Date COVID-19 affecting , antepartum acute June 27, 2025 11:38am FH: breast cancer acute Septemb 2024 11:38am acute June 11:38am Rh negative status during acute June 27, 2025 11:38am Supervision of high-risk acute June 27, 2025 11:38am Abnormal glucose affecting acute July 10 3:34pm COVID-19 affecting , antepartum acute July 10 3:34pm FH: breast cancer acute July 10, 2025 3:34pm acute July 10, 025 3:34pm Rh negative status during acute July 10 3:34pm Supervision of high-risk acute July 10 3:34pm [facility] Work Phone: 1(100) 897-375709-23-2025 Progress [facility] [address] [place] [address], [address] [place] [address] OFFICE VISIT Date of Service: 06/27/25 MR#: [id number] Acct: [id number] Name: EVELYN MADDOX Rep #: [id number] : 1995 Provider: VILMA Stone Age/Sex: 29/F Location: [facility] Status: Signed Intake Vital Signs 06/27/25 11:41 Height 5 ft 4 in Weight: 176 lb 4 oz BMI 30.2 BP 127/82 H Intake Visit Reasons: *NEW* NOB JAMES GAURANG 09/04 30wk2d Chief Complaint: New 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 Required: No Is patient in pain?: No [...] mg-folate no.1 1 mg-dha 300 mg capsule (PNV-Gladstone) vitamin E (dl, acetate) 90 mg (200 90 mg PO QDAY 06/2206/27/25 History unit) capsule Last Menstrual Period: 11/28/24 : No Have you fallen in the past year?: No PFSH PFSH Medical History Seasonal allergies Surgical History [place] teeth extracted Family History Father Colon cancer, [...] physical activity do you participate in: none luis/hinduism: Uatsdin seatbelt use: always do you feel safe at home: Yes additional social history: Jairo Patel History 2 Elective abortions Hx Para 1 Spontaneous abortions Hx # Term Pregnancies Ectopic pregnancies Hx # Pregnancies Multiple births # of living children 1 Past Pregnancies Del. Date Name GA/Weeks Outcome Route Bth Weight Gen Labor Lgth Anesthesia Del Locatn Provider FOB 04/28/23 [place] 41 live - full term 7#7oz Male epidural [facility] Sacramentonancy Camilo Delivery Date: 04/28/23 Last Updated by: [...] No, Recent travel outside of [place]: Yes ([place]), Concern for hepatitis exposure: No, Varicella immune: [...] blood transfusions, Pulmonary (e.g.,TB,Asthma), Drug/latex allergies/reactions, Breast, Meat Counter Worker surgery, Anestheticcomplications, History of abnormal pap, Uterine [...] Urine Glucose Negative Last Edit by Ines Rodriguez on 06/27/25 11:50 Office Urine Protein Negative Last Edit by Ines Rodriguez on 06/27/25 11:50 Coding Level of Care [...] s VILMA> Date _ Angely Stone CNM Cosigncayden Signature: Date (if applicable) CC: ~ [facility]09-16-2025 Evaluation + Plan note Diagnostic Tests Pending * Rapid Plasma Reagin(RFX Titer + Confirm) 06/20/25 [facility] 07-26-2025 Hospital Discharge instructions Patient Education 04/29/2025 17:32:46 7 - Labor and Delivery Outpatient Instructions (CUSTOM) [facility]OR AND DELIVERY OUTPATIENT HOME-GOING INSTRUCTIONS _X_ [...] the nearest Emergency Room for assistance. Form [id number] D: 09/12 Document Released: 09/21/2006 Document Revised: 09/09/2012 Document Reviewed: 09/21/2006 ExitCare Patient Information [address] [facility] CenterGoNetYourself [facility]. Follow Up Care 04/29/2025 14:48:47 With:JOHN VERDUGO Address: [address] [place] [address] [address] [place] [phone]- [phone] Business (1) When: Unknown Comments:Follow-up as scheduled [facility] 07-26-2025 Note Discharge Instructions Thank you for allowing [facility] to assist you with your healthcare needs. The following is importantdischarge information regarding your hospital visit. Your Care Team ORMÁN HERNANDEZ DO What to do next Follow Up Appointments Follow Up with JOHN KARTIK Where:[address] [place] [address] [address] [place] [phone] Business (1) Additional Information: Follow-up as scheduled [...] medication providers or retail pharmacies. Education Materials [facility] AND DELIVERY OUTPATIENT HOME-GOING INSTRUCTIONS _X_ [...] the nearest Emergency Room for assistance. Form [id number] D: 09/12 Document Released: 09/21/2006 Document Revised: 09/09/2012 Document Reviewed: 09/21/2006 ExitCare Patient Information 2012 [email or web address]. Additional Information VACCINATE! IT SAVES LIVES! Members of the community who have not yet received the COVID-19 vaccine and would like to receive it can visit one of [facility] vaccine clinics. There are many vaccine clinic locations within the [facility]. For locations and available times, please visit [email or web address].[email or web address]/. It is important to note that some COVID mobile vaccine clinics are held outdoors and may be canceled in rainy or stormy conditions. To learn more about pediatric vaccinations (ages 5-11), we invite you to visit the [facility] webpage. https://www.[email or web address]/pages/[email or web address]-Uocog-Cwrorsltekz-Lqldevqyww-Bknlg-[email or web address] stions.htmlTo learn more about the COVID-19 vaccine, we invite you to visit the CDC website for a list of frequently asked questions. https://www.cdc.gov/coronavirus/2019-ncov/vaccines/faq.html [facility] Patient Portal Access Instructions: Stay connected with your healthcare team and access your personal medical information anytime with the [facility] Patient Portal.If you would like a full copy of your medical records, please contact the [facility] Medical Records Department, Thursday through Thursday between 8a.m. and 4:30p.m. Please follow the directions below to access the portal: 1.Access the email account you provided upon registration to the [facility].2.Look for an invitation email from [facility].3.Open the email and access the invitation link: Accept Invitation to [facility]4.Fill in the required martines to create your account. Sign into www.[employer] with your username and password that you [...] you will allow to register on the [facility] Patient Portal for access to your information. You can also access the [facility] Patient Portal on the [employer] rachael. Simply click on Health Records under Black[employer] and then click on the [employer] logo. HOW TO SAFELY DISPOSE OF PRESCRIPTION [...] Call your local pharmacy or go to [email or web address] to find one close to you.3.Make use of household items: Use cat litter or old coffee grounds to dispose medications if other options arenot available. Mix your drugs with these household products, seal them in an airtight container andthrow it into the garbage. Call [facility]: [phone] to be sure your drugs can be [...] that I should contact my do ctor. 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 MICRO - Microbiology PROCEDURE: Urine Culture [...] Locations *1: This test was performed at: [facility], [address] [place] [address], [facility] , [facility]06-11-2025 Evaluation + Plan note Diagnostic Tests Pending * Panel (AO) 03/15/25 * Varicella Zoster Antibody 03/15/25 [facility] 07-07-2024 History of Present illness Narrative* [...] PATIENT PRESENTS WITH AN IMPLANTABLE OR ATTACHED SUGAR TRUCKER: No RADIOLOGY DEPARTMENT: General X-ray: Exam(s) Completed: Lower Extremity X- Ray(s): Foot, Left PERIPHERAL IV DATA: Not applicable SIGNED BY: ONDINA Ledezma) April 10, 2024 3:42 PM [facility] NoteHNO ID: [id number] Author: ZENY POLLARD RT (R) Service: ? Author Type: Technologist Type: Progress [...] PATIENT PRESENTS WITH AN IMPLANTABLE OR ATTACHED SUGAR TRUCKER: No RADIOLOGY DEPARTMENT: General X-ray: Exam(s) Completed: Lower Extremity X-Ray(s): Foot, Left PERIPHERAL IV DATA: Not applicable SIGNED BY: ONDINA Ledezma) April 10, 2024 3:42 PMSt. [facility] Carmel [id number] NoteHNO ID: [id number] Author: ALETHEA LEYVA APRN.SENIOR JAVA SOFTWARE ENGINEER Service: ? Author Type: Nurse Practitioner Type: [...] toes -follow up with podiatry Alethea Leyva APRN.SAMMI Medical Decision Making: Problems: Low: Acute, uncomplicated illness or injury Data: Unique source(s) for external note(s) reviewed: 1 Unique test result(s) reviewed: 1 Unique test(s) ordered: 1 Independent interpretation of test from other physician/QHCP Risk: Moderate: Moderate risk from testing/treatment Medical Decision Making Level: 4 - Moderate This note was partially generated using [employer] voice recognition system and there may be [...] not relevant for today. Plan as outlined above.[facility] [id number] History of Present illness Narrative* Alethea Leyva [...] Moderate This note was partially generated using [employer] voice recognition system and there may be [...] Plan as outlined above. documented in this encounterAdams [facility] Hospital07-07-2024 Instructions* Patient Instructions* Alethea Leyva APRN.CNP - 04/10/2024 3:06 PM EDT Xray of left foot and small toe looks ok. I will call if the radiologist reads abnormal. Wash abrasion with soap and water, apply bacitracin ointment for 1-2 days. Eli tape toes for extra support. 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 ICE AREA FREQUENTLY REST/ELEVATE TYLENOL AND/OR IBUPROFEN FOR PAIN [facility] [address] [place] [address] TUAN BELL DPM [id number] [facility] NISSA [phone] documented in this encounterAdams [facility] Hospital07-25-2023 Hospital Discharge instructions Patient Education 04/28/2023 [...] work with your health care provider or network systems consultant. If you are not : ?Avoid [...] about methods of control (contraception). Medicines Take evoi-imr-ccpwlkj and prescription medicines only as told by [...] 07/18/2008 Document Revised: 09/24/2018 Document Reviewed: 07/05/2018 [employer] Patient Education 2020 kaufDA. 04/28/2023 01:15:56 Care After Vaginal Delivery Care [...] work with your health care provider or network systems consultant. If you are not : ?Avoid [...] about methods of control (contraception). Medicines Take sjjc-ulx-pkicjnl and prescription medicines only as told by [...] 07/18/2008 Document Revised: 09/24/2018 Document Reviewed: 07/05/2018 [employer] Patient Education [employer]. 04/28/2023 01:15:51 7b- Depression and Blues (07/2020) (CUSTOM) [facility] Depression and Blues All mothers are at [...] psychosis. Often, a screening tool called the [place] Depression Scale is used to diagnose [...] music. Avoid alcohol. Ask for help with chief hydroelectric station operator, cooking, grocery shopping, or running errands as needed. Do nottry to do everything. Talk to people close to you about how you are feeling. Get support from your partner, family members, and friends. Try to stay positive in how you think. Think about the things you are grateful for. Do not spend a lot of time alone. Only take tdht-kqn-dunjrwn or prescription medicine as directed by your [...] not doing well or get worse. Resource: [facility] Patient Information 2014 [email or web address]. This information is not intended to replace advicegiven to you by your health care provider. Make sure you discuss any questions you have with your health care provider. 04/28/2023 01:15:51 7b- Depression and Blues (07/2020) (CUSTOM) [facility] Depression and Blues All mothers are at [...] psychosis. Often, a screening tool called the [place] Depression Scale is used to diagnose [...] music. Avoid alcohol. Ask for help with chief hydroelectric station operator, cooking, grocery shopping, or running errands as needed. Do nottry to do everything. Talk to people close to you about how you are feeling. Get support from your partner, family members, and friends. Try to stay positive in how you think. Think about the things you are grateful for. Do not spend a lot of time alone. Only take xbch-pnh-tqcnapp or prescription medicine as directed by your [...] not doing well or get worse. Resource: [facility] Patient Information 2014 [email or web address]. This information is not intended to replace advicegiven to you by your health care provider. Make sure you discuss any questions you have with your health care provider. Follow Up Care 04/26/2023 22:01:54 With:BELKYS ESCALANTE Address: DR JOHN STORY [address] [facility][1] [address] [place] [address]- [phone] When:Within 6 Week(s) Comments: visit [facility] 07-24-2023 Note Labor Details Baby A FHR Baseline:125 bpm FHR Baseline Variability:Moderate variability FHR Deceleration Description:Early, Intermittent Membranes Membrane Status:A.R.O.M. ROM Date, Time:04/27/2023 19:30 EDT FHR Accelerations:Present Uterine Uterine Contraction Frequency3 Uterine Contraction Monitoring MethodExternal toco Cervical Cervix Dilation9 cm Cervix Ltdwhdwaml90 Station-2 Labor Induction Information postdates IOL Physical [...] + LR Premix Diluent 1,000 mL Pfizerpen, [id number] unit(s)= 50 mL, IV Piggyback, q4h Pitocin, [...] by BELKYS ESCALANTE on 04/27/2023 09:50 PM [facility]07-24-2023 Note Reason for Visit OB Induction [...] by first trimester ultrasound who present to [facility] for scheduled IOL due to postdates. Received [...] non-immune Historical No qualifying data Procedure/Surgical History [place] tooth: 05/31/20 Medications Inpatient Ambien, 10 mg= [...] + LR Premix Diluent 1,000 mL Pfizerpen, [id number] unit(s)= 50 mL, IV Piggyback, q4h Pitocin, [...] PM Digitally Signed by JOHN VERDUGO DO [facility]07-24-2023 Anesthesiology Consult note Patient: EVELYN MADDOX I Age: 27 years [...] Medical Group B streptococcus / SNOMED CT [id number] / Confirmed / SNOMED CT [id number] / Confirmed Rubella non-immune / SNOMED CT [id number] / Confirmed, Active Problems (3) Group B streptococcus Rubella non-immune Histories Past Medical History: No active or resolved past medical history items have been selected or recorded. Family History: Atrial fibrillation Mother Cancer of colon Father Procedure history: [place] tooth ([id number]) on 05/31/2020 at 24 Years. Social History [...] Oral36.6 DegC (APR 27 16:46) Heart Rate Uhfuotbpw83 bpm (APR 27 18:10) Resp Rate 18 br/min (APR 27 15:45) WCW990 mmHg (APR 27 18:10) DBPL 55mmHg (APR 27 18:10) BMI31.81 (APR 26 22:10) Measurements from flowsheet : Measurements 04/26/2023 22:10 EDT Height 162.6 cm Admission Weight 84.1 kg [place] Body Weight 54.74 kg BSA Admission 1.89 [...] with support Epidural Placed By JAYNA ALMARAZ CNA-MOUNTER SOUSAPHONES Epidural Test Dose Time 04/27/2023 18:05 04/27/2023 [...] date/time 04/27/2023 17:45 Provider Notified BELKYS ESCALANTE APRN-CNM Notification Method Phone Information Communicated Nurse communication Details Communicated patient is 5/80/-2, going to get her an epidural, pitocin turned off Notification Outcome Orders not received Person Reporting Result(s) charles wood rn 04/27/2023 17:44 EDT Monitoring Annotations patient up to the bathroom 04/27/2023 17:33 EDT Notify date/time 04/27/2023 17:33 Provider Notified JAYNA ALMARAZ CNA-MOUNTER SOUSAPHONES Notification Method Phone Information Communicated Nurse communication Details Communicated patient requesting epidural Person Reporting Result(s) charles wood rn 04/27/2023 17:30 EDT Primary Pain Intensity 9 Pain Scale Type 0-10 Pain scale Cervix Dilation 5 cm Cervix Effacement 80 Station -2 Cervical Consistency Soft Cervical Position Mid Presenting Part Vertex Vaginal Exam Performed By PARIS Wood Jackman's Score 10 Vaginal Discharge Description Bloody [...] date/time 04/27/2023 17:04 Provider Notified BELKYS ESCALANTE APRN-GORDON Notification Method Phone Information Communicated Nurse communication Details Communicated Discussed the strip, patient having recurrent early decelerations with occasional late decelerations, pitocin only at 1mu/min, patient had nubain at 1640. Notification Outcome Orders received Person Reporting Result(s) Charles Wood RN Details of Results Received Do not [...] date/time 04/27/2023 16:00 Provider Notified BELKYS ESCALANTE CNA-CNM Notification Method Phone Information Communicated Nurse communication Details Communicated Patient was a cytotec induction last night, when I tried to start pitocin earlier, she contracted every 1-2 and could only tolerate 30 minutes, had nubain at 12 with rupture of membranes, now cervical exam is 1-2/80/-2, contractions 2-3 Notification Outcome Orders received Person Reporting Result(s) Charles Wood, RN Details of Results Received ok to [...] EDT Notify date/time 04/27/2023 13:30 Provider Notified JOSE A VERDUGOABE Lake DO Notification Method Face to face conversation Information Communicated Nurse communication Details Communicated patient is still skip every 1-2, had a dose of nubain, water broke at 1200 Notification Outcome Orders not received Person Reporting Result(s) Charles Wood RN 04/27/2023 14:11 EDT Monitoring Annotations nurse [...] feelings, concerns Skin Temperature Warm Skin Description [place], Dry Skin Integrity Intact Sensory Perception Darrel [...] Outcome Orders received Person Reporting Result(s) Charles Wood RN Details of Results Received Reassess in [...] cytotec, cervical exam the same as at 0400-/-2, posterior, skip every 2-3 minutes Notification Outcome Orders received Person Reporting Result(s) Charles Wood RN 04/27/2023 8:23 EDT Heart Rate Monitored [...] Communicated Nurse communication Details Communicated cervical exam /-2, gave second dose of cytotec Notification Outcome [...] Antibodies, External Ne (more content not included)... [facility]07-24-2023 Evaluation + Plan noteExtracted from: Title:OB Admission H&P Author:BELKYS ESCALANTE APRN-CNRolo Date:04/27/23 Assessment 1. IOL 2. GBS POS Plan 1. Admit to labor and delivery 2. IV with LR at 125ml/hour 3. Continuous monitoring 4. GBS prophylaxis with PCN G 5. Dr. Verdugo notified of admission and was on primary throughout the night last night and today until [address] Colón is backup coverage for the evening and night tonight [facility] 07-23-2023 Anesthesiology Consult note* JAYNA ALMARAZ CNA-MOUNTER SOUSAPHONES: PERFORM, SIGN, VERIFY Event Display: Anesthesiology Consultation Authored Date: [id number] Patient: EVELYN MADDOX I [facility]: [id number] Age: 27 years Sex: Female : 1995 [...] Medical Group B streptococcus / SNOMED CT 755563532 / Confirmed / SNOMED CT 352124122 / Confirmed Rubella non-immune / SNOMED CT 390099262 / Confirmed, Active Problems (3) Group B streptococcus Rubella non-immune Histories Past Medical History: No active or resolved past medical history items have been selected or recorded. Family History: Atrial fibrillation Mother Cancer of colon Father Procedure history: [place] tooth ([id number]) on 05/31/2020 at 24 Years. Social History [...] Oral36.6 DegC (APR 27 16:46) Heart Rate Xrrhpmiwt72 bpm (APR 27 18:10) Resp Rate 18 br/min (APR 27 15:45) RNE984 mmHg (APR 27 18:10) DBPL 55mmHg (APR 27 18:10) BMI31.81 (APR 26 22:10) Measurements from flowsheet : Measurements 04/26/2023 22:10 EDT Height 162.6 cm Admission Weight 84.1 kg [place] Body Weight 54.74 kg BSA Admission 1.89 [...] with support Epidural Placed By JAYNA ALMARAZ CNA-MOUNTER SOUSAPHONES Epidural Test Dose Time 04/27/2023 18:05 04/27/2023 [...] date/time 04/27/2023 17:45 Provider Notified BELKYS ESCALANTE CNA-CNM Notification Method Phone Information Communicated Nurse communication Details Communicated patient is 5/80/-2, going to get her an epidural, pitocin turned off Notification Outcome Orders not received Person Reporting Result(s) charles wood rn 04/27/2023 17:44 EDT Monitoring Annotations patient up to the bathroom 04/27/2023 17:33 EDT Notify date/time 04/27/2023 17:33 Provider Notified JAYNA ALMARAZ CNA-MOUNTER SOUSAPHONES Notification Method Phone Information Communicated Nurse communication Details Communicated patient requesting epidural Person Reporting Result(s) charles wood rn 04/27/2023 17:30 EDT Primary Pain Intensity 9 Pain Scale Type 0-10 Pain scale Cervix Dilation 5 cm Cervix Effacement 80 Station -2 Cervical Consistency Soft Cervical Position Mid Presenting Part Vertex Vaginal Exam Performed By PARIS Wood Jackman's Score 10 Vaginal Discharge Description Bloody [...] date/time 04/27/2023 17:04 Provider Notified BELKYS ESCALANTE CNA-GORDONM Notification Method Phone Information Communicated Nurse communication Details Communicated Discussed the strip, patient having recurrent early decelerations with occasional late decelerations, pitocin only at 1mu/min, patient had nubain at 1640. Notification Outcome Orders received Person Reporting Result(s) Charles Wood RN Details of Results Received Do not [...] date/time 04/27/2023 16:00 Provider Notified BELKYS ESCALANTE CNA-CN Notification Method Phone Information Communicated Nurse communication Details Communicated Patient was a cytotec induction last night, when I tried to start pitocin earlier, she contracted every 1-2 and could only tolerate 30 minutes, had nubain at 12 with rupture of membranes, now cervical exam is 1-2/80/-2, contractions 2-3 Notification Outcome Orders received Person Reporting Result(s) Charles Wood RN Details of Results Received ok to start pitocin at 1mu Results Read Back Yes Cervix Dilation 1 cm Cervix Effacement 80 Station -2 Cervical Consistency Soft Cervical Position Posterior Presenting Part Vertex Vaginal Exam Performed By PARIS Wood Uterine Contraction Monitoring Method External toco Uterine [...] Orders not received Person Reporting Result(s) Charles Wood RN 04/27/2023 14:11 EDT Monitoring Annotations nurse [...] Presenting Part Vertex Vaginal Exam Performed By Wood, PARIS Moon Jackman's Score 6 Vaginal Discharge [...] feelings, concerns Skin Temperature Warm Skin Description [place], Dry Skin Integrity Intact Sensory Perception Darrel [...] at the bedside, states contractions are now /10, feels they are coming frequently, discussed position [...] Outcome Orders received Person Reporting Result(s) Charles Wood RN Details of Results Received Reassess in [...] Outcome Orders received Person Reporting Result(s) Charles Wood RN 04/27/2023 8:23 EDT Heart Rate Monitored [...] Communicated Nurse communication Details Communicated cervical exam , gave second dose of cytotec Notification Outcome Orders not received Person Reporting Result(s) Tim [facility] 04/27/2023 4:25 EDT Activity Status ADL Awake, [...] 01/14/2023 Designated Person #1 We May Share [facility] [phone] Designated Person #1 Relationship Spouse Privacy Restrictions Requested None Height 162.6 cm Admission Weight 84.1 kg [place] Body Weight 54.74 kg BSA Admission 1.89 [...] deliveries, Unscarred uterus, Absence of hemorrhage history Infant Feeding Breast milk Anesthesia/Pain Medication During Labor Epidural/Spinal Circumcision Yes Baby For Adoption No Surrogate No Discharge Physician Dr. Hernandez [facility] Participant No Safe Sleep Environment for Baby [...] No Weight Loss No Preferred Spoken Language Ecuadorean Preferred Written Language Ecuadorean Teaching Evaluation Verbalizes/Nonverbally indicates understanding Safety Brochure Information Reviewed Yes Alphonso [employer] Mobile Video Viewed No Chief Complaint induction of labor Mode of Arrival Ambulatory Accompanied by Spouse Information Given by Patient Patient's Current Physicians Dr. Verdugo Emergency Contact Number Tegan Maddox [phone] Reason For Visit OB Induction Belongings At [...] EDT OBHx 1 . Assessment and Plan [place] [employer] Anesthesiologists (ASA) physical status classification: Class II. Anesthetic Preoperative Plan Premedication: None. Anesthetic technique: Epidural. Induction. Maintenance airway: Mask. Regional: Epidural. Postoperative pain management: Per surgeon. Risks discussed: nausea, vomiting, headache, sore throat, dental injury, hypotension, allergic reaction, serious complications. Informed consent: signed by patient. Digitally Signed by JAYNA ALMARAZ APRN-MOUNTER SOUSAPHONES on 04/27/2023 06:24 PM [facility] 04-12-2023 Evaluation + Plan note Diagnostic Tests Pending * Rapid Plasma Reagin Test 01/14/23 [facility] 01-20-2023 Note. MICRO - Microbiology PROCEDURE: Urine Culture [*1] SOURCE: Urine BODY SITE: COLLECTED DATE/TIME: 10/22/2022 16:43 EST RECEIVED DATE/TIME: 10/23/2022 14:08 EST START DATE/TIME: 10/23/2022 14:08 EST FREE TEXT SOURCE: FINAL REPORTS Final Report [] Verified Date/Time/Personnel: 10/24/2022 15:10 EST <10,000 cfu/ml. No Significant growth. Sensitivity not indicated. Performing Locations *1: This test was performed at: [facility], [address] [place] [address], [facility] , [facility] ([place])10-22-2022 Evaluation + Plan note Diagnostic Tests Pending * Panel (AO) 10/22/22 * Varicella Zoster Antibody 10/22/22 [facility] Evaluation + Plan note No data available for this section [facility] Evaluation note* Diagnosis Toe injury, left, initial encounter [facility] Diagnosis Toe injury, left, initial encounter- Primary Toe injury, left, initial encounter documented in this encounter [facility] note* Diagnosis Onset Date Resolution Status Admit Date COVID-19 affecting , antepartum acute June 27, 2025 11:38am FH: breast cancer acute Sept2024 11:38am acute June 11:38am Rh negative status during acute June 27, 2025 11:38am Supervision of high-risk acute June 27, 2025 11:38am [facility] Work Phone: Hospital Discharge instructions No data available for this section [facility] progress note No data available for this section [facility] progress note Author Angely Stone [facility] Note Date/Time June 27, 2025 12:22pm [facility] [address] [place] [address], [address] [place] [address] OFFICE VISIT Date of Service: 06/27/25 MR#: [id number] Acct: [id number] Name: EVELYN MADDOX Rep #: [id number] : 1995 Provider: VILMA Stone Age/Sex: 29/F Location: [facility] Status: Signed Intake Vital Signs 06/27/25 11:41 Height 5 ft 4 in Weight: 176 lb 4 oz BMI 30.2 BP 127/82 H Intake Visit Reasons: *NEW* NOB JAMES GAURANG 09/04 30wk2d Chief Complaint: New 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 Required: No Is patient in pain?: No [...] mg-folate no.1 1 mg-dha 300 mg capsule (PNV-Gladstone) vitamin E (dl, acetate) 90 mg (200 90 mg PO QDAY 06/2206/27/25 History unit) capsule Last Menstrual Period: 11/28/24 : No Have you fallen in the past year?: No PFSH PFSH Medical History Seasonal allergies Surgical History [place] teeth extracted Family History Father Colon cancer, [...] physical activity do you participate in: none luis/hinduism: Uatsdin seatbelt use: always do you feel safe at home: Yes additional social history: Jairo Patel History 2 Elective abortions Hx Para 1 Spontaneous abortions Hx # Term Pregnancies Ectopic pregnancies Hx # Pregnancies Multiple births # of living children 1 Past Pregnancies Del. Date Name GA/Weeks Outcome Route Bth Weight Gen Labor Lgth Anesthesia Del Locatn Provider FOB 04/28/23 [place] 41 live - full term 7#7oz Male epidural [facility] Navya Boris Camilo Delivery Date: 04/28/23 Last Updated by: [...] Negative 150 31 -?-?-?-?-?-?-?-?-?-?-?-?- KW- JAMES from [facility]. Records reviewed and PRR KW- JAMES from [facility]. 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, Anesthetic complications, History of abnormal pap, [...] Urine Glucose Negative Last Edit by Ines Rodriguez on 06/27/25 11:50 Office Urine Protein Negative Last Edit by Ines Rodriguez on 06/27/25 11:50 Coding Level of Care Code OB Routine Diagnoses Supervision of high-risk O09.90 30 weeks gestation of Z3A.30 Weeks of gestation: 30 weeks FH: breast cancer Z80.3 Rh negative status during O26.899; Z67.91 COVID-19 affecting , antepartum O98.519; U07.1 Assessment and Plan Assessment and Plan (1) Supervision of high-risk : Status: Acute Comment: , GAURANG 09/04/25, PC Nemesio, Tegan (2) : Status: Acute Qualifiers: Weeks [...] Cosigner Signature: Date (if applicable) CC: ~ [place] [employer] Work Phone: Reason for referral (narrative)* Diagnostic Procedure Only (Urgent) - Closed Specialty Diagnoses / Procedures Referred By Tyrell t Referred To Contact XR IMAGING Diagnoses Toe injury, left, initial encounter Procedures XR FOOT GENERAL 3V AP/LAT/OBL LEFT RADEX FOOT COMPLETE MINIMUM 3 VIEWS Alethea Leyva APRN.CNP [address] [place] [address] [place] [address] Referral ID Status Reason Start Date Expiration Date V isits Requested Visits Authorized [id number] Closed Auto-Generate d Referral 04/10/2024 05/10/2025 1 1 [facility] for referral (narrative)* Diagnostic Procedure Only (Urgent) - Closed Specialty Diagnoses / Procedures Referred By Contac t Referred To Contact XR IMAGING Diagnoses Toe injury, left, initial encounter Procedures XR FOOT GENERAL 3V AP/LAT/OBL LEFT RADEX FOOT COMPLETE MINIMUM 3 VIEWS Alethea Leyva APRN.CNP [address] [place] [address] [place] [address] Referral ID Status Reason Start Date Expiration Date V isits Requested Visits Authorized [id number] Closed Auto-Generate d Referral 04/10/2024 05/10/2025 1 1 [facility]No reason for referral information availableNatchez tab ticketbroker Services 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 Phone: Reason for visit Narrative* Diagnostic Procedure Only (Urgent) - Closed Specialty Diagnoses / Procedures Referred By Contac t Referred To Contact XR IMAGING Diagnoses Toe injury, left, initial encounter Procedures XR FOOT GENERAL 3V AP/LAT/OBL LEFT RADEX FOOT COMPLETE MINIMUM 3 VIEWS Alethea Leyva APRN.SENIOR JAVA SOFTWARE ENGINEER [address] [place] [address] [place] [address] Referral ID Status Reason Start Date Expiration Date V isits Requested Visits Authorized [id number] Closed Auto-Generate d Referral 04/10/2024 05/10/2025 1 1 [facility] Summary Purpose Family History Relationship Condition [...] status during Jun 11:38am [facility] Chief Complaint Admit Date *NEW* NOB JAMES GAURANG 09/04 30wk2d June 27, 2025 11:38am SCREENING July 03, 2025 8:05am 32wk ob July 10, 2025 3: 34pm Reason for Visit Admit Date COVID-19 affecting , antepartum June 27, 2025 11:38am FH: breast cancer June 27, 2025 11:38am June 27, 2025 11:38am Rh negative status during Jun 11:38am Supervision of high-risk June 2024 11:38am Abnormal glucose affecting Oct mell 2024 3:34pm COVID-19 affecting , antepartum July 10, 2025 3:34pm FH: breast cancer July 10, 2025 3: 34pm July 10, 2025 3: 34pm Rh negative status during Octo jalen 2024 3:34pm Supervision of high-risk Octob er 2024 3:34pm Additional Source Comments Care Team (unrecognized sect ion and content) Care Team Personnel Name: ROMÁN HERNANDEZ DO Member Role: Primary Care Physician Address: Address: [address] [address] [place] [address]- Care Team Related Persons Name: TEGAN MADDOX Care Team Personnel Name: ROMÁN HERNANDEZ DO Member Role: Primary Care Physician Address: Address: [address] [address] [place] [address]- Care Team Related Persons Name: TEGAN MADDOX Address: Home [address] [place] [id number] Care Team Personnel Name: ROMÁN HERNANDEZ DO Member Role: Primary Care Physician Address: Address: [address] [address] [place] [address]- Care Team Related Persons Name: TEGAN MADDOX Address: Home [address] [place] [address] Care Team Personnel Name: ROMÁN HERNANDEZ DO Member Role: Primary Care Physician Address: Address: [address] [address] [address] [place] [address]- Care Team Related Persons Name: TEGAN MADDOX Address: [address] [address] Patient Care team informatio n (unrecognized section and content) 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 Raiza Carl DO Attending physician Acti ve Start: July 10, 2025 End: July 10, 2025 Team Status: Active Member Role/Relationship Status Dates No Primary Care Physician Primary care physician Activ e Start: July 10, 2025 Angely Stone CNM Attending physician Active Start: July 10, 2025 INFORMATION SOURCE (unrecogn ized section and content) DATE CREATED AUTHOR 07/13/2023 [facility] ([place]) DATE CREATED AUTHOR AUTHOR'S ORGANIZ ATION 04/10/2024 [facility] DATE CREATED AUTHOR AUTHOR'S ORGANIZ ATION 06/10/2025 [facility] DATE CREATED AUTHOR AUTHOR'S ORGANIZ ATION 06/21/2025 [facility] DATE CREATED AUTHOR AUTHOR'S ORGANIZ ATION 08/17/2025 [facility] Source Comments (unrecognize d section and content) In the event this informatio n is protected by the Federal Confidentiality of Alcohol and Drug Abuse Patient Records regulations: The Federal rules restrict any use of the information to criminally investigate or prosecute any alcohol or drug abuse patient.[facility] the event this information is protected by the Federal Confidentiality of Alcohol and Drug Abuse Patient Records regulations: The Federal rules restrict any use of the information to criminally investigate or prosecute any alcohol or drug abuse patient.[facility] Reason for Visit (unrecogniz ed section [...] BE BASED ON THE PRIMARY CLINICAL RECORDS. [facility] [employer] [facility]. provides no warranty or guarantee of the accuracy or completeness of information in this document.
--- OUTSIDE RECORDS SUMMARY | 2025-09-11 07:49 | XMS RPT_ITS | CCD ---
Author Organization [facility] Care Team Providers Care Gasket Former Name Role Phone CRISTO MELARA ROMÁN W Primary Care Physician [phone] BORIS CARDOZON-CNRolo, BELKYS Rodriguez Attending Ashley vailable CRISTO DO, ROMÁN W Primary Care Unavailable CRISTO DO, ROMÁN W Primary Care Unavailable AGARWAL SHIPBOARD INTELLIGENCE ANALYST-CNM, ANA Rodriguez Attending Unavai lablizzy ESCALANTE SHIPBOARD INTELLIGENCE ANALYST-CNM, BELKYS Rodriguez Attending Ashley vailable CRISTO DO, ROMÁN W Primary Care Unavailable CRISTO DO, ROMÁN W Primary Care Unavailable AGARWAL SHIPBOARD INTELLIGENCE ANALYST-CNM, ANA Rodriguez Attending Unavai lable CRISTO DO, ROMÁN W Primary Care Unavailable AGARWAL SHIPBOARD INTELLIGENCE ANALYST-CNM, ANA Rodriguez Attending Unavai lable CRISTO DO, ROMÁN W Primary Care Unavailable AGARWAL SHIPBOARD INTELLIGENCE ANALYST-CNM, ANA Rodriguez Attending Unavai lable CRISTO DO, ROMÁN W Primary Care Unavailable AGARWAL SHIPBOARD INTELLIGENCE ANALYST-CNM, ANA Rodriguez Attending Unavai lable CRISTO DO, ROMÁN W Primary Care Unavailable AGARWAL SHIPBOARD INTELLIGENCE ANALYST-CNM, ANA Rodriguez Attending Unavai lable BORIS SHIPBOARD INTELLIGENCE ANALYST-CNM, BELKYS Rodriguez Attending Ashley vailable CRISTO DO, ROMÁN W Primary Care Unavailable CRISTO DO, ROMÁN W Primary Care Unavailable AGARWAL SHIPBOARD INTELLIGENCE ANALYST-CNM, ANA Rodriguez Attending JOHN Herrera DO Admitting Unavailab JOHN Timmons DO Attending Unavailab le CRISTO DO, ROMÁN W Primary Care Unavailable ALETHEA LEYAV Attending Unavailable ALETHEA LEYVA Referring Unavailable CristoRomán rose DO Primary Care Provider Unavailable Primary Care Provider Unavailmeet HERNANDEZ DO ROMÁN Candi Primary Care Physician CRISTO DO, ROMÁN W Primary Care Unavailable [facility], PHYSICIAN Referring Unavailable RANDY MELARA, DR LUIS EDUARDO Machado Attending Unavailable ANY SHIPBOARD INTELLIGENCE ANALYST-CNM, ANA Rodriguez Attending Unavai lable CRISTO DO, ROMÁN W Primary Care Unavailable ESCALANTE SHIPBOARD INTELLIGENCE ANALYST-CNM, BELKYS Rodriguez Attending Ashley vailable CRISTO DO, ROMÁN W Primary Care Unavailable ESCALANTE SHIPBOARD INTELLIGENCE ANALYST-CNM, BELKYS Rodriguez Attending Ashley vailable CRISTO DO, ROMÁN W Primary Care Unavailable CRISTO DO, ROMÁN W Primary Care Unavailable ESCALANTE SHIPBOARD INTELLIGENCE ANALYST-CNM, BELKYS Rodriguez Attending Ashley vailable CRISTO DO, ROMÁN W Primary Care Unavailable BORIS SHIPBOARD INTELLIGENCE ANALYST-CNM, BELKYS Rodriguez Attending Ashley vailable Chase ESPARZA, Angely Attending Physician [phone] Chase ESPARZA, Angely Referring Provider Care Physician, [...] No Primary Primary Care Unava ilable Salvatore METAL GRADERAtiya Attending Unavailable Care Physician, No Primary Primary Care Unava ilable Amy Acuña Attending Unavailable Angely Stone Attending Unavailable Angely Stone Referring Unavailable Care Physician, No Primary Primary Care Unava ilable Angely Stone Attending Unavailable Care Physician, No Primary Primary Care Unava ilable Care Physician, No Primary Primary Care Unava ilable Salvatore METAL GRADERAtiya Attending Unavailable Medications Current Medications Medication Drug [...] 60.0 Unit: tab(s) Repeat number: 1 Mv-Mins 33-[id number]-Mdpzr No.1-Dha (Pnv-Charlotte) 28-1-300 mg capsule (3 sources) Start: 06-22-2025 [...] on above: , GAURANG 09/04/25, P C [place], Tegan Other complications of (7 sources) RhD [...] B Beta Streptococcus is not isolated. Normal [facility] Comment on above: Performed By: #### M 100.3401 #### [facility] [address] [place], [address] In Home Sales Representative Office Visit Reporton 08-14-2025 In Home Sales Representative Office Visit Report [facility] [address], [address] [place] [address] OFFICE VISIT Date of Service: 08/14/25 MR#: [id number] Acct: [id number] Name: EVELYN MADDOX I Rep #: [id number] : 1995 Provider: VILMA Ventura ams Age/Sex: 29/F Location: [facility] Status: Signed Intake Vital Signs 07/10/25 15:39 07/27/25 10:04 08/10/25 09:36 08/14/25 09:40 Height 5 ft 4 in 5 ft 4 in 5 ft 4 in 5 ft 4 in Weight: 188 lb 3 oz BMI 32.3 BP 105/72 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 Is patient in pain?: No [...] mg-folate no.1 1 mg-dha 300 mg capsule (PNV-Charlotte) vitamin E (dl, acetate) 90 mg (200 90 mg PO QDAY 06/22/25 08/14/25 History unit) capsule Last Menstrual Period: 11/28/24 Zika: Zika virus screening: Negative : No Have you fallen in the past year?: No PFSH PFSH Medical History Seasonal allergies Surgical History Gower teeth extracted Family History Father Colon cancer, [...] physical activity do you participate in: none luis/yazdanism: Rastafari seatbelt use: always do you feel safe at home: Yes additional social history: Jairo Patel History 2 Elective abortions Hx Para 1 Spontaneous abortions Hx # Term Pregnancies Ectopic pregnancies Hx # Pregnancies Multiple births # of living children 1 Past Pregnancies Del. Date Name GA/Weeks Outcome Route Bth Weight Infant Gen Labor Lgth Anesthesia Del Locatn Provider FOB 04/28/23 [place] 41 live - full term 7#7oz Male [...] Negative -? (more content not included)... Normal [facility] In Home Sales Representative Office Visit Reporton 08-10-2025 In Home Sales Representative Office Visit Report [facility] [address], [address] [place] [address] OFFICE VISIT Date of Service: 08/10/25 MR#: [id number] Acct: [id number] Name: EVELYN MADDOX I Rep #: [id number] : 1995 Provider: Dr. 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 Is patient in pain?: No [...] mg-folate no.1 1 mg-dha 300 mg capsule (PNV-Charlotte) vitamin E (dl, acetate) 90 mg (200 90 mg PO QDAY 06/22/25 08/10/25 History unit) capsule Last Menstrual Period: 11/28/24 Zika: Zika virus screening: Negative : No PFSH PFSH Medical History Seasonal allergies Surgical History Gower teeth extracted Family History Father Colon cancer, [...] physical activity do you participate in: none luis/yazdanism: Rastafari seatbelt use: always do you feel safe at home: Yes additional social history: Jairo Patel History 2 Elective abortions Hx Para 1 Spontaneous abortions Hx # Term Pregnancies Ectopic pregnancies Hx # Pregnancies Multiple births # of living children 1 Past Pregnancies Del. Date Name GA/Weeks Outcome Route Bth Weight Infant Gen Labor Lgth Anesthesia Del Locatn Provider FOB 04/28/23 [place] 41 live - full term 7#7oz Male [...] -???-???-???-???-???-?? ?-???-??? (more content not included)... Normal [facility] In Home Sales Representative Office Visit Reporton 07-27-2025 In Home Sales Representative Office Visit Report [facility] [address], [address] [place] [address] OFFICE VISIT Date of Service: 07/27/25 MR#: [id number] Acct: [id number] Name: EVELYN MADDOX I Rep #: [id number] : 1995 Provider: SALLY hughes Age/Sex: 29/F Location: [facility] Status: Signed with Addenda ADDENDUM by Prudence Stanford on 07/27/25 at 1037 Office Procedure Documentation entered by Prudence Stanford 07/27/25 10:37: Injections Is this a patient provided medication?: No Office Meds RhoGAM Ultra-Filtered PLUS 1,500 unit (300 mcg) intramuscular syringe Performing Provider: KAILEY White NPC Performing Location: [facility] Administered by: Prudence Stanford on 07/27/25 10:36 Dose Route Admin Location Dispensed Lot Number Expiration Date Package NDC NDC [facility] 1,500 unit IM Left gluteal 1 ea [id number] 04/29/27 89047-969-02 [id number] [facility] Date cc: * Signed Intake Vital Signs 06/27/25 11:41 07/10/25 15:39 07/27/25 10:04 Height 5 ft 4 in 5 ft 4 in 5 ft 4 in Weight: 185 lb 9 oz BMI 31.8 BP 107/74 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 Is patient in pain?: No [...] mg-folate no.1 1 mg-dha 300 mg capsule (PNV-Charlotte) vitamin E (dl, acetate) 90 mg (200 90 mg PO QDAY 06/22/25 07/27/25 History unit) capsule Last Menstrual Period: 11/28/24 Zika: Zika virus screening: Negative : Yes PFSH PFSH Medical History Seasonal allergies Surgical History Gower teeth extracted Family History Father Colon cancer, [...] animals: No history of recent travel: Yes ([place]- Jun) out of country: Yes sexually active: [...] physical activity do you participate in: none luis/yazdanism: Rastafari seatbelt use: always do you feel safe at home: Yes additional social history: Jairo Patel History 2 Elective abortions Hx Para 1 Spontaneous abortions Hx # Term Pregnancies Ectopic pregnancies Hx # Pregnancies Multiple births # of living children 1 Past Pregnancies Del. Date Name GA/Weeks Outcome Route Bth Weight Infant Gen Labor Lgth Anesthesia Del Locatn Provider FOB 04/28/23 [place] 41 live - full term 7#7oz Male [...] form signed: (more content not included)... Normal [facility] Type AND Screenon 07-27-2025 Ab SCREEN GEL Negative Normal [facility] Comment on above: Order Comment: PN Performed By: #### B TS #### [facility] [address] [place], [place], [address] (ROM) Rupture Of Membraneson 07-10-2025 ROM Negative Normal Negative [facility] Comment on above: Order Comment: Comme nts: Call Dr. Carl at [phone] Result Comment: Amni otic fluid not present indicates No Rupture of Membranes at time of specimen collection. Performed By: #### L 205.1000 #### [facility] [address] [place], [place], [id number] In Home Sales Representative Office Visit Reporton 07-10-2025 In Home Sales Representative Office Visit Report [facility] [address], [address] [place] [address] OFFICE VISIT Date of Service: 07/10/25 MR#: [id number] Acct: [id number] Name: EVELYN MADDOX Lise Rep #: [id number] : 1995 Provider: Dr. 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 ?-???-???- (more content not included)... Normal [facility] Gestational GTT 3HR 100gon 0 07-03-2025 GEST GTT 100gm Normal [facility] Comment on above: Order Comment: Y [...] 1156 Performed By: #### L 500.4710 #### [facility] [place], [address] Quantitative serum or plasma 3 hour gestational glucose tolerance panelOrdered By: Angely Stone on 07-03-2025 Glucose tolerance 3 hours gestational panel See comment [facility] Comment on above: FASTING 81 Col: [...] Stone on 06-27-2025 Glucose Ql (U) Negative [facility] - UrinalysisOrder ed By: Angely Stone on 06-27-2025 Protein Ql (U) Negative [facility] In Home Sales Representative Office Visit Reporton 06-27-2025 In Home Sales Representative Office Visit Report [facility] [address], [address] [place] [address] OFFICE VISIT Date of Service: 06/27/25 MR#: [id number] Acct: [id number] Name: EVELYN MADDOX Rep #: [id number] : 1995 Provider: VILMA Ventura ams Age/Sex: 29/F Location: [facility] Status: Signed Intake Vital Signs 06/27/25 11:41 Height 5 ft 4 in Weight: 176 lb 4 oz BMI 30.2 BP 127/82 H Intake Visit Reasons: *NEW* NOB JAMES GAURANG 09/04 30wk2d 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 Is patient in pain?: No [...] mg-folate no.1 1 mg-dha 300 mg capsule (PNV-Charlotte) vitamin E (dl, acetate) 90 mg (200 90 mg PO QDAY 06/22/25 06/27/25 History unit) capsule Last Menstrual Period: 11/28/24 : No Have you fallen in the past year?: No PFSH PFSH Medical History Seasonal allergies Surgical History Gower teeth extracted Family History Father Colon cancer, [...] animals: No history of recent travel: Yes ([place]- Jun) out of country: Yes sexually active: [...] physical activity do you participate in: none luis/yazdanism: Rastafari seatbelt use: always do you feel safe at home: Yes additional social history: Jairo Patel History 2 Elective abortions Hx Para 1 Spontaneous abortions Hx # Term Pregnancies Ectopic pregnancies Hx # Pregnancies Multiple births # of living children 1 Past Pregnancies Del. Date Name GA/Weeks Outcome Route Bth Weight Gen Labor Lgth Anesthesia Del Locatn Provider FOB 04/28/23 [place] 41 live - full term 7#7oz Male [...] ??- 30 (more content not included)... Normal [facility] RPRon 06-21-2025 Reagin Ab RPR Ql (S) Non-Reactive Normal Non-Reactive [facility] Comment on above: Result Comment: The [...] #### A DIFF, ANEU, CBC, GLU1P #### [place] [id number] #### RPR #### [address] [address] .Auto Diffon 06-20-2025 Basophil, Absolute 0.0 10 3/mcL Normal 0.0-0.3 [facility] Comment on above: Performed By: #### A DIFF, ANEU, CBC, GLU1P #### [place] [address] #### RPR #### [address] [address] Basophils/100 WBC (Bld) 0.3 % Normal 0.0-2.5 [facility] Comment on above: Performed By: #### A DIFF, ANEU, CBC, GLU1P #### [place] [address] #### RPR #### [address] [address] Eosinophil, Absolute 0.1 10 3/mcL Normal 0.0-0.7 [facility] Comment on above: Performed By: #### A DIFF, ANEU, CBC, GLU1P #### [place] [address] #### RPR #### [address] [address] Eosinophils/100 WBC (Bld) 0.7 % Normal 0.0-6.0 [facility] Comment on above: Performed By: #### A DIFF, ANEU, CBC, GLU1P #### [place] [address] #### RPR #### [address] [address] Lymphocyte, Absolute 1.7 10 3/mcL Normal 0.9-4.3 [facility] Comment on above: Performed By: #### A DIFF, ANEU, CBC, GLU1P #### [place] [address] #### RPR #### [address] [address] Lymphocytes/100 WBC (Bld) 21.2 % Normal 20.0-40.0 [facility] Comment on above: Performed By: #### A DIFF, ANEU, CBC, GLU1P #### [address] [address] #### RPR #### [address] [address] Monocyte, Absolute 0.3 10 3/mcL Normal 0.1-1.4 [facility] Comment on above: Performed By: #### A DIFF, ANEU, CBC, GLU1P #### [address] [address] #### RPR #### [address] [address] Monocytes/100 WBC (Bld) 4.0 % Normal 2.0-13.0 [facility] Comment on above: Performed By: #### A DIFF, ANEU, CBC, GLU1P #### [place] [address] #### RPR #### [address] [address] Neutrophils/100 WBC (Bld) 73.8 % Normal 50.0-75.0 [facility] Comment on above: Performed By: #### A DIFF, ANEU, CBC, GLU1P #### [address] [address] #### RPR #### [address] [address] .NEUABSon 06-20-2025 Neutrophil, Absolute 6.0 10 3/mcL Normal 2.3-8.1 [facility] Comment on above: Performed By: #### A DIFF, ANEU, CBC, GLU1P #### [place] [address] #### RPR #### [address] [address] CBCon 06-20-2025 Erythrocyte distribution width (RBC) [Ratio] 14.2 % Normal 11.5-15.5 [facility] Comment on above: Performed By: #### A DIFF, ANEU, CBC, GLU1P #### [place] [address] #### RPR #### [place] [address] Hematocrit (Bld) [Volume fraction] 33.1 % Low 34.0-46.0 [facility] Comment on above: Performed By: #### A DIFF, ANEU, CBC, GLU1P #### [place] [address] #### RPR #### [place] [address] Hgb 11.9 G/dL Low 12.0-16.0 [facility] Comment on above: Performed By: #### A DIFF, ANEU, CBC, GLU1P #### [place] [address] #### RPR #### [place] [address] MCH (RBC) [Entitic mass] 33.4 pg High 27.0-33.0 [facility] Comment on above: Performed By: #### A DIFF, ANEU, CBC, GLU1P #### [place] [address] #### RPR #### [place] [address] MCHC 36.0 G/dL Normal 32.0-36.0 [facility] Comment on above: Performed By: #### A DIFF, ANEU, CBC, GLU1P #### [place] [address] #### RPR #### [place] [address] MCV (RBC) [Entitic vol] 92.8 fL Normal 80.0-99.0 [facility] Comment on above: Performed By: #### A DIFF, ANEU, CBC, GLU1P #### [place] [address] #### RPR #### [place] [address] Platelet 335 10 3/mcL Normal 150-450 [facility] Comment on above: Performed By: #### A DIFF, ANEU, CBC, GLU1P #### [place] [address] #### RPR #### [place] [address] Platelet mean volume (Bld) [Entitic vol] 7.3 fL Normal 6.6-10.5 [facility] Comment on above: Performed By: #### A DIFF, ANEU, CBC, GLU1P #### [place] [address] #### RPR #### [place] [address] RBC 3.56 10 6/mcL Low 4.10-5.30 [facility] Comment on above: Performed By: #### A DIFF, ANEU, CBC, GLU1P #### [place] [address] #### RPR #### [place] [address] WBC 8.1 10 3/mcL Normal 4.5-10.8 [facility] Comment on above: Performed By: #### A DIFF, ANEU, CBC, GLU1P #### [place] [address] #### RPR #### [place] [address] [id number] 06-20-2025 Glucose [Mass/Vol] 150 mg/dL High 70-140 [facility] Comment on above: Performed By: #### A DIFF, ANEU, CBC, GLU1P #### [place] [address] #### RPR #### [place] [address] LABORATORYOrdered By: SYSTEM SYSTEM on 06-20-2025 Basophils [...] 04-29-2025 ABO/Rh Interp Negative Invalid Interpretation Code [facility] Comment on above: Performed By: #### A BSGEL, ABOGEL #### [address] [address] ABS (Gel)on 04-29-2025 ABSC Interp (Gel) Negative Normal [facility] Comment on above: Performed By: #### A BSGEL, ABOGEL #### [address] [address] FMHon 04-29-2025 Mat. Hemorrhage Negative Normal [facility] Comment on above: Performed By: #### F MH #### [place] [address] LABORATORYOrdered By: Ursula navarro on 04-29-2025 ABO and Rh group Nom (Bld) Blood group A Rh(D) negative Invalid Interpretation Code AH BB Auto SS Blood group antibody screen Ql Negative ABSC (04/29/25 3:47 PM) Normal AH BB Auto SS cell screen Dari test Ql (Bld) Negative (04/29/25 3:47 PM) Normal BB Manual SS VARISon 03-17-[address] Positive Normal [facility] Comment on above: Result Comment: INTE RPRETATION OF VARICELLA IMMUNE STATUS IgG BY EIA: Negative: No detectable VZV IgG antibody. Positive: VZV IgG antibody Detected. If clinically indicated, order Varicella IgM to rule out recent infection. Equivocal: Equivocal for antibodies to VZV. Suggest repeat testing in 10-14 days. Performed By: #### A DIFF, ANEU, CBC, GLU1P #### [facility] [address] [place], [place] [address] #### RPR #### [address] [address] CTPCRon 03-16-[address]omatis Interp See CT Interp N Normal See CT Interp N [facility] Comment on above: Result Comment: Clinical Interpretation: C. trachomatis DNA not detected. Specimen is presumptive negative for C. trachomatis. A negative result does not preclude C. trachomatis infection because results depend on adequate specimen collection, absence of inhibitors, and sufficient DNA to be detected. Performed By: #### N GPCR1, CTPCR #### [place] [address] C.trachomatis PCR Negative Normal Negative [facility] Comment on above: Result Comment: Andrae cular (PCR) assay performed on the Bhupinder Eda 4800 system. Performed By: #### N GPCR1, CTPCR #### [place] [address] Chlam Source Vaginal Normal [facility] Comment on above: Performed By: #### N GPCR1, CTPCR #### [place] [address] [id number] 03-16-2025 GC PCR Source Vaginal Normal [facility] Comment on above: Performed By: #### N GPCR1, CTPCR #### [place] [address] N. gonorrhoeae (PCR) Negative Normal Negative [facility] Comment on above: Result Comment: Andrae cular (PCR) assay performed on the Bhupinder Eda 4800 System. Performed By: #### N GPCR1, CTPCR #### [place] [address] N. gonorrhoeae Interp See NG Interp N Normal See NG Interp N [facility] Comment on above: Result Comment: Clinical Interpretation: N. gonorrhoeae DNA not detected. Specimen is presumptive negative for N. gonorrhoeae. A negative result does not preclude Neisseria gonorrhoeae infection because results depend on adequate specimen collection, absence of inhibitors, and sufficient DNA to be detected. Performed By: #### N GPCR1, CTPCR #### [place] [address] RPRon 03-16-2025 Reagin Ab RPR Ql (S) Non-Reactive Normal Non-Reactive [facility] Comment on above: Result Comment: The [...] #### A DIFF, ANEU, CBC, GLU1P #### [place] [address] #### RPR #### [place] [address] RUBISon 03-16-[address] Negative Normal Positive [facility] Comment on above: Result Comment: This immune status assay detects IgM and/or IgG antibody to Rubella. Interpret results in conjunction with clinical history. POS: Antibody detected; exposure at undetermined recent or distant time. If clinically indicated, order Rubella IGM to rule out recent infection. NEG: No antibody detected. Performed By: #### A DIFF, ANEU, CBC, GLU1P #### [place] [address] #### RPR #### [place] [address] .Auto Diffon 03-15-2025 Basophil, Absolute 0.0 10 3/mcL Normal 0.0-0.3 [facility] Comment on above: Performed By: #### R NH, RUBIS, VARIS, HBSAG #### [place] [address] #### ABSGEL, ABOGEL, ADIFF, HIVRP, TSH, CBC, ANEU #### [address] [address] Basophils/100 WBC (Bld) 0.3 % Normal 0.0-2.5 [facility] Comment on above: Performed By: #### R NH, RUBIS, VARIS, HBSAG #### [place] [address] #### ABSGEL, ABOGEL, ADIFF, HIVRP, TSH, CBC, ANEU #### [address] [place] [address] Eosinophil, Absolute 0.1 10 3/mcL Normal 0.0-0.7 [facility] Comment on above: Performed By: #### R NH, RUBIS, VARIS, HBSAG #### [place] [address] #### ABSGEL, ABOGEL, ADIFF, HIVRP, TSH, CBC, ANEU #### [address] [address] Eosinophils/100 WBC (Bld) 0.7 % Normal 0.0-6.0 [facility] Comment on above: Performed By: #### R NH, RUBIS, VARIS, HBSAG #### [place] [address] #### ABSGEL, ABOGEL, ADIFF, HIVRP, TSH, CBC, ANEU #### [address] [address] Lymphocyte, Absolute 2.0 10 3/mcL Normal 0.9-4.3 [facility] Comment on above: Performed By: #### R NH, RUBIS, VARIS, HBSAG #### [place] [address] #### ABSGEL, ABOGEL, ADIFF, HIVRP, TSH, CBC, ANEU #### [address] [address] Lymphocytes/100 WBC (Bld) 26.0 % Normal 20.0-40.0 [facility] [facility] Comment on above: Performed By: #### R NH, RUBIS, VARIS, HBSAG #### [place] [address] #### ABSGEL, ABOGEL, ADIFF, HIVRP, TSH, CBC, ANEU #### [address] [address] Monocyte, Absolute 0.5 10 3/mcL Normal 0.1-1.4 [facility] Comment on above: Performed By: #### R NH, RUBIS, VARIS, HBSAG #### [place] [address] #### ABSGEL, ABOGEL, ADIFF, HIVRP, TSH, CBC, ANEU #### [address] [address] Monocytes/100 WBC (Bld) 6.0 % Normal 2.0-13.0 [facility] Comment on above: Performed By: #### R NH, RUBIS, VARIS, HBSAG #### [place] [address] #### ABSGEL, ABOGEL, ADIFF, HIVRP, TSH, CBC, ANEU #### [address] [address] Neutrophils/100 WBC (Bld) 67.0 % Normal 50.0-75.0 [facility] Comment on above: Performed By: #### R NH, RUBIS, VARIS, HBSAG #### [place] [address] #### ABSGEL, ABOGEL, ADIFF, HIVRP, TSH, CBC, ANEU #### [address] [address] .NEUABSon 03-15-2025 Neutrophil, Absolute 5.2 10 3/mcL Normal 2.3-8.1 [facility] Comment on above: Performed By: #### A DIFF, ANEU, CBC, GLU1P #### [address] [address] #### RPR #### [place] [id number] ABO/Rh (Gel)on 03-15-2025 ABO/Rh Interp Negative Invalid Interpretation Code [facility] Comment on above: Performed By: #### A DIFF, ANEU, CBC, GLU1P #### [address] [address] #### RPR #### [place] [id number] ABS (Gel)on 03-15-2025 ABSC Interp (Gel) Negative Normal [facility] Comment on above: Performed By: #### A DIFF, ANEU, CBC, GLU1P #### [address] [address] #### RPR #### [place] [address] CBCon 03-15-2025 Erythrocyte distribution width (RBC) [Ratio] 13.4 % Normal 11.5-15.5 [facility] Comment on above: Performed By: #### R NH, RUBIS, VARIS, HBSAG #### [place] [address] #### ABSGEL, ABOGEL, ADIFF, HIVRP, TSH, CBC, ANEU #### [place] [address] Hematocrit (Bld) [Volume fraction] 37.7 % Normal 34.0-46.0 [facility] Comment on above: Performed By: #### R NH, RUBIS, VARIS, HBSAG #### [place] [address] #### ABSGEL, ABOGEL, ADIFF, HIVRP, TSH, CBC, ANEU #### [place] [address] Hgb 13.1 G/dL Normal 12.0-16.0 [facility] Comment on above: Performed By: #### R NH, RUBIS, VARIS, HBSAG #### [place] [address] #### ABSGEL, ABOGEL, ADIFF, HIVRP, TSH, CBC, ANEU #### [place] [address] MCH (RBC) [Entitic mass] 31.9 pg Normal 27.0-33.0 [facility] Comment on above: Performed By: #### R NH, RUBIS, VARIS, HBSAG #### [place] [address] #### ABSGEL, ABOGEL, ADIFF, HIVRP, TSH, CBC, ANEU #### [place] [address] MCHC 34.7 G/dL Normal 32.0-36.0 [facility] Comment on above: Performed By: #### R NH, RUBIS, VARIS, HBSAG #### [place] [address] #### ABSGEL, ABOGEL, ADIFF, HIVRP, TSH, CBC, ANEU #### [address] [address] MCV (RBC) [Entitic vol] 91.8 fL Normal 80.0-99.0 [facility] Comment on above: Performed By: #### R NH, RUBIS, VARIS, HBSAG #### [place] [address] #### ABSGEL, ABOGEL, ADIFF, HIVRP, TSH, CBC, ANEU #### [address] [address] Platelet 324 10 3/mcL Normal 150-450 [facility] Comment on above: Performed By: #### R NH, RUBIS, VARIS, HBSAG #### [place] [address] #### ABSGEL, ABOGEL, ADIFF, HIVRP, TSH, CBC, ANEU #### [address] [address] Platelet mean volume (Bld) [Entitic vol] 7.5 fL Normal 6.6-10.5 [facility] Comment on above: Performed By: #### R NH, RUBIS, VARIS, HBSAG #### [place] [address] #### ABSGEL, ABOGEL, ADIFF, HIVRP, TSH, CBC, ANEU #### [address] [address] RBC 4.11 10 6/mcL Normal 4.10-5.30 [facility] Comment on above: Performed By: #### R NH, RUBIS, VARIS, HBSAG #### [place] [address] #### ABSGEL, ABOGEL, ADIFF, HIVRP, TSH, CBC, ANEU #### [place] [id number] WBC 7.7 10 3/mcL Normal 4.5-10.8 [facility] Comment on above: Performed By: #### R NH, RUBIS, VARIS, HBSAG #### [place] [address] #### ABSGEL, ABOGEL, ADIFF, HIVRP, TSH, CBC, ANEU #### [place] [address] HBSAGon 03-15-2025 Hep B Surf Ag Non-Reactive Normal Non-Reactive [facility] Comment on above: Performed By: #### A DIFF, ANEU, CBC, GLU1P #### [place] [address] #### RPR #### [place] [address] HIVRPon 03-15-2025 HIV p24 Antigen Non-Reactive Normal Non-Reactive [facility] Comment on above: Result Comment: Dete ction of p24 may be inhibited by biotin in the sample, causing false negative results in acute infection. Therefore do not test samples from patients who are taking biotin. Performed By: #### A DIFF, ANEU, CBC, GLU1P #### [place] [address] #### RPR #### [place] [address] HIV P24 Int Non-Reactive Invalid Interpretation Code [facility] Comment on above: Performed By: #### A DIFF, ANEU, CBC, GLU1P #### [place] [address] #### RPR #### [place] [address] Rapid HIV 1/2 Antibody Non-Reactive Normal Non-Reactive [facility] Comment on above: Performed By: #### A DIFF, ANEU, CBC, GLU1P #### [place] [address] #### RPR #### [place] [address] RHIV 1/2 Ab Int Non-Reactive Invalid Interpretation Code [facility] Comment on above: Performed By: #### A DIFF, ANEU, CBC, GLU1P #### [facility] [address] [place], [place] [address] #### RPR #### [facility] [address] [place] [address] LABORATORYOrdered By: Krysta Valdovinos on 03-15-2025 C. [...] Probable Contamination. Suggest recollection if clinically indicated. [facility] Work Phone: TSHon 03-15-2025 TSH Qn 2.74 m[IU]/L Normal 0.36-3.74 [facility] Comment on above: Performed By: #### A DIFF, ANEU, CBC, GLU1P #### [facility] [address] [place], [place] [address] #### RPR #### [address] [address] CNOVon 04-10-2024 CNOV Office Visit (UCUPNO ) EVELYN MADDOX ([id number]) 1995 F Date Time Provider Department 04/10/24 [...] for extra support. 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 ICE AREA FREQUENTLY REST/ELEVATE TYLENOL AND/OR IBUPROFEN FOR PAIN [facility] [address] [place] [address] [place] [phone] [facility] D[facility] [id number] [facility] [place] [phone] Alethea Leyva APRN.[employer] 04/10/2024 3:48 PM Signed April 10, 2024 [...] toes -follow up with podiatry Alethea Leyva APRN.[employer] Medical Decision Making: Problems: Low: Acute, uncomplicated illness or injury Data: Unique source(s) for external note(s) reviewed: 1 Unique test result(s) reviewed: 1 Unique test(s) ordered: 1 Independent interpretation of test from other physician/QHCP Risk: Moderate: Moderate risk from testing/treatment Medical Decision Making Level: 4 - Moderate This note was partially generated using [employer] voice recognition system and there may be [...] of Date: 04/10 (more content not included)... [facility] XR FOOT 3V AP/LAT/OBL LTon 0 [...] within normal limits. IMPRESSION: Negative left foot. Release Coordinator: CASANDRA Transcribe Date/Time: Apr 10 2024 3:59P Dictated by : CORRINE RODRIGUEZ MD This examination was interpreted and the report reviewed and electronically signed by: CORRINE RODRIGUEZ MD on Apr 10 2024 4:00PM EST [id number] [facility] XR Foot - left AP and Latera l and obliqueon 04-10-2024 IMPRESSION: Negative left foot. Release Coordinator: CASANDRA Transcribe Date/Time: Apr 10 2024 3:59P Dictated by : CORRINE RODRIGUEZ MD This examination was interpreted and the report reviewed and electronically signed by: CORRINE RODRIGUEZ MD on Apr 10 2024 4:00PM EST [facility] * * *Final Report* * [...] preserved. Soft tissues appear within normal limits. [facility] Provider, Jam Ross - 04/10/2024 [...] normal limits. IMPRESSION IMPRESSION: Negative left foot. Release Coordinator: PSCB Transcribe Date/Time: Apr 10 2024 3:59P Dictated by : CORRINE RODRIGUEZ MD This examination was interpreted and the report reviewed and electronically signed by: CORRINE RODRIGUEZ MD on Apr 10 2024 4:00PM [facility] Radiology Study observation (narrative) [facility] XR Foot - left AP and Latera l and obliqueOrdered By: Ccf Provider on 04-10-2024 [facility] Cooker Meal Cytology Reporton 2022 Cooker Meal Cytology Report . Pathology Reports Accession: Collected Date/Time: Received Date/Time: Pathologist: [id number] 06/10/2023 11:06 EDT 06/10/2023 18:00 EDT Cooker Meal Cytology Report SPECIMEN: Specimen Description: Liquid Prep [...] and evaluated with the assistance of the EmotivePrep Test Imaging System. Pathology Reports Accession: Collected Date/Time: Received Date/Time: Pathologist: [id number] 06/10/2023 11:06 EDT 06/10/2023 18:00 EDT Electronically Signed by Pathology report verified by [facility] Screened by: [place] Electronically signed by Britney GALEAS (ASCP) Sign-Out Date: 06/22/2023 10:38 Performing Lab: [facility], [address] [place] [address] Pathology Dept Disclaimer The Pap test is a screening test for cervical cancer. As evidenced by published data, it is subject to both inherent false negative and false positive results. Your patient's results should be interpreted in context with pertinent clinical history including gynecological examination. Normal [facility] ([place]) HPVon 06-18-2023 HPV Interp Normal See Interp HPVN [facility] ([place] Comment on above: Order Comment: Order placed by AP_HPV_ORDER rule from [id number] Result Comment: High Risk HPV Typing: NEGATIVE [...] By: #### A DIFF, CBC, ANEU #### [place] [address] HPV Source Cervix Normal [facility] ([place] Comment on above: Order Comment: Order placed by AP_HPV_ORDER rule from [id number] Performed By: #### A DIFF, CBC, ANEU #### [place] [address] .Auto Diffon 04-29-2023 Basophil, Absolute 0.0 10 3/mcL Normal 0.0-0.2 [facility] ([place] Comment on above: Performed By: #### A DIFF, CBC, ANEU #### [place] [id number] Basophils/100 WBC (Bld) 0.2 % Normal 0.0-2.5 [facility] ([place] Comment on above: Performed By: #### A DIFF, CBC, ANEU #### [place] [address] Eosinophil, Absolute 0.2 10 3/mcL Normal 0.0-0.4 [facility] ([place]) Comment on above: Performed By: #### A DIFF, CBC, ANEU #### [place] [address] Eosinophils/100 WBC (Bld) 1.2 % Normal 0.0-7.0 [facility] ([place] Comment on above: Performed By: #### A DIFF, CBC, ANEU #### [address] [address] Lymphocyte, Absolute 2.2 10 3/mcL Normal 0.8-3.9 [facility] ([place]) Comment on above: Performed By: #### A DIFF, CBC, ANEU #### [address] [address] Lymphocytes/100 WBC (Bld) 17.0 % Normal 10.0-50.0 [facility] [place] Comment on above: Performed By: #### A DIFF, CBC, ANEU #### [address] [address] Monocyte, Absolute 1.1 10 3/mcL High 0.2-1.0 [facility] ([place] Comment on above: Performed By: #### A DIFF, CBC, ANEU #### [address] [address] Monocytes/100 WBC (Bld) 8.1 % Normal 1.7-13.0 [facility] [place] Comment on above: Performed By: #### A DIFF, CBC, ANEU #### [address] [address] Neutrophils/100 WBC (Bld) 73.5 % Normal 37.0-80.0 [facility] ([place] Comment on above: Performed By: #### A DIFF, CBC, ANEU #### [address] [address] .NEUABSon 04-29-2023 Neutrophil, Absolute 9.6 10 3/mcL High 2.9-6.2 [facility] ([place] Comment on above: Performed By: #### A DIFF, CBC, ANEU #### [address] [address] CBCon 04-29-2023 Erythrocyte distribution width (RBC) [Ratio] 13.2 % Normal 11.5-14.5 [facility] ([place] Comment on above: Performed By: #### A DIFF, CBC, ANEU #### [address] [address] Hematocrit (Bld) [Volume fraction] 33.9 % Low 37.0-47.0 [facility] [place] Comment on above: Performed By: #### A DIFF, CBC, ANEU #### [address] [address] Hgb 11.5 G/dL Low 12.0-16.0 [facility] [place] Comment on above: Performed By: #### A DIFF, CBC, ANEU #### [address] [address] MCH (RBC) [Entitic mass] 31.8 pg High 27.0-31.2 [facility] ([place] Comment on above: Performed By: #### A DIFF, CBC, ANEU #### [address] [address] MCHC 34.1 G/dL Normal 33.0-37.0 [facility] [place] Comment on above: Performed By: #### A DIFF, CBC, ANEU #### [address] [address] MCV (RBC) [Entitic vol] 93.4 fL Normal 80.0-94.0 [facility] ([place] Comment on above: Performed By: #### A DIFF, CBC, ANEU #### [address] [address] Platelet 234 10 3/mcL Normal 130-400 [facility] ([place] Comment on above: Performed By: #### A DIFF, CBC, ANEU #### [address] [address] Platelet mean volume (Bld) [Entitic vol] 7.5 fL Normal 7.4-10.4 [facility] ([place] Comment on above: Performed By: #### A DIFF, CBC, ANEU #### [address] [address] RBC 3.63 10 6/mcL Low 4.20-5.40 [facility] ([place] Comment on above: Performed By: #### A DIFF, CBC, ANEU #### [address] [address] WBC 13.0 10 3/mcL High 4.6-10.8 [facility] ([place] Comment on above: Performed By: #### A DIFF, CBC, ANEU #### [place] [address] [place], [place] [address] LABORATORYOrdered By: SYSTEM SYSTEM on 04-29-2023 Basophil, [...] Ab RPR Ql (S) Non-Reactive Normal Non-Reactive [facility] ([place] Comment on above: Result Comment: The RPR [...] By: #### A DIFF, CBC, ANEU #### [address] [address] .Auto Diffon 04-27-2023 Basophil, Absolute 0.0 10 3/mcL Normal 0.0-0.2 [facility] ([place] Comment on above: Performed By: #### A DIFF, CBC, ANEU #### [address] [address] Basophils/100 WBC (Bld) 0.1 % Normal 0.0-2.5 [facility] ([place] Comment on above: Performed By: #### A DIFF, CBC, ANEU #### [address] [address] Eosinophil, Absolute 0.1 10 3/mcL Normal 0.0-0.4 [facility] ([place]) Comment on above: Performed By: #### A DIFF, CBC, ANEU #### [address] [address] Eosinophils/100 WBC (Bld) 1.1 % Normal 0.0-7.0 [facility] ([place] Comment on above: Performed By: #### A DIFF, CBC, ANEU #### [address] [address] Lymphocyte, Absolute 2.4 10 3/mcL Normal 0.8-3.9 [facility] ([place]) Comment on above: Performed By: #### A DIFF, CBC, ANEU #### [address] [address] Lymphocytes/100 WBC (Bld) 21.7 % Normal 10.0-50.0 [facility] ([place] Comment on above: Performed By: #### A DIFF, CBC, ANEU #### [address] [address] Monocyte, Absolute 0.9 10 3/mcL Normal 0.2-1.0 [facility] [place] Comment on above: Performed By: #### A DIFF, CBC, ANEU #### [address] [address] Monocytes/100 WBC (Bld) 8.2 % Normal 1.7-13.0 [facility] ([place]) Comment on above: Performed By: #### A DIFF, CBC, ANEU #### [address] [address] Neutrophils/100 WBC (Bld) 68.9 % Normal 37.0-80.0 [facility] ([place] Comment on above: Performed By: #### A DIFF, CBC, ANEU #### [address] [address] .NEUABSon 04-27-2023 Neutrophil, Absolute 7.5 10 3/mcL High 2.9-6.2 [facility] ([place] Comment on above: Performed By: #### A DIFF, CBC, ANEU #### [address] [address] CBCon 04-27-2023 Erythrocyte distribution width (RBC) [Ratio] 13.4 % Normal 11.5-14.5 [facility] ([place] Comment on above: Performed By: #### A DIFF, CBC, ANEU #### [address] [address] Hematocrit (Bld) [Volume fraction] 37.4 % Normal 37.0-47.0 [facility] ([place] Comment on above: Performed By: #### A DIFF, CBC, ANEU #### [address] [address] Hgb 13.0 G/dL Normal 12.0-16.0 [facility] [place] Comment on above: Performed By: #### A DIFF, CBC, ANEU #### [address] [address] MCH (RBC) [Entitic mass] 32.4 pg High 27.0-31.2 [facility] ([place] Comment on above: Performed By: #### A DIFF, CBC, ANEU #### [address] [address] MCHC 34.8 G/dL Normal 33.0-37.0 [facility] ([place] Comment on above: Performed By: #### A DIFF, CBC, ANEU #### [address] [address] MCV (RBC) [Entitic vol] 93.1 fL Normal 80.0-94.0 [facility] ([place] Comment on above: Performed By: #### A DIFF, CBC, ANEU #### [address] [address] Platelet 248 10 3/mcL Normal 130-400 [facility] ([place] Comment on above: Performed By: #### A DIFF, CBC, ANEU #### [address] [address] Platelet mean volume (Bld) [Entitic vol] 7.6 fL Normal 7.4-10.4 [facility] ([place] Comment on above: Performed By: #### A DIFF, CBC, ANEU #### [address] [address] RBC 4.01 10 6/mcL Low 4.20-5.40 [facility] ([place] Comment on above: Performed By: #### A DIFF, CBC, ANEU #### [place] [address] [place], [place] [address] WBC 10.9 10 3/mcL High 4.6-10.8 [facility] ([place] Comment on above: Performed By: #### A DIFF, CBC, ANEU #### [place] [address] [place], [place] [address] Gel ABOon 04-27-2023 ABO/Rh Interp Negative Invalid Interpretation Code [facility] ([place] Comment on above: Performed By: #### A DIFF, CBC, ANEU #### [address] [address] Gel ABSon 04-27-2023 Antibody Screen Gel Negative Normal [facility] ([place]) Comment on above: Performed By: #### A DIFF, CBC, ANEU #### [address] [address] LABORATORYOrdered By: Niurka Hughes on 04-26-2023 ABO/Rh [...] (04/26/23 10:52 PM) Invalid Interpretation Code Non-Reactive [facility] Viro/Sero SS Comment on above: Interpretive Data: [...] Nom (Bld) A negative (04/26/23 10:10 PM) [facility] Work Phone: Group B Strep Date Performed [id number] [facility] Work Phone: Group B Strep, External Positive (04/26/23 10:10 PM) [facility] Work Phone: Hepatitis B Date Performed [id number] [facility] Work Phone: Hepatitis B, External Negative (04/26/23 10:10 PM) [facility] Work Phone: HIV Antibodies, External Negative (04/26/23 10:10 PM) [facility] Work Phone: HIV Date Performed 20221022 [facility] Work Phone: RPR Date Performed [id number] [facility] Work Phone: RPR, External Reactive (04/26/23 10:10 PM) [facility] Work Phone: Rubella Date Performed 20221027 [facility] Work Phone: Rubella, External Nonimmune (04/26/23 10:10 PM) [facility] Work Phone: GBSPCRon 04-02-2023 Group B Strep (PCR) Positive Abnormal Negative [facility] ([place]) Comment on above: Performed By: #### G BSPCR #### [facility] [address] [place], [place] [address] Group B Strep PCR Int Normal [facility] ([place]) Comment on above: Result Comment: Grou p [...] Below Performed By: #### G BSPCR #### [address] [address] LABORATORYOrdered By: Gianni Cornell on 04-01-2023 Group [...] Ab RPR Ql (S) Non-Reactive Normal Non-Reactive [facility] ([place] Comment on above: Result Comment: The RPR [...] #### A NISHANT, GLU, ADIFF, CBC #### [address] [address] #### RPR #### [address] [address] .Auto Diffon 01-14-2023 Basophil, Absolute 0.0 10 3/mcL Normal 0.0-0.2 [facility] ([place] Comment on above: Performed By: #### A NISHANT, GLU, ADIFF, CBC #### [address] [address] #### RPR #### [address] [address] Basophils/100 WBC (Bld) 0.3 % Normal 0.0-2.5 [facility] ([place]) Comment on above: Performed By: #### A NISHANT, GLU, ADIFF, CBC #### [address] [address] #### RPR #### [address] [address] Eosinophil, Absolute 0.1 10 3/mcL Normal 0.0-0.4 [facility] ([place]) Comment on above: Performed By: #### A NISHANT, GLU, ADIFF, CBC #### [address] [address] #### RPR #### [address] [address] Eosinophils/100 WBC (Bld) 1.1 % Normal 0.0-7.0 [facility] ([place]) Comment on above: Performed By: #### A NISHANT, GLU, ADIFF, CBC #### [address] [address] #### RPR #### [address] [address] Lymphocyte, Absolute 1.6 10 3/mcL Normal 0.8-3.9 [facility] ([place]) Comment on above: Performed By: #### A NISHANT, GLU, ADIFF, CBC #### [address] [address] #### RPR #### [address] [address] Lymphocytes/100 WBC (Bld) 16.4 % Normal 10.0-50.0 [facility] ([place] Comment on above: Performed By: #### A NISHANT, GLU, ADIFF, CBC #### [address] [address] #### RPR #### [address] [address] Monocyte, Absolute 0.6 10 3/mcL Normal 0.2-1.0 [facility] ([place] Comment on above: Performed By: #### A NISHANT, GLU, ADIFF, CBC #### [address] [address] #### RPR #### [address] [address] Monocytes/100 WBC (Bld) 6.3 % Normal 1.7-13.0 [facility] ([place] Comment on above: Performed By: #### A NISHANT, GLU, ADIFF, CBC #### [place] [address] #### RPR #### [place] [address] Neutrophils/100 WBC (Bld) 75.9 % Normal 37.0-80.0 [facility] ([place] Comment on above: Performed By: #### A NISHANT, GLU, ADIFF, CBC #### [place] [address] #### RPR #### [place] [address] .NEUABSon 01-14-2023 Neutrophil, Absolute 7.5 10 3/mcL High 2.9-6.2 [facility] ([place]) Comment on above: Performed By: #### A NISHANT, GLU, ADIFF, CBC #### [place] [address] #### RPR #### [place] [address] CBCon 01-14-2023 Erythrocyte distribution width (RBC) [Ratio] 14.0 % Normal 11.5-14.5 [facility] ([place] Comment on above: Performed By: #### A NISHANT, GLU, ADIFF, CBC #### [place] [address] #### RPR #### [place] [address] Hematocrit (Bld) [Volume fraction] 35.6 % Low 37.0-47.0 [facility] ([place] Comment on above: Performed By: #### A NISHANT, GLU, ADIFF, CBC #### [place] [address] #### RPR #### [place] [address] Hgb 12.3 G/dL Normal 12.0-16.0 [facility] ([place] Comment on above: Performed By: #### A NISHANT, GLU, ADIFF, CBC #### [place] [address] #### RPR #### [place] [address] MCH (RBC) [Entitic mass] 32.0 pg High 27.0-31.2 [facility] ([place] Comment on above: Performed By: #### A NISHANT, GLU, ADIFF, CBC #### [place] [address] #### RPR #### [place] [address] MCHC 34.6 G/dL Normal 33.0-37.0 [facility] ([place] Comment on above: Performed By: #### A NISHANT, GLU, ADIFF, CBC #### [place] [address] #### RPR #### [place] [address] MCV (RBC) [Entitic vol] 92.7 fL Normal 80.0-94.0 [facility] ([place] Comment on above: Performed By: #### A NISHANT, GLU, ADIFF, CBC #### [place] [address] #### RPR #### [place] [address] Platelet 344 10 3/mcL Normal 130-400 [facility] ([place] Comment on above: Performed By: #### A NISHANT, GLU, ADIFF, CBC #### [address] [address] #### RPR #### [address] [address] Platelet mean volume (Bld) [Entitic vol] 7.8 fL Normal 7.4-10.4 [facility] ([place] Comment on above: Performed By: #### A NISHANT, GLU, ADIFF, CBC #### [place] [address] #### RPR #### [place] [address] RBC 3.84 10 6/mcL Low 4.20-5.40 [facility] ([place] Comment on above: Performed By: #### A NISHANT, GLU, ADIFF, CBC #### [place] [address] #### RPR #### [place] [address] WBC 9.9 10 3/mcL Normal 4.6-10.8 [facility] ([place] Comment on above: Performed By: #### A NISHANT, GLU, ADIFF, CBC #### [address] [address] #### RPR #### [address] [address] GLUon 01-14-2023 Glucose [Mass/Vol] 82 mg/dL [facility] Comment on above: Order Comment: post glucola Performed By: #### A NISHANT, GLU, ADIFF, CBC #### [address] [address] #### RPR #### [address] [address] Gel ABOon 01-14-2023 ABO/Rh Interp Negative Invalid Interpretation Code [facility] ([place]) Comment on above: Performed By: #### A DIFF, CBC, ANEU #### [address] [address] Gel ABSon 01-14-2023 Antibody Screen Gel Negative Normal [facility] ([place]) Comment on above: Performed By: #### A DIFF, CBC, ANEU #### [place] [id number] [place] [address] LABORATORYOrdered By: Gerald Can on 01-14-2023 Basophil, [...] trachomatis Interp Normal See CT Interp N [facility] ([place]) Comment on above: Result Comment: C. t rachomatis DNA not detected. Specimen is presumptive negative for C. trachomatis. A negative result does not preclude C. trachomatis infection because results depend on adequate specimen collection, absence of inhibitors, and sufficient DNA to be detected. See CT Interp N Performed By: #### A DIFF, CBC, ANEU #### [address] [address] C.trachomatis PCR Negative Normal Negative [facility] ([place] Comment on above: Result Comment: Stokes sport tube received with two swabs. Review collection procedure. Inappropriate collection may cause aberrant results. Molecular (PCR) assay performed on the Bhupinder Eda 4800 system. Performed By: #### A DIFF, CBC, ANEU #### [address] [address] Chlam Source Vaginal Normal [facility] ([place] Comment on above: Performed By: #### A DIFF, CBC, ANEU #### [address] [address] LUODB6qa 10-25-2022 GC PCR Source Vaginal Normal [facility] ([place] Comment on above: Performed By: #### A DIFF, CBC, ANEU #### [address] [address] N. gonorrhoeae (PCR) Negative Normal Negative [facility] ([place]) Comment on above: Result Comment: Stokes sport tube received with two swabs. Review collection procedure. Inappropriate collection may cause aberrant results. Molecular (PCR) assay performed on the Bhupinder Eda 4800 System. Performed By: #### A DIFF, CBC, ANEU #### [address] [address] N. gonorrhoeae Interp Normal See NG Interp N [facility] ([place] Comment on above: Result Comment: N. g onorrhoeae DNA not detected. Specimen is presumptive negative for N. gonorrhoeae. A negative result does not preclude Neisseria gonorrhoeae infection because results depend on adequate specimen collection, absence of inhibitors, and sufficient DNA to be detected. See NG Interp N Performed By: #### A DIFF, CBC, ANEU #### [place] [id number] RPRon 10-24-2022 Reagin Ab RPR Ql (S) Non-Reactive Normal Non-Reactive [facility] ([place] Comment on above: Result Comment: The RPR [...] By: #### A DIFF, CBC, ANEU #### [address] [address] RUBISon 10-24-[address] Negative Normal Positive [facility] ([place] Comment on above: Result Comment: This immune status assay detects IgM and/or IgG antibody to Rubella. Interpret results in conjunction with clinical history. POS: Antibody detected; exposure at undetermined recent or distant time. If clinically indicated, order Rubella IGM to rule out recent infection. NEG: No antibody detected. Performed By: #### A DIFF, CBC, ANEU #### [address] [address] VARISon 10-24-[address] Positive Normal [facility] ([place] Comment on above: Result Comment: INTE RPRETATION OF VARICELLA IMMUNE STATUS IgG BY EIA: Negative: No detectable VZV IgG antibody. Positive: VZV IgG antibody Detected. If clinically indicated, order Varicella IgM to rule out recent infection. Equivocal: Equivocal for antibodies to VZV. Suggest repeat testing in 10-14 days. Performed By: #### A DIFF, CBC, ANEU #### [place] [address] HBSAGon 10-23-2022 Hep B Surf Ag Non-Reactive Normal Non-Reactive [facility] ([place] Comment on above: Performed By: #### A DIFF, CBC, ANEU #### [place] [address] .Auto Diffon 10-22-2022 Basophil, Absolute 0.1 10 3/mcL Normal 0.0-0.2 [facility] ([place] Comment on above: Performed By: #### A DIFF, CBC, ANEU #### [place] [address] Basophils/100 WBC (Bld) 0.6 % Normal 0.0-2.5 [facility] ([place] Comment on above: Performed By: #### A DIFF, CBC, ANEU #### [place] [address] Eosinophil, Absolute 0.1 10 3/mcL Normal 0.0-0.4 [facility] ([place]) Comment on above: Performed By: #### A DIFF, CBC, ANEU #### [place] [id number] Eosinophils/100 WBC (Bld) 0.7 % Normal 0.0-7.0 [facility] ([place] Comment on above: Performed By: #### A DIFF, CBC, ANEU #### [address] [address] Lymphocyte, Absolute 2.4 10 3/mcL Normal 0.8-3.9 [facility] ([place]) Comment on above: Performed By: #### A DIFF, CBC, ANEU #### [place] [address] [place], [place] [address] Lymphocytes/100 WBC (Bld) 20.4 % Normal 10.0-50.0 [facility] ([place] Comment on above: Performed By: #### A DIFF, CBC, ANEU #### [address] [address] Monocyte, Absolute 0.7 10 3/mcL Normal 0.2-1.0 [facility] ([place] Comment on above: Performed By: #### A DIFF, CBC, ANEU #### [address] [address] Monocytes/100 WBC (Bld) 5.9 % Normal 1.7-13.0 [facility] ([place] Comment on above: Performed By: #### A DIFF, CBC, ANEU #### [address] [address] Neutrophils/100 WBC (Bld) 72.4 % Normal 37.0-80.0 [facility] ([place] Comment on above: Performed By: #### A DIFF, CBC, ANEU #### [address] [address] .NEUABSon 10-22-2022 Neutrophil, Absolute 8.4 10 3/mcL High 2.9-6.2 [facility] ([place]) Comment on above: Performed By: #### A DIFF, CBC, ANEU #### [address] [address] CBCon 10-22-2022 Erythrocyte distribution width (RBC) [Ratio] 13.3 % Normal 11.5-14.5 [facility] ([place] Comment on above: Performed By: #### A DIFF, CBC, ANEU #### [address] [address] Hematocrit (Bld) [Volume fraction] 36.9 % Low 37.0-47.0 [facility] ([place] Comment on above: Performed By: #### A DIFF, CBC, ANEU #### [address] [address] Hgb 12.7 G/dL Normal 12.0-16.0 [facility] ([place] Comment on above: Performed By: #### A DIFF, CBC, ANEU #### [address] [address] MCH (RBC) [Entitic mass] 31.1 pg Normal 27.0-31.2 [facility] ([place] Comment on above: Performed By: #### A DIFF, CBC, ANEU #### [address] [address] MCHC 34.3 G/dL Normal 33.0-37.0 [facility] ([place] Comment on above: Performed By: #### A DIFF, CBC, ANEU #### [address] [address] MCV (RBC) [Entitic vol] 90.5 fL Normal 80.0-94.0 [facility] ([place] Comment on above: Performed By: #### A DIFF, CBC, ANEU #### [address] [address] Platelet 337 10 3/mcL Normal 130-400 [facility] ([place] Comment on above: Performed By: #### A DIFF, CBC, ANEU #### [address] [address] Platelet mean volume (Bld) [Entitic vol] 7.4 fL Normal 7.4-10.4 [facility] ([place] Comment on above: Performed By: #### A DIFF, CBC, ANEU #### [address] [address] RBC 4.08 10 6/mcL Low 4.20-5.40 [facility] ([place] Comment on above: Performed By: #### A DIFF, CBC, ANEU #### [address] [address] WBC 11.6 10 3/mcL High 4.6-10.8 [facility] ([place] Comment on above: Performed By: #### A DIFF, CBC, ANEU #### [address] [address] Gel ABOon 10-22-2022 ABO/Rh Interp Negative Invalid Interpretation Code [facility] ([place] Comment on above: Performed By: #### A DIFF, CBC, ANEU #### [address] [address] Gel ABSon 10-22-2022 Antibody Screen Gel Negative Normal [facility] ([place]) Comment on above: Performed By: #### A DIFF, CBC, ANEU #### [place] [address] HIVRPon 10-22-2022 HIV p24 Antigen Non-Reactive Normal Non-Reactive [facility] ([place]) Comment on above: Result Comment: Dete ction of p24 may be inhibited by biotin in the sample, causing false negative results in acute infection. Therefore do not test samples from patients who are taking biotin. Performed By: #### A DIFF, CBC, ANEU #### [place] [address] HIV P24 Int Non-Reactive Invalid Interpretation Code [facility]) Comment on above: Performed By: #### A DIFF, CBC, ANEU #### [place] [address] Rapid HIV 1/2 Antibody Non-Reactive Normal Non-Reactive [facility] ([place] Comment on above: Performed By: #### A DIFF, CBC, ANEU #### [address] [address] RHIV 1/2 Ab Int Non-Reactive Invalid Interpretation Code [facility] ([place] Comment on above: Performed By: #### A DIFF, CBC, ANEU #### [place] [address] LABORATORYOrdered By: Krysta Valdovinos on 10-22-2022 C. [...] cfu/ml. No Significant growth. Sensitivity not indicated. [facility] Work Phone: TSHon 10-22-2022 TSH Qn 2.18 m[IU]/L Normal 0.36-3.74 [facility] ([place] Comment on above: Performed By: #### A DIFF, CBC, ANEU #### [facility] [address] [place], [place] [address] Vital Signs Date Time Vital Sign Value Performing Clinician Facility 07-10-2025 15:39-0400 Body height 162.56 cm Angely LEYVAM Work Phone: [facility] 07-10-2025 15:39-0400 Body mass index (BMI) [Ratio] 30.9 kg/m2 Angely LEYVAM Work Phone: [facility] 07-10-2025 15:39-0400 Body weight 81.9 kg Angely LEYVAM Work Phone: [facility] 07-10-2025 15:39-0400 Diastolic blood pressure 74 mm[Hg] Angely LEYVAM Work Phone: [facility] 07-10-2025 15:39-0400 Systolic blood pressure 115 mm[Hg] Angely LEYVAM Work Phone: [facility] 06-27-2025 11:41-0400 Body height 162.56 cm Angely LEYVAM Work Phone: [facility] 06-27-2025 11:41-0400 Body mass index (BMI) [Ratio] 30.2 kg/m2 Angely LEYVAM Work Phone: [facility] 06-27-2025 11:41-0400 Body weight 79.94 kg Angely LEYVAM Work Phone: [facility] 06-27-2025 11:41-0400 Diastolic blood pressure 82 mm[Hg] Angely LEYVAM Work Phone: [facility] 06-27-2025 11:41-0400 Systolic blood pressure 127 mm[Hg] Angely Chase CNM Work Phone: [facility] 04-10-2024 14:52-0400 Body temperature 97.5 [degF] Alethea Ledger SHIPBOARD INTELLIGENCE ANALYST.[employer] Work Phone: [facility] 04-10-2024 14:52-0400 Body weight 74 kg Alethea Ledger SHIPBOARD INTELLIGENCE ANALYST.[employer] Work Phone: [facility] 04-10-2024 14:52-0400 Diastolic blood pressure 75 mm[Hg] Alethea Ledger SHIPBOARD INTELLIGENCE ANALYST.[employer] Work Phone: [facility] 04-10-2024 14:52-0400 Heart rate 76 /min Alethea Ledger SHIPBOARD INTELLIGENCE ANALYST.[employer] Work Phone: [facility] 04-10-2024 14:52-0400 Respiratory rate 16 /min Alethea Ledger SHIPBOARD INTELLIGENCE ANALYST.[employer] Work Phone: [facility] 04-10-2024 14:52-0400 SaO2% (BldA) [Mass fraction] 95 % Alethea Ledger SHIPBOARD INTELLIGENCE ANALYST.[employer] Work Phone: [facility] 04-10-2024 14:52-0400 Systolic blood pressure 111 mm[Hg] Alethea Ledger SHIPBOARD INTELLIGENCE ANALYST.[employer] Work Phone: [facility] 04-29-2023 11:00-0400 Body temperature 98.6 [degF] JOHN VERDUGO DO [facility] 04-29-2023 11:00-0400 Diastolic Blood Pressure Non-Invasive 65 1 JOHN VERDUGO DO [facility] 04-29-2023 11:00-0400 Heart rate 88 /min JOHN VERDUGO DO [facility] 04-29-2023 11:00-0400 Respiratory rate 18 /min JOHN VERDUGO DO [facility] 04-29-2023 11:00-0400 Systolic Blood Pressure Non-Invasive 118 1 JOHN VERDUGO DO [facility] 04-28-2023 23:59-0400 Body temperature 97.88 [degF] JOHN VERDUGO DO [facility] 04-28-2023 23:59-0400 Diastolic Blood Pressure Non-Invasive 67 1 JOHN VERDUGO DO [facility] 04-28-2023 23:59-0400 Heart rate 72 /min JOHN VERDUGO DO [facility] 04-28-2023 23:59-0400 Reason For Taking VItal Signs JOHN VERDUGO DO [facility] 04-28-2023 23:59-0400 Respiratory rate 16 /min JOHN VERDUGO DO [facility] 04-28-2023 23:59-0400 Systolic Blood Pressure Non-Invasive 107 1 JOHN VERDUGO DO [facility] 04-28-2023 15:40-0400 Body temperature 97.52 [degF] JOHN VERDUGO DO [facility] 04-28-2023 15:40-0400 Diastolic Blood Pressure Non-Invasive 77 1 JOHN VERDUGO DO [facility] 04-28-2023 15:40-0400 Heart rate 92 /min JOHN VERDUGO DO [facility] 04-28-2023 15:40-0400 Reason For Taking VItal Signs JOHN VERDUGO DO [facility] 04-28-2023 15:40-0400 Respiratory rate 18 /min JOHN VERDUGO DO [facility] 04-28-2023 15:40-0400 Systolic Blood Pressure Non-Invasive 115 1 JOHN VERDUGO DO [facility] 04-28-2023 08:16-0400 Reason For Taking VItal Signs JOHN VERDUGO DO [facility] 04-26-2023 22:10-0400 Body height 162.6 cm JOHN VERDUGO DO [facility] 04-26-2023 22:10-0400 Body weight 84.1 kg JOHN VERDUGO DO [facility] 04-26-2023 22:10-0400 Body weight 31.81 kg/m2 JOHN VERDUGO DO [facility] Encounters Encounter Date Encounter Type Care Provider Facility Start: 08-21-2025 ambulatory No Primary Car e Physician Facility:[facility] Start: 08-14-2025 End: 08-14-2025 ambulatory No Primary Care Physician Facility:[facility] Start: 08-10-2025 End: 08-10-2025 ambulatory No Primary Care Physician Facility:[facility] Start: 08-10-2025 End: 08-10-2025 ambulatory No Primary Care Physician Facility:[facility] Start: 07-27-2025 End: 07-27-2025 ambulatory No Primary Care Physician Facility:[facility] Start: 07-10-2025 End: 07-10-2025 Patient encounter procedure Angely Stone CNM -Laboratory Specimen Work Phone: Start: 07-10-2025 End: 07-10-2025 ambulatory Angely Stone CNM Work Phone: [facility] Start: 07-10-2025 End: 07-10-2025 ambulatory Angely Stone Facility:[facility] Start: 07-03-2025 End: 07-03-2025 ambulatory Angely Stone CNM Work Phone: -Laboratory Start: 07-03-2025 End: 07-03-2025 Patient encounter procedure Angely Stone CNM -Laboratory Work Phone: Start: 07-03-2025 End: 07-03-2025 ambulatory Angely Sotne Facility:[facility] Start: 06-27-2025 End: 06-27-2025 Patient encounter procedure Angely Stone CNM -[facility] Work Phone: Start: 06-27-2025 End: 06-27-2025 ambulatory Angely Stone CNM Work Phone: -[facility] Start: 06-20-2025 End: 06-20-2025 ambulatory ROMÁN HERNANDEZ DO Facility:[facility] Start: 06-20-2025 End: 06-20-2025 Patient encounter procedure BELKYS ESCALANTE SHIPBOARD INTELLIGENCE ANALYST-CNM [facility] Start: 04-29-2025 End: 04-29-2025 Emergency department patient visit DR LUIS EDUARDO PADILLA DO [facility] Start: 04-05-2025 End: 04-05-2025 ambulatory ROMÁN HERNANDEZ DO Facility:[facility] Start: 04-05-2025 End: 04-05-2025 Patient encounter procedure BELKYS ESCALANTE SHIPBOARD INTELLIGENCE ANALYST-CNM [facility] Start: 03-15-2025 End: 03-19-2025 ambulatory BELKYS ESCALANTE SHIPBOARD INTELLIGENCE ANALYST-CNM Facility:[facility] Start: 03-15-2025 End: 03-19-2025 Outreach Lab BELKYS ESCALANTE SHIPBOARD INTELLIGENCE ANALYST-CNM [facility] Start: 03-15-2025 End: 03-15-2025 ambulatory BELKYS ESCALANTE SHIPBOARD INTELLIGENCE ANALYST-CNM Facility:[facility] Start: 03-15-2025 End: 03-15-2025 Patient encounter procedure BELKYS ESCALANTE SHIPBOARD INTELLIGENCE ANALYST-CNM [facility] [facility] Start: 02-01-2025 End: 02-01-2025 ambulatory ANA AGARWAL SHIPBOARD INTELLIGENCE ANALYST-CNM Facility:[facility] Start: 02-01-2025 End: 02-01-2025 Patient encounter procedure NAA AGARWAL SHIPBOARD INTELLIGENCE ANALYST-CNM [facility] Start: 04-10-2024 ambulatory ALETHEA LEYVA Facility:[id number] Start: 04-10-2024 End: 04-10-2024 Subsequent hospital visit by physician [facility] Comment on above: Toe injury, left, in itial encounter [S99.922A] Start: 04-10-2024 End: 04-10-2024 Patient encounter procedure Alethea Leyva SHIPBOARD INTELLIGENCE ANALYST.[employer] Work Phone: [facility] Comment on above: Toe injury, left, in itial encounter (Primary Dx) Start: 04-10-2024 End: 04-10-2024 ambulatory ALETHEA LEYVA Facility:[id number] Start: 06-10-2023 End: 06-15-2023 ambulatory BELKYS ESCALANTE SHIPBOARD INTELLIGENCE ANALYST-CNM Facility:B Start: 04-26-2023 End: 04-29-2023 Evaluation and management of inpatient JOHN E SHEROCK DO Facility:B Start: 04-26-2023 End: 04-29-2023 Evaluation and management of inpatient JOHN E SHEROCK DO [facility] Start: 04-01-2023 End: 04-06-2023 ambulatory ROMÁN HERNANDEZ DO Facility:[facility] Start: 04-01-2023 End: 04-05-2023 Outreach Lab ANA AGARWAL SHIPBOARD INTELLIGENCE ANALYST-CNM [facility] Start: 03-25-2023 End: 03-30-2023 ambulatory ROMÁN W CRISTO DO Facility:[facility] Start: 03-25-2023 End: 03-29-2023 Outreach Lab ANA AGARWAL SHIPBOARD INTELLIGENCE ANALYST-CNM [facility] Start: 01-16-2023 End: 01-16-2023 ambulatory RICHRAFIA ESCALANTE SHIPBOARD INTELLIGENCE ANALYST-CNM Facility:[facility] Start: 01-16-2023 End: 01-16-2023 SAME DAY STAY BELKYS ESCALANTE SHIPBOARD INTELLIGENCE ANALYST-CNM [facility] Start: 01-14-2023 End: 01-15-2023 ambulatory RICHRAFIA ESCALANTE SHIPBOARD INTELLIGENCE ANALYST-CNM Facility:[facility] Start: 01-14-2023 End: 01-14-2023 Patient encounter procedure ANA AGARWAL SHIPBOARD INTELLIGENCE ANALYST-CNM [facility] [facility] Start: 11-25-2022 End: 11-26-2022 [facility] Start: 11-25-2022 End: 11-25-2022 Patient encounter procedure ANA AGARWAL SHIPBOARD INTELLIGENCE ANALYST-CNM [facility] Start: 10-22-2022 End: 10-27-2022 ambulatory ROMÁN W CRISTO DO Facility:B Start: 10-22-2022 End: 10-26-2022 Outreach Lab ANA AGARWAL SHIPBOARD INTELLIGENCE ANALYST-CNM [facility] Start: 10-22-2022 End: 10-22-2022 Patient encounter procedure ANADEBBIE AGARWAL SHIPBOARD INTELLIGENCE ANALYST-CNM [facility] Start: 09-22-2022 End: 09-23-2022 ambulatory ROMÁN HERNANDEZ DO Facility:A Start: 09-22-2022 End: 09-22-2022 Patient encounter procedure ANA Jennifer AGARWAL SHIPBOARD INTELLIGENCE ANALYST-CNM [facility] Procedures Date Procedure Procedure Detail Performing Clinician Start: 07-10-2025 Measurement of pH in vaginal fluid specimen using nitrazine yellow for detection of rupture of amniotic membrane Angely Stone CNM Work Phone: Comment on above: Amniotic fluid not p resent indicates No Rupture of FetalMembranes at time of specimen collection. Start: 04-10-2024 Radex foot complete minimum 3 views Alethea Leyva SHIPBOARD INTELLIGENCE ANALYST.[employer] Work Phone: Start: 05-31-2020 Structure of wisdom tooth (body structure) JOHN VERDUGO DO Plan of Treatment Date Care Activity Detail Author Start: 07-03-2025 [facility] Start: 07-03-2025 Patient encounter procedure Registered Clinical -Laboratory Work Phone: Start: 06-05-2024 Covid-19 Vaccine ( season) Covid-19 Vaccine ( season) [facility] Start: 06-05-2024 Influenza vaccination Influenza Vacc ine (#1) [facility] Start: 10-05-2023 Behavioral Health Screening Behavioral Health Screening [facility] Start: 06-05-2023 Covid-19 Vaccine ( season) Covid-19 Vaccine ( season) [facility] Start: 2016 Screening for malign ant neoplasm of cervix Cervical Cancer Screening [facility] Start: 2014 Hepatitis B Vaccine (1 of 3 - 19+ 3-dose series) Hepatitis B Vaccine (1 of 3 - 19+ 3-dose series) [facility] Start: 2014 Urine microalbumin profile DTaP,Tdap,Td Vaccine (1 - Tdap) [facility] Start: 2013 Anxiety Screening Anxiety Screening [facility] Start: 2013 Depression Screening Depression Scre ening [facility] Start: 2013 Hepatitis C screening Hepatitis C Mo jody [facility] Start: 2013 HIV screening HIV Screening [facility] Start: 09-09-2013 Hepatitis B Vaccine (2 of 3 - 3-dose series) Hepatitis B Vaccine (2 of 3 - 3-dose series) [facility] Payers Date Payer Category Payer Self-pay 2025 Private Health Insurance [id number] 2023 Unknown [id number] 2022 Unknown [id number] 2022 Unknown [id number] 1995 Unknown [id number] 2.16.8 40.1.292284.3.579.2.627 1995 Unknown [id number] 2.16.8 40.1.981170.3.579.2.627 1995 Unknown [id number] 2.16.8 40.1.373480.3.579.2.627 1995 Unknown [id number] 2.16.8 40.1.104186.3.579.2.627 1995 Unknown [id number] 2.16.8 40.1.861984.3.579.2.627 1995 Unknown [id number] 2.16.8 40.1.198198.3.579.2.627 1995 Unknown [id number] 2.16.8 40.1.451729.3.579.2.627 1995 Unknown [id number] 2.16.8 40.1.101626.3.579.2.627 1995 Unknown [id number] 2.16.8 40.1.637562.3.579.2.627 1995 Unknown [id number] 2.16.8 40.1.084928.3.579.2.627 1995 Unknown [id number] 2.16.8 40.1.508265.3.579.2.627 1995 Unknown [id number] 2.16. 840.1.909486.3.579.2.627 1995 Unknown [id number] 2.16. 840.1.145397.3.579.2.627 1995 Unknown [id number] 2.16. 840.1.053688.3.579.2.627 1995 Unknown [id number] 2.16. 840.1.776282.3.579.2.627 1995 Unknown [id number] 2.16. 840.1.807023.3.579.2.627 1995 Unknown [id number] 2.16.8 40.1.139713.3.579.2.627 Unknown [id number] 2.16.8 40.1.300510.3.579.2.462 Unknown [id number] 2.16.8 40.1.970568.3.579.2.462 Unknown [id number] 2.16.8 40.1.089660.3.579.2.462 Unknown [id number] 2.16.8 40.1.612353.3.579.2.462 Unknown [id number] 2.16.8 40.1.559276.3.579.2.462 Unknown [id number] 2.16.8 40.1.887069.3.579.2.462 Unknown [id number] 2.16.8 40.1.268027.3.579.2.462 Unknown [id number] 2.16.8 40.1.913857.3.579.2.462 Unknown [id number] 2.16.8 40.1.359819.3.579.2.462 Unknown [id number] 2.16.8 40.1.378386.3.579.2.462 Social History Date Type Detail Facility [facility] Start: 1995 Sex Assigned At Female A [facility] Start: 04-26-2023 End: 06-22-2025 Tobacco smoking status Never smoked tobacco (finding) [facility] Start: 04-10-2024 Tobacco use and exposure Smokeless tobacco non-user [facility] Start: 04-10-2024 Alcoholic beverage intake Current drinker of alcohol (finding) [facility] Start: 09-13-2020 End: 04-10-2024 History of [address] [facility] Start: 09-13-2020 End: 04-10-2024 Tobacco use panel [facility] National Score (1-10 0), lower number is lower risk Not on file [facility] Start: 04-10-2024 Alcohol Comment occ [facility] Start: 1995 Sex assigned at Not on file [facility] Start: 09-10-2022 Sex Female (finding) [facility] Functional Status Date Assessment Result Facility 04-29-2023 Functional Status Rooming in [facility] 04-26-2023 Functional Status Home with family care A [facility] Mental Status Date Assessment Result Facility 04-27-2023 Mental Status Orientation Oriented x 4 [facility] Clinical Notes 10-22-2022 to 07-10-2025 Note Date & Type Note Facility 07-10-2025 Progress note [facility] 07-10-2025 Progress note Note Date/Time July 10, 2025 4:13pm [facility] Women's [address], [address] [place] [address] OFFICE VISIT Date of Service: 07/10/25 MR#: [id number] Acct: [id number] Name: EVELYN MADDOX I Rep #: [id number] : 1995 Provider: Dr. 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 Is patient in pain?: No [...] mg-folate no.1 1 mg-dha 300 mg capsule (PNV-Charlotte) vitamin E (dl, acetate) 90 mg (200 90 mg PO QDAY 06/2207/10/25 History unit) capsule Last Menstrual Period: 11/28/24 Zika: Zika virus screening: Negative : No PFSH PFSH Medical History Seasonal allergies Surgical History Gower teeth extracted Family History Father Colon cancer, [...] physical activity do you participate in: none luis/yazdanism: Rastafari seatbelt use: always do you feel safe at home: Yes additional social history: Jairo Patel History 2 Elective abortions Hx Para 1 Spontaneous abortions Hx # Term Pregnancies Ectopic pregnancies Hx # Pregnancies Multiple births # of living children 1 Past Pregnancies Del. Date Name GA/Weeks Outcome Route Bth Weight Infant Gen Labor Lgth Anesthesia Del Locatn Provider FOB 04/28/23 [place] 41 live - full term 7#7oz Male [...] Cosigner Signature: Date (if applicable) CC: ~ [facility] [employer] Work Phone: 1(816) 286-497909-23-2025 Evaluation note* Diagnosis Onset Date Resolution Status Admit Date COVID-19 affecting , antepartum acute June 27, 2025 11:38am FH: breast cancer acute Sept2024 11:38am acute June 11:38am Rh negative status during acute June 27, 2025 11:38am Supervision of high-risk acute June 27, 2025 11:38am [facility] Work Phone: 1(535) 290-278009-23-2025 Evaluation note* Diagnosis Onset Date Resolution Status [...] Supervision of high-risk acute July 10 3:34pm [facility] Work Phone: 1(781) 367-934709-23-2025 Progress [facility] Care [address] [place] [address], [address] [place] [address] OFFICE VISIT Date of Service: 06/27/25 MR#: [id number] Acct: [id number] Name: EVELYN MADDOX Rep #: [id number] : 1995 Provider: VILMA Stone Age/Sex: 29/F Location: [facility] Status: Signed Intake Vital Signs 06/27/25 11:41 Height 5 ft 4 in Weight: 176 lb 4 oz BMI 30.2 BP 127/82 H Intake Visit Reasons: *NEW* NOB JAMES GAURANG 09/04 30wk2d 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 Is patient in pain?: No [...] mg-folate no.1 1 mg-dha 300 mg capsule (PNV-Charlotte) vitamin E (dl, acetate) 90 mg (200 90 mg PO QDAY 06/2206/27/25 History unit) capsule Last Menstrual Period: 11/28/24 : No Have you fallen in the past year?: No PFSH PFSH Medical History Seasonal allergies Surgical History Gower teeth extracted Family History Father Colon cancer, [...] physical activity do you participate in: none luis/yazdanism: Rastafari seatbelt use: always do you feel safe at home: Yes additional social history: Jairo Patel History 2 Elective abortions Hx Para 1 Spontaneous abortions Hx # Term Pregnancies Ectopic pregnancies Hx # Pregnancies Multiple births # of living children 1 Past Pregnancies Del. Date Name GA/Weeks Outcome Route Bth Weight Gen Labor Lgth Anesthesia Del Locatn Provider FOB 04/28/23 [place] 41 live - full term 7#7oz Male epidural [facility] Freelandnancy Camilo Delivery Date: 04/28/23 Last Updated by: [...] No, Recent travel outside of [place]: Yes ([place]), Concern for hepatitis exposure: No, Varicella immune: [...] blood transfusions, Pulmonary (e.g.,TB,Asthma), Drug/latex allergies/reactions, Breast, Cooker Meal surgery, Anestheticcomplications, History of abnormal pap, Uterine [...] Cosigncayden Signature: Date (if applicable) CC: ~ [facility]09-16-2025 Evaluation + Plan note Diagnostic Tests Pending * Rapid Plasma Reagin(RFX Titer + Confirm) 06/20/25 [facility] 07-26-2025 Hospital Discharge instructions Patient Education [...] the nearest Emergency Room for assistance. Form 647950 D: 09/12 Document Released: 09/21/2006 Document Revised: 09/09/2012 Document Reviewed: 09/21/2006 ExitCare Patient Information 2011 [facility]. Follow Up Care 04/29/2025 14:48:47 With:JOHN VERDUGO Address: [address] [place] [address] [address] [place] [phone] Business (1) When: Unknown Comments:Follow-up as scheduled [facility] 07-26-2025 Note Discharge Instructions Thank you for allowing [facility] to assist you with your healthcare needs. The following is importantdischarge information regarding your hospital visit. Your Care Team ROMÁN HERNANDEZ DO What to do next Follow Up Appointments Follow Up with JOHN KARTIK Where:[address] [place] [address] [address] [place] [phone]- [phone] Business (1) Additional Information: Follow-up as scheduled [...] medication providers or retail pharmacies. Education Materials [employer] AND DELIVERY OUTPATIENT HOME-GOING INSTRUCTIONS _X_ [...] the nearest Emergency Room for assistance. Form 125130 D: 09/12 Document Released: 09/21/2006 Document Revised: 09/09/2012 Document Reviewed: 09/21/2006 ExitCare Patient Information 2012 [employer]. Additional Information VACCINATE! IT SAVES LIVES! Members of the community who have not yet received the COVID-19 vaccine and would like to receive it can visit one of [facility] vaccine clinics. There are many vaccine clinic locations within the [facility]. For locations and available times, please visit www.[email or web address].[place].gov/. It is important to note that some COVID mobile vaccine clinics are held outdoors and may be canceled in rainy or stormy conditions. To learn more about pediatric vaccinations (ages 5-11), we invite you to visit the [facility] webpage. https://www.[facility].org/pages/7177-Lnvpt-Pgvabigqmvv-Kdkfdkbedf-Ytsmi-Caa stions.htmlTo learn more about the COVID-19 vaccine, we invite you to visit the CDC website for a list of frequently asked questions. https://www.cdc.gov/coronavirus/2019-ncov/vaccines/faq.html [facility] Patient Portal Access Instructions: Stay connected with your healthcare team and access your personal medical information anytime with the [facility] Patient Portal.If you would like a full copy of your medical records, please contact the [facility] Medical Records Department, Thursday through Thursday between 8a.m. and 4:30p.m. Please follow the directions below to access the portal: 1.Access the email account you provided upon registration to the [facility].2.Look for an invitation email from [facility].3.Open the email and access the invitation link: Accept Invitation to [facility]4.Fill in the required martines to create your account. Sign into [email or web address].[email or web address] with your username and password that you [...] you will allow to register on the [facility] Patient Portal for access to your information. You can also access the [facility] Patient Portal on the [employer] rachael. Simply click on Health Records under [employer] and then click on the [employer] logo. HOW TO SAFELY DISPOSE OF PRESCRIPTION [...] Call your local pharmacy or go to [email or web address] [email or web address] to find one close to you.3.Make use of household items: Use cat litter or old coffee grounds to dispose medications if other options arenot available. Mix your drugs with these household products, seal them in an airtight container andthrow it into the garbage. Call [facility]: [phone] to be sure your drugs can be [...] that I should contact my do ctor. Patient/Patient Experience Coordinator Signature: Date/Time: Relationship to Patient: Witness Name/Signature: Date/Time: [facility] [id number] Note. MICRO - Microbiology PROCEDURE: Urine Culture [...] Locations *1: This test was performed at: [facility], [address] [place] [address], [facility] , [facility]06-11-2025 Evaluation + Plan note Diagnostic Tests Pending * Panel (AO) 03/15/25 * Varicella Zoster Antibody 03/15/25 [facility] 07-07-2024 History of Present illness Narrative* [...] PATIENT PRESENTS WITH AN IMPLANTABLE OR ATTACHED JIG BORE OPERATOR: No RADIOLOGY DEPARTMENT: General X-ray: Exam(s) Completed: Lower Extremity X- Ray(s): Foot, Left PERIPHERAL IV DATA: Not applicable SIGNED BY: ONDINA Ledezma) April 10, 2024 3:42 PM [facility] NoteHNO ID: [id number] Author: ZENY POLLARD RT (R) Service: ? [...] PATIENT PRESENTS WITH AN IMPLANTABLE OR ATTACHED JIG BORE OPERATOR: No RADIOLOGY DEPARTMENT: General X-ray: Exam(s) Completed: Lower Extremity X-Ray(s): Foot, Left PERIPHERAL IV DATA: Not applicable SIGNED BY: ONDINA Ledezma) April 10, 2024 3:42 PMCommunity [id number] NoteHNO ID: [id number] Author: ALETHEA LEYVA APRN.GARDEN LABOURER Service: ? Author Type: Nurse Practitioner Type: [...] Moderate This note was partially generated using [employer] voice recognition system and there may be [...] not relevant for today. Plan as outlined above.Community [id number] History of Present illness Narrative* Alethea Leyva [...] Moderate This note was partially generated using [employer] voice recognition system and there may be [...] Plan as outlined above. documented in this encounterSt. [facility]07-07-2024 Instructions* Patient Instructions* Alethea Leyva APRN.CNP - 04/10/2024 3:06 PM EDT Xray of left foot and small toe looks ok. I will call if the radiologist reads abnormal. Wash abrasion with soap and water, apply bacitracin ointment for 1-2 days. Eli tape toes for extra support. 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 ICE AREA FREQUENTLY REST/ELEVATE TYLENOL AND/OR IBUPROFEN FOR PAIN [facility] [address] [place] [address] TUAN BELL DPM [address] [facility] NISSA [phone] documented in this encounterSt. [facility] Hospital07-25-2023 Hospital Discharge instructions Patient Education 04/28/2023 [...] work with your health care provider or treasury management sales consultant. If you are not : ?Avoid [...] about methods of control (contraception). Medicines Take irsf-dkk-syndgjs and prescription medicines only as told by [...] 07/18/2008 Document Revised: 09/24/2018 Document Reviewed: 07/05/2018 [email or web address] Patient Education 2020 [employer]. 04/28/2023 01:15:56 Care After Vaginal Delivery Care [...] work with your health care provider or treasury management sales consultant. If you are not : ?Avoid [...] about methods of control (contraception). Medicines Take tmlp-blg-xuplujp and prescription medicines only as told by [...] 07/18/2008 Document Revised: 09/24/2018 Document Reviewed: 07/05/2018 [email or web address] Patient Education [employer]. 04/28/2023 01:15:51 7b- Depression and Blues (07/2020) [...] psychosis. Often, a screening tool called the [place] Depression Scale is used to diagnose depression [...] music. Avoid alcohol. Ask for help with refrigeration plant cork insulator, cooking, grocery shopping, or running errands as needed. Do nottry to do everything. Talk to people close to you about how you are feeling. Get support from your partner, family members, and friends. Try to stay positive in how you think. Think about the things you are grateful for. Do not spend a lot of time alone. Only take xlrq-fay-xnlxnkz or prescription medicine as directed by your [...] not doing well or get worse. Resource: [facility] Patient Information 2014 [employer]. This information is not intended to replace [...] psychosis. Often, a screening tool called the [place] Depression Scale is used to diagnose depression [...] music. Avoid alcohol. Ask for help with refrigeration plant cork insulator, cooking, grocery shopping, or running errands as needed. Do nottry to do everything. Talk to people close to you about how you are feeling. Get support from your partner, family members, and friends. Try to stay positive in how you think. Think about the things you are grateful for. Do not spend a lot of time alone. Only take gwcg-ljv-rkavoxi or prescription medicine as directed by your [...] not doing well or get worse. Resource: [facility] Patient Information 2014 [employer]. This information is not intended to replace advicegiven to you by your health care provider. Make sure you discuss any questions you have with your health care provider. Follow Up Care 04/26/2023 22:01:54 With:BELKYS ESCALANTE Address: DR JOHN STORY [address] [facility] [address] [place] [address]- [phone] When:Within 6 Week(s) Comments: visit [facility] 07-24-2023 Note Labor Details Baby A FHR Baseline:125 bpm FHR Baseline Variability:Moderate variability FHR Deceleration Description:Early, Intermittent Membranes Membrane Status:A.R.O.M. ROM Date, Time:04/27/2023 19:30 EDT FHR Accelerations:Present Uterine Uterine Contraction Frequency3 Uterine Contraction Monitoring MethodExternal toco Cervical Cervix Dilation9 cm Cervix Hiqgbsfxen79 Station-2 Labor Induction Information postdates IOL Physical [...] + LR Premix Diluent 1,000 mL Pfizerpen, 3632991 unit(s)= 50 mL, IV Piggyback, q4h Pitocin, [...] by BELKYS ESCALANTE on 04/27/2023 09:50 PM [facility]07-24-2023 Note Reason for Visit OB Induction [...] by first trimester ultrasound who present to [facility] for scheduled IOL due to postdates. Received [...] non-immune Historical No qualifying data Procedure/Surgical History Gower tooth: 05/31/20 Medications Inpatient Ambien, 10 mg= [...] + LR Premix Diluent 1,000 mL Pfizerpen, [id number] unit(s)= 50 mL, IV Piggyback, q4h Pitocin, [...] PM Digitally Signed by JOHN VERDUGO DO [facility]07-24-2023 Anesthesiology Consult note Patient: EVELYN MADDOX [...] Medical Group B streptococcus / SNOMED CT 217919455 / Confirmed / SNOMED CT 340498132 / Confirmed Rubella non-immune / SNOMED CT 384289670 / Confirmed, Active Problems (3) Group B streptococcus Rubella non-immune Histories Past Medical History: No active or resolved past medical history items have been selected or recorded. Family History: Atrial fibrillation Mother Cancer of colon Father Procedure history: Gower tooth ([id number]) on 05/31/2020 at 24 Years. Social History [...] Oral36.6 DegC (APR 27 16:46) Heart Rate Qozybakca62 bpm (APR 27 18:10) Resp Rate 18 br/min (APR 27 15:45) GGX291 mmHg (APR 27 18:10) DBPL 55mmHg (APR 27 18:10) BMI31.81 (APR 26 22:10) Measurements from flowsheet : Measurements 04/26/2023 22:10 EDT Height 162.6 cm Admission Weight 84.1 kg Stanley Body Weight 54.74 kg BSA Admission 1.89 [...] with support Epidural Placed By JAYNA ALMARAZ SHIPBOARD INTELLIGENCE ANALYST-MANAGER E LEARNING Epidural Test Dose Time 04/27/2023 18:05 [...] date/time 04/27/2023 17:33 Provider Notified JAYNA ALMARAZ SHIPBOARD INTELLIGENCE ANALYST-MANAGER E LEARNING Notification Method Phone Information Communicated Nurse [...] date/time 04/27/2023 16:00 Provider Notified BELKYS ESCALANTE SHIPBOARD INTELLIGENCE ANALYST-CNM Notification Method Phone Information Communicated Nurse [...] feelings, concerns Skin Temperature Warm Skin Description Bolan, Dry Skin Integrity Intact Sensory Perception Darrel [...] Antibodies, External Ne (more content not included)... [facility]07-24-2023 Evaluation + Plan noteExtracted from: Title:OB [...] coverage for the evening and night tonight [facility] 07-23-2023 Anesthesiology Consult note* JAYNA ALMARAZ SHIPBOARD INTELLIGENCE ANALYST-MANAGER E LEARNING: PERFORM, SIGN, VERIFY Event Display: Anesthesiology Consultation Authored Date: [id number] Patient: EVELYN MADDOX I [facility]: [id number] Age: 27 years Sex: Female : 1995 [...] Medical Group B streptococcus / SNOMED CT 807920589 / Confirmed / SNOMED CT 858726957 / Confirmed Rubella non-immune / SNOMED CT 705371863 / Confirmed, Active Problems (3) Group B streptococcus Rubella non-immune Histories Past Medical History: No active or resolved past medical history items have been selected or recorded. Family History: Atrial fibrillation Mother Cancer of colon Father Procedure history: Gower tooth ([id number]) on 05/31/2020 at 24 Years. Social History [...] Oral36.6 DegC (APR 27 16:46) Heart Rate Sqohddcpm56 bpm (APR 27 18:10) Resp Rate 18 br/min (APR 27 15:45) STN179 mmHg (APR 27 18:10) DBPL 55mmHg (APR 27 18:10) BMI31.81 (APR 26 22:10) Measurements from flowsheet : Measurements 04/26/2023 22:10 EDT Height 162.6 cm Admission Weight 84.1 kg Stanley Body Weight 54.74 kg BSA Admission 1.89 [...] with support Epidural Placed By JAYNA ALMARAZ SHIPBOARD INTELLIGENCE ANALYST-MANAGER E LEARNING Epidural Test Dose Time 04/27/2023 18:05 [...] date/time 04/27/2023 17:45 Provider Notified BELKYS ESCALANTE SHIPBOARD INTELLIGENCE ANALYST-CNM Notification Method Phone Information Communicated Nurse communication Details Communicated patient is 5/80/-2, going to get her an epidural, pitocin turned off Notification Outcome Orders not received Person Reporting Result(s) charles wood rn 04/27/2023 17:44 EDT Monitoring Annotations patient up to the bathroom 04/27/2023 17:33 EDT Notify date/time 04/27/2023 17:33 Provider Notified JAYNA ALMARAZ SHIPBOARD INTELLIGENCE ANALYST-MANAGER E LEARNING Notification Method Phone Information Communicated Nurse [...] date/time 04/27/2023 17:04 Provider Notified BELKYS ESCALANTE SHIPBOARD INTELLIGENCE ANALYST-GORDONM Notification Method Phone Information Communicated Nurse communication [...] date/time 04/27/2023 16:00 Provider Notified BELKYS ESCALANTE SHIPBOARD INTELLIGENCE ANALYST-CN Notification Method Phone Information Communicated Nurse [...] feelings, concerns Skin Temperature Warm Skin Description Bolan, Dry Skin Integrity Intact Sensory Perception Darrel [...] EDT Notify date/time 04/27/2023 8:24 Provider Notified OJHN VERDUGO DO Notification Method Phone Information Communicated [...] Orders not received Person Reporting Result(s) Tim [facility] 04/27/2023 4:25 EDT Activity Status ADL Awake, [...] 01/14/2023 Designated Person #1 We May Share [facility] [phone] Designated Person #1 Relationship Spouse Privacy Restrictions Requested None Height 162.6 cm Admission Weight 84.1 kg Stanley Body Weight 54.74 kg BSA Admission 1.89 [...] No Surrogate No Discharge Physician Dr. Hernandez [facility] Participant No Safe Sleep Environment [...] No Weight Loss No Preferred Spoken Language Welsh Preferred Written Language Welsh Teaching Evaluation Verbalizes/Nonverbally indicates understanding Safety Brochure Information Reviewed Yes [facility]odang[facility] Video Viewed No Chief Complaint induction of labor Mode of Arrival Ambulatory Accompanied by Spouse Information Given by Patient Patient's Current Physicians Dr. Verdugo Emergency Contact Number Tegan Maddox [phone] Reason For Visit OB Induction Belongings At [...] EDT OBHx 1 . Assessment and Plan [place] Society of Anesthesiologists (ASA) physical status classification: Class II. Anesthetic Preoperative Plan Premedication: None. Anesthetic technique: Epidural. Induction. Maintenance airway: Mask. Regional: Epidural. Postoperative pain management: Per surgeon. Risks discussed: nausea, vomiting, headache, sore throat, dental injury, hypotension, allergic reaction, serious complications. Informed consent: signed by patient. Digitally Signed by JAYNA ALMARAZ APRN-MANAGER E LEARNING on 04/27/2023 06:24 PM [facility] 04-12-2023 Evaluation + Plan note Diagnostic Tests Pending * Rapid Plasma Reagin Test 01/14/23 [facility] 01-20-2023 Note. MICRO - Microbiology PROCEDURE: Urine Culture [*1] SOURCE: Urine BODY SITE: COLLECTED DATE/TIME: 10/22/2022 16:43 EST RECEIVED DATE/TIME: 10/23/2022 14:08 EST START DATE/TIME: 10/23/2022 14:08 EST FREE TEXT SOURCE: FINAL REPORTS Final Report [] Verified Date/Time/Personnel: 10/24/2022 15:10 EST <10,000 cfu/ml. No Significant growth. Sensitivity not indicated. Performing Locations *1: This test was performed at: [facility], [address] [place] [address], [facility] , [facility] ([place])10-22-2022 Evaluation + Plan note Diagnostic Tests Pending * Panel (AO) 10/22/22 * Varicella Zoster Antibody 10/22/22 [facility] Evaluation + Plan note No data available for this section [facility] Evaluation note* Diagnosis Toe injury, left, initial encounter [facility]* Diagnosis Toe injury, left, initial encounter- Primary Toe injury, left, initial encounter documented in this encounter [facility] note* Diagnosis Onset Date Resolution Status Admit Date COVID-19 affecting , antepartum acute June 27, 2025 11:38am FH: breast cancer acute Sept2024 11:38am acute June 11:38am Rh negative status during acute June 27, 2025 11:38am Supervision of high-risk acute June 27, 2025 11:38am [facility] Work Phone: Hospital Discharge instructions No data available for this section [facility] progress note No data available for this section [facility] progress note Author Angely Stone [facility] Note Date/Time June 27, 2025 12:22pm [facility] [address] [place] [address], [address] [place] [address] OFFICE VISIT Date of Service: 06/27/25 MR#: [id number] Acct: [id number] Name: EVELYN MADDOX Rep #: [id number] : 1995 Provider: VILMA Stone Age/Sex: 29/F Location: [facility] Status: Signed Intake Vital Signs 06/27/25 11:41 Height 5 ft 4 in Weight: 176 lb 4 oz BMI 30.2 BP 127/82 H Intake Visit Reasons: *NEW* NOB JAMES GAURANG 09/04 30wk2d 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 Is patient in pain?: No [...] mg-folate no.1 1 mg-dha 300 mg capsule (PNV-Charlotte) vitamin E (dl, acetate) 90 mg (200 90 mg PO QDAY 06/2206/27/25 History unit) capsule Last Menstrual Period: 11/28/24 : No Have you fallen in the past year?: No PFSH PFSH Medical History Seasonal allergies Surgical History Gower teeth extracted Family History Father Colon cancer, [...] physical activity do you participate in: none luis/yazdanism: Rastafari seatbelt use: always do you feel safe at home: Yes additional social history: Jairo Patel History 2 Elective abortions Hx Para 1 Spontaneous abortions Hx # Term Pregnancies Ectopic pregnancies Hx # Pregnancies Multiple births # of living children 1 Past Pregnancies Del. Date Name GA/Weeks Outcome Route Bth Weight Gen Labor Lgth Anesthesia Del Locatn Provider FOB 04/28/23 [place] 41 live - full term 7#7oz Male epidural [facility] Navya Boris Camilo Delivery Date: 04/28/23 Last [...] Negative 150 31 -?-?-?-?-?-?-?-?-?-?-?-?- KW- JAMES from [facility]. Records reviewed and PRR KW- JAMES from [place]. Recor ds reviewed and PRR- waiting on [...] No, Recent travel outside of [place]: Yes ([place]), Concern for hepatitis exposure: No, Varicella immune: [...] blood transfusions, Pulmonary (e.g.,TB,Asthma), Drug/latex allergies/reactions, Breast, Cooker Meal surgery, Anesthetic complications, History of abnormal pap, [...] Cosigner Signature: Date (if applicable) CC: ~ [facility] Work Phone: Reason for referral (narrative)* Diagnostic Procedure Only (Urgent) - Closed Specialty Diagnoses / Procedures Referred By Tyrell t Referred To Contact XR IMAGING Diagnoses Toe injury, left, initial encounter Procedures XR FOOT GENERAL 3V AP/LAT/OBL LEFT RADEX FOOT COMPLETE MINIMUM 3 VIEWS Alethea Leyva APRN.CNP [address] [place] [address] [place] [address] Referral ID Status Reason Start Date Expiration Date V isits Requested Visits Authorized [id number] Closed Auto-Generate d Referral 04/10/2024 05/10/2025 1 1 [facility] for referral (narrative)* Diagnostic Procedure Only (Urgent) - Closed Specialty Diagnoses / Procedures Referred By Contac t Referred To Contact XR IMAGING Diagnoses Toe injury, left, initial encounter Procedures XR FOOT GENERAL 3V AP/LAT/OBL LEFT RADEX FOOT COMPLETE MINIMUM 3 VIEWS Alethea Leyva APRN.CNP [address] [place] [address] [place] [address] Referral ID Status Reason Start Date Expiration Date V isits Requested Visits Authorized [id number] Closed Auto-Generate d Referral 04/10/2024 05/10/[address] [facility]No reason for referral information availableFargo [facility]reo[facility] Services Work Phone: Reason for visit Narrative* Diagnostic Procedure Only (Urgent) - Closed Specialty Diagnoses / Procedures Referred By Contac t Referred To Contact XR IMAGING Diagnoses Toe injury, left, initial encounter Procedures XR FOOT GENERAL 3V AP/LAT/OBL LEFT RADEX FOOT COMPLETE MINIMUM 3 VIEWS Alethea Leyva APRN.[employer] [address] [place] [address] [place] [address] Referral ID Status Reason Start Date Expiration Date V isits Requested Visits Authorized [id number] Closed Auto-Generate d Referral 04/10/2024 05/10/[address] [facility] Summary Purpose Family History Relationship Condition [...] status during Jun 11:38am [facility] Chief Complaint Admit Date [...] Primary Care Physician Address: Address: [address] [address] [place] [address]- Care Team Related Persons Name: TEGAN MADDOX Care Team Personnel Name: ROMÁN HERNANDEZ DO Member Role: Primary Care Physician Address: Address: [address] [address] [place] [address]- Care Team Related Persons Name: TEGAN MADDOX Address: Home [address] [place] [id number] Care Team Personnel Name: ROMÁN HERNANDEZ DO Member Role: Primary Care Physician Address: Address: [address] [address] [place] [address]- Care Team Related Persons Name: TEGAN MADDOX Address: Home [address] [place] [address] Care Team Personnel Name: ROMÁN HERNANDEZ DO Member Role: Primary Care Physician Address: Address: [address] [address] [address] [place] [address]- Care Team Related Persons Name: TEGAN MADDOX Address: [address] [address] Patient Care team informatio n (unrecognized section and content) Gasket Former Relationship Specialty Start Date End Date Román [place] [id number] [address] PCP - General Internal Medicine 08/03/18 Team [...] section and content) DATE CREATED AUTHOR 07/13/2023 [facility] ([place]) DATE CREATED AUTHOR AUTHOR'S ORGANIZ ATION 04/10/2024 [facility] DATE CREATED AUTHOR AUTHOR'S ORGANIZ ATION 06/10/2025 [facility] DATE CREATED AUTHOR AUTHOR'S ORGANIZ ATION 06/21/2025 [facility] DATE CREATED AUTHOR AUTHOR'S ORGANIZ ATION 08/17/2025 [facility] Source Comments (unrecognize d section and content) In the event this informatio n is protected by the Federal Confidentiality of Alcohol and Drug Abuse Patient Records regulations: The Federal rules restrict any use of the information to criminally investigate or prosecute any alcohol or drug abuse patient.[facility] the event this information is protected by the Federal Confidentiality of Alcohol and Drug Abuse Patient Records regulations: The Federal rules restrict any use of the information to criminally investigate or prosecute any alcohol or drug abuse patient.[facility] Reason for Visit (unrecogniz ed section [...] BE BASED ON THE PRIMARY CLINICAL RECORDS. [facility] [employer] [facility]. provides no warranty or guarantee of the accuracy or completeness of information in this document.
[2025-09-11 08:07] LABS: Hematocrit 36.7 % (37-47); Hemoglobin 13.1 g/dL (12.0-15.0); Immature Granulocytes Count 0.060 X10^3/uL (0.0-0.0); Mean Corp Hgb Conc 35.7 g/dL (32-36); Mean Corpuscular Volume 90.0 fL (81-99); Mean Platelet Vol. 10.0 fl (6.2-12.0); NRBC Flagged by Analyzer 0 % (0-5); Platelet Count 245 K/mm3 (150-450); RBC Distribution Width CV 12.5 % (11.6-14.6); RBC Distribution Width SD 40.8 fl (35.1-43.9); Red Blood Count 4.08 M/mm3 (4.2-5.4); White Blood Count 9.1 K/mm3 (4.4-11.0)
[2025-09-11 08:49] LABS: Hepatitis C Antibody Nonreactive (Nonreactive); Syphilis Antibodies Nonreactive (Nonreactive)
[2025-09-11] MEDS: Oxytocin 15 Units/NS 250ml 15 UNITS/250 ML IV.SOLN 2 UNITS IV (09:16)
[2025-09-11] MEDS: Lactated Ringers 1,000 ML 50 ML IV (09:16)
--- NOTE | 2025-09-11 09:20 | HP.PCM.OB_ITS ---
HPI - General General Date of Admission: 09/11/25 HPI Narrative EVELYN MADDOX, is a 29 F who presents @ 41 weeks presents for IOL postdates. Maternal Data Information GAURANG Calculator Estimated Delivery Date Method Current WG Current Estimate 09/04/25 LMP (Certain) 41w 0d PFSH PFS Medical History Seasonal allergies Home Medications ?Medication ?Instructions ?Recorded ?Last Taken ?Type ascorbic acid (vitamin C) 500 mg 500 mg PO 0 06/22/25 09/10/25 History capsule aspirin 81 mg tablet 81 mg PO QDAY 06/05 05/29 Unknown History calcium gluconate 50 mg calcium mg PO 09/11/25 History capsule magnesium 250 mg tablet 250 mg PO QDAY 09/11/25 History multivit-min no.71-iron fum 28 cap PO 09/11/25 History mg-folate no.1 1 mg-dha 300 mg capsule (PNV-[place]) Allergy/AdvReac Type Severity Reaction Status Date / Time No Known Allergies Allergy Verified 09/11/25 08:53 Family History Father Colon cancer, Onset Age: 67 Maternal Grandmother Breast cancer, Onset Age: 90 Grandfather Colon cancer, Onset Age: 57 Paternal Uncle Cancer, Onset Age: 55 lung, liver- Paternal Uncle Cancer, Onset Age: 64 Prostate-Paternal Uncle Cancer, Onset Age: 72 lymphoma Paternal Aunt Breast cancer, Onset Age: 42 Paternal Mother Heart disease electrical issues Surgical History [place] teeth extracted Social History adopted: Yes household members: spouse and children housing: house number of children: 1 current occupational status: 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 pets and animals: No history of recent travel: Yes (- Jun) out of country: Yes sexually active: Yes Smoking Status: Never smoker alcohol intake: current alcohol intake frequency: holidays/special occasions only details: Not while substance use type: does not use well-balanced diet: about half the time caffeine: Yes Type: coffee Number of servings: 2 eating out: 1-3 times/week during the past year weight has: decreased > 10 lbs what type of physical activity do you participate in: none luis/holiness: Zoroastrianism seatbelt use: always do you feel safe at home: Yes additional social history: Jairo Patel History 2 Elective abortions Hx Para 1 Spontaneous abortions Hx # Term Pregnancies Ectopic pregnancies Hx # Pregnancies Multiple births # of living children 1 Past Pregnancies Del. Date Name GA/Weeks Outcome Route Bth Weight Infant Gen Labor Lgth Anesthesia Del Locatn Provider FOB 04/28/23 Roff 41 live - full term 7#7oz Male epidural Nataliia Escalante Ton Delivery Date: 04/28/23 Last Updated by: Pia Mora IOL, post dates- baby had knot in cord Visit Details Expected Delivery Route/Plan Labor Preferences- CB/BF classes: no labor support person: Ton labor intervention preferences: [] pain management options preferred: epidural cut cord/dad catch: cord : yes PP control planned: [] discussed possible routes of delivery and associated risks: [] special requests: [] Plans Covid status: [] Flu vaccine: declines Tdap vaccine: declines Rhogam: given LARC form signed: yes Problem list reviewed and updated with the most current plan of care details and appropriate orders placed. Relevant counseling for the gestational age provided. Continue routine care and follow up unless otherwise noted in visit notes/problem list details OB Flowsheet Initial Weight: 150 lb Date -?-?-?-?-?-?-?-?-?-?-?-?- EGA Weight BP Urine Prot -?-?-?-?-?-?-?-?-?-?-?-?- Glucose FHR FuHt Pres Dilation -?-?-?-?-?-?-?-?-?-?-?-?- Effaced St Visit Note 06/27/25 -?-?-?-?-?-?-?-?-?-?-?-?- 30w 1d 176 lb 4 oz (+26 lb 4 oz) 127/82 Negative -?-?-?-?-?-?-?-?-?-?-?-?- Negative 150 31 -?-?-?-?-?-?-?-?-?-?-?-?- KW- JAMES from [facility]. Records reviewed and PRR KW- JAMES from ana. Recor ds reviewed and PRR- waiting on glucose results. good fm and no vb/lof/ctx. will need rhogam 07/2207/10/25 -?-?-?-?-?-?-?-?-?-?-?-?- 32w 0d 180 lb 9 oz (+30 lb 9 oz) 115/74 Negative -?-?-?-?-?-?-?-?-?-?-?-?- Negative 145 Cephalic -?-?-?-?-?-?-?-?-?-?-?-?- JV- pt is here f or some leaking fluid, vaginal bulge, and is nervous about the position of the baby. on exam she has a significant rectocele. no pooling of fluid seen but rom plus ordered. position is vtx. patient reassured. 07/27/25 -?-?-?-?-?-?-?-?-?-?-?-?- 34w 3d 185 lb 9 oz (+35 lb 9 oz) 107/74 Negative -?--?-?-?-?-?-?-?-?-?-?-?- Negative 158 34 Cephalic -?-?-?-?-?-?-?-?-?-?-?-?- MH-No VB, LOF. G ood FM. Rhogam. declines tdap and flu vaccines 08/10/25 -?-?-?-?-?-?-?-?-?-?-?-?- 36w 3d 188 lb (+38 lb) 134/83 Negative -?-?-?-?-?-?-?-?-?-?-?-?- Negative 140 36 Cephalic 0 .5 -?-?-?-?-?--?-?-?-?-?-?-?- SM- no vb lof go od fm n oreuglar ctx 08/14/25 -?-?-?-?-?-?-?-?-?-?-?-?- 37w 0d 188 lb 3 oz (+38 lb 3 oz) 105/72 -?-?-?-?-?-?-?-?-?-?-?-?- 150 37 Cephalic -?-?-?-?-?-?-?-?-?-?-?-?- KW- no vb/lof/ct x. good fm. no concerns today. declines vaginal exam. 08/21/25 -?-?-?-?-?-?-?-?-?-?-?-?- 38w 0d 190 lb 2 oz (+40 lb 2 oz) 111/75 Negative -?-?-?-?-?-?-?-?-?-?-?-?- Negative 145 38 Cephalic 0 .5 -?-?-?-?-?-?-?-?-?-?-?-?- thick KV- Good FB. No regular ctx, LOF, or VB. No concerns. KV- Good FB. No regular ctx, LOF, or VB. No concerns. GBS neg. 08/30/25 -?-?-?--?-?-?-?-?-?-?-?-?- 39w 2d 194 lb 2 oz (+44 lb 2 oz) 127/87 Negative -?-?-?-?-?-?-?-?-?-?-?-?- Negative 130 39 Cephalic 0 .5 -?-?-?-?-?-?-?-?-?-?-?-?- 50 -3 JV- bedsid e ultrasound used to show vtx position. adequate fluid present. pt noticed leaking something when she got up on the table. rom plus collected. doesnot appear grossly ruptured though 09/04/25 -?-?-?-?-?-?-?-?-?-?-?-?- 40w 0d 193 lb 8 oz (+43 lb 8 oz) 119/87 Negative -?-?-?-?-?-?-?-?-?-?-?-?- Negative 140 40 Cephalic 1 .5 -?-?-?-?-?-?-?-?-?-?-?-?- 30 -3 SM- no vb lof good fm no reugalr ctx SM- no vb lof good fm no reu galr ctx iol setup for 41 weeks NST FHR Rate Baby A Baseline: 130 Variability:: Moderate Accelerations:: 15 x 15 Decelerations:: None NST Reactive:: Yes FHR Category:: Category I Uterine Activity:: irregular ROS Constitutional Constitutional: Reports systems reviewed and no addt'l complaints, except as documented Eyes Eyes: Denies change in vision ENT HEENT: Reports systems reviewed and no addt'l complaints, except as documented; Denies headache(s) Cardiovascular Cardiovascular: Reports systems reviewed and no addt'l complaints, except as documented; Denies chest pain or dyspnea Respiratory/Chest Respiratory/Chest: Reports systems reviewed and no addt'l complaints, except as documented Gastrointestinal Gastrointestinal: Reports systems reviewed and no addt'l complaints, except as documented; Denies abdominal pain Genitourinary Genitourinary: Reports systems reviewed and no addt'l complaints, except as documented, contractions Details: present (irregular) and movement Details: present; Denies dysuria or genital lesions Musculoskeletal Musculoskeletal: Reports systems reviewed and no addt'l complaints, except as documented Neurologic Neurologic: Reports systems reviewed and no addt'l complaints, except as documented Endocrine Endocrinology: Reports systems reviewed and no addt'l complaints, except as documented Vital Signs Vital Signs Vital Signs: 09/11/25 07:31 09/11/25 07:31 09/11/25 07:31 Temperature Pulse Rate 86 Respiratory Rate 17 Blood Pressure 129/77 H BP Systolic 129 BP Diastolic 77 Pulse Ox 09/11/25 07:31 09/11/25 07:34 09/11/25 07:34 Temperature 97.5 F L Pulse Rate 88 Respiratory Rate Blood Pressure BP Systolic BP Diastolic Pulse Ox 98 Weight Weight: 194 lb Body Mass Index (BMI) 33.3 Physical Exam Const alert, oriented x3, no apparent distress and healthy appearing HEENT normocephalic and moist oral mucous membranes Head and Scalp: atraumatic Neck full ROM, no lymphadenopathy, supple and thyroid normal General: trachea midline Lymph Lymphatic: no lymphadenopathy noted Chest inspection of chest normal Resp normal respiratory effort Cardio regular rate GI soft to palpation and non-tender GI Narrative: gravid Inspection: gravid external exam normal Manual OB Exam: estimated gestational size appropriate, presentation cephalic, dilated, effaced and station Extremity normal to inspection General Extremity: Negative for edema Skin no rashes or lesions noted Neuro no focal motor deficits and deep tendon reflexes 2+ bilaterally Motor Exam: strength 5/5 throughout and clonus absent Psych mental status grossly normal Labs Labs Labs: Blood Type A NEGATIVE Antibody Screen POSITIVE Hct, (37-47) 36.7 % L Hgb, (12.0-15.0) 13.1 g/dL Syphilis Total Ab, (Nonreactive) Nonreactive Hepatitis C Antibody, (Nonreactive) Nonreactive Gest Glucose Tolerance mg/dL Assessment & Plan (1) Abnormal glucose affecting : COMMENT: normal 3hr (2) Supervision of high-risk : QUALIFIERS: Trimester: third trimester Qualified Code(s): O09.93 - Supervision of high risk , unspecified, third trimester COMMENT: PRR , GAURANG 09/04/25, PC Roff, Ton (3) : QUALIFIERS: Weeks of gestation: 40 weeks Qualified Code(s): Z3A.40 - 40 weeks gestation of COMMENT: declined NIPT & Carrier, JAMES to BWC @ 30wks. GBS Neg. (4) FH: breast cancer: COMMENT: Maternal grandmother, Paternal Aunt (5) Rh negative status during : QUALIFIERS: Trimester: third trimester Qualified Code(s): O26.893 - Other specified related conditions, third trimester; Z67.91 - Unspecified blood type, Rh negative COMMENT: is A+, Had Rhogam @ 24wks due to fall(given 04/29/25- Nataliia, 07/27) (6) COVID-19 affecting , antepartum: COMMENT: 06/12/25, ASA 81 mg daily (7) Encounter for induction of labor: (8) Post term at 41 weeks gestation: PLAN: Plan Patient presents IOL, plan management for with pitocin/AROM. Pain management: plans epidural. GBS negative. Management of any complications: none I have reviewed the [facility] and made any clinically relevant updates.
[2025-09-11] MEDS: Lactated Ringers 1,000 ML 200 ML IV ×2 (14:01→16:57)
[2025-09-11] MEDS: fentaNYL-bupivacaine (epidural) 100 ML BAG EPIDURAL (14:01)
--- NOTE | 2025-09-11 17:45 | PCM.PN.BLA ---
Progress Note 3 pm arom clear fluid cat I tracing 5 cm comfortable with epidural
--- NOTE | 2025-09-11 17:57 | EX.PCM.OBVAG ---
Assessment & Plan (1) Vaginal delivery: COMMENT: SM IOL postdates girl (2) Post term at 41 weeks gestation: (3) Encounter for induction of labor: (4) Abnormal glucose affecting : COMMENT: normal 3hr (5) Supervision of high-risk : QUALIFIERS: Trimester: third trimester Qualified Code(s): O09.93 - Supervision of high risk , unspecified, third trimester COMMENT: PRR , GAURANG 09/04/25, PC Nemesio, Ton (6) : QUALIFIERS: Weeks of gestation: 40 weeks Qualified Code(s): Z3A.40 - 40 weeks gestation of COMMENT: declined NIPT & Carrier, JAMES to BWC @ 30wks. GBS Neg. (7) Rh negative status during : QUALIFIERS: Trimester: third trimester Qualified Code(s): O26.893 - Other specified related conditions, third trimester; Z67.91 - Unspecified blood type, Rh negative COMMENT: is A+, Had Rhogam @ 24wks due to fall(given 04/29/25-Nataliia, 07/27) Maternal Data Information GAURANG Calculator Estimated Delivery Date Method Current WG Current Estimate 09/04/25 LMP (Certain) 41w 1d Vaginal Delivery Maternal Presentation Maternal Presentation: see assessment and plan Vaginal Delivery Information Procedure Performed: Spontaneous Vaginal Delivery Surgeon/Practitioner: Amy Acuña Date of Procedure: 09/11/25 Pre-Procedure Diagnosis: see assessment and plan Post-Procedure Diagnosis: same Type of anesthesia: Epidural Findings Description of procedure: Patient began pushing and delivered the head in the KASIA presentation. The head was delivered atraumatically and a loose nuchal cord ?1 was identified and easily reduced over the infant's head. The anterior and posterior shoulders delivered without complication followed by the rest of the infant and the was placed on the maternal abdomen. Delayed cord clamping was employed for approximately 60 seconds. Cord was clamped and cut and gentle traction was applied to the cord and the placenta delivered spontaneously immediately following it was noted to be intact with three-vessel cord. The perineum and vagina were inspected and was noted to have a first -degree laceration that was repaired in the usual fashion with 3-0 vicryl rapide . EBL was 300. Patient and tolerated delivery well. 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
--- NOTE | 2025-09-11 17:58 | PCM.DC ---
Discharge Instructions DC O2, CPAP, BIPAP needs Home O2 Discharge instructions: No Dressing / Incision Discharge Activity: Return to Normal Activity, May Not Drive (while taking narcotic pain medications.) and May Shower May resume sexual activity in: 4-6 weeks Dressing / Incision Call your doctor if your incision/area has: Continuous Slow Oozing, Sudden Increased Bleeding, Increased Pain/ Swelling, Increased Redness and Foul Smelling Discharge Follow Up Care Please Follow Up With: Amy Acuña MD When: Call [phone] to make an appointment with your doctor in 6 weeks. If you had elevated blood pressure or 4th degree laceration, you will need to be seen in 2 weeks. Test Results: Test results from this visit will be discussed in further detail at your follow-up appointment, if applicable. Discharge Plan Admission Admit Date/Time: 09/11/25 07:17 Attending Provider: Amy Acuña Primary Care Provider: Care Physician,No Primary Discharge Orders/Prescriptions Prescriptions: No Action PNV-[place] 28-1-300 mg capsule PO magnesium 250 mg tablet 250 mg PO QDAY ascorbic acid (vitamin C) 500 mg capsule 500 mg PO calcium gluconate 50 mg calcium capsule PO aspirin 81 mg tablet 81 mg PO QDAY Referrals / Follow Up: Care Physician,No Primary [Primary Care Provider, Medical]
[2025-09-11] MEDS: Oxytocin 15 Units/NS 250ml 15 UNITS/250 ML IV.SOLN 83 UNITS IV (19:00)
[2025-09-12 00:03] VITALS: BP 125/89; PULSE 73; RESP 16; TEMP 36.6
[2025-09-12 04:55] VITALS: BP 116/73; PULSE 74; RESP 14; TEMP 36.5; O2SAT 98
[2025-09-12] MEDS: 0.9% Saline Lock 10 ML Syringe IV (05:17)
[2025-09-12] MEDS: Rho(D) Immune Globulin 300 MCG (1500 Unit) Syringe IV (05:17)
[2025-09-12 09:05] VITALS: BP 117/83; PULSE 96; RESP 16; TEMP 36.5; O2SAT 97
[2025-09-12] MEDS: Senna/Docusate Sodium 1 Tablet PO (09:11)
--- NOTE | 2025-09-12 11:11 | PCM.PN.OB ---
Subjective Subjective Patient doing well without complaints. Tolerating PO. Ambulating and voiding without difficulty. feeding well. Denies chest pain, shortness of breath, calf pain/swelling, fevers, chills, lightheadedness. Objective Data Objective Data Vital Signs: Vital Signs Temp Pulse Resp BP Pulse Ox O2 Del Method 97.7 F L 96 16 117/83 H 97 Room Air 09/12/25 09:05 09/12/25 09:05 09/12/25 09:05 09/12/25 09:05 09/12/25 09:05 09/12/25 09:05 Oxygen Delivery Method Room Air Weight: 194 lb Body Mass Index (BMI) 33.3 Intake & Output: Intake and Output for Last 24 Hours 09/10/25 09/11/25 09/12/25 23:59 23:59 23:59 Intake Total 3500.00 / 3500.00 Output Total 1850 / 1850 600 / 600 Balance 1650.00 / 1650.00 -600 / -600 Lab / Micro Data 09/11/25 07:30 Labs: Laboratory Results - last 24 hr 09/11/25 22:09: Screen NEGATIVE, Baby's Blood Type A POSITIVE, Baby's WOO NEGATIVE ROS Constitutional Constitutional: Reports systems reviewed and no addt'l complaints, except as documented Cardiovascular Cardiovascular: Reports systems reviewed and no addt'l complaints, except as documented Respiratory/Chest Respiratory/Chest: Reports systems reviewed and no addt'l complaints, except as documented Gastrointestinal Gastrointestinal: Reports systems reviewed and no addt'l complaints, except as documented Physical Exam Const alert, oriented x3 and no apparent distress HEENT Head and Scalp: atraumatic Resp normal respiratory effort GI soft to palpation and non-tender Bimanual Exam - Vag & Uterus: uterus non-tender Uterus Palpation: uterus fundus firm (below Umbilicus) Assessment & Plan (1) Vaginal delivery: COMMENT: SM IOL postdates girl PLAN: Plan s/p PPD # 1 1. routine post delivery care 2. breast feeding- support given 3. rh neg 4. rubella immune
[2025-09-12 12:25] VITALS: BP 119/83; PULSE 61; RESP 16; TEMP 36.5; O2SAT 98
[2025-09-12 16:55] VITALS: BP 118/67; PULSE 70; RESP 16; TEMP 36.4; O2SAT 97
== END 2025-09-12 20:20 | disposition home or self-care (01) | DRG 807 ==
PROVIDERS: Advanced Practice Midwife; Admitting Provider Obstetrics & Gynecology; Referring Provider Obstetrics & Gynecology; Visit Provider Obstetrics & Gynecology
DX: O48.0 Post-term pregnancy (principal); Z37.0 Single live birth; O26.893 Other specified pregnancy related conditions, third trimester; O69.81X0 Labor and delivery complicated by cord around neck, without compression, not applicable or unspecified; O70.0 First degree perineal laceration during delivery; Z67.11 Type A blood, Rh negative; Z3A.41 41 weeks gestation of pregnancy; Z79.82 Long term (current) use of aspirin; Z86.16 Personal history of COVID-19; Z87.59 Personal history of other complications of pregnancy, childbirth and the puerperium
CPT/HCPCS: 59025; 59050; 85025; 85461; 86780; 86803; 86850; 86870; 86900; 86901; 90384; 99221; A4216; G0378; J2790; J2791